=== PATIENT | female | born 1950 | race Caucasian/White ===

== ENCOUNTER 2017-12-06 13:00 | Outpatient (RCR) | payer MEDICARE, BC, SELFPAY ==
--- NOTE | 2017-12-06 14:38 | PTDS_ITS ---
Date: December 06, 2017 Referring: Ketan Khoury M.D. Diagnosis: neck and upper back pain Reporting period: October 05 til December 06 Subjective: History of Present Illness: Gilda reports she could not continue with MSP secondary to bronchitis. She has resolved this with antibiotics, and is currently reporting minimal to no neck pain; 85 to 90% improved since starting P.T. She is independent and compliant with her HEP and with her aquatic exercises. Standardized Measures: 0% via the NDI Objective: Recheck - - ROM: AROM of the cervical spine is grossly WFL and painfree in all directions. Still hypo mobility with down slopes and up slips at the mid cervical spine. Treatment: Therapeutic procedure (23362 x2) Progressed her HEP with Phase 1 Cervical Stabilization. Provided verbal cues for proper scapular positioning and cervical retraction. Treatment Time: 1:00 til 1:30 P.M. GCODES: Changing and maintaining body positions with a projected goal of GPG 8982 CI and a discharge status of GPG 8983 CH. 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 Plan: Discharge patient from P.T. She will attend our Wellness Program in February. Thank you for this referral! Please sign, date and return to our clinic with your approval................................. Ketan Khoury M.D.
== END 2017-12-21 23:59 | disposition home or self-care (01) ==
LOC: PT 13:00
PROVIDERS: PCP Family Medicine; Referring Provider Nurse Practitioner Gerontology; Visit Provider Nurse Practitioner Gerontology
DX: M54.2 Cervicalgia (principal); M54.6 Pain in thoracic spine
CPT/HCPCS: 97110

== ENCOUNTER 2018-01-03 02:27 | Outpatient (CLI) | payer MEDICARE, BC, SELFPAY ==
[2018-01-03 11:13] LABS: ALT 30 U/L (12-78); AST 23 U/L (15-37); Albumin 3.3 g/dL (3.4-5.0); Alkaline Phosphatase 64 U/L (46-116); Anion Gap 5.7 mmol/L (3-11); BUN 17 mg/dL (7-18); Bilirubin, Total 0.2 mg/dL (0.2-1.0); CO2 32.3 mmol/L (21.0-32.0); CREATININE 0.85 mg/dL (0.55-1.02); Calcium 8.8 mg/dL (8.5-10.1); Chloride 103 mmol/L (98-107); Cholesterol 173 mg/dL (50-200); Glucose 102 mg/dL (70-100); HDL Cholesterol 61 mg/dL (40-60); LDL CHOLESTEROL 100 mg/dL (<100); Potassium 3.7 mmol/L (3.5-5.1); Sodium 141 mmol/L (136-145); Total Protein 7.3 g/dL (6.4-8.2); Triglyceride 156 mg/dL (30-150)
[2018-01-03 12:44] LABS: Hemoglobin A1C 6.6 % (4.5-6.2)
== END 2018-01-03 02:47 ==
PROVIDERS: PCP Family Medicine; Visit Provider Family Medicine
DX: R04.2 Hemoptysis (principal); M06.9 Rheumatoid arthritis, unspecified; Z79.52 Long term (current) use of systemic steroids; E78.5 Hyperlipidemia, unspecified; R73.09 Other abnormal glucose
CPT/HCPCS: 36415; 80053; 80061; 83721; 83036

== ENCOUNTER 2018-05-15 13:44 | Outpatient (CLI) | payer MEDICARE, BC, SELFPAY ==
--- NOTE | 2018-05-15 11:15 | DI.RAD_ITS ---
SYMPTOMS/DIAGNOSIS: ACUTE SEVERE LUMBAR SPINE, CHRONIC PAIN, M54.5, G89.29 LUMBAR SPINE: There is a moderate levorotoscoliotic deformity of the lower dorsal and upper lumbar spine. The vertebral bodies are intact. Diffuse degenerative bony changes are noted associated with narrowed vacuum discs at T 12 - L 1, L 4 - 5 and L 5 - S 1. Endplate sclerosis and hypertrophic spurring is identified. There is a grade II anterolisthesis of L 4 on L 5. This finding associated with severe facet joint DJD. There is no definite evidence of spondylolysis or spondylolisthesis. The pedicle, spinous and transverse processes are intact. The sacrum and sacroiliac joints as visualized appear unremarkable save for mild degenerative changes. IMPRESSION: Findings consistent with severe DJD with multi-level narrowed vacuum discs, hypertrophic bony changes and a grade II L 4 on L 5 pseudospondylolisthesis. If there is further strong specific clinical question regarding the status of this patient and if clinically appropriate, then further evaluation with a MRI could be considered.
== END 2018-05-15 14:04 ==
PROVIDERS: PCP Family Medicine; Visit Provider Family Medicine
DX: M54.5 Low back pain (principal); M51.36 Other intervertebral disc degeneration, lumbar region; G89.29 Other chronic pain
CPT/HCPCS: 72110

== ENCOUNTER 2018-07-10 01:18 | Outpatient (CLI) | payer MEDICARE, BC, SELFPAY ==
--- NOTE | 2018-07-10 08:50 | DI.CT_ITS ---
SYMPTOM/DIAGNOSIS: HEMOPTYSIS, R04.[address]: A noncontrast CT scan of the chest was performed. There are no priors for comparison. Comparison xray is 11/02/17. There is mild atherosclerosis of the thoracic aorta but no aneurysmal dilatation is seen. Heart size is within normal limits. No significant pericardial effusion is seen. Coronary artery calcifications are present. No significant thoracic adenopathy is seen on this noncontrast examination. No pleural effusion or pneumothorax is identified. No focal consolidating infiltrates are seen in the lungs. There are a few peripheral linear lung markings present. These may represent atelectasis, scarring or mild interstitial disease. There are a few bulla seen in the lungs. The tracheobronchial tree is unremarkable. Chronic changes are seen in the thoracic spine. IMPRESSION: 1. No acute pulmonary process. 2. Linear infiltrate seen in the dependent periphery of the lungs. Differential considerations include atelectasis, scarring. Interstitial disease cannot be excluded.
== END 2018-07-10 01:38 ==
PROVIDERS: PCP Family Medicine; Visit Provider Internal Medicine
DX: R04.2 Hemoptysis (principal); R91.8 Other nonspecific abnormal finding of lung field
CPT/HCPCS: 71250

== ENCOUNTER 2018-08-14 02:01 | Outpatient (CLI) | payer MEDICARE, BC, SELFPAY ==
[2018-08-14 11:03] LABS: Abs Immature Grans 0.03 k/cumm (0.0-0.09); Absolute Basophil Count 0.08 k/cumm (0.0-0.2); Absolute Eosinophil Count 0.25 k/cumm (0.0-0.7); Absolute Lymphocyte Count 1.97 k/cumm (1.2-3.4); Absolute Monocyte Count 1.17 k/cumm (0.11-0.7); Absolute Neutrophil Count 3.68 k/cumm (1.2-6.7); Basophils % 1.1; Eosinophils % 3.5; HCT 38.5 % (36.0-46.0); HGB 12.5 g/dL (12.0-15.5); Immature Grans % 0.4; Lymphocytes % 27.4; Mean Corp. HGB Concentration 32.5 g/dL (32.0-36.0); Mean Corpuscular Hemoglobin 28.9 pg (27.0-33.0); Mean Corpuscular Volume 88.9 fL (80-95); Monocytes % 16.3; Neutrophils % 51.3; Platelet Count 321 x1000/uL (130-400); RBC 4.33 m/cumm (4.00-5.20); RBC Distribution Width 14.2 % (11.7-14.6); White Blood Cell Count 7.18 k/cumm (4.4-10.8)
[2018-08-14 11:36] LABS: Hemoglobin A1C 6.6 % (4.5-6.2)
[2018-08-14 11:38] LABS: ALT 26 U/L (12-78); AST 25 U/L (15-37); Albumin 3.3 g/dL (3.4-5.0); Alkaline Phosphatase 60 U/L (46-116); BUN 17 mg/dL (7-18); Bilirubin, Total 0.3 mg/dL (0.2-1.0); CREATININE 0.92 mg/dL (0.55-1.02); Chloride 101 mmol/L (98-107); Cholesterol 198 mg/dL (50-200); Glucose 104 mg/dL (70-100); HDL Cholesterol 61 mg/dL (40-60); LDL CHOLESTEROL 113 mg/dL (<100); Potassium 3.9 mmol/L (3.5-5.1); Sodium 141 mmol/L (136-145); Total Protein 6.8 g/dL (6.4-8.2); Triglyceride 176 mg/dL (30-150)
[2018-08-14 12:09] LABS: FREE T4 1.01 ng/dL (0.76-1.46)
== END 2018-08-14 02:21 ==
PROVIDERS: PCP Family Medicine; Visit Provider Family Medicine
DX: E03.9 Hypothyroidism, unspecified (principal); I10 Essential (primary) hypertension; E78.5 Hyperlipidemia, unspecified; M06.9 Rheumatoid arthritis, unspecified; R73.09 Other abnormal glucose
CPT/HCPCS: 36415; 80053; 80061; 83721; 83036; 84439; 84443; 85025

== ENCOUNTER 2018-10-09 00:41 | Outpatient (CLI) | payer MEDICARE, BC, SELFPAY ==
--- NOTE | 2018-10-09 15:00 | DI.MAMMO_ITS ---
SYMPTOMS/DIAGNOSIS: SCREENING, Z12.31 MAMMOGRAMS: Mammograms were interpreted according to the usual protocol including computer analysis with CAD system, tomosynthesis and C view imaging. The breast tissue is of moderate radiodensity. There is no dominant mass. There are no suspicious calcifications and there has been no significant interval change when compared with prior images. SUMMARY: No evidence of malignancy, category 1. Yearly screening mammography is recommended. Breast density category B. SA ASSESSMENT OF FINDINGS: Negative. Category 1. Patient will receive a letter notifying them of these results. BI-RADS category B. There are scattered areas of fibroglandular density.
== END 2018-10-09 01:01 ==
PROVIDERS: PCP Family Medicine; Visit Provider Family Medicine
DX: Z12.31 Encounter for screening mammogram for malignant neoplasm of breast (principal)
CPT/HCPCS: 77063; 77067

== ENCOUNTER → 2018-10-11 12:56 | Outpatient (BNVA) | payer MEDICARE, BC, SELFPAY | PROVIDERS: PCP Family Medicine; Referring Provider Family Medicine; Visit Provider Physical Therapy Assistant | DX: Z12.11 Encounter for screening for malignant neoplasm of colon (principal); E11.9 Type 2 diabetes mellitus without complications; I10 Essential (primary) hypertension; Z79.82 Long term (current) use of aspirin; Z80.0 Family history of malignant neoplasm of digestive organs ==

== ENCOUNTER 2018-10-23 14:11 | Outpatient (CLI) | payer MEDICARE, BC, SELFPAY ==
--- NOTE | 2018-10-23 13:38 | DI.RAD_ITS ---
SYMPTOMS/DIAGNOSIS: LEFT KNEE PAIN LEFT KNEE: Severe lateral femorotibial joint space narrowing, articular sclerosis and periarticular hypertrophic spurring and severe DJD involving the patellofemoral joint is noted. A genu varus deformity is identified. SUMMARY: Severe DJD, left knee. LEG LENGTH STUDY: The left leg measures 92 cm, the right leg measures 92 cm. A bilateral genu varus deformity is demonstrated. There are moderately severe right and severe left degenerative changes involving the knee.
== END 2018-10-23 14:31 ==
PROVIDERS: PCP Family Medicine; Referring Provider Family Medicine; Visit Provider Student in an Organized Health Care Education/Training Program
DX: M25.562 Pain in left knee (principal); M17.0 Bilateral primary osteoarthritis of knee; M21.161 Varus deformity, not elsewhere classified, right knee; M21.162 Varus deformity, not elsewhere classified, left knee; R06.00 Dyspnea, unspecified; R60.0 Localized edema
CPT/HCPCS: 99214; 73560; 77073

== ENCOUNTER 2018-11-20 00:07 | Outpatient (CLI) | payer MEDICARE, BC, SELFPAY ==
--- NOTE | 2018-11-20 06:34 | MERGEMPI_ITS ---
*[facility]* *[facility]* [address] [place] [address] Myocardial Perfusion Imaging - SPECT Regadenoson Date of study: 11/20/2018 *PATIENT PRESENTATION* Height: 160cm (63in) Blood Pressure: Weight: 109.1kg (240lb) BSA: 2.26m^2 Referring physician: Tomer Helton Ordering physician: Champ Gonsales Impressions: - Normal myocardial perfusion and contraction after pharmacological stress. - Low risk of cardiac events. Summary: 1. Myocardial perfusion imaging: No myocardial perfusion defects noted. 2. The calculated left ventricular ejection fraction after stress: 52%. LV global systolic function is normal. No left ventricular regional motion abnormality. 3. Stress ECG conclusions: The stress ECG is negative. 4. Imaging information: gated. Image quality reduced due to diaphragmatic attenuation and subdiaphragmatic activity. Attenuation correction used. Indication: R07.9, Appropriate Use Criteria: A (Appropriate). History: REASON FOR VISIT: INCREASED SHORTNESS OF BREATH, LEG SWELLING, MULTIPLE CARDIAC RISK FACTORS IS HERE FOR A PRE-SURGICAL SCREENING FOR SCHEDULED KNEE REPLACEMENT SURGERY ON [address] CARBAJAL. PMH: Asthma. Risk factors: Current tobacco use. Hypertension. Diabetes mellitus. Obesity. Dyslipidemia. Cholesterol: 198mg/dl. HDL: 61mg/dl. LDL: 113mg/dl. Triglycerides: 176mg/dl. ALLERGIES: LEVOFLOXACIN. BUDESONIDE. DOXYCYLINE. FORMOTEROL FUMARATE. MIDAZOLOAM. ENALAPRIT. MEDICATIONS: VITAMIN B COMPLEX. TURMERIC ROOT EXTRACT 500 MG CAP DAILY. TIOTROPIUM BROMIDE 2 PUFFS DAILY. SIMVASTATIN 20 MG Q HS. PREDNISONE 5 MG DAILY. PANTOPRAZOLE 40 MG DAILY. OMEGA-3 FATTY ACIDS 1 CAP DAILY. MVI 1 DAILY. MONTELUKAST 10 MG DAILY. LOSARTAN 100 MG-HYDROCHLOROTHIAZIDE 25 MG DAILY. LORATADINE 10 MG DAILY. LEVOTHYROXINE 150 MCG DAILY. LEFLUNOMIDE 20 MG PO 3X/QWK. GLUCOSAMINE SULFATE 1000 MG DAILY. ATENOLOL 50 MG DAILY. AMLODIPINE 5 MG DAILY. ALBUTEROL SULFATE 2 PUFFS Q 4 HRS PRN. CALCIUM 600 + D BID. ASPIRIN 81 MG DAILY. Imaging Technique: Protocol: Regadenoson. Acquisition: Gated SPECT; 1 day - rest/stress. The patient was imaged in the supine position. Attenuation correction used. Isotope administration: - Rest. Tc[99m]-sestamibi. Dose: 12.4mCi. Injection time: 08:45 AM. Injection to stress time: 00:45. - Stress. Tc[99m]-sestamibi. Dose: 36mCi. Injection time: 11:46 AM. 1-2 min before end of exercise Baseline ECG: SINUS RHYTHM. PROLONGED QT INTERVAL. HR 69 BPM. QTc 490ms; long QT interval. Normal sinus rhythm. Stress protocol: +--------+--+ + + !Stage !HR!BP (mmHg) !Comments ! +--------+--+ + + !Baseline!69!110/70 (83)! ! +--------+--+ + + !1 min !87!128/60 (83)!Inject Regadenoson.! +--------+--+ + + !3 min !83!128/60 (83)! ! +--------+--+ + + !6 min !81!130/62 (85)! ! +--------+--+ + + * Stress results: The rate-pressure product for the peak heart rate and blood pressure was 60631pm Hg/min. Stress ECG: STRESS TEST ENDED IN 6 MINUTES & 47 SECONDS. PT EXPERIENCED NO SIGNIFICANT SIDE EFFECTS FROM LEXISCAN NORMAL HEART RATE AND BLOOD PRESSURE RESPONSE TO LEXISCAN INJECTION NO ECTOPY NO ANGINA NO SIGNIFICANT ST SEGMENT CHANGES. The stress ECG is negative. Myocardial perfusion: Imaging information: gated. Image quality reduced due to diaphragmatic attenuation and subdiaphragmatic activity. Left ventricular size is normal. No myocardial perfusion defects noted. Ventricular Function (Wall Motion): The calculated left ventricular ejection fraction after stress: 52%. LV global systolic function is normal. No left ventricular regional motion abnormality. Study data: Tomer Helton MD supervised and was readily available during the procedure. This study was interpreted by [facility]. Study status: Routine. Consent: The risks, benefits, and alternatives to the procedure were explained to the patient and informed consent was obtained. Procedure: Initial setup. A baseline ECG was recorded. Surface ECG leads and manual cuff blood pressure measurements were monitored. Heart sounds: Normal. Lung sounds: Normal. Regadenoson stress test. Stress testing was performed, with regadenoson by intravenous bolus, for a total dose of 0.4mgover 10.00sec, followed by a 5ml saline flush. The infusion was terminated due to per protocol. Study completion: All catheters inserted during the procedure were removed. The patient tolerated the procedure well and was discharged from the lab. Discharge: The patient left the laboratory in stable condition. Birthdate: Patient birthdate: 1950. Sex: Gender: female. Study date: Study date: 11/20/2018. Study time: 00:01 AM. Signature Documentation: - The imaging portion of this study was interpreted by [employer] Starc[employer] Tomer Helton MD. - The Stress ECG portion of this study was interpreted by Tomer Helton MD. Electronically signed by Tomer Helton 11/20/2018 15:44
[2018-11-20] MEDS: Regadenoson 0.4 MG/5 ML SYR IVP (13:56)
== END 2018-11-20 00:27 ==
PROVIDERS: PCP Family Medicine; Visit Provider Family Medicine
DX: R06.02 Shortness of breath (principal); M79.669 Pain in unspecified lower leg; E11.9 Type 2 diabetes mellitus without complications; F17.210 Nicotine dependence, cigarettes, uncomplicated; I10 Essential (primary) hypertension; Z01.810 Encounter for preprocedural cardiovascular examination
CPT/HCPCS: 78452; 93016; 93018; 93017; J2785

== ENCOUNTER 2018-11-27 10:29 | Outpatient (CLI) | payer MEDICARE, BC, SELFPAY ==
--- NOTE | 2018-11-27 13:00 | DI.RAD_ITS ---
SYMPTOMS/DIAGNOSIS: CERVICALGIA, RA, DIABETES MELLITUS, HYPOTHYROIDISM, M54.2, E11.9, E03.9 CERVICAL SPINE: There is severe narrowing of the C 3 - 4 and C 6 - 7 disc spaces. There are also facet degenerative changes. There is straightening of the normal cervical lordosis. There is bilateral neural foraminal narrowing seen greatest C 3 - 4 and C 6 - 7 bilaterally. IMPRESSION: Facet degenerative changes and degenerative disc changes cause bilateral neural foraminal narrowing.
== END 2018-11-27 10:49 ==
PROVIDERS: PCP Family Medicine; Visit Provider Family Medicine
DX: E11.9 Type 2 diabetes mellitus without complications (principal); E03.9 Hypothyroidism, unspecified; M54.2 Cervicalgia; M50.31 Other cervical disc degeneration, high cervical region; M50.323 Other cervical disc degeneration at C6-C7 level; M47.812 Spondylosis without myelopathy or radiculopathy, cervical region
CPT/HCPCS: 72050

== ENCOUNTER 2018-11-29 03:53 | Outpatient (CLI) | payer MEDICARE, BC, SELFPAY ==
[2018-11-29 11:06] LABS: Hemoglobin A1C 6.8 % (4.5-6.2)
[2018-11-29 11:16] LABS: ALT 29 U/L (12-78); AST 23 U/L (15-37); Albumin 3.4 g/dL (3.4-5.0); Alkaline Phosphatase 56 U/L (46-116); Anion Gap 10.5 mmol/L (3-11); BUN 19 mg/dL (7-18); Bilirubin, Total 0.4 mg/dL (0.2-1.0); CO2 28.5 mmol/L (21.0-32.0); CREATININE 1.04 mg/dL (0.55-1.02); Calcium 9.2 mg/dL (8.5-10.1); Chloride 101 mmol/L (98-107); Glucose 146 mg/dL (70-100); Potassium 4.1 mmol/L (3.5-5.1); Sodium 140 mmol/L (136-145); TSH 2.65 uIU/mL (0.36-3.74)
== END 2018-11-29 04:13 ==
PROVIDERS: PCP Family Medicine; Visit Provider Family Medicine
DX: E11.9 Type 2 diabetes mellitus without complications (principal); E03.9 Hypothyroidism, unspecified
CPT/HCPCS: 36415; 80053; 83036; 84443

== ENCOUNTER 2018-12-19 00:40 | Outpatient (CLI) | payer MEDICARE, BC, SELFPAY ==
--- NOTE | 2018-12-19 08:05 | DI.MRI_ITS ---
SYMPTOM/DIAGNOSIS: CERVICAL STENOSIS WITH INTERMMITTENT NEURO SX M48.02 MRI CERVICAL SPINE: Routine noncontrast examination was performed. There is normal signal in the spinal cord. No evidence of tonsillar ectopia is present. At C7-T1 there is mild prominence of the osteophyte disc complex. No significant central spinal canal stenosis is present. There is mild narrowing of the left neural foramen. The right neural foramen appears patent. At C6-C7, there is disc desiccation. There is prominence of the osteophyte disc complex. There is prominence of the uncovertebral joints bilaterally left greater than right. The findings cause moderately severe left neural foraminal stenosis and mild right neural foraminal stenosis. At C5-C6, there is prominence of the osteophyte disc complex narrowing the AP diameter of the central spinal canal and effacing the anterior subarachnoid space. There is some flattening of the anterior spinal cord. There are degenerative changes of the uncovertebral joints bilaterally causing moderately severe left and moderate right neural foraminal stenosis. At C4-C5 there is mild prominence of the osteophyte disc complex. No significant central spinal canal or neural foraminal stenosis present. At C3-C4 there is prominence of the osteophyte disc complex causing mild central spinal canal stenosis. There are degenerative changes of the uncovertebral joints bilaterally causing moderately severe bilateral neuroforaminal stenosis. At C2-C3 there is no focal disc herniation, central spinal canal or neural foraminal stenosis. Marrow signal is within normal limits. IMPRESSION: Moderately severe multi-level degenerative changes in the cervical spine. The findings are most marked at C3-4 and C5-C6. Please see the above discussion for complete details.
== END 2018-12-19 01:00 ==
PROVIDERS: PCP Family Medicine; Visit Provider Family Medicine
DX: M48.02 Spinal stenosis, cervical region (principal); M47.812 Spondylosis without myelopathy or radiculopathy, cervical region
CPT/HCPCS: 72141

== ENCOUNTER 2019-01-06 03:58 | Emergency (ER) | payer MEDICARE, BC, SELFPAY ==
[2019-01-06 04:01] VITALS: BP 140/85; PULSE 103; RESP 20; TEMP 37.4; O2SAT 95
--- NOTE | 2019-01-06 04:17 | W.ED.GENAD ---
Discharge Plan Disposition Patient Disposition: HOME Condition: Good Discharge Details Chief Complaint: Orthopedic Clinical Impression: Impingement syndrome of right shoulder Primary Care Provider: Ketan Khoury ED Provider: Amrit Barrera Home Meds and New Rx's Prescriptions: New lidocaine [Lidoderm] 1 PATCH patch 1 patch Topical Q24H Qty: 4 RF: 0 Continued turmeric root extract 500 mg capsule 500 mg PO DAILY RF: 0 Spiriva Respimat 2.5 mcg/actuation mist 2 puff IH DAILY Qty: 4 RF: 0 levothyroxine 150 mcg capsule 150 mcg PO DAILY Qty: 90 RF: 3 polyethylene glycol 3350 [Miralax] 17 gram/dose powder 17 gm PO DAILY PRN (Reason: constipation) RF: 0 Flonase Sensimist 27.5 mcg/actuation spray,suspension 2 spray SANDRA DAILY PRN (Reason: allergy symptoms) RF: 0 celecoxib [Celebrex] 200 mg capsule 200 mg PO DAILY PRN (Reason: pain) Qty: 30 RF: 2 tramadol 50 mg tablet 50 mg PO Q8H PRN (Reason: pain) Qty: 30 RF: 0 albuterol sulfate [ProAir HFA] 90 mcg/actuation HFA aerosol inhaler 2 puff Inhalation Q4H PRN (Reason: shortness of breath or wheezing) Qty: 3 RF: 0 metformin 500 mg tablet 500 mg PO BID Qty: 60 RF: 11 multivitamin 1 EACH tablet 1 ea PO DAILY RF: 0 omega-3 fatty acids-fish oil 1 EACH capsule 1 cap PO DAILY RF: 0 glucosamine sulfate sodium Cl 1,000 MG tablet 1,000 mg PO DAILY RF: 0 CALCIUM 600 + D TABLET 1 EACH tablet 1 ea PO BID RF: 0 vitamin B complex 1 EACH tablet 1 tab PO DAILY RF: 0 ASPIRIN 81 MG tablet 81 mg PO DAILY RF: 0 prednisone 5 MG tablet 5 mg PO DAILY Qty: 90 RF: 4 leflunomide [Arava] 20 MG tablet 20 mg PO 3x/wk RF: 0 atenolol [Tenormin] 50 mg tablet 50 mg PO DAILY Qty: 90 RF: 4 montelukast 10 mg tablet 10 mg PO DAILY Qty: 90 RF: 3 pantoprazole [Protonix] 40 mg tablet,delayed release (DR/EC) 40 mg PO DAILY Qty: 90 RF: 4 simvastatin 20 mg tablet 20 mg PO HS Qty: 90 RF: 4 losartan-hydrochlorothiazide [Hyzaar] 100-25 mg tablet 1 tab PO DAILY Qty: 90 RF: 3 fluticasone propion-salmeterol [Advair Diskus] 500-50 mcg/dose blister with device 1 inh IH Q12H Qty: 60 RF: 0 amlodipine 5 mg tablet 5 mg PO DAILY Qty: 90 RF: 3 cholecalciferol (vitamin D3) 1,000 unit capsule 5,000 unit PO DAILY RF: 0 coenzyme Q10 [Co Q-10] 50 MG capsule 1 cap PO DAILY RF: 0 loratadine 10 MG tablet 10 mg PO DAILY RF: 0 Discharge Instructions Instructions: Rotator Cuff Injury (ED) Additional Instructions: You have notable arthritis in your right shoulder, and evidence of bone spurs. I am concerned for arthritis and impingement syndrome as to the cause of your pain. Please continue to take Tylenol 1000 mg every 6 hours, and use Lidoderm patch as directed. If you are using the sling for comfort please make sure to move your arm frequently to prevent any frozen shoulder syndrome. Please follow-up closely with your scheduled appointment with the orthopedic surgeon Dr. Roldan. If you notice any worsening of your symptoms, or any new symptoms such as vomiting, diarrhea, fever, chills, shortness of breath, chest pain, numbness, weakness, or fainting , please return immediately to the emergency department for reevaluation. Please follow up with your primary care provider as soon as possible for reassessment and reevaluation. As always, it was a pleasure participating in your medical care today. Referrals: Anjel Roldan MD [ [facility] STAFF PHYSICIAN] - Medical Decision Making This is a 68-year-old female with a past medical history of diabetes, hypertension, high cholesterol, lupus, rheumatoid arthritis, who presents today for atypical pain in her right shoulder. Pain began earlier this evening when she was watching a sporting event and holding a pair binoculars, it is continued throughout the night significantly worsened as of late. It is made worse by movement. She did take tramadol and has been using ice and heat but this is not improved her symptoms. She denies any associated numbness or tingling. She denies any actual weakness however strength is certainly limited secondary to pain. She denies any recent traumas. No history of dissection or aneurysm. She did have a stress test 2 months ago which was notably unremarkable. Differential at this time includes flare of arthritis, mild atypical rotator cuff injury or bursitis, impingement syndrome and less likely but certainly more concerning ACS. With normal blood pressures, normal radial pulses bilaterally, no chest pain or tightness, no tearing or ripping sensation, no radiation of the pain to her back, signs and symptoms appear clinically consistent with aneurysm or dissection. We will perform a screening cardiac work-up, treat with Tylenol, Toradol and Lidoderm patch, and x-rays to evaluate for acute osseous abnormality and reassess. 5:43 AM After Lidoderm patch, Tylenol and Toradol the patient is feeling much better. She still does have some mild to moderate pain though. X-ray results demonstrate notable AC joint arthropathy with inferiorly projecting bony spur which may contribute to impingement which would correlate well with her current clinical symptomatology. Troponin normal, aside from mild hypokalemia of the remainder of her laboratory work-up is relatively benign. Chest x-ray does show a notable atypical aspect in her right lung however on clinical correlation this appears to be her pendulous breast, and she has no evidence of pneumonia clinically. With no cough, no crackles in the bases. At this time signs and symptoms appear clinically consistent with impingement syndrome and right shoulder arthritis. Will recommend continued NSAIDs, Lidoderm patch, and close follow-up with student career development specialist. She already has a scheduled appointment in [address] Roldan. I have extensively reviewed the treatment plan and discharge instructions with the patient and their family. I have addressed all patient concerns at this time. The patient and family was made aware of what symptoms to monitor for that would warrant a return to the emergency department. Discussed the plan with the patient and family, they demonstrate verbal understanding and agreement with our assessment and plan at this time. EKG 4: 17 Rate 94, NH 136, QTc 470, QRS 116, sinus rhythm, no significant ST elevations or depressions, no T wave inversions except for single T wave inversion in aVL, Q waves noted in aVL EKG from 2016 demonstrates identical findings. FINDINGS: Bones/joints: Heterogeneous appearance at the greater tuberosity likely reflects chronic rotator cuff arthropathy . A.c. joint arthropathy noted with inferiorly projecting bony spur which may contribute to impingement. Soft tissues: Normal. IMPRESSION: 1. Heterogeneous appearance at the greater tuberosity likely reflects chronic rotator cuff arthropathy . 2. A.c. joint arthropathy noted with inferiorly projecting bony spur which may contribute to impingement. Thank you for allowing us to participate in the care of your patient. Dictated and Authenticated by: Drew Savage MD FINDINGS: Lungs: See Soft Tissues Finding. Pleural space: Unremarkable. No pleural effusion. No pneumothorax. Heart/Mediastinum: Unremarkable. No cardiomegaly. Bones/joints: Unremarkable. Soft tissues: Increased attenuation at the right mid to lower lung in part reflects overlying soft tissues. However the asymmetry suggests the possibility of underlying atelectasis or airspace disease and clinical correlation recommended which should include auscultation at the right lung base to assess for pneumonia. IMPRESSION: Increased attenuation at the right mid to lower lung in part reflects overlying soft tissues. However the asymmetry suggests the possibility of underlying atelectasis or airspace disease and clinical correlation recommended which should include auscultation at the right lung base to assess for pneumonia. Thank you for allowing us to participate in the care of your patient. Dictated and Authenticated by: Drew Savage MD Impressions: - Normal myocardial perfusion and contraction after pharmacological stress. - Low risk of cardiac events. Summary: 1. Myocardial perfusion imaging: No myocardial perfusion defects noted. 2. The calculated left ventricular ejection fraction after stress: 52%. LV global systolic function is normal. No left ventricular regional motion abnormality. 3. Stress ECG conclusions: The stress ECG is negative. 4. Imaging information: gated. Image quality reduced due to diaphragmatic attenuation and subdiaphragmatic activity. Attenuation correction used. HPI General Date/Time Provider Initiated Documentation: 01/06/19 04:03. HPI Narrative: This is a 68-year-old female with a notably extensive past medical history of lupus, diabetes, hypertension, high cholesterol, lichen planus, rheumatoid arthritis, who presents today for evaluation of right shoulder pain. Patient states that earlier this afternoon she developed a mild amount of right shoulder pain while she was holding some binoculars at a sporting event. Throughout the day and night the pain gradually continued. She did take a tramadol later this evening this improved nothing. She woke up early this morning with continued severe pain in the right shoulder. She describes it as an achy-like sensation, and it radiates down her right shoulder into her arm. She did try heat and ice and this did not change the symptoms. Is made worse with movement, improved by nothing. She denies any associated numbness tingling or weakness. Movement is significantly limited secondary to the pain though. She denies any chest pain, chest tightness, chest tearing sensation, bandlike sensation on the chest, pleuritic chest pain or cough. She did recently have a stress test in October 2 months ago and this was within normal limits. She denies having had pain like this in the past. She does admit to a distant history of potential rotator cuff injury but states that this feels different. She has no other complaints at this time. No other modifying factors. She does admit to a family history of cardiac disease but denies any history of aortic dissection, or aneurysm. Related Data Home Medications Medication Instructions Recorded Confirmed Calcium 600 + D Tablet 1 ea PO BID 07/08/12 01/01/19 glucosamine sulfate sodium Cl 1,000 mg PO DAILY 07/08/12 01/01/19 multivitamin 1 ea PO DAILY 07/08/12 01/01/19 omega-3 fatty acids-fish oil 1 cap PO DAILY 07/08/12 01/01/19 vitamin B complex 1 tab PO DAILY 07/08/12 01/01/19 Aspirin 81 mg PO DAILY tab-cap 07/10/12 01/01/19 prednisone 5 mg PO DAILY #90 tab 12/14/14 01/06/19 coenzyme Q10 [Co Q-10] 1 cap PO DAILY 01/08/16 01/06/19 loratadine 10 mg PO DAILY 01/08/16 01/06/19 leflunomide [Arava] 20 mg PO 3x/wk tab-cap 01/22/17 01/06/19 turmeric root extract 500 mg 500 mg PO DAILY 02/04/18 01/01/19 capsule atenolol 50 mg tablet 50 mg PO DAILY #90 tab 04/22/18 01/06/19 losartan 100 1 tab PO DAILY #90 tab-cap 04/22/18 01/06/19 mg-hydrochlorothiazide 25 mg tablet montelukast 10 mg tablet 10 mg PO DAILY #90 tab 04/22/18 01/06/19 pantoprazole 40 mg tablet,delayed 40 mg PO DAILY #90 tab 04/22/18 01/06/19 release simvastatin 20 mg tablet 20 mg PO HS #90 tab-cap 04/22/18 01/06/19 albuterol sulfate 90 mcg/actuation 2 puff INHALATION Q4H PRN #3 gm 06/12/18 01/06/19 aerosol inhaler tiotropium bromide 2.5 2 puff IH DAILY #4 gm 08/13/18 01/06/19 mcg/actuation mist for inhalation levothyroxine 150 mcg capsule 150 mcg PO DAILY #90 cap 08/27/18 01/06/19 fluticasone furoate 27.5 2 spray SANDRA DAILY PRN ml 10/11/18 01/06/19 mcg/actuation nasal spray,suspension polyethylene glycol 3350 17 17 gm PO DAILY PRN 10/11/18 01/06/19 gram/dose oral powder fluticasone 500 mcg-salmeterol 50 1 inh IH Q12H #60 each 10/17/18 01/06/19 mcg/dose blistr powdr for inhalation celecoxib 200 mg capsule 200 mg PO DAILY PRN #30 cap 11/27/18 01/06/19 tramadol 50 mg tablet 50 mg PO Q8H PRN #30 tab 11/27/18 01/06/19 amlodipine 5 mg tablet 5 mg PO DAILY #90 tab 12/02/18 01/06/19 cholecalciferol (vitamin D3) 1,000 5,000 unit PO DAILY cap 12/16/18 01/01/19 unit capsule metformin 500 mg tablet 500 mg PO BID #60 tab 12/16/18 01/06/19 lidocaine [Lidoderm] 1 patch TOPICAL Q24H #4 patch 01/06/19 Previous Rx's Medication Instructions Recorded atenolol 50 mg tablet 50 mg PO DAILY #90 tab 04/22/18 losartan 100 1 tab PO DAILY #90 tab-cap 04/22/18 mg-hydrochlorothiazide 25 mg tablet montelukast 10 mg tablet 10 mg PO DAILY #90 tab 04/22/18 pantoprazole 40 mg tablet,delayed 40 mg PO DAILY #90 tab 04/22/18 release simvastatin 20 mg tablet 20 mg PO HS #90 tab-cap 04/22/18 albuterol sulfate 90 mcg/actuation 2 puff INHALATION Q4H PRN #3 gm 06/12/18 aerosol inhaler tiotropium bromide 2.5 2 puff IH DAILY #4 gm 04/23/19 mcg/actuation mist for inhalation levothyroxine 150 mcg capsule 150 mcg PO DAILY #90 cap 08/27/18 fluticasone 500 mcg-salmeterol 50 1 inh IH Q12H #60 each 10/17/18 mcg/dose blistr powdr for inhalation celecoxib 200 mg capsule 200 mg PO DAILY PRN #30 cap 11/27/18 tramadol 50 mg tablet 50 mg PO Q8H PRN #30 tab 11/27/18 amlodipine 5 mg tablet 5 mg PO DAILY #90 tab 12/02/18 metformin 500 mg tablet 500 mg PO BID #60 tab 12/16/18 lidocaine [Lidoderm] 1 patch TOPICAL Q24H #4 patch 01/06/19 Allergies Allergy/AdvReac Type Severity Reaction Status Date / Time levofloxacin Allergy Mild rash Verified 01/06/19 04:09 budesonide [From Symbicort] AdvReac Severe chest pain Verified 01/06/19 04:09 doxycycline AdvReac Severe esophagitis Verified 01/06/19 04:09 formoterol fumarate AdvReac Severe chest pain Verified 01/06/19 04:09 [From Symbicort] midazolam HCl [From Versed] AdvReac Intermediate Contraindic Verified 01/06/19 04:09 ated enalaprilat AdvReac Mild Cough Verified 01/06/19 04:09 General Stated Complaint: Orthopedic ANA: 3 Review of Systems Review of Systems ROS Unobtainable: All systems reviewed & are unremarkable except as noted in HPI and below PFSH Medical History (Updated 01/01/19 @ 08:55 by Ketan Khoury) Abnormal cervical Papanicolaou smear (Acute) Asthma Asthma (Chronic 01/07/13) continue current meds Cervical spinal stenosis (Acute) Chest pain (Acute) Cholelithiasis without obstruction (Chronic 03/22/93) Corticosteroid dependence (Acute) CTS (carpal tunnel syndrome) (Acute 05/08/14) Current chronic use of systemic steroids (Chronic 08/01/16) Diabetes mellitus (Chronic) Discoid lupus erythematosus (Acute) Elevated hemoglobin A1c (Chronic 07/11/16) Enthesitis (Chronic) Essential hypertension (Chronic 07/16/13) check some BPs at home as discussed use machine we lent you pls return it when yuivana see Dr Khoury next month Gastroesophageal reflux disease (Chronic) GERD (gastroesophageal reflux disease) Glossitis (Acute 06/05/13) Hiatal hernia (Chronic 03/22/93) History of tobacco use (Chronic) HTN (hypertension) Negative stress test 2015 Hyperlipidemia (Chronic 12/14/14) Hypothyroidism Hypothyroidism (Chronic 07/10/12) 1993-Grave's disease; S/P SHORE 131; Lichen planus (Chronic 06/05/13) Lumbar stenosis (Chronic 11/22/16) [facility] INJE[facility] Obesity (Chronic) Osteoarthritis of lumbar spine (Chronic) Parastomal hernia (Acute 07/09/12) Peripheral neuropathy (Chronic) Primary osteoarthritis of left knee (Chronic 10/30/16) Rheumatoid arthritis (Chronic 07/10/12) discoid lupus Small vessel vasculitis (Acute) Smoker (Resolved) Spinal stenosis Spinal stenosis (Chronic 02/18/14) Surgical History Appendectomy (~12/1975) Cervical Procedure (~1978) section Cholecystectomy (~1993) EGD - MAC (02/25/16) History of section (Resolved) History of orthopedic surgery (Resolved) Status post appendectomy (Resolved) Status post cholecystectomy (Resolved) Status post tonsillectomy (Resolved) Tonsillectomy Social History (Updated 08/14/18 @ 13:38 by Alcon Moran) Smoking/Tobacco Use Status: Former Tobacco Use Quit Date: 04/23/86 Tobacco: How many years used: 18 Alcohol Intake: never Drug use: Never Substance use type: does not use Caregiver/Support person: No Household members: none Housing: house Communication Needs: None Do you need help understanding health information?: Rarely Pets and animals: Yes Pets and animals: cat(s) Sexually active: No Do you think of yourself as: lesbian/longo/homosexual Current gender identity: female What is your relationship status?: How often do you talk on the phone with friends or family?: three or more times per week How often do you get together with friends or relatives?: twice per week How often do you attend gnosticism or restorationist services?: decline to answer Do you belong to any clubs or organized social groups?: yes Panel score (0-1 are the most socially isolated patients): 2 What type of physical activity do you participate in: other Details: Pool PT Duration: 30-45 minutes/day Frequency: 1-2 times per week Dahiana/Worship: None Special dahiana needs: No Seatbelt use: always Helmet use: No Drive intox or ride w/intox otr owner operator truck driver: No Do you feel safe at home: Yes Do you feel safe in your relationship?: Yes Additional Social history: live alone Exam Narrative Exam Narrative: 1.Const: Well-nourished, Well-developed, appearing stated age 2.Eyes: PERRL, no conjunctival injection, and symmetrical lids. 3.ENT: Atraumatic external nose and ears. Moist MM. Neck: Symmetric, trachea midline, No thyromegaly. 4.CVS: +S1/S2, No murmurs or gallops. Peripheral pulses 2+ and equal in all extremities. Brisk capillary refill in all extremities. 5.RESP: Unlabored respiratory effort. Clear to auscultation bilaterally. No wheezes rales or rhonchi 6.GI: Soft, Nontender/Nondistended, No hepatosplenomegaly. No guarding or rebound. 7.MSK: Normocephalic/Atraumatic, Extremities w/o deformity No cyanosis or clubbing, left upper extremity unremarkable, right upper extremity visually unremarkable. There is subjective tenderness on palpation of the right shoulder right humerus. Pain is worsened with movement and every single direction. Strength appears to be intact, however complete strength testing is certainly limited by the patient's lack of cooperation with the exam secondary to pain. There is no redness, warmth, erythema or edema. Radial pulse +2 bilaterally, brisk capillary refill, normal movements of the hand and fingers. Normal rod and tube straightener strength. No significant tenderness over the right clavicle. 8.Skin: Warm, Dry. No rashes or lesions. 9.Neuro: scientific writer II-XII grossly intact. Sensation grossly intact, no focal neurologic deficits. 10.Psych: (AAO) x3. Appropriate mood and affect Course Vital Signs Vital signs: Vital Signs Temperature 37.4 C 01/06/19 04:01 Pulse 103 H 01/06/19 04:01 Respiratory Rate 20 01/06/19 04:01 Blood Pressure 140/85 01/06/19 04:01 Pulse Oximetry 95 01/06/19 04:01 Temperature 37.4 C 01/06/19 04:01 Temperature Source Tympanic 01/06/19 04:01 Pulse 103 H 01/06/19 04:01 Respiratory Rate 20 01/06/19 04:01 Blood Pressure 140/85 01/06/19 04:01 Pulse Oximetry 95 01/06/19 04:01 Oxygen Delivery Method Room Air 01/06/19 04:01 Oxygen Flow Rate 0 01/06/19 04:01 Pain Level 9 01/06/19 04:01
[2019-01-06] MEDS: Ketorolac 15 MG/ML VIAL IVP (04:37)
[2019-01-06] MEDS: Acetaminophen 500 MG TAB 1000 MG PO (04:37)
[2019-01-06] MEDS: Lidocaine 5% Patch 1 PATCH TP (04:38)
[2019-01-06 04:42] LABS: Abs Immature Grans 0.05 k/cumm (0.0-0.09); Absolute Eosinophil Count 0.17 k/cumm (0.0-0.7); Absolute Monocyte Count 1.77 k/cumm (0.11-0.7); Basophils % 0.4; Eosinophils % 1.2; Immature Grans % 0.4; Mean Corp. HGB Concentration 32.5 g/dL (32.0-36.0); Mean Corpuscular Hemoglobin 28.8 pg (27.0-33.0); Mean Corpuscular Volume 88.7 fL (80-95); Mean Platelet Volume 10.4 fL (8.0-11.0); Monocytes % 12.7; Neutrophils % 68.3; Platelet Count 350 x1000/uL (130-400); RBC 4.51 m/cumm (4.00-5.20); RBC Distribution Width 13.5 % (11.7-14.6); White Blood Cell Count 13.97 k/cumm (4.4-10.8)
[2019-01-06 04:56] LABS: PTT Activated 21.7 sec (21.0-31.4)
[2019-01-06 04:58] LABS: ALT 27 U/L (14-59); AST 20 U/L (15-37); Albumin 3.6 g/dL (3.4-5.0); Alkaline Phosphatase 52 U/L (46-116); Anion Gap 6.9 mmol/L (3-11); BUN 19 mg/dL (7-18); Bilirubin, Total 0.4 mg/dL (0.2-1.0); CO2 30.1 mmol/L (21.0-32.0); CREATININE 1.04 mg/dL (0.55-1.02); Chloride 97 mmol/L (98-107); Glucose 125 mg/dL (70-100); Potassium 3.1 mmol/L (3.5-5.1); Sodium 134 mmol/L (136-145)
[2019-01-06 05:05] LABS: Troponin I < 0.05 ng/mL (0.00-0.06)
[2019-01-06 05:06] LABS: Absolute Basophil Count 0.06 k/cumm (0.0-0.2); Absolute Lymphocyte Count 2.37 k/cumm (1.2-3.4); Absolute Neutrophil Count 9.54 k/cumm (1.2-6.7)
--- NOTE | 2019-01-06 05:10 | DI.RAD_ITS ---
SYMPTOM/DIAGNOSIS: RT SHOULDER PAIN, NO TRAUMA RIGHT SHOULDER: Degenerative changes involving the AC joint and glenohumeral joint are demonstrated. The possibility of a chronic rotator cuff tear is raised. The soft tissues are unremarkable. SUMMARY: Heterogeneous appearance of the greater tuberosity of the humerus which may represent chronic rotator cuff arthropathy. Also degenerative change involving the AC joint are demonstrated and an inferiorly projecting bony spur is identified which could contribute to impingement. AP AND LATERAL CHEST: Increased density is noted in the right mid lung and likely represents overlying soft tissues, however, the asymmetry suggests the possibility of underlying atelectasis or air space disease. There is no pleural effusion or pneumothorax. There is no cardiomegaly. No acute bony abnormality is seen. Correlation of the above noted findings with the patient's clinical status is recommended.
[2019-01-06 05:12] LABS: Diff Comment Agrees w/ Instrument; Poikilocytes 1+
--- NOTE | 2019-01-06 05:28 | DI.VRAD_ITS ---
EXAM: XR Right Shoulder EXAM DATE/TIME: 01/06/2019 4:15 AM CLINICAL HISTORY: 68 years old, female; Shoulder; Right; Patient HX: Significant pain, no trauma or known injury TECHNIQUE: Imaging protocol: XR Right shoulder. Views: 2 or more views. COMPARISON: No relevant prior studies available. FINDINGS: Bones/joints: Heterogeneous appearance at the greater tuberosity likely reflects chronic rotator cuff arthropathy . A.c. joint arthropathy noted with inferiorly projecting bony spur which may contribute to impingement. Soft tissues: Normal. IMPRESSION: 1. Heterogeneous appearance at the greater tuberosity likely reflects chronic rotator cuff arthropathy . 2. A.c. joint arthropathy noted with inferiorly projecting bony spur which may contribute to impingement. Dictated and Authenticated by: Drew Savage MD. Ordering:TITUS Marcus MD
--- NOTE | 2019-01-06 05:29 | DI.VRAD_ITS ---
EXAM: XR Chest, 2 Views EXAM DATE/TIME: 01/06/2019 4:15 AM CLINICAL HISTORY: 68 years old, female; Right-sided chest pain; Patient HX: Right sided shoulder pain, no trauma TECHNIQUE: Imaging protocol: XR of the chest Views: 2 views. COMPARISON: CR CHEST 2 VIEWS PA,LAT 11/02/2017 1:38 PM FINDINGS: Lungs: See Soft Tissues Finding. Pleural space: Unremarkable. No pleural effusion. No pneumothorax. Heart/Mediastinum: Unremarkable. No cardiomegaly. Bones/joints: Unremarkable. Soft tissues: Increased attenuation at the right mid to lower lung in part reflects overlying soft tissues. However the asymmetry suggests the possibility of underlying atelectasis or airspace disease and clinical correlation recommended which should include auscultation at the right lung base to assess for pneumonia. IMPRESSION: Increased attenuation at the right mid to lower lung in part reflects overlying soft tissues. However the asymmetry suggests the possibility of underlying atelectasis or airspace disease and clinical correlation recommended which should include auscultation at the right lung base to assess for pneumonia. Dictated and Authenticated by: Drew Savage MD. Ordering:TITUS Marcus MD
[2019-01-06 05:56] VITALS: BP 140/85; PULSE 103; RESP 20; O2SAT 95
[2019-01-06] MEDS: Potassium Chloride 20 MEQ TABCR 40 MEQ PO (05:56)
== END 2019-01-06 05:55 | disposition home or self-care (01) ==
PROVIDERS: Emergency Provider Student in an Organized Health Care Education/Training Program; PCP Family Medicine
DX: M75.41 Impingement syndrome of right shoulder (principal); E87.6 Hypokalemia; M19.011 Primary osteoarthritis, right shoulder; I10 Essential (primary) hypertension; E11.9 Type 2 diabetes mellitus without complications; Z79.84 Long term (current) use of oral hypoglycemic drugs
CPT/HCPCS: 80053; 93005; 96374; 99285; 71046; 73030; 84484; 85025; 85610; 85730; 93010; J1885; L3650

== ENCOUNTER 2019-01-07 08:52 | Outpatient (CLI) | payer MEDICARE, BC, SELFPAY ==
[2019-01-07 09:23] LABS: HCT 37.9 % (36.0-46.0); HGB 12.4 g/dL (12.0-15.5); Mean Corp. HGB Concentration 32.7 g/dL (32.0-36.0); Mean Corpuscular Hemoglobin 28.8 pg (27.0-33.0); Mean Corpuscular Volume 88.1 fL (80-95); Platelet Count 330 x1000/uL (130-400); RBC Distribution Width 13.5 % (11.7-14.6)
[2019-01-07 10:17] LABS: Anion Gap 11.2 mmol/L (3-11); BUN 19 mg/dL (7-18); CO2 28.8 mmol/L (21.0-32.0); CREATININE 1.03 mg/dL (0.55-1.02); Calcium 9.4 mg/dL (8.5-10.1); Chloride 98 mmol/L (98-107); Estimated GFR 53.29 (mL/min/1.73m2); Glucose 110 mg/dL (70-100); Potassium 4.2 mmol/L (3.5-5.1); Sodium 138 mmol/L (136-145)
== END 2019-01-07 09:12 ==
PROVIDERS: PCP Family Medicine; Visit Provider Student in an Organized Health Care Education/Training Program
DX: M25.562 Pain in left knee (principal); M17.12 Unilateral primary osteoarthritis, left knee; M21.062 Valgus deformity, not elsewhere classified, left knee; I10 Essential (primary) hypertension; E11.9 Type 2 diabetes mellitus without complications; K21.9 Gastro-esophageal reflux disease without esophagitis; J44.9 Chronic obstructive pulmonary disease, unspecified; Z01.812 Encounter for preprocedural laboratory examination; Z01.818 Encounter for other preprocedural examination
CPT/HCPCS: 36415; 80048; 85027; 83036

== ENCOUNTER 2019-01-14 03:15 | Emergency (ER) | payer MEDICARE, BC, SELFPAY ==
[2019-01-14 03:19] VITALS: BP 152/63; PULSE 95; RESP 22; TEMP 36.4; O2SAT 95
--- NOTE | 2019-01-14 03:23 | W.ED.GENAD ---
Discharge Plan Disposition Patient Disposition: HOME Condition: Good Discharge Details Chief Complaint: Orthopedic Clinical Impression: Acute pain of left shoulder Primary Care Provider: Ketan Khoury ED Provider: Rogerio Narvaez Depew Meds and New Rx's Prescriptions: New cyclobenzaprine [cyclobenzaprine] 10 MG tablet 10 mg PO Q8H PRN PRN (Reason: Spasms) Qty: 10 RF: 0 Continued turmeric root extract 500 mg capsule 500 mg PO DAILY RF: 0 Spiriva Respimat 2.5 mcg/actuation mist 2 puff IH DAILY Qty: 4 RF: 0 levothyroxine 150 mcg capsule 150 mcg PO DAILY Qty: 90 RF: 3 polyethylene glycol 3350 [Miralax] 17 gram/dose powder 17 gm PO DAILY PRN (Reason: constipation) RF: 0 Flonase Sensimist 27.5 mcg/actuation spray,suspension 2 spray SANDRA DAILY PRN (Reason: allergy symptoms) RF: 0 celecoxib [Celebrex] 200 mg capsule 200 mg PO DAILY PRN (Reason: pain) Qty: 30 RF: 2 tramadol 50 mg tablet 50 mg PO Q8H PRN (Reason: pain) Qty: 30 RF: 0 Hold Instructions: Home Medication placed on hold at Doctor's office albuterol sulfate [ProAir HFA] 90 mcg/actuation HFA aerosol inhaler 2 puff Inhalation Q4H PRN (Reason: shortness of breath or wheezing) Qty: 3 RF: 0 metformin 500 mg tablet 500 mg PO BID Qty: 60 RF: 11 multivitamin 1 EACH tablet 1 ea PO DAILY RF: 0 omega-3 fatty acids-fish oil 1 EACH capsule 1 cap PO DAILY RF: 0 glucosamine sulfate sodium Cl 1,000 MG tablet 1,000 mg PO DAILY RF: 0 CALCIUM 600 + D TABLET 1 EACH tablet 1 ea PO BID RF: 0 vitamin B complex 1 EACH tablet 1 tab PO DAILY RF: 0 ASPIRIN 81 MG tablet 81 mg PO DAILY RF: 0 prednisone 5 MG tablet 5 mg PO DAILY Qty: 90 RF: 4 leflunomide [Arava] 20 MG tablet 20 mg PO 3x/wk RF: 0 atenolol [Tenormin] 50 mg tablet 50 mg PO DAILY Qty: 90 RF: 4 montelukast 10 mg tablet 10 mg PO DAILY Qty: 90 RF: 3 pantoprazole [Protonix] 40 mg tablet,delayed release (DR/EC) 40 mg PO DAILY Qty: 90 RF: 4 simvastatin 20 mg tablet 20 mg PO HS Qty: 90 RF: 4 losartan-hydrochlorothiazide [Hyzaar] 100-25 mg tablet 1 tab PO DAILY Qty: 90 RF: 3 fluticasone propion-salmeterol [Advair Diskus] 500-50 mcg/dose blister with device 1 inh IH Q12H Qty: 60 RF: 0 amlodipine 5 mg tablet 5 mg PO DAILY Qty: 90 RF: 3 cholecalciferol (vitamin D3) 1,000 unit capsule 5,000 unit PO DAILY RF: 0 oxycodone-acetaminophen [Percocet] 5-325 mg tablet 1 tab PO Q6H MDD 20mg PRN (Reason: pain) Qty: 20 RF: 0 coenzyme Q10 [Co Q-10] 50 MG capsule 1 cap PO DAILY RF: 0 loratadine 10 MG tablet 10 mg PO DAILY RF: 0 lidocaine [Lidoderm] 1 PATCH patch 1 patch Topical Q24H Qty: 4 RF: 0 Discharge Instructions Additional Instructions: Hard to determine whether this is radicular nerve pain versus muscle spasm involving the trapezius and posterior shoulder muscles. With no injury it is very unlikely to be related to fracture or dislocation. May continue to use pain medicine but will try muscle relaxant (Flexeril) and the Lidoderm patches. Contact primary care in the morning for follow-up. Return to ED for fever, chest pain, shortness of breath, numbness, weakness, other concerns. Referrals: Ketan Khoury [Primary Care Provider] - Medical Decision Making Pain seems to be emanating from the posterior shoulder with very limited range of motion of the shoulder. Complains of pain going from the neck across the shoulder down the arm so may be radicular. Has not responded to narcotics. Very tender along posterior trapezius rotator cuff area. May be component of muscle spasm. She is neurovascularly intact distally. There is no acute traumatic injury. X-rays not necessary as there is no acute injury. Will try Flexeril which she has had previously. We will also try the Lidoderm patches which helped last week when she had right shoulder problems. Will need to contact primary care in the morning. Return to ED for chest pain, shortness of breath, numbness, weakness, fever. HPI General Mode of arrival: ambulatory. Date/Time Provider Initiated Documentation: 01/14/19 03:19. Limitations to Documentation: no limitations. Information obtained by: patient, RN notes reviewed and old records reviewed. HPI Narrative: Patient presents to ED with left shoulder pain that seems to radiate from the neck all the way down the shoulder into the arm. She is unable to range her shoulder at all because of pain. Started this evening with no injury. She has no numbness or weakness distally. She is able to move the hand, wrist and elbow but unable to do anything with the shoulder without significant pain. She has no chest pain or shortness of breath. She has no fever or cough. She has been in contact with her primary. She tried tramadol and oxycodone without significant relief. Heat seem to make it worse. Ice seems to make it better. She is been unable to get comfortable and finally came in for evaluation tonight. Related Data Home Medications Medication Instructions Recorded Confirmed Calcium 600 + D Tablet 1 ea PO BID 07/08/12 01/14/19 glucosamine sulfate sodium Cl 1,000 mg PO DAILY 07/08/12 01/14/19 multivitamin 1 ea PO DAILY 07/08/12 01/14/19 omega-3 fatty acids-fish oil 1 cap PO DAILY 07/08/12 01/14/19 vitamin B complex 1 tab PO DAILY 07/08/12 01/14/19 Aspirin 81 mg PO DAILY tab-cap 07/10/12 01/14/19 prednisone 5 mg PO DAILY #90 tab 12/14/14 01/14/19 coenzyme Q10 [Co Q-10] 1 cap PO DAILY 01/08/16 01/14/19 loratadine 10 mg PO DAILY 01/08/16 01/14/19 leflunomide [Arava] 20 mg PO 3x/wk tab-cap 01/22/17 01/14/19 turmeric root extract 500 mg 500 mg PO DAILY 02/04/18 01/14/19 capsule atenolol 50 mg tablet 50 mg PO DAILY #90 tab 04/22/18 01/14/19 losartan 100 1 tab PO DAILY #90 tab-cap 04/22/18 01/14/19 mg-hydrochlorothiazide 25 mg tablet montelukast 10 mg tablet 10 mg PO DAILY #90 tab 04/22/18 01/14/19 pantoprazole 40 mg tablet,delayed 40 mg PO DAILY #90 tab 04/22/18 01/14/19 release simvastatin 20 mg tablet 20 mg PO HS #90 tab-cap 04/22/18 01/14/19 albuterol sulfate 90 mcg/actuation 2 puff INHALATION Q4H PRN #3 gm 06/12/18 01/14/19 aerosol inhaler tiotropium bromide 2.5 2 puff IH DAILY #4 gm 08/13/18 01/14/19 mcg/actuation mist for inhalation levothyroxine 150 mcg capsule 150 mcg PO DAILY #90 cap 08/27/18 01/14/19 fluticasone furoate 27.5 2 spray SANDRA DAILY PRN ml 10/11/18 01/14/19 mcg/actuation nasal spray,suspension polyethylene glycol 3350 17 17 gm PO DAILY PRN 10/11/18 01/14/19 gram/dose oral powder fluticasone 500 mcg-salmeterol 50 1 inh IH Q12H #60 each 10/17/18 01/14/19 mcg/dose blistr powdr for inhalation celecoxib 200 mg capsule 200 mg PO DAILY PRN #30 cap 11/27/18 01/14/19 tramadol 50 mg tablet 50 mg PO Q8H PRN #30 tab 11/27/18 01/14/19 amlodipine 5 mg tablet 5 mg PO DAILY #90 tab 12/02/18 01/14/19 cholecalciferol (vitamin D3) 1,000 5,000 unit PO DAILY cap 12/16/18 01/14/19 unit capsule metformin 500 mg tablet 500 mg PO BID #60 tab 12/16/18 01/14/19 lidocaine [Lidoderm] 1 patch TOPICAL Q24H #4 patch 01/06/19 01/14/19 oxycodone-acetaminophen 5 mg-325 1 tab PO Q6H PRN #20 tab MDD 20mg 01/06/19 01/14/19 mg tablet cyclobenzaprine 10 mg PO Q8H PRN PRN #10 tab 01/14/19 Previous Rx's Medication Instructions Recorded atenolol 50 mg tablet 50 mg PO DAILY #90 tab 04/22/18 losartan 100 1 tab PO DAILY #90 tab-cap 04/22/18 mg-hydrochlorothiazide 25 mg tablet montelukast 10 mg tablet 10 mg PO DAILY #90 tab 04/22/18 pantoprazole 40 mg tablet,delayed 40 mg PO DAILY #90 tab 04/22/18 release simvastatin 20 mg tablet 20 mg PO HS #90 tab-cap 04/22/18 albuterol sulfate 90 mcg/actuation 2 puff INHALATION Q4H PRN #3 gm 06/12/18 aerosol inhaler tiotropium bromide 2.5 2 puff IH DAILY #4 gm 08/13/18 mcg/actuation mist for inhalation levothyroxine 150 mcg capsule 150 mcg PO DAILY #90 cap 08/27/18 fluticasone 500 mcg-salmeterol 50 1 inh IH Q12H #60 each 10/17/18 mcg/dose blistr powdr for inhalation celecoxib 200 mg capsule 200 mg PO DAILY PRN #30 cap 11/27/18 tramadol 50 mg tablet 50 mg PO Q8H PRN #30 tab 11/27/18 amlodipine 5 mg tablet 5 mg PO DAILY #90 tab 12/02/18 metformin 500 mg tablet 500 mg PO BID #60 tab 12/16/18 lidocaine [Lidoderm] 1 patch TOPICAL Q24H #4 patch 01/06/19 oxycodone-acetaminophen 5 mg-325 1 tab PO Q6H PRN #20 tab MDD 20mg 01/06/19 mg tablet cyclobenzaprine 10 mg PO Q8H PRN PRN #10 tab 01/14/19 Allergies Allergy/AdvReac Type Severity Reaction Status Date / Time levofloxacin Allergy Mild rash Verified 01/14/19 03:24 budesonide [From Symbicort] AdvReac Severe chest pain Verified 01/14/19 03:24 doxycycline AdvReac Severe esophagitis Verified 01/14/19 03:24 formoterol fumarate AdvReac Severe chest pain Verified 01/14/19 03:24 [From Symbicort] midazolam HCl [From Versed] AdvReac Intermediate Contraindic Verified 01/14/19 03:24 ated enalaprilat AdvReac Mild Cough Verified 01/14/19 03:24 General Stated Complaint: Orthopedic ANA: 3 Review of Systems Constitutional Constitutional: Denies fever(s) and Denies weakness Cardiovascular Cardiovascular: Denies chest pain, Denies diaphoresis and Denies dyspnea Respiratory Respiratory: Denies dyspnea Musculoskeletal Musculoskeletal: Reports arthralgias, Reports limited range of motion, Denies numbness, Reports radiating pain into limb, Reports stiffness and Denies tingling Neurologic Neurologic: Denies numbness, Denies tingling, Denies paresthesias and Denies weakness [facility] Social History Smoking/Tobacco Use Status: Former Tobacco Use Quit Date: 04/23/86 Tobacco: How many years used: 18 Alcohol Intake: never Drug use: Never Substance use type: does not use Caregiver/Support person: No Household members: none Housing: house Communication Needs: None Do you need help understanding health information?: Rarely Pets and animals: Yes Pets and animals: cat(s) Sexually active: No Do you think of yourself as: lesbian/longo/homosexual Current gender identity: female What is your relationship status?: How often do you talk on the phone with friends or family?: three or more times per week How often do you get together with friends or relatives?: twice per week How often do you attend druze or holiness services?: decline to answer Do you belong to any clubs or organized social groups?: yes Panel score (0-1 are the most socially isolated patients): 2 What type of physical activity do you participate in: other Details: Pool PT Duration: 30-45 minutes/day Frequency: 1-2 times per week Dahiana/Rastafarian: None Special dahiana needs: No Seatbelt use: always Helmet use: No Drive intox or ride w/intox [employer]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 Heart rate and blood pressure elevated likely due to pain. Saturations normal. Const: Obese female who appears uncomfortable. HEENT: NC/AT. Normal facial exam. Neck: Supple. Trachea midline. Normal ROM of neck. No spinal tenderness. Lungs: Normal respiratory effort. Cor: Good radial pulses. Neuro: A+O x 3. CN grossly in tact. Good strength and no focal deficit. Ext: Significant limited range of motion of left shoulder both active and passive. Able to flex, extend, supinate and pronate the elbow. No significant pain with range of motion of wrist. Very tender along the posterior trapezial shoulder region. Neurovascularly intact distally. Skin: Warm and dry without rash. Course Vital Signs Vital signs: Vital Signs Temperature 97.6 F 01/14/19 03:19 Pulse 95 H 01/14/19 03:19 Respiratory Rate 22 01/14/19 03:19 Blood Pressure 152/63 H 01/14/19 03:19 Pulse Oximetry 95 01/14/19 03:19 Temperature 97.6 F 01/14/19 03:19 Temperature Source Skin 01/14/19 03:19 Pulse 95 H 01/14/19 03:19 Respiratory Rate 22 01/14/19 03:19 Blood Pressure 152/63 H 01/14/19 03:19 Blood Pressure Position Sitting 01/14/19 03:19 Pulse Oximetry 95 01/14/19 03:19 Oxygen Delivery Method Room Air 01/14/19 03:19 Oxygen Flow Rate 0 01/14/19 03:19 Pain Level 10 01/14/19 03:19
[2019-01-14] MEDS: Lidocaine 5% Patch 1 PATCH TP (03:44)
[2019-01-14] MEDS: Cyclobenzaprine 10 MG TAB PO (03:44)
== END 2019-01-14 04:06 | disposition home or self-care (01) ==
PROVIDERS: Emergency Provider Emergency Medicine; PCP Family Medicine
DX: M25.512 Pain in left shoulder (principal); M54.2 Cervicalgia; M79.622 Pain in left upper arm; E11.9 Type 2 diabetes mellitus without complications; Z79.84 Long term (current) use of oral hypoglycemic drugs
CPT/HCPCS: 99283

== ENCOUNTER → 2019-01-27 09:41 | Outpatient (BNVA) | payer MEDICARE, BC, SELFPAY | PROVIDERS: PCP Family Medicine; Referring Provider Family Medicine; Visit Provider Student in an Organized Health Care Education/Training Program | DX: M17.12 Unilateral primary osteoarthritis, left knee (principal); Z71.89 Other specified counseling | CPT/HCPCS: 99212 ==

== ENCOUNTER → 2019-02-19 07:55 | Outpatient (BNVA) | payer MEDICARE, BC, SELFPAY | PROVIDERS: PCP Family Medicine; Referring Provider Family Medicine; Visit Provider Student in an Organized Health Care Education/Training Program | DX: R69 Illness, unspecified (principal) ==

== ENCOUNTER 2019-02-19 09:27 | Inpatient (IN) | payer MEDICARE, BC, SELFPAY ==
--- NOTE | 2019-01-07 17:07 | CMPROGNOTE_ITS ---
- If Service Date Differs Date of service: 01/07/19 Time of Service: 17:07 Care Management Progress Note CM met with Gilda during her pre op appointment. She is scheduled for a total left knee replacement by Dr. Roldan on 01/15/2019. Gilda lives alone in [place]. She purchased her 'long-term mobile home' a few years ago which already has a ramp, a walk in shower with a bench, and a raised toilet seat. She has a cane and a FWW at home. She is independent at baseline. Her daughter, Kana granados, is a nurse and is willing to check in on her, although she cannot stay with her after her surgery. She also has many friends and neighbors who will check in on her after her surgery. Gilda expressed her concern about being home alone at night after her surgery. She is worried about falling and not having help until someone checks in on her. Due to this concern, she has asked for a short rehab stay after her surgery. CM reviewed insurance benefits with Gilda related to longterm level of care and acute stay at the hospital. CM discussed the local resource options with Gilda, including SNFs vs services. CM encouraged that she should see how she feels after surgery and that the CM will be there to assist with discharge planning to make sure her needs are met. Gilda has an AD, which was scanned in at her pre op appointment. she already has access to the portal. CM will continue to follow and assist with discharge planning.
[2019-02-19] VITALS (13 sets, daily range): BP systolic 101–148; BP diastolic 41–75; PULSE 62–82; RESP 11–18; TEMP 36.3–36.6; O2SAT 93–97
[2019-02-19] MEDS: Acetaminophen 500 MG TAB 1000 MG PO ×2 (10:28→19:34)
[2019-02-19] MEDS: Gabapentin 300 MG CAP PO ×2 (10:29→21:33)
[2019-02-19] MEDS: Celecoxib 200 MG CAP 400 MG PO (10:29)
[2019-02-19] MEDS: Lactated Ringers 1,000 ML 80 ML IV ×3 (10:50→18:14)
[2019-02-19 10:56] LABS: HCT 38.6 % (36.0-46.0); HGB 12.7 g/dL (12.0-15.5); Mean Corp. HGB Concentration 32.9 g/dL (32.0-36.0); Mean Corpuscular Hemoglobin 28.6 pg (27.0-33.0); Mean Corpuscular Volume 86.9 fL (80-95); Mean Platelet Volume 10.3 fL (8.0-11.0); Platelet Count 338 x1000/uL (130-400); RBC 4.44 m/cumm (4.00-5.20); RBC Distribution Width 13.3 % (11.7-14.6); White Blood Cell Count 10.04 k/cumm (4.4-10.8)
[2019-02-19 11:13] LABS: Anion Gap 8.1 mmol/L (3-11); BUN 19 mg/dL (7-18); CO2 28.9 mmol/L (21.0-32.0); CREATININE 0.97 mg/dL (0.55-1.02); Calcium 9.2 mg/dL (8.5-10.1); Chloride 104 mmol/L (98-107); Estimated GFR 57.11 (mL/min/1.73m2); Glucose 109 mg/dL (70-100); Potassium 3.6 mmol/L (3.5-5.1); Sodium 141 mmol/L (136-145)
[2019-02-19 11:16] LABS: Hemoglobin A1C 6.3 % (4.5-6.2)
[2019-02-19] MEDS: Bupivacaine 0.25% Pres-Free 30 ML VIAL ×2 (11:40→12:38)
[2019-02-19] MEDS: ceFAZolin 2 GM/50 ML BAG IVPB (12:03)
[2019-02-19] MEDS: Normal Saline 50 ML (13:38)
[2019-02-19] MEDS: Ketorolac 30 MG/ML VIAL (13:38)
[2019-02-19] MEDS: fentaNYL 100 MCG/2 ML VIAL IVP (15:30)
--- NOTE | 2019-02-19 16:00 | ROE_ITS ---
Date of service: 02/19/19 Time of Service: 16:00 Operative Note Operative Note DATE OF PROCEDURE: 02/19/19 PRE-OP DIAGNOSIS: Left Knee DJD with Valgus Deformity POST-OP DIAGNOSIS: same PROCEDURE: Left Total Knee Arthroplasty with Intraoperative Navigation SURGEON: Anjel Roldan PAPER CONE GRADER: Doris Zhu ANESTHESIA: regional and spinal PATHOLOGY: none sent COMPLICATIONS: None Patient was transported to: PACU Patient's condition: stable Implants: 1. Depuy Attune Posterior Stabilized Femoral Component, Size 7 2. Depuy Attune Fixed Platform Tibial Component, Size 5 3. Depuy Attune 7x12mm Fixed, Stabilized Poly 4. Depuy Attune Patellar Component, Size 32mm Indications: I have seen Gilda in clinic for symptoms of knee arthritis, confirmed with radiographic findings. Gilda has exhausted nonoperative methods and was having significant limitations in daily function and desired better function and less pain. I discussed the technical details of a knee replacement. I explained the risks of the procedure to include, but not limited to, bleeding, infection, pain, stiffness, fracture, damage to nerves and vessels, damage to muscles and tendons, loosening, need for repeat procedure, blood clot and cardiopulmonary demise. Despite these risks, Gilda elected to proceed. Findings: There was significant signs of arthritis throughout the knee. There was a notable valgus deformity with patella maltracking. Procedure Description: Gilda was greeted in the preoperative holding area where the correct side was identified and marked. The consent was reviewed with the patient and signed. The history and physical was updated. All questions were answered. Preoperative mediacations were administered: Acetaminophen 1000mg, Celebrex 400mg, Gabapentin 300mg, and Oxycontin 10mg. An adductor canal block was then administered by the anesthesia team in the PACU. Gilda was taken back to the operating room. A spinal anesthestic was then administered. The patient was placed into the supine position on the operating room table. A nonsterile tourniquet was placed high onto the leg but only used for cementing. Posts were placed for positioning during the procedure. All bony prominences were well padded. Prophylactic antibiotics in the form of Cefazolin were administered. 1g of Tranxemic Acid was given intravenously within 30 minutes of incision. The left leg was then prepped with Chloraprep and draped in a standard fashion with impervious stockinette and extremity drape with Iodine impregnated skin protection. A timeout to confirm correct identity, side and site, procedure, allergies, anesthesia, and medical concerns was performed. With the knee in some flexion, a midline incision was made overlying the knee. Full thickness skin flaps were raised once the extensor mechanism was encountered. These were raised medially and laterally. Any bleeding was controlled with electrocautery. Once the extensor mechanism was fully exposed, a medial parapatellar arthrotomy was performed in a flexed position. All bleeding from the arthrotomy and the geniculate arteries was coagulated. A medial subperiosteal peel was performed with electrocautery to the midcoronal plane. The fat pad was removed while keeping the patellar tendon protected. The anterior distal femur synovium was removed for later visualization. The ACL and PCL were resected and the anterior horn of the lateral meniscus was transected. The knee was then flexed with the patella everted. Large osteophytes from the tibia were removed. Large osteophytes from the femur were removed. Large patellar osteophytes were removed. There was some hypoplasia of the lateral femoral condyle and any remnant cartilage of the medial femoral condyle was removed for appropriate thickness. A single starting pin was then placed 1cm anterior to the PCL insertion and the notch in the direction of the femoral head. The OrthoAlign device was applied over the pin. It was oriented to be in line with the epicondylar axis and the trochlear groove. It was then pinned into place. The navigation computer was then turned on and calibrated. The distal femur cut was set at 0 degrees varus/valgus and 2.5 degrees flexion. The distal femur cutting guide then was positioned for a 9mm cut. The distal femur was cut with an oscillating saw while protecting the soft tissues. The tibia was then addressed. The OrthoAlign device was placed over the tibial tubercle and medial tibia and secured into position. Once again, OrthoAlign was calibrated and then set for a 0 degree varus/valgus cut and 3 degrees of posterior slope. With this locked into position, the cut thickness stylus was used to assess cut thickness. The medial side, less involved side, was set for a 9mm cut. This was then held in position and pinned into place with 2 additional pins and a cross pin for stability. The medial and lateral collateral ligaments were protected and the cut was performed. With this completed, it was assessed and noted to be of appropriate dimensions. The guide and OrthoAlign was removed. A spacer block was inserted and the knee was brought into extension. The 10mm spacer block provided full extension, without hyperextension and with stability of both the medial and lateral collateral ligaments was assessed. The pins from the femur and the tibia were then removed. The distal femur was then sized. The anterior stylus was placed onto the lateral ridge of the anterior femur. This indicated a size 7 femur. The external rotation of the guide was adjusted to 3 degrees to match the epicondylar axis, perpendicular to Batsheva?s line. The 4-in-1 cutting guide was the placed. The posterior medial femur cut was evaluated and appeared of good thickness. The spacer block was inserted underneath the cutting guide and stability was confirmed in 90 degrees of flexion. There was some slight laxity, so the femoral component was moved posteriorly 1.5mm. An evelyn wing was used to confirm appropriate position of the anterior cut to avoid notching. This cutting guide was ensured to be flush on the cut surface and then pinned into place with headed pins. While protecting the soft tissues, quad tendon, and collateral ligaments, the anterior and posterior cuts were performed with a saw. The central two pins were removed and the posterior and anterior chamfers were cut next. The notch-cutting guide was placed. This was pinned to lateralize the femoral component as much as possible while keeping it flush on the cut surface. This was then pinned into position. A reciprocating saw was used to make the notch cut. A rasp smoothed the cut surfaces. A trial posterior stabilized femoral component was then inserted, impacted down to the cut surfaces, and the lug holes were drilled. A provisional trial tibial component was placed and the knee was brought through range of motion. The polyethylene was trialed until there was good flexion and extension with excellent stability to the medial and lateral collaterals. The patella was tracking without thumbs. The tibial cut surface was fully exposed. The medial and lateral menisci were removed. The tibia was then sized as a 5. The tibia had been previously marked during trialing to correspond to the center of the tibial component to help with rotation. The trial was aligned to this nicola, approximately rotated to the medial 1/3rd of the tibial tubercle. The trial was pinned into place. The tibia was prepared with a reamer and a keel punch. The knee was then brought into extension and the patella was measured as 26mm. Using the patellar clamp and cut guide, this was resected to a flat surface with at least 13mm of thickness remaining. The size 32mm patella fit the best. This was oriented and then clamped into position. The lugs were drilled. The trial components were removed. The final components, except for the polyethylene were opened on the back table. The periosteal and capsular tissues, especially posteriorly, around the knee were then systematically injected with a periarticular cocktail consisting of 50cc 0.25% Marcaine, 30mg Ketorolac, 20cc of Exparal and 50cc of injectable saline. The tourniquet was then inflated to 275mmHg. The knee was thoroughly irrigated with a pulse lavage and dried. On the back table, with the implants opened, the cement was mixed. 2 batches of antibiotic laden cement were prepared with vacuum assistance. After the cement was ready a small amount was placed on to the back side of the tibial component at the keel. A small amount was placed onto the posterior flange of the femur. Cement was manual pressurized and impregnated into the cut surface of the tibia. The tibial component was then inserted into the cut surface and impacted into position. Excess cement was removed and the component was reimpacted. Again, excess cement was removed and our attention was then turned to the femur. The femoral cut surface was once again dried and cement was manually impacted into the cut surface. The femoral component was lined with the lug holes and impacted. Excess cement was removed. It was ensured to be down against the cut surface. The trial polyethylene was then inserted and the leg was brought out into full extension for the duration of the cement curing process, approximately 15min. Cement was lastly manually impacted into the cut surface of the patella and the patellar button was clamped into position and held. During this process attention was turned to the gutters of the knee and for all interfaces for any excess cement. The knee was irrigated with Irrisept chlorhexadine solution and allowed to rest for 3 minutes. After the cement had finally cured, approximately 15min, the clamp was removed from the patella and the knee was taken through range of motion. A size 12mm polyethylene component provided the best range of motion and stability with less than 2mm gapping with medial and lateral stress and full extension without significant hyperextension. The patella was tracking with a no-thumbs technique. The trial poly was removed and once again the knee was checked for any loose, excess, or errant cement. The poly component was then inserted and impacted into position after cleaning and drying the tibial tray. The capsule was then reapproximated with a No. 1 Vicryl at multiple locations. The capsule was finally closed with a No. 2 Stratafix, barbed suture. The tourniquet was then released and the arthrotomy appeared watertight without significant bleeding. The second dosing of 1g TXA was started. Deep tissues were then reapproximated with 0 Vicryl and 2-0 Vicryl. The skin was closed with a running 3-0 Monocryl in a subcuticular fashion. This was reinforced with skin glue. A Mepilex silver dressing was applied along with a [id number] SONYA wrap. A CryoCuff was applied. Gilda was transferred to the hospital bed without difficulty an suffering no apparent complication. Gilda has a good prognosis. Physical therapy will start today and without restrictions, weight-bearing as tolerated. Rivaroxaban 10g daily will be used for DVT prophylaxis.
[2019-02-19] MEDS: ceFAZolin 1 GM/50 ML BAG IVPB (18:14)
[2019-02-19] MEDS: oxyCODONE 5 MG TAB PO ×2 (19:32→23:36)
[2019-02-19] MEDS: Celecoxib 200 MG CAP PO (19:33)
[2019-02-19] MEDS: Calcium 600mg/Vit D 200U TAB 1 TAB PO (19:34)
[2019-02-19] MEDS: Simvastatin 20 MG TAB PO (21:33)
[2019-02-20] MEDS: ceFAZolin 1 GM/50 ML BAG IVPB ×2 (01:28→09:35)
[2019-02-20 04:00] VITALS: BP 126/73; PULSE 79; RESP 18; TEMP 36.8; O2SAT 92
[2019-02-20] MEDS: Levothyroxine 150 MCG TAB PO (05:09)
[2019-02-20] MEDS: Lactated Ringers 1,000 ML 80 ML IV ×2 (06:37→18:48)
[2019-02-20] MEDS: Tiotropium Bromide-Respimat 10 PUFF INH 2 PUFF IH (08:12)
[2019-02-20] MEDS: amLODIPine 5 MG TAB PO (08:17)
[2019-02-20] MEDS: predniSONE 1 MG TAB 4 MG PO (08:17)
[2019-02-20] MEDS: Multivitamin TAB 1 TAB PO (08:17)
[2019-02-20] MEDS: oxyCODONE 5 MG TAB PO ×5 (08:17→21:09)
[2019-02-20] MEDS: Calcium 600mg/Vit D 200U TAB 1 TAB PO ×2 (08:17→19:42)
[2019-02-20] MEDS: hydroCHLOROthiazide 25 MG TAB PO (08:18)
[2019-02-20] MEDS: Loratidine 10 MG TAB PO (08:18)
[2019-02-20] MEDS: Montelukast 10 MG TAB PO (08:18)
[2019-02-20] MEDS: Losartan 50 MG TAB 100 MG PO (08:18)
[2019-02-20] MEDS: Pantoprazole 40 MG TABCR PO (08:18)
[2019-02-20] MEDS: metFORMIN 500 MG TAB PO ×2 (08:18→16:10)
[2019-02-20] MEDS: Acetaminophen 500 MG TAB 1000 MG PO ×3 (08:18→19:42)
[2019-02-20] MEDS: Rivaroxaban 10 MG TABLET PO (08:18)
[2019-02-20] MEDS: Celecoxib 200 MG CAP PO ×2 (08:18→19:42)
[2019-02-20] MEDS: Atenolol 50 MG TAB PO (08:19)
[2019-02-20] MEDS: Dexamethasone 4 MG TAB PO (08:19)
[2019-02-20 08:50] VITALS: BP 140/67; PULSE 83; RESP 18; TEMP 36.7; O2SAT 93
--- NOTE | 2019-02-20 10:13 | W.PM.PROGNOT ---
Date of Service Date of service: 02/20/19 Time of Service: 10:13 Assessment and Plan Assessment and plan (1) Primary osteoarthritis of left knee: Status: Chronic Assessment and plan: 60-year-old female postop day #1 status post left TKA doing well DVT prophylaxis and pain management as ordered Inpatient physical therap for range of motion and gait training weightbearing as tolerated Anticipate discharge home tomorrow Subjective Subjective Interval history since last seen: No complaints. Comfortable. Feeling well. Would like the opportunity to work with physical therapy and additional day before going home tomorrow. Exam Narrative Exam Narrative: Left knee dressing clean dry intact. All compartments soft. Demonstrates active quadriceps, tibialis anterior, EHL, gastrocsoleus motor. Sensation intact throughout to light touch without paresthesias. Objective Objective Clinical Data: Vital Signs Temperature 97.9 F 02/21/19 07:55 Temperature Source Tympanic 02/21/19 07:55 Pulse 92 H 02/21/19 07:55 Pulse Rhythm Regular 02/21/19 08:01 Respiratory Rate 16 02/21/19 08:00 Respiratory Effort Non-Labored 02/21/19 08:01 Respiratory Depth Normal 02/21/19 08:01 Respiratory Pattern Normal 02/21/19 08:01 Blood Pressure 142/65 H 02/21/19 07:55 Pulse Oximetry 93 L 02/21/19 07:55 Respiratory End-tidal CO2 31 02/19/19 15:55 Oxygen Delivery Method Room Air 02/21/19 07:55 Oxygen Flow Rate 0 02/21/19 07:55 Pain Level 3 02/21/19 07:57 Comment 02/21/19 07:55 Intake & Output 02/20/19 02/20/19 02/21/19 11:59 23:59 11:59 Intake Total 2130.667 / 4661.334 2530.667 / 4661.334 200 / 200 Output Total 1850 / 3400 1550 / 3400 400 / 400 Balance 280.667 / 1261.334 980.667 / 1261.334 -200 / -200 Intake: IV 1040.667 / 2351.334 1310.667 / 2351.334 Oral 1090 / 2310 1220 / 2310 200 / 200 Output: Urine 1850 / 3400 1550 / 3400 400 / 400 Other: Urine Color Pale Yellow Yellow Yellow Urine Appearance Clear Clear Clear Urine Odor None Normal Voiding Methods Toilet Toilet Laboratory Results WBC 10.04 k/cumm (4.4-10.8) 02/19/19 10:38 RBC 4.44 m/cumm (4.00-5.20) 02/19/19 10:38 Hgb 12.7 g/dL (12.0-15.5) 02/19/19 10:38 Hct 38.6 % (36.0-46.0) 02/19/19 10:38 MCV 86.9 fL (80-95) 02/19/19 10:38 MCH 28.6 pg (27.0-33.0) 02/19/19 10:38 MCHC 32.9 g/dL (32.0-36.0) 02/19/19 10:38 RDW 13.3 % (11.7-14.6) 02/19/19 10:38 Plt Count 338 x1000/uL (130-400) 02/19/19 10:38 MPV 10.3 fL (8.0-11.0) 02/19/19 10:38 Sodium 141 mmol/L (136-145) 02/19/19 10:38 Potassium 3.6 mmol/L (3.5-5.1) 02/19/19 10:38 Chloride 104 mmol/L (98-107) 02/19/19 10:38 Carbon Dioxide 28.9 mmol/L (21.0-32.0) 02/19/19 10:38 Anion Gap 8.1 mmol/L (3-11) 02/19/19 10:38 BUN 19 mg/dL (7-18) H 02/19/19 10:38 Creatinine 0.97 mg/dL (0.55-1.02) 02/19/19 10:38 Estimated GFR/1.73 m2 57.11 (mL/min/1.73m2) 02/19/19 10:38 Glucose 109 mg/dL (70-100) H 02/19/19 10:38 Hemoglobin A1c 6.3 % (4.5-6.2) H 02/19/19 10:38 Calcium 9.2 mg/dL (8.5-10.1) 02/19/19 10:38
[2019-02-20] MEDS: Insulin Aspart 300 UNITS/3 ML PEN SC ×2 (11:57→17:13)
[2019-02-20 11:59] VITALS: BP 138/73; PULSE 75; RESP 18; TEMP 36.6; O2SAT 92
--- NOTE | 2019-02-20 14:28 | PT.INIE ---
Date of service: 02/20/19 Time of Service: 09:07 PT Notes Inpatient Physical Therapy Evaluation Date: 02/20/2019 Referring Doctor: Anjel Roldan MD PT Orders: PT CONSULT: s/p L knee replacement Precautions: Fall. Standard. WBAT on L LE. Patient Profile/Admitting Diagnosis: Patient is a 68-year-old female s/p L TKA POD 1 due to degenerative joint disease. PMHX: Medical History (Updated 01/01/19 @ 08:55 by Ketan Khoury) Abnormal cervical Papanicolaou smear (Acute) Asthma Asthma (Chronic 01/07/13) continue current meds Cervical spinal stenosis (Acute) Chest pain (Acute) Cholelithiasis without obstruction (Chronic 03/22/93) Corticosteroid dependence (Acute) CTS (carpal tunnel syndrome) (Acute 05/08/14) Current chronic use of systemic steroids (Chronic 08/01/16) Diabetes mellitus (Chronic) Discoid lupus erythematosus (Acute) Elevated hemoglobin A1c (Chronic 07/11/16) Enthesitis (Chronic) Essential hypertension (Chronic 07/16/13) check some BPs at home as discussed use machine we lent you pls return it when yuou see Dr Khoury next month Gastroesophageal reflux disease (Chronic) GERD (gastroesophageal reflux disease) Glossitis (Acute 06/05/13) Hiatal hernia (Chronic 03/22/93) History of tobacco use (Chronic) HTN (hypertension) Negative stress test 2015 Hyperlipidemia (Chronic 12/14/14) Hypothyroidism Hypothyroidism (Chronic 07/10/12) 1993-Grave's disease; S/P SHORE 131; Lichen planus (Chronic 06/05/13) Lumbar stenosis (Chronic 11/22/16) [facility] [place]EPIDURAL STEROID INJECTION Obesity (Chronic) Osteoarthritis of lumbar spine (Chronic) Parastomal hernia (Acute 07/09/12) Peripheral neuropathy (Chronic) Primary osteoarthritis of left knee (Chronic 10/30/16) Rheumatoid arthritis (Chronic 07/10/12) discoid lupus Small vessel vasculitis (Acute) Smoker (Resolved) Spinal stenosis Spinal stenosis (Chronic 02/18/14) Surgical History Appendectomy (~12/1975) Cervical Procedure (~1978) section Cholecystectomy (~1993) EGD - MAC (02/25/16) History of section (Resolved) History of orthopedic surgery (Resolved) Status post appendectomy (Resolved) Status post cholecystectomy (Resolved) Status post tonsillectomy (Resolved) Tonsillectomy Social History/Home Situation: Patient lives alone in a mobile home with no steps to enter. Equipment Owned/DME: None. Subjective: Patient reports 2/10 pain. She states she did not sleep at all due to so many people coming in and out. She denies headache, dizziness, lightheadedness and is agreeable to PT evaluation this morning. Objective: General Observation: Patient is seen laying supine in bed with HOB elevated. She has an IV in L UE, and green catheter. Mental Status: Alert and oriented x 4 Pain: 2/10 ROM: Right Lower Extremity: Hip flexion WFL. Hip abduction WFL. Knee flexion WFL. Ankle dorsiflexion WFL. Ankle plantarflexion WFL. Left Lower Extremity: Hip flexion WFL. Hip abduction WFL. Knee flexion 110. Knee extension -6. Ankle dorsiflexion WFL. Ankle plantarflexion WFL. Strength: Right Lower Extremity: Hip flexors 5/5. Hip abductors 5/5. Knee flexors 5/5. Knee extensors 5/5. Ankle dorsiflexors 5/5. Ankle plantarflexors 5/5. Left Lower Extremity:Hip flexors 5/5. Hip abductors 5/5. Knee flexors 4/5. Knee extensors 4/5. Ankle dorsiflexors 5/5. Ankle plantarflexors 5/5. Bed Mobility/Transfers: Rolling Independent Supine to sit Independent Sit to supine Independent Sit to stand SBA Stand to sit SBA Bed to chair CGA Chair to bed CGA Gait: Patient ambulated 20? with FWW and CGA with wheelchair follow. She used a step-to gait pattern with decreased stance time on L LE. Balance: Static Sitting: Normal Dynamic Sitting: Normal Static Standing: Fair Dynamic Standing: Fair Special Tests: Mobility Limitations Standardized Measure [facility] AM-PAC 6 clicks Basic Mobility Inpatient Short Form: Raw Score: 19 CMS Score: 42% Informed Consent/Education: Patient instructed in purpose of PT consult and plan of care. Assessment: Patient is a 68 year old female s/p L TKA POD 1 due to degenerative joint disease. She lives alone in a single-story home. She stated she has stenosis in her cervical spine, which affects her posture. She ambulates well with decreased stance time on L LE. Patient presents with clinical signs and symptoms consistent with current/admitting diagnoses that have resulted to mobility limitations, gait instability, generalized weakness, and impairment of motor control as demonstrated by the following impairment level findings: 1. Decreased strength to L LE major muscle groups 2. Impaired sitting/standing balance 3. Impaired activity tolerance 4. Limitation of joint range of motion in L knee flexion/extension Impairments are contributing to the following functional limitations: 1. Inability to safely ambulate without assistive device and physical assistance 2. Increase completion time for mobility ADL performance 3. Increased fall risk 4. Inability to negotiate steps alone safely Patient is assessed as a 68896 moderate complexity based on the following: History: Patient is a 68-year-old female s/p L TKA POD 1 due to degenerative joint disease. Examination: Demonstrable impairment in strength, balance, and range of motion with underlying impairments and functional limitations as documented above Presentation: Evolving Decision Makin moderate complexity Goals: Goals X1 week 1. Bed-Chair independent 2. Chair-Bed independent 3. Independent gait on level surface with use of least restrictive device for at least 300 feet without report of pain nor dyspnea 4. Independent stair negotiation while holding onto bilateral rails for at least 10 steps without report of pain nor dyspnea 5. Independent with home exercise program 6. Good static and dynamic standing balance/tolerance Plan of Care/Treatment Plan: 1-2x/day, 7 days/week x 1 week. Plan of care has been reviewed with the PLAYGROUND MONITOR providing the service under Physical Therapy direction. Initiate Physical Therapy intervention for strengthening, bed mobility, transfers, gait, stairs, balance training, use of assistive device. DISCHARGE RECOMMENDATIONS: Patient is to be discharged under the care of her daughter after she is medically stable and all of the above goals are met. May benefit from out-patient physical therapy services according to orthopedic surgeon's timeline recommendations. TREATMENT CODE/TIME: 50092 x 28 minutes beginning at 9:07 AM. Thank you very much for this referral. Navneet Thao [facility] Linda Bourne PT, DPT, CLT [facility]
[2019-02-20 15:19] VITALS: BP 123/59; PULSE 75; RESP 18; TEMP 36.7; O2SAT 94
--- NOTE | 2019-02-20 16:13 | PT.INTREAT ---
Date of service: 02/20/19 Time of Service: 16:14 PT Notes Inpatient Physical Therapy Treatment Note [facility] Date: 02/20/2019 PRECAUTIONS: Fall, WBAT L SUBJECTIVE: Gilda states that she would like to stay another night in order to get one more round of PT in the morning. She otherwise states that she is feeling pretty good. OBJECTIVE: PAIN: Patient c/o L LE discomfort with gait training BED MOBILITY/TRANSFERS Supine-sit: I with HOB flat Sit-supine: I with HOB flat Sit-stand: SBA Stand-sit: SBA GAIT Assistive Device: FWW Weight bearing: Full Assist: SBA Distance: 50' + 20' + 70' Deviation: Seated rest x1, standing rest x1, cueing for increased knee flexion THEREX: Patient completed a LE strengthening and stabilization program, in a seated and supine position, as per flow sheet. She ends with cryocuff to L knee. ASSESSMENT: Patient tolerated session well. She was able to tolerate a progression in gait distance with FWW support and SBA, requiring seated rest x1 and cueing for increased knee flexion. She would benefit from continued gait and transfer training and general conditioning for improved activity tolerance and mobility. PLAN: Continue with PTs POC TREATMENT CODE/TIME: 45 minutes; 85353 x2, [id number]
--- NOTE | 2019-02-20 17:05 | PHARADMIT ---
Admission Pharmacy Clinical Review LEFT KNEE DJD Patient set to go home today but discharge has beeen moved to tomorrrow. VS-OK Pain 5/10 No new labs
--- NOTE | 2019-02-20 17:45 | PDOC.CMIN ---
- If Service Date Differs Date of service: 02/20/19 Time of Service: 17:45 Care Management Initial Assess PAST MEDICAL HISTORY/PAST SURGICAL HISTORY:: Medical History: Asthma, cervical spine stenosis, cholelithiasis, CTS, Diabetes mellitus, Lupus erythematosis, enthesitis, hypertension, GERD, Glossitis, Hiatal hernia, Hx fx ankle, Hx blood clots, Hyperlipidemia, Hypothyroidism, lichen planus, lumbar stenosis, obesity,osteoarthritis of lumbar spine and left knee, rheumatoid arthritis, small vessel vasculitis, spinal stenosis. Surgical history: EGD, C/S, orthopedic surgery right foot, appendectomy, cholecystectomy, tonsillectomy, PREVIOUS FUNCTIONAL STATUS/SOCIAL/FAMILY SUPPORTS:: Gilda lives alone in [place]. She purchased her 'senior living mobile home' a few years ago which already has a ramp, a walk in shower with a bench, and a raised toilet seat. She has a cane and a FWW at home. She is independent at baseline. Her daughter, Kathy, is a nurse and is willing to check in on her, although she cannot stay with her after her surgery. She also has many friends and neighbors who will check in on her after her surgery. CURRENT FUNCTIONAL STATUS:: Gilda was sitting up in bed when CM met with her. She was pleasant and cooperative and engaged readily in conversation. Gilda had been discharged by her surgeon but told CM that she did not feel ready. She stated that she felt like she needed one more day to work with PT. The discharge order was cancelled when CM shared this information with the provider. ADVANCE DIRECTIVES:: On file at [facility] Has patient been provided with information about the portal?: Yes Did the patient sign up for the portal?: Yes (previously) INSURANCE COVERAGE / FINANCIAL ISSUES:: Medicare. BS CURRENT HOME/COMMUNITY SERVICES/EQUIPMENT:: Gilda has a walker PRIMARY CARE PHYSICIAN:: Ketan Hampton POTENTIAL DISCHARGE NEEDS:: Follow up with surgeon and discharge plan of care and OP PT. PATIENT/FAMILY EDUCATION NEEDS:: Discharge Plan, limitations, follow up plan. Ask Me Three. TRANSPORTATION:: via private vehicle with family PLAN:: Gilda will be discharged home with new HH PT. She will folllow up with her surgeon and discharge plan of care. CM will continue to support patient, family and discharge planning needs.
[2019-02-20 19:50] VITALS: BP 111/68; PULSE 79; RESP 18; TEMP 36.7; O2SAT 93
[2019-02-20] MEDS: Gabapentin 300 MG CAP PO (21:08)
[2019-02-20] MEDS: Simvastatin 20 MG TAB PO (21:09)
[2019-02-20 23:20] VITALS: BP 104/51; PULSE 88; RESP 18; TEMP 36.8; O2SAT 90
[2019-02-21 04:35] VITALS: BP 145/62; PULSE 92; RESP 20; TEMP 36.6; O2SAT 94
[2019-02-21] MEDS: oxyCODONE 5 MG TAB PO ×2 (06:23→11:13)
[2019-02-21] MEDS: Levothyroxine 150 MCG TAB PO (06:23)
[2019-02-21] MEDS: Tiotropium Bromide-Respimat 10 PUFF INH 2 PUFF IH (07:50)
[2019-02-21 07:55] VITALS: BP 142/65; PULSE 92; RESP 18; TEMP 36.6; O2SAT 93
[2019-02-21] MEDS: Calcium 600mg/Vit D 200U TAB 1 TAB PO (07:56)
[2019-02-21] MEDS: Celecoxib 200 MG CAP PO (07:56)
[2019-02-21] MEDS: predniSONE 1 MG TAB 4 MG PO (07:56)
[2019-02-21] MEDS: Rivaroxaban 10 MG TABLET PO (07:56)
[2019-02-21] MEDS: Montelukast 10 MG TAB PO (07:56)
[2019-02-21] MEDS: Multivitamin TAB 1 TAB PO (07:57)
[2019-02-21] MEDS: metFORMIN 500 MG TAB PO (07:57)
[2019-02-21] MEDS: Pantoprazole 40 MG TABCR PO (07:57)
[2019-02-21] MEDS: Losartan 50 MG TAB 100 MG PO (07:57)
[2019-02-21] MEDS: Acetaminophen 500 MG TAB 1000 MG PO (07:57)
[2019-02-21] MEDS: hydroCHLOROthiazide 25 MG TAB PO (07:57)
[2019-02-21] MEDS: amLODIPine 5 MG TAB PO (07:57)
[2019-02-21] MEDS: Atenolol 50 MG TAB PO (07:58)
[2019-02-21] MEDS: Dexamethasone 4 MG TAB PO (07:58)
[2019-02-21] MEDS: Loratidine 10 MG TAB PO (07:58)
[2019-02-21 08:00] VITALS: RESP 16
--- NOTE | 2019-02-21 09:34 | PT.INTREAT ---
Date of service: 02/21/19 Time of Service: 09:34 PT Notes Inpatient Physical Therapy Treatment Note [facility] Date: 02/21/2019 PRECAUTIONS: Fall, WBAT L SUBJECTIVE: Gilda states that she feels pretty good this morning, that she feels ready to be discharged to home today. OBJECTIVE: PAIN: No c/o pain BED MOBILITY/TRANSFERS Supine-sit: I with HOB flat Sit-stand: S Stand-sit: S GAIT Assistive Device: FWW Weight bearing: WBAT L Assist: SBA Distance: 75' x2 Deviation: Seated rest x1 THEREX: Patient completed a LE strengthening and stabilization program, in a supine position, as per flow sheet. She ends with cryocuff to L knee. STAIRS: Up/down 3x4 and 2x6 using B rails and a step-to pattern with supervision. ASSESSMENT: Patient tolerated session well. She was able to tolerate a progression in gait distance with FWW support and SBA, requiring seated rest x1. She would benefit from continued gait and transfer training and general strengthening for improved activity tolerance and mobility. PLAN: Continue with PTs POC TREATMENT CODE/TIME: 30 minutes; 93602, [id number]
--- NOTE | 2019-02-21 09:48 | INDS_ITS ---
Date of service: 02/21/19 Time of Service: 09:48 PT Notes Inpatient Physical Therapy Discharge Summary Dates: 02/21/2019 Dates of Service: 02/20/2019 and 02/21/2019 This is a clinical summary of care provided on the duration of dates listed above. No charge was made in the completion of this documentation. Referring Doctor: Anjel Roldan MD PT Orders: PT CONSULT: s/p L knee replacement Precautions: Fall. Standard. WBAT on L LE. Patient Profile/Admitting Diagnosis: Patient is a 68-year-old female s/p L TKA POD 1 due to degenerative joint disease. PMHX: Medical History (Updated 01/01/19 @ 08:55 by Ketan Khoury) Abnormal cervical Papanicolaou smear (Acute) Asthma Asthma (Chronic 01/07/13) continue current meds Cervical spinal stenosis (Acute) Chest pain (Acute) Cholelithiasis without obstruction (Chronic 03/22/93) Corticosteroid dependence (Acute) CTS (carpal tunnel syndrome) (Acute 05/08/14) Current chronic use of systemic steroids (Chronic 08/01/16) Diabetes mellitus (Chronic) Discoid lupus erythematosus (Acute) Elevated hemoglobin A1c (Chronic 07/11/16) Enthesitis (Chronic) Essential hypertension (Chronic 07/16/13) check some BPs at home as discussed use machine we lent you pls return it when yuou see Dr Khoury next month Gastroesophageal reflux disease (Chronic) GERD (gastroesophageal reflux disease) Glossitis (Acute 06/05/13) Hiatal hernia (Chronic 03/22/93) History of tobacco use (Chronic) HTN (hypertension) Negative stress test 2015 Hyperlipidemia (Chronic 12/14/14) Hypothyroidism Hypothyroidism (Chronic 07/10/12) 1993-Grave's disease; S/P SHORE 131; Lichen planus (Chronic 06/05/13) Lumbar stenosis (Chronic 11/22/16) [facility] [place] Obesity (Chronic) Osteoarthritis of lumbar spine (Chronic) Parastomal hernia (Acute 07/09/12) Peripheral neuropathy (Chronic) Primary osteoarthritis of left knee (Chronic 10/30/16) Rheumatoid arthritis (Chronic 07/10/12) discoid lupus Small vessel vasculitis (Acute) Smoker (Resolved) Spinal stenosis Spinal stenosis (Chronic 02/18/14) Surgical History Appendectomy (~12/1975) Cervical Procedure (~1978) section Cholecystectomy (~1993) EGD - MAC (02/25/16) History of section (Resolved) History of orthopedic surgery (Resolved) Status post appendectomy (Resolved) Status post cholecystectomy (Resolved) Status post tonsillectomy (Resolved) Tonsillectomy Social History/Home Situation: Patient lives alone in a mobile home with no steps to enter. Equipment Owned/DME: None. Subjective: NT Objective: General Observation: NT Mental Status: NT Pain: NT ROM: Right Lower Extremity: Hip flexion WFL. Hip abduction WFL. Knee flexion WFL. Ankle dorsiflexion WFL. Ankle plantarflexion WFL. Left Lower Extremity: Hip flexion WFL. Hip abduction WFL. Knee flexion 110. Knee extension -6. Ankle dorsiflexion WFL. Ankle plantarflexion WFL. Strength: Right Lower Extremity: Hip flexors 5/5. Hip abductors 5/5. Knee flexors 5/5. Knee extensors 5/5. Ankle dorsiflexors 5/5. Ankle plantarflexors 5/5. Left Lower Extremity:Hip flexors 5/5. Hip abductors 5/5. Knee flexors 4/5. Knee extensors 4/5. Ankle dorsiflexors 5/5. Ankle plantarflexors 5/5. Bed Mobility/Transfers: Rolling Independent Supine to sit Independent Sit to supine Independent Sit to stand supervision Stand to sit supervision Bed to chair supervision Chair to bed supervision Gait: Patient ambulated 75? x 2 with FWW and SBA with wheelchair follow. She used a step-to gait pattern with decreased stance time on L LE. patient is able to go up and down three 4-inch steps and two 6-inch steps with B rails using step-to pattern. Balance: Static Sitting: Normal Dynamic Sitting: Normal Static Standing: Fair Dynamic Standing: Fair Special Tests: Mobility Limitations Standardized Measure [facility] AM-PAC 6 clicks Basic Mobility Inpatient Short Form: Raw Score: 23 CMS Score: 11% Assessment: Patient is a 68 year old female s/p L TKA POD 1 due to degenerative joint disease. She lives alone in a single-story home. She stated she has stenosis in her cervical spine, which affects her posture. She has demosntrated improvement in mobility performance for this episode of care with improvement in [facility] CMS score 11% deficit from 42% deficit. Patient continues to present with clinical signs and symptoms consistent with current/admitting diagnoses that have resulted to mobility limitations, gait instability, generalized weakness, and impairment of motor control as demonstrated by the following impairment level findings: 1. Decreased strength to L LE major muscle groups 2. Impaired sitting/standing balance 3. Impaired activity tolerance 4. Limitation of joint range of motion in L knee flexion/extension Impairments are contributing to the following functional limitations: 1. Inability to safely ambulate without assistive device and physical assistance 2. Increase completion time for mobility ADL performance 3. Increased fall risk 4. Inability to negotiate steps alone safely Goals: Goals X1 week 1. Bed-Chair independent MET 2. Chair-Bed independent MET 3. Independent gait on level surface with use of least restrictive device for at least 300 feet without report of pain nor dyspnea NOT MET 4. Independent stair negotiation while holding onto bilateral rails for at least 10 steps without report of pain nor dyspnea NOT MET 5. Independent with home exercise program NOT MET 6. Good static and dynamic standing balance/tolerance NOT MET DISCHARGE RECOMMENDATIONS: Patient is to be discharged under the care of her daughter after she is medically stable and all of the above goals are met. May benefit from out-patient physical therapy services according to orthopedic surgeon's timeline recommendations. TREATMENT CODE/TIME: NC. Thank you very much for this referral. Linda Bourne PT, DPT, CLT [facility]
--- NOTE | 2019-02-21 10:13 | DSE_ITS ---
Documented by User: Anjel Roldan MD 02/19/19 19:05 DS: Diagnosis Discharge Diagnosis (1) Valgus deformity, not elsewhere classified, left knee: Status: Acute (2) Primary osteoarthritis of left knee: Status: Chronic Discharge Plan Disposition Patient Disposition: HOME W/HOME HEALTH SERVICE Condition: Improving Discharge Details Reason For Visit: LEFT KNEE DJD Admit Date/Time: 02/19/19 09:27 Admit Provider: Anjel Roldan Attending Provider: Anjel Roldan Primary Care Provider: Ketan Khoury [facility] Course Hospital Course: Patient was admitted to the medical/surgical floor following the procedure. It was tolerated well without any notable medical, surgical, or anesthetic complications. Mobilization began postoperatively. The green catheter was removed and voiding spontaneously. Vitals were stable. Physical therapy worked with the patient and was cleared for discharge home. No acute medical issues. Home Meds and New Rx's Prescriptions: New acetaminophen 500 mg tablet 1,000 mg PO Q8H PRN (Reason: pain) Qty: 90 RF: 3 oxycodone 5 mg tablet 5 mg PO Q4H Qty: 15 RF: 0 rivaroxaban 10 mg tablet 10 mg PO DAILY Qty: 12 RF: 0 Continued turmeric root extract 500 mg capsule 500 mg PO DAILY RF: 0 Spiriva Respimat 2.5 mcg/actuation mist 2 puff IH DAILY Qty: 4 RF: 0 levothyroxine 150 mcg capsule 150 mcg PO DAILY Qty: 90 RF: 3 polyethylene glycol 3350 [Miralax] 17 gram/dose powder 17 gm PO DAILY PRN (Reason: constipation) RF: 0 Flonase Sensimist 27.5 mcg/actuation spray,suspension 2 spray SANDRA DAILY PRN (Reason: allergy symptoms) RF: 0 albuterol sulfate [ProAir HFA] 90 mcg/actuation HFA aerosol inhaler 2 puff Inhalation Q4H PRN (Reason: shortness of breath or wheezing) Qty: 3 RF: 0 metformin 500 mg tablet 500 mg PO BID Qty: 60 RF: 11 multivitamin 1 EACH tablet 1 ea PO DAILY RF: 0 omega-3 fatty acids-fish oil 1 EACH capsule 1 cap PO DAILY RF: 0 glucosamine sulfate sodium Cl 1,000 MG tablet 1,000 mg PO DAILY RF: 0 CALCIUM 600 + D TABLET 1 EACH tablet 1 ea PO BID RF: 0 vitamin B complex 1 EACH tablet 1 tab PO DAILY RF: 0 prednisone 5 MG tablet 5 mg PO DAILY Qty: 90 RF: 4 leflunomide [Arava] 20 MG tablet 20 mg PO 3x/wk RF: 0 atenolol [Tenormin] 50 mg tablet 50 mg PO DAILY Qty: 90 RF: 4 montelukast 10 mg tablet 10 mg PO DAILY Qty: 90 RF: 3 pantoprazole [Protonix] 40 mg tablet,delayed release (DR/EC) 40 mg PO DAILY Qty: 90 RF: 4 simvastatin 20 mg tablet 20 mg PO HS Qty: 90 RF: 4 losartan-hydrochlorothiazide [Hyzaar] 100-25 mg tablet 1 tab PO DAILY Qty: 90 RF: 3 fluticasone propion-salmeterol [Advair Diskus] 500-50 mcg/dose blister with device 1 inh IH Q12H Qty: 60 RF: 0 amlodipine 5 mg tablet 5 mg PO DAILY Qty: 90 RF: 3 cholecalciferol (vitamin D3) 1,000 unit capsule 5,000 unit PO DAILY RF: 0 coenzyme Q10 [Co Q-10] 50 MG capsule 1 cap PO DAILY RF: 0 loratadine 10 MG tablet 10 mg PO DAILY RF: 0 Changed celecoxib [Celebrex] 200 mg capsule 200 mg PO BID Qty: 60 RF: 2 Discontinued tramadol 50 mg tablet 50 mg PO Q8H PRN (Reason: pain) Qty: 30 RF: 0 Hold Instructions: Home Medication placed on hold at Doctor's office ASPIRIN 81 MG tablet 81 mg PO DAILY RF: 0 oxycodone-acetaminophen [Percocet] 5-325 mg tablet 1 tab PO Q6H MDD 20mg PRN (Reason: pain) Qty: 20 RF: 0 lidocaine [Lidoderm] 1 PATCH patch 1 patch Topical Q24H Qty: 4 RF: 0 cyclobenzaprine [cyclobenzaprine] 10 MG tablet 10 mg PO Q8H PRN PRN (Reason: Spasms) Qty: 10 RF: 0 Discharge Instructions Additional Instructions: Dr. Roldan?s Total Knee Discharge Instructions Activity: The most important activity is to walk. You should try to take short walks a few times a day. It is important that when resting you work on keeping the knee straight. Avoid putting a pillow behind the knee as this will encourage flexion. Work on range of motion exercises as provided by Physical Therapy. - Continue exercises and begin Home Health physical therapy - You should wear the DIONICIO hose on both legs for 2 weeks. Dressing: Keep the surgical dressing in place for at least one week. After the first week it may be removed and replace with light gauze and tape or nothing. It may get wet after 3 days but avoid soaking the dressing. If it gets wet, j ust lightly pat dry. Medications: - You should take Tylenol and anti-inflammatory [Celebrex] as your primary pain control medications - You have been prescribed a stronger pain medication [Oxycodone] for breakthrough pain, take as needed as prescribed. - You have also been prescribed a stomach acid reduction agent [Pantoprozole] to help reduce stomach acid and reflux. - You will be taking [Aspirin 81mg twice a day] for DVT prevention unless instructed otherwise. - If you have constipation you should take Colace or Miralax (both [id number]). It takes most people 3-4 days to have a bowel movement. Follow-up: 2 weeks 1. Encounter Date and Reason I certify that GIOVANA CLAY was seen by Anjel Roldan MD on 02/19/19 and that I had a [id number] encounter with this patient that meets the physician face to face encounter requirements. 2. Clinical Findings Supporting Skilled Need and Homebound Status I certify that home health services are medically necessary, include either intermittent group home and/or physical/speech therapy, and that this patient is homebound in that absences from the home require considerable and taxing effort and are infrequent or of short duration, or are attributable to the need to receive medical care. [X] (a) Attached documentation from encounter provides clinical findings supporting skilled need and homebound status (including what assistance patient requires to leave the home). The encounter with the patient was in whole, or in part, for the following medical condition, which is the primary reason for home health care: LEFT KNEE DJD Alf: Physical Therapy: Giovana would benefit from Home Health physical therapy due to her weakness and gait limitations following left knee replacement. She has limitations in extension and flexion along with weakness with gait and knee extension. She has no restrictions but should use an assistive device for ambulation. Speech Therapy: Homebound: Giovana is unable to leave her home unassisted due to weakness and gait abnormalities. She is homebound. 3. Certification and Authentication I certify that I composed the above information based on my clinical judgement relating to this patient's medical condition and, if applicable, clinical findings communicated to me by the NPP or inpatient physician who performed the Home Health Referral. All further orders will be obtained through Dr. Roldan. Stand Alone Forms: Nursing Discharge Form Referrals: Anjel Roldan MD [ [facility] STAFF PHYSICIAN] - 03/07/19 8:30 am Activity:: Activity as Tolerated Equipment/Supplies:: Walker Diet:: Carb Counting Discharge Orders Discharge Orders: Discharge Order (Routine); Ordered 02/21/19 Ordered By: Pj Meier DS: Data Vitals/I&O Vitals and I&O: Vital Signs Temperature 36.5 C 02/19/19 16:24 Temperature Source Tympanic 02/19/19 16:24 Pulse 73 02/19/19 16:24 Pulse Rhythm Regular 02/19/19 10:29 Respiratory Rate 16 02/19/19 16:24 Respiratory Effort 02/19/19 16:18 Respiratory Depth Normal 02/19/19 16:18 Respiratory Pattern Normal 02/19/19 16:18 Blood Pressure 105/47 L 02/19/19 16:24 Pulse Oximetry 95 02/19/19 16:24 Respiratory End-tidal CO2 31 02/19/19 15:55 Oxygen Delivery Method Room Air 02/19/19 16:24 Oxygen Flow Rate 0 02/19/19 16:24 Pain Level 4 02/19/19 16:24 Intake & Output 02/18/19 02/19/19 02/19/19 23:59 11:59 23:59 Intake Total 1371.333 / 1371.333 Output Total 225 / 225 Balance 1146.333 / 1146.333 Weight 101 kg Intake: IV 1071.333 / 1071.333 Oral 300 / 300 Output: Urine 25 / 25 Estimated Blood Loss 200 / 200 Other: Urine Color Yellow Urine Appearance Clear Emesis Description None Data Completed and Pending Labs on day of discharge: Labs from last 24 hours 02/19/19 02/19/19 02/19/19 10:38 10:38 10:38 WBC 10.04 RBC 4.44 Hgb 12.7 Hct 38.6 MCV 86.9 MCH 28.6 MCHC 32.9 RDW 13.3 Plt Count 338 MPV 10.3 Sodium 141 Potassium 3.6 Chloride 104 Carbon Dioxide 28.9 Anion Gap 8.1 BUN 19 H Creatinine 0.97 Estimated GFR/1.73 m2 57.11 Glucose 109 H Hemoglobin A1c 6.3 H Calcium 9.2 PFSH Medical History Abnormal cervical Papanicolaou smear (Acute) Asthma Cervical spinal stenosis (Acute) Cholelithiasis without obstruction (Chronic 03/22/93) Corticosteroid dependence (Acute) CTS (carpal tunnel syndrome) (Acute 05/08/14) Current chronic use of systemic steroids (Chronic 08/01/16) Diabetes mellitus (Chronic) Discoid lupus erythematosus (Acute) Elevated hemoglobin A1c (Chronic 07/11/16) Enthesitis (Chronic) Essential hypertension (Chronic 07/16/13) check some BPs at home as discussed use machine we lent you pls return it when yuou see Dr Khoury next month GERD (gastroesophageal reflux disease) Glossitis (Acute 06/05/13) Hiatal hernia (Chronic 03/22/93) History of fracture of right ankle (Acute) Pin in place, subsequent blood clot per Pt History of tobacco use (Chronic) Hx of blood clots (Acute) RLE Hyperlipidemia (Chronic 12/14/14) Hypothyroidism (Chronic 07/10/12) 1993-Grave's disease; S/P SHORE 131; Lichen planus (Chronic 06/05/13) Lumbar stenosis (Chronic 11/22/16) [facility] [place]-EPIDURAL STEROID INJECTION Obesity (Chronic) Osteoarthritis of lumbar spine (Chronic) Parastomal hernia (Acute 07/09/12) Peripheral neuropathy (Chronic) Primary osteoarthritis of left knee (Chronic 10/30/16) Rheumatoid arthritis (Chronic 07/10/12) discoid lupus Small vessel vasculitis (Acute) Spinal stenosis (Chronic 02/18/14) Surgical History Cervical Procedure (~1978) pt. denies EGD - MAC (02/25/16) History of section (Resolved) History of colonoscopy (Chronic) History of orthopedic surgery (Resolved) R foot Status post appendectomy (Resolved) Status post cholecystectomy (Resolved) Status post tonsillectomy (Resolved) Family History Mother , 67 Alcohol abuse Essential hypertension Heart disease ANGINA Stroke Brother , 44 Alcohol abuse Lung cancer Father , 70s Alcohol abuse Heart disease Daughter Asthma MATERNAL HISTORY Autoimmune disease Brother Substance abuse POT Maternal Grandfather No problems noted. Paternal Grandfather Diabetes Maternal Grandmother No problems noted. Paternal Grandmother No problems noted. Social History Smoking/Tobacco Use Status: Former Tobacco Use Quit Date: 04/23/86 Tobacco: How many years used: 18 Alcohol Intake: never Drug use: Never Substance use type: does not use Caregiver/Support person: No Household members: none Housing: house Communication Needs: None Do you need help understanding health information?: Rarely Pets and animals: Yes Pets and animals: cat(s) Sexually active: No Do you think of yourself as: lesbian/longo/homosexual Current gender identity: female What is your relationship status?: How often do you talk on the phone with friends or family?: three or more times per week How often do you get together with friends or relatives?: twice per week How often do you attend taoist or baptism services?: decline to answer Do you belong to any clubs or organized social groups?: yes Panel score (0-1 are the most socially isolated patients): 2 What type of physical activity do you participate in: other Details: Pool PT Duration: 30-45 minutes/day Frequency: 1-2 times per week Dahiana/Methodist: None Special dahiana needs: No Seatbelt use: always Helmet use: No Drive intox or ride w/intox driver supervisor: No Do you feel safe at home: Yes Do you feel safe in your relationship?: Yes Additional Social history: live alone Documented by User: Pj Meier MD 02/21/19 10:13 Date of service: 02/21/19 Time of Service: 10:12 Discharge Plan Disposition Patient Disposition: HOME W/HOME HEALTH SERVICE Condition: Improving Discharge Details Reason For Visit: LEFT KNEE DJD Admit Date/Time: 02/19/19 09:27 Admit Provider: Anjel Roldan Attending Provider: Anjel Roldan [facility] Course: Patient was admitted to the medical/surgical floor following the procedure. It was tolerated well without any notable medical, surgical, or anesthetic complications. Mobilization began postoperatively. The green catheter was removed and voiding spontaneously. Vitals were stable. Physical therapy worked with the patient and was cleared for discharge home. No acute medical issues. Home Meds and New Rx's Prescriptions: New acetaminophen 500 mg tablet 1,000 mg PO Q8H PRN (Reason: pain) Qty: 90 RF: 3 oxycodone 5 mg tablet 5 mg PO Q4H Qty: 15 RF: 0 rivaroxaban 10 mg tablet 10 mg PO DAILY Qty: 12 RF: 0 Continued turmeric root extract 500 mg capsule 500 mg PO DAILY RF: 0 Spiriva Respimat 2.5 mcg/actuation mist 2 puff IH DAILY Qty: 4 RF: 0 levothyroxine 150 mcg capsule 150 mcg PO DAILY Qty: 90 RF: 3 polyethylene glycol 3350 [Miralax] 17 gram/dose powder 17 gm PO DAILY PRN (Reason: constipation) RF: 0 Flonase Sensimist 27.5 mcg/actuation spray,suspension 2 spray SANDRA DAILY PRN (Reason: allergy symptoms) RF: 0 albuterol sulfate [ProAir HFA] 90 mcg/actuation HFA aerosol inhaler 2 puff Inhalation Q4H PRN (Reason: shortness of breath or wheezing) Qty: 3 RF: 0 metformin 500 mg tablet 500 mg PO BID Qty: 60 RF: 11 multivitamin 1 EACH tablet 1 ea PO DAILY RF: 0 omega-3 fatty acids-fish oil 1 EACH capsule 1 cap PO DAILY RF: 0 glucosamine sulfate sodium Cl 1,000 MG tablet 1,000 mg PO DAILY RF: 0 CALCIUM 600 + D TABLET 1 EACH tablet 1 ea PO BID RF: 0 vitamin B complex 1 EACH tablet 1 tab PO DAILY RF: 0 prednisone 5 MG tablet 5 mg PO DAILY Qty: 90 RF: 4 leflunomide [Arava] 20 MG tablet 20 mg PO 3x/wk RF: 0 atenolol [Tenormin] 50 mg tablet 50 mg PO DAILY Qty: 90 RF: 4 montelukast 10 mg tablet 10 mg PO DAILY Qty: 90 RF: 3 pantoprazole [Protonix] 40 mg tablet,delayed release (DR/EC) 40 mg PO DAILY Qty: 90 RF: 4 simvastatin 20 mg tablet 20 mg PO HS Qty: 90 RF: 4 losartan-hydrochlorothiazide [Hyzaar] 100-25 mg tablet 1 tab PO DAILY Qty: 90 RF: 3 fluticasone propion-salmeterol [Advair Diskus] 500-50 mcg/dose blister with device 1 inh IH Q12H Qty: 60 RF: 0 amlodipine 5 mg tablet 5 mg PO DAILY Qty: 90 RF: 3 cholecalciferol (vitamin D3) 1,000 unit capsule 5,000 unit PO DAILY RF: 0 coenzyme Q10 [Co Q-10] 50 MG capsule 1 cap PO DAILY RF: 0 loratadine 10 MG tablet 10 mg PO DAILY RF: 0 Changed celecoxib [Celebrex] 200 mg capsule 200 mg PO BID Qty: 60 RF: 2 Discontinued tramadol 50 mg tablet 50 mg PO Q8H PRN (Reason: pain) Qty: 30 RF: 0 Hold Instructions: Home Medication placed on hold at Doctor's office ASPIRIN 81 MG tablet 81 mg PO DAILY RF: 0 oxycodone-acetaminophen [Percocet] 5-325 mg tablet 1 tab PO Q6H MDD 20mg PRN (Reason: pain) Qty: 20 RF: 0 lidocaine [Lidoderm] 1 PATCH patch 1 patch Topical Q24H Qty: 4 RF: 0 cyclobenzaprine [cyclobenzaprine] 10 MG tablet 10 mg PO Q8H PRN PRN (Reason: Spasms) Qty: 10 RF: 0 Discharge Instructions Additional Instructions: Dr. Roldan?s Total Knee Discharge Instructions Activity: The most important activity is to walk. You should try to take short walks a few times a day. It is important that when resting you work on keeping the knee straight. Avoid putting a pillow behind the knee as this will encourage flexion. Work on range of motion exercises as provided by Physical Therapy. - Continue exercises and begin Home Health physical therapy - You should wear the DIONICIO hose on both legs for 2 weeks. Dressing: Keep the surgical dressing in place for at least one week. After the first week it may be removed and replace with light gauze and tape or nothing. It may get wet after 3 days but avoid soaking the dressing. If it gets wet, just lightly pat dry. Medications: - You should take Tylenol and anti-inflammatory [Celebrex] as your primary pain control medications - You have been prescribed a stronger pain medication [Oxycodone] for breakthrough pain, take as needed as prescribed. - You have also been prescribed a stomach acid reduction agent [Pantoprozole] to help reduce stomach acid and reflux. - You will be taking [Aspirin 81mg twice a day] for DVT prevention unless instructed otherwise. - If you have constipation you should take Colace or Miralax (both [id number]). It takes most people 3-4 days to have a bowel movement. Follow-up: 2 weeks 1. Encounter Date and Reason I certify that GIOVANA CLAY was seen by Anjel Roldan MD on 02/19/19 and that I had a [id number] encounter with this patient that meets the physician face to face encounter requirements. 2. Clinical Findings Supporting Skilled Need and Homebound Status I certify that home health services are medically necessary, include either intermittent group home and/or physical/speech therapy, and that this patient is homebound in that absences from the home require considerable and taxing effort and are infrequent or of short duration, or are attributable to the need to receive medical care. [X] (a) Attached documentation from encounter provides clinical findings supporting skilled need and homebound status (including what assistance patient requires to leave the home). The encounter with the patient was in whole, or in part, for the following medical condition, which is the primary reason for home health care: LEFT KNEE DJD Alf: Physical Therapy: Giovana would benefit from Home Health physical therapy due to her weakness and gait limitations following left knee replacement. She has limitations in extension and flexion along with weakness with gait and knee extension. She has no restrictions but should use an assistive device for ambulation. Speech Therapy: Homebound: Giovana is unable to leave her home unassisted due to weakness and gait abnormalities. She is homebound. 3. Certification and Authentication I certify that I composed the above information based on my clinical judgement relating to this patient's medical condition and, if applicable, clinical findings communicated to me by the NPP or inpatient physician who performed the Home Health Referral. All further orders will be obtained through Dr. Roldan. Stand Alone Forms: Nursing Discharge Form Referrals: Anjel Roldan MD [ [facility] STAFF PHYSICIAN] - 03/07/19 8:30 am Activity:: Activity as Tolerated Equipment/Supplies:: Walker Diet:: Carb Counting Discharge Orders Discharge Orders: Discharge Order (Routine); Ordered 02/21/19 Ordered By: Pj Meier DS: Summary Status at Discharge Functional status at discharge: uses cane/walker Overall status at discharge: patient is progressing back to baseline Mental Status: mental status grossly normal Speech and Movement: speech and movement normal Mood: congruent mood Affect: normal affect Exam Narrative Exam Narrative: No complaints. Comfortable. Edmundo wrap clean dry intact. No calf tenderness. Intact motor quadriceps, tibialis anterior, gastrocsoleus. Sensation intact throughout the foot to light touch. Psych Mental Status: mental status grossly normal Speech and Movement: speech and movement normal Mood: congruent mood Affect: normal affect [facility] Medical History Abnormal cervical Papanicolaou smear (Acute) Asthma Cervical spinal stenosis (Acute) Cholelithiasis without obstruction (Chronic 03/22/93) Corticosteroid dependence (Acute) CTS (carpal tunnel syndrome) (Acute 05/08/14) Current chronic use of systemic steroids (Chronic 08/01/16) Diabetes mellitus (Chronic) Discoid lupus erythematosus (Acute) Elevated hemoglobin A1c (Chronic 07/11/16) Enthesitis (Chronic) Essential hypertension (Chronic 07/16/13) check some BPs at home as discussed use machine we lent you pls return it when yuivana see Dr Khoury next month GERD (gastroesophageal reflux disease) Glossitis (Acute 06/05/13) Hiatal hernia (Chronic 03/22/93) History of fracture of right ankle (Acute) Pin in place, subsequent blood clot per Pt History of tobacco use (Chronic) Hx of blood clots (Acute) RLE Hyperlipidemia (Chronic 12/14/14) Hypothyroidism (Chronic 07/10/12) 1994-Grave's disease; S/P SHORE 131; Lichen planus (Chronic 06/05/13) Lumbar stenosis (Chronic 11/22/16) [facility] [place]-EPIDURAL STEROID INJECTION Obesity (Chronic) Osteoarthritis of lumbar spine (Chronic) Parastomal hernia (Acute 07/09/12) Peripheral neuropathy (Chronic) Primary osteoarthritis of left knee (Chronic 10/30/16) Rheumatoid arthritis (Chronic 07/10/12) discoid lupus Small vessel vasculitis (Acute) Spinal stenosis (Chronic 02/18/14) Surgical History Cervical Procedure (~1978) pt. denies EGD - MAC (02/25/16) History of section (Resolved) History of colonoscopy (Chronic) History of orthopedic surgery (Resolved) R foot Status post appendectomy (Resolved) Status post cholecystectomy (Resolved) Status post tonsillectomy (Resolved) Family History Mother , 67 Alcohol abuse Essential hypertension Heart disease ANGINA Stroke Brother , 44 Alcohol abuse Lung cancer Father , 70s Alcohol abuse Heart disease Daughter Asthma MATERNAL HISTORY Autoimmune disease Brother Substance abuse POT Maternal Grandfather No problems noted. Paternal Grandfather Diabetes Maternal Grandmother No problems noted. Paternal Grandmother No problems noted. Social History Smoking/Tobacco Use Status: Former Tobacco Use Quit Date: 04/23/86 Tobacco: How many years used: 18 Alcohol Intake: never Drug use: Never Substance use type: does not use Caregiver/Support person: No Household members: none Housing: house Communication Needs: None Do you need help understanding health information?: Rarely Pets and animals: Yes Pets and animals: cat(s) Sexually active: No Do you think of yourself as: lesbian/longo/homosexual Current gender identity: female What is your relationship status?: How often do you talk on the phone with friends or family?: three or more times per week How often do you get together with friends or relatives?: twice per week How often do you attend taoist or baptism services?: decline to answer Do you belong to any clubs or organized social groups?: yes Panel score (0-1 are the most socially isolated patients): 2 What type of physical activity do you participate in: other Details: Pool PT Duration: 30-45 minutes/day Frequency: 1-2 times per week Dahiana/Methodist: None Special dahiana needs: No Seatbelt use: always Helmet use: No Drive intox or ride w/intox driver supervisor: No Do you feel safe at home: Yes Do you feel safe in your relationship?: Yes Additional Social history: live alone
[2019-02-21 12:14] VITALS: BP 145/65; PULSE 79; RESP 18; TEMP 37; O2SAT 95
--- NOTE | 2019-02-21 17:21 | PDOC.CMDIS ---
- If Service Date Differs Date of service: 02/21/19 Time of Service: 17:22 LACE Index Scoring Tool - Questions: Length of Stay (in days): 2 Acuity (Admit via E.D.?): No Comorbidities: Diabetes w/o Complication E.D. Visits: 2 - Answers: Total Score: 5 Risk of Readmission: Low Risk Care Management Discharge Reason for Hospitalization: Left knee DJD Discharge Plan: Gilda will be discharged home with new service for PT and nursing. She will follow up with her surgeon, PCP and discharge plan of care. Gilda will transport with her daughter via private vehicle. Services Needed at Discharge: Home Health Care Services, Physical Therapy
== END 2019-02-21 13:18 | disposition home health service (06) | DRG 470 ==
LOC: PDS 09:53 → MS 15:41
PROVIDERS: Admitting Provider Student in an Organized Health Care Education/Training Program; PCP Family Medicine; Visit Provider Student in an Organized Health Care Education/Training Program
PROC: 0SRD0J9 Replacement of Left Knee Joint with Synthetic Substitute, Cemented, Open Approach (ICD-10-PCS; CPT 27447; principal; 2019-02-19 12:00)
DX: M17.12 Unilateral primary osteoarthritis, left knee (principal); M21.062 Valgus deformity, not elsewhere classified, left knee; M25.562 Pain in left knee; Z96.652 Presence of left artificial knee joint; G89.18 Other acute postprocedural pain; E11.9 Type 2 diabetes mellitus without complications; L93.0 Discoid lupus erythematosus; I10 Essential (primary) hypertension; K21.9 Gastro-esophageal reflux disease without esophagitis; E87.5 Hyperkalemia; E03.9 Hypothyroidism, unspecified; E66.9 Obesity, unspecified; Z68.39 Body mass index [BMI] 39.0-39.9, adult; Z79.84 Long term (current) use of oral hypoglycemic drugs
CPT/HCPCS: 27447; 20985; 36415; 76942; 80048; 85027; 94640; 97110; 97162; 97530; NC; 83036; J0690; J1885; J3010; J8540

== ENCOUNTER 2019-03-07 09:03 | Outpatient (CLI) | payer MEDICARE, BC, SELFPAY ==
--- NOTE | 2019-03-07 08:38 | DI.RAD_ITS ---
EXAM: XR STANDING ALIGNMENT and left knee one view INDICATION: 1ST POST OP. COMPARISON: XR standing alignment from 10/23/2018 XR KNEE LT 1V from 03/07/2019 TECHNIQUE: 2D digital imaging was performed. FINDINGS: The patient is now status post left total knee replacement. The orthopedic hardware appears in good position. The bones appear intact. In the right knee, there is moderately severe narrowing of the lateral femoral tibial joint space. T here is periarticular spurring seen both medially and laterally. There is a single orthopedic screw seen in the left medial malleolus of the ankle. The right lower extremity measures 87.4 centimeters. The left lower extremity measures 88.1 centimet ers.
== END 2019-03-07 09:23 ==
PROVIDERS: PCP Family Medicine; Referring Provider Family Medicine; Visit Provider Student in an Organized Health Care Education/Training Program
DX: Z96.652 Presence of left artificial knee joint (principal); M17.11 Unilateral primary osteoarthritis, right knee; Z47.1 Aftercare following joint replacement surgery; M21.70 Unequal limb length (acquired), unspecified site; E11.9 Type 2 diabetes mellitus without complications; I10 Essential (primary) hypertension; Z79.84 Long term (current) use of oral hypoglycemic drugs
CPT/HCPCS: 73560; 77073

== ENCOUNTER → 2019-04-10 09:44 | Outpatient (BNVA) | payer MEDICARE, BC, SELFPAY | PROVIDERS: PCP Family Medicine; Referring Provider Family Medicine; Visit Provider Student in an Organized Health Care Education/Training Program | DX: Z96.652 Presence of left artificial knee joint; Z47.1 Aftercare following joint replacement surgery; E11.42 Type 2 diabetes mellitus with diabetic polyneuropathy; I10 Essential (primary) hypertension; Z79.84 Long term (current) use of oral hypoglycemic drugs ==

== ENCOUNTER → 2019-05-22 08:00 | Outpatient (BNVA) | payer MEDICARE, BC, SELFPAY | PROVIDERS: PCP Family Medicine; Referring Provider Family Medicine; Visit Provider Student in an Organized Health Care Education/Training Program | DX: Z96.652 Presence of left artificial knee joint; Z47.1 Aftercare following joint replacement surgery ==

== ENCOUNTER 2019-10-09 04:38 | Outpatient (CLI) | payer MEDICARE, BC, SELFPAY ==
[2019-10-09 08:29] LABS: Abs Immature Grans 0.04 k/cumm (0.0-0.09); Absolute Basophil Count 0.06 k/cumm (0.0-0.2); Absolute Eosinophil Count 0.17 k/cumm (0.0-0.7); Absolute Lymphocyte Count 2.86 k/cumm (1.2-3.4); Absolute Monocyte Count 1.29 k/cumm (0.11-0.7); Absolute Neutrophil Count 4.09 k/cumm (1.2-6.7); Basophils % 0.7; HCT 37.1 % (36.0-46.0); HGB 12.3 g/dL (12.0-15.5); Immature Grans % 0.5 %; Lymphocytes % 33.6; Mean Corp. HGB Concentration 33.2 g/dL (32.0-36.0); Mean Corpuscular Hemoglobin 27.7 pg (27.0-33.0); Mean Corpuscular Volume 83.6 fL (80-95); Mean Platelet Volume 9.8 fL (8.0-11.0); Monocytes % 15.2; Platelet Count 400 x1000/uL (130-400); RBC 4.44 m/cumm (4.00-5.20); RBC Distribution Width 14.1 % (11.7-14.6); White Blood Cell Count 8.51 k/cumm (4.4-10.8)
[2019-10-09 08:39] LABS: Hemoglobin A1C 6.4 % (3.8-5.6)
[2019-10-09 08:59] LABS: COMMENT (LAB VIEW ONLY) 172.18 mg/dL; Microalb ug/mg Crea 24.7 ug/mg Cr
[2019-10-09 09:36] LABS: ALT 30 U/L (14-59); AST 23 U/L (15-37); Albumin 3.7 g/dL (3.4-5.0); Alkaline Phosphatase 60 U/L (46-116); Anion Gap 12.2 mmol/L (3-11); BUN 18 mg/dL (7-18); Bilirubin, Total 0.3 mg/dL (0.2-1.0); CO2 26.8 mmol/L (21.0-32.0); Calculated LDL 102 mg/dL (<100); Chloride 102 mmol/L (98-107); Cholesterol 191 mg/dL (<200); Estimated GFR 44.54 (mL/min/1.73m2); Glucose 106 mg/dL (74-106); HDL Cholesterol 54 mg/dL (40-60); Potassium 3.7 mmol/L (3.5-5.1); Sodium 141 mmol/L (136-145); TSH 0.06 uIU/mL (0.36-3.74); Total Protein 7.6 g/dL (6.4-8.2); Triglyceride 177 mg/dL (<150)
[2019-10-09 10:14] LABS: Vitamin D 25 Total 111.9 ng/ml (30-100)
== END 2019-10-09 04:58 ==
PROVIDERS: PCP Family Medicine; Visit Provider Family Medicine
DX: E78.5 Hyperlipidemia, unspecified (principal); I10 Essential (primary) hypertension; M81.0 Age-related osteoporosis without current pathological fracture; E11.9 Type 2 diabetes mellitus without complications
CPT/HCPCS: 36415; 80053; 80061; 82306; 82043; 82570; 83036; 84443; 85025

== ENCOUNTER 2019-11-27 01:46 | Outpatient (CLI) | payer MEDICARE, BC, SELFPAY ==
[2019-11-27 10:25] LABS: Anion Gap 11.6 mmol/L (3-11); BUN 21 mg/dL (7-18); CO2 26.4 mmol/L (21.0-32.0); CREATININE 1.15 mg/dL (0.55-1.02); Calcium 9.3 mg/dL (8.5-10.1); Chloride 102 mmol/L (98-107); Estimated GFR 46.79 (mL/min/1.73m2); Glucose 115 mg/dL (74-106); Potassium 4.4 mmol/L (3.5-5.1); Sodium 140 mmol/L (136-145); TSH 0.01 uIU/mL (0.36-3.74)
[2019-11-27 11:18] LABS: Vitamin D 25 Total 108.8 ng/ml (30-100)
== END 2019-11-27 02:06 ==
PROVIDERS: PCP Family Medicine; Visit Provider Family Medicine
DX: E03.9 Hypothyroidism, unspecified (principal); E67.3 Hypervitaminosis D
CPT/HCPCS: 36415; 80048; 82306; 84443

== ENCOUNTER 2019-12-18 02:28 | Outpatient (CLI) | payer MEDICARE, BC, SELFPAY ==
--- NOTE | 2019-12-18 07:30 | DI.DEXA_ITS ---
EXAM: XR DEXA BONE DENSITY W/WO TED CLINICAL HISTORY: chronic prednisone therapy,Z79.52 TECHNIQUE: COMPARISON: No exams were available for comparison FINDINGS: DEXA scan was performed according to the usual protocol. Left hip scanning shows T-score 0.3 with left femoral neck T-score 0.1. Prior examination of July 23 showed left hip T-score 1.2. Lumbar spine scanning shows T-score 2.3. Prior study of 09/02 showed lumbar T-score 0.8. Left forearm scanning shows T-score -1.5, prior study of 09/02 shows T-score -0.3. The lateral vertebral scanogram shows no evidence of a vertebral compression fracture. IMPRESSION: Findings consistent with osteopenia according to the WHO criteria. RADIATION DOSE DELIVERED: Total DLP
== END 2019-12-18 02:48 ==
PROVIDERS: PCP Family Medicine; Visit Provider Family Medicine
DX: M85.88 Other specified disorders of bone density and structure, other site (principal); M85.832 Other specified disorders of bone density and structure, left forearm; Z79.52 Long term (current) use of systemic steroids
CPT/HCPCS: 77080

== ENCOUNTER 2020-01-14 22:05 | Outpatient (REF) | payer MEDICARE, BC, SELFPAY ==
[2020-01-14 22:25] LABS: Hemoglobin A1C 6.3 % (<5.7)
[2020-01-14 22:30] LABS: TSH 0.02 uIU/mL (0.36-3.74)
== END 2020-01-14 22:25 ==
LOC: LBN 22:05
PROVIDERS: PCP Family Medicine; Visit Provider Family Medicine
DX: R73.09 Other abnormal glucose (principal); E03.9 Hypothyroidism, unspecified; M06.9 Rheumatoid arthritis, unspecified
CPT/HCPCS: 83036; 84443

== ENCOUNTER 2020-01-23 08:30 | Outpatient (CLI) | payer MEDICARE, BC, SELFPAY ==
--- NOTE | 2020-01-23 08:30 | DI.RAD_ITS ---
EXAM: XR ARTHRITIS SERIES CLINICAL HISTORY: MCP SWELLING, RA VS DJD, M06.9 TECHNIQUE: 2D digital imaging was performed. COMPARISON: CR RIGHT WRIST COMPLETE from 06/30/2009 CR RIGHT HAND COMPLETE from 02/02/2012 CR,XR XR shoulder RT complete 2+V from 01/06/2019 CR XR KNEE LT 1V from 03/07/2019 FINDINGS: Right hand: There is severe narrowing at the 1st carpometacarpal joint and periarticular spurring. T here is narrowing of the 2nd and 3rd metacarpophalangeal joint and mild periarticular spurring. Ther e is severe narrowing of the distal interphalangeal joint of the little finger and proximal interphal angeal joint of the ring finger. Moderate joint space narrowing and spurring are seen in the remaini ng interphalangeal joints. Left hand: There are severe degenerative changes at the 1st carpometacarpal joint. There are adjacen t bony fragments. There is severe narrowing of the distal interphalangeal joint of the index and lit tle fingers with prominent periarticular spurring. There is mild joint space narrowing and some surr ounding soft tissue swelling of the 2nd metacarpophalangeal joint. No bony erosions are seen. IMPRESSION: Joint space narrowing and periarticular spurring bilaterally, greatest at the 1st carpometacarpal alley nts and interphalangeal joints of the fingers. The pattern is a consistent with osteoarthritis.
== END 2020-01-23 08:50 ==
PROVIDERS: PCP Family Medicine; Visit Provider Family Medicine
DX: M18.0 Bilateral primary osteoarthritis of first carpometacarpal joints (principal); M19.042 Primary osteoarthritis, left hand; M19.041 Primary osteoarthritis, right hand
CPT/HCPCS: 73120

== ENCOUNTER 2020-03-24 01:28 | Outpatient (CLI) | payer MEDICARE, BC, SELFPAY ==
--- NOTE | 2020-03-24 07:15 | DI.RAD_ITS ---
EXAM: XR WRIST LT COMPLETE CLINICAL HISTORY: Acute left wrist pain and swelling,m25.539. TECHNIQUE: 2D digital imaging was performed. COMPARISON: No exams were available for comparison FINDINGS: There is no evidence of acute fracture nor carpal dislocation. However, there are significant degene rative changes at the articulation between the thumb metacarpal and trapezium. There also multiple p richard-articular calcifications at this level as well as proximal to this articulation. No significant ulnar variance. No erosions. Scapholunate distance is normal. IMPRESSION: Significant degenerative changes at the 1st carpometacarpal joint. Also multiple calcifications loca caio lateral and proximal to this joint space. DATA REPOSITORY: RADIATION DOSE DELIVERED:
== END 2020-03-24 01:48 ==
PROVIDERS: PCP Family Medicine; Visit Provider Family Medicine
DX: M25.532 Pain in left wrist (principal); M18.12 Unilateral primary osteoarthritis of first carpometacarpal joint, left hand
CPT/HCPCS: 73110

== ENCOUNTER 2020-04-02 10:35 | Outpatient (CLI) | payer MEDICARE, BC, SELFPAY ==
--- NOTE | 2020-04-02 09:45 | DI.RAD_ITS ---
EXAM: XR KNEE LT 2V AP,LAT INDICATION: ANNUAL F/U L TKA. COMPARISON: CR XR KNEE LT 1V from 03/07/2019 CR XR WRIST LT COMPLETE from 03/24/2020 TECHNIQUE: 2D digital imaging was performed. FINDINGS: There has been no change in the appearance of the total knee prosthesis or surrounding bone. DATA REPOSITORY: RADIATION DOSE DELIVERED:
== END 2020-04-02 10:55 ==
PROVIDERS: PCP Family Medicine; Referring Provider Family Medicine; Visit Provider Student in an Organized Health Care Education/Training Program
DX: G56.02 Carpal tunnel syndrome, left upper limb (principal); Z96.652 Presence of left artificial knee joint; M77.8 Other enthesopathies, not elsewhere classified
CPT/HCPCS: 99214; 73560

== ENCOUNTER 2020-04-14 01:13 | Outpatient (CLI) | payer MEDICARE, BC, SELFPAY ==
--- NOTE | 2020-04-14 07:00 | DI.MRI_ITS ---
EXAM: MR UPPER JOINT LT WO CLINICAL HISTORY: LT WRIST PAIN,TENDONITIS, M77.8. TECHNIQUE: Multiplanar multisequence MRI was performed. COMPARISON: X-ray of the left hand from 01/23/2020. FINDINGS: BONES: No acute fracture or contusion. JOINTS: There is extensive hyperintense signal on the T2 weighted images in the radiocarpal joint, di stal radioulnar joint and throughout the carpal joints. Subchondral cysts are seen in the trapezium a nd the base of the 1st metacarpal. Hyperintense marrow signal is seen throughout is seen in multiple carpal bones particularly the pisiform and capitate. There appear to be erosions in the proximal aspe ct of the pisiform. TENDONS: Flexors: Unremarkable. Extensors: Unremarkable. MUSCLES: Unremarkable. MEDIAN NERVE: Unremarkable on this noncontrast examination. SOFT TISSUES: Unremarkable. LIGAMENTS: Unremarkable. TRIANGULAR FIBROCARTILAGE: Intact. OTHER: IMPRESSION: 1. Extensive fluid and/or inflammatory tissue seen within the distal radial ulnar joint, the radiocar pal joint and within the carpus. There is prominent distension in around the ulnar styloid process co mpartment of the radiocarpal joint. There is involvement of the marrow of several of the carpal bones particularly the pisiform where erosive changes are suggested proximally. The findings are suspiciou s for synovitis as can be seen with rheumatoid arthritis. Infection may also be considered. Please co rrelate clinically. 2. Degenerative changes seen at the 1st carpometacarpal joint. DATA REPOSITORY:
== END 2020-04-14 01:33 ==
PROVIDERS: PCP Family Medicine; Visit Provider Student in an Organized Health Care Education/Training Program
DX: M77.8 Other enthesopathies, not elsewhere classified (principal); M18.12 Unilateral primary osteoarthritis of first carpometacarpal joint, left hand
CPT/HCPCS: 73221

== ENCOUNTER 2020-05-06 03:23 | Outpatient (CLI) | payer MEDICARE, BC, SELFPAY ==
[2020-05-06 11:49] LABS: TSH 0.11 uIU/mL (0.36-3.74)
[2020-05-10 23:37] LABS: 1,25-Dihydroxyvitamin D 27 pg/mL (18-78)
== END 2020-05-06 03:43 ==
PROVIDERS: Nurse Practitioner; PCP Family Medicine; Visit Provider Family Medicine
DX: E03.9 Hypothyroidism, unspecified (principal); M85.88 Other specified disorders of bone density and structure, other site
CPT/HCPCS: 82652; 84443

== ENCOUNTER 2020-05-20 03:03 | Outpatient (CLI) | payer MEDICARE, BC, SELFPAY ==
[2020-05-20 11:22] LABS: Abs Immature Grans 0.04 10^3/uL (0.0-0.06); Absolute Basophil Count 0.08 10^3/uL (0.0-0.2); Absolute Eosinophil Count 0.12 10^3/uL (0.0-0.7); Absolute Lymphocyte Count 1.71 10^3/uL (1.2-3.4); Absolute Monocyte Count 0.73 10^3/uL (0.1-0.8); Basophils % 0.7; Eosinophils % 1.1; HCT 35.5 % (36.0-46.0); HGB 11.4 g/dL (11.2-15.7); Immature Grans % 0.4; Lymphocytes % 15.4; MCH 27.4 pg (27.0-33.0); MCHC 32.1 % (32.0-36.0); MCV 85.3 fL (80-95); MPV 10.3 fL (8.0-11.0); Monocytes % 6.6; Neutrophils % 75.8; Nucleated RBC 0 %; Platelet Count 367 10^3/uL (130-400); RBC 4.16 10^6/uL (3.93-5.22); RDW-SD 43.7 fL; WBC 11.13 10^3/uL (4.4-10.8)
[2020-05-20 11:25] LABS: Absolute Neutrophil Count 8.44 10^3/uL (1.2-6.7)
[2020-05-20 11:44] LABS: Magnesium 2.1 mg/dL (1.8-2.4)
[2020-05-20 11:49] LABS: ALT 27 U/L (14-59); AST 22 U/L (15-37); Albumin 3.7 g/dL (3.4-5.0); Alkaline Phosphatase 50 U/L (46-116); Anion Gap 7.6 mmol/L (3-11); BUN 26 mg/dL (7-18); Bilirubin, Total 0.4 mg/dL (0.2-1.0); C-Reactive Protein 0.74 mg/dL (0.0-0.3); CO2 28.4 mmol/L (21.0-32.0); CREATININE 1.3 mg/dL (0.55-1.02); Calcium 9.2 mg/dL (8.5-10.1); Chloride 99 mmol/L (98-107); Estimated GFR 40.61 (mL/min/1.73m2); Glucose 119 mg/dL (74-106); Potassium 4.1 mmol/L (3.5-5.1); Sodium 135 mmol/L (136-145); Total Protein 7.7 g/dL (6.4-8.2)
[2020-05-20 12:23] LABS: ESR 47 mm/hr (0-30)
[2020-05-21 10:06] LABS: HBs Antibody, Quant <3.1 mIU/mL (See Note); Hepatitis B Surface Ab Negative (See Note)
[2020-05-21 10:24] LABS: Hepatitis B Surface Ag Negative (Negative)
[2020-05-21 11:09] LABS: Hepatitis C Ab w Rflx HCV PCR Negative (Negative)
[2020-05-21 11:16] LABS: Hep B Core Antibody Negative (Negative)
[2020-05-24 13:31] LABS: TB Interpretation Negative (Negative)
== END 2020-05-20 03:23 ==
PROVIDERS: Nurse Practitioner Family; PCP Family Medicine; Visit Provider Nurse Practitioner
DX: M19.90 Unspecified osteoarthritis, unspecified site (principal); Z79.899 Other long term (current) drug therapy; Z11.59 Encounter for screening for other viral diseases; R25.2 Cramp and spasm
CPT/HCPCS: 36415; 80053; 85652; 86704; 86706; 86803; 87340; 83735; 84443; 85025; 86140; 86480

== ENCOUNTER 2020-07-27 03:07 | Outpatient (CLI) | payer MEDICARE, BC, SELFPAY ==
[2020-07-27 12:45] LABS: Hemoglobin A1C 6.4 % (<5.7)
[2020-07-27 13:04] LABS: COMMENT (LAB VIEW ONLY) 124.83 mg/dL; Microalb ug/mg Crea 35.7 ug/mg Cr
[2020-07-27 13:32] LABS: Vitamin B12 395 pg/mL (193-986)
[2020-07-29 04:35] LABS: Vitamin D 25 Total 76.7 ng/mL (30-100)
== END 2020-07-27 03:08 | disposition home or self-care (01) ==
LOC: LOS 03:08
PROVIDERS: PCP Family Medicine; Visit Provider Family Medicine
DX: E03.9 Hypothyroidism, unspecified (principal); E11.9 Type 2 diabetes mellitus without complications; K21.9 Gastro-esophageal reflux disease without esophagitis; L93.0 Discoid lupus erythematosus; M85.88 Other specified disorders of bone density and structure, other site; M48.02 Spinal stenosis, cervical region; Z79.52 Long term (current) use of systemic steroids; Z79.899 Other long term (current) drug therapy
CPT/HCPCS: 36415; 82306; 82043; 82570; 82607; 83036

== ENCOUNTER 2020-11-12 01:59 | Outpatient (CLI) | payer MEDICARE, BC, SELFPAY ==
[2020-11-12 13:31] LABS: Hemoglobin A1C 6.4 % (<5.7)
[2020-11-12 13:35] LABS: TSH (W/Ref FT4) 0.45 uIU/mL (0.36-3.74)
== END 2020-11-12 02:00 | disposition home or self-care (01) ==
LOC: LOS 01:59
PROVIDERS: PCP Family Medicine; Visit Provider Family Medicine
DX: E03.9 Hypothyroidism, unspecified (principal); E11.9 Type 2 diabetes mellitus without complications
CPT/HCPCS: 36415; 83036; 84443

== ENCOUNTER 2020-11-19 03:36 | Outpatient (CLI) | payer MEDICARE, BC, SELFPAY ==
--- NOTE | 2020-11-19 08:45 | DI.MAMMO_ITS ---
Exam(s) MAMMO SCREENING EXAM: MAMMO SCREENING CLINICAL HISTORY: screening,Z12.39. TECHNIQUE: Bilateral full field digital CC and MLO mammographic images were obtained with 3D tomosyn thesis and utilizing computer aided detection (CAD). COMPARISON: Prior mammograms dating back to 2011, the most recent being September 2018. FINDINGS: There are no new significant radiograph findings in left breast. In the anterior aspect of the right breast there is an asymmetric density-possible nodule located 2.5 cm in from the nipple, measuring approximately 1.2 by 1.4 cm. No malignant-appearing microcalcification groups in this region nor elsewhere in either breast. Jordan gn micro and macrocalcifications are seen bilaterally. There is no significant architectural distortion nor skin thickening-retraction. IMPRESSION: 1. No radiographic evidence of malignancy in left breast. 2. Right breast nodular density seen anteriorly. Spot compression 3D views and ultrasound recommende d BI-RADS Category 0 - Assessment Incomplete: Need additional imaging evaluation Breast Density - Category B - Scattered areas of fibroglandular density Breast density Category C or D implies that the patient has dense breast tissue. Dense breast tissue can make it harder to find cancer on a mammogram. Dense breast tissue is also associated with an incr eased risk of breast cancer. This information about the result of the mammogram report was provided to the patient to raise their awareness. Use this report when you speak with the patient about their risks for breast cancer, which includes their family history. At that time, you may recommend additional screening tests (Ultrasoun d or MRI) as these tests may add significant information. A negative radiographic report should not delay biopsy if a dominant or clinically suspicious mass is present. Up to ten percent of cancers are not identified on mammography. A negative report may reinforce clinical impression. Adenosis and dense breasts may obscure an underlying neoplasm. False positive reports average 6 to 10%. Patient will receive a letter notifying them of these results.
== END 2020-11-19 03:56 ==
PROVIDERS: PCP Family Medicine; Visit Provider Nurse Practitioner Family
DX: Z12.31 Encounter for screening mammogram for malignant neoplasm of breast (principal); R92.8 Other abnormal and inconclusive findings on diagnostic imaging of breast
CPT/HCPCS: 77063; 77067

== ENCOUNTER 2020-12-03 03:10 | Outpatient (CLI) | payer MEDICARE, BC, SELFPAY ==
--- NOTE | 2020-12-03 | DI.US_ITS ---
Exam(s) MG MAMMO SCREEN CALL BACK UNI US BREAST RT LIMITED EXAM: MG MAMMO SCREEN CALL BACK UNI and U/S breast RT limited CLINICAL HISTORY: F/U MAMMO, RT ASYMMETRIC DENSITY, ? NODULE. TECHNIQUE: Craniocaudal and mediolateral oblique Full Field Digital Mammography views of the right b reast with Computer Aided Diagnosis followed by Tomosynthesis and right breast ultrasound. COMPARISON: US US BREAST RT LIMITED from 12/03/2020 US US BREAST RT LIMITED from 12/03/2020 FINDINGS: Mammography/Tomosynthesis: Masses/Architectural Distortion: There is again seen a nodular density in the retroareolar region of the right breast. There does appear to be associated architectural distortion now present. There al so few punctate calcifications associated with the nodule. Microcalcifictions: Please see the above section on masses. Skin Thickening/Nipple Retraction: None. Right breast US: Echotexture: Normal appearance of the glandular tissue. Shadowing: No suspicious foci. Cyst: None. Solid lesions: There is a 1.6 x 1.1 x 1.7 cm solid mass at the 6 o'clock position of the right breast 3 cm from the nipple. It corresponds to the mammographic abnormality. There is slight vascularity. T here are few echogenic foci suggesting calcification. Ductal dilation: None. IMPRESSION: 1. 1.7 cm mass at the 6 o'clock position of the right breast. There does appear to be associated arch itectural distortion on the mammogram. 2. Biopsy is recommended for further evaluation. 3. The findings were discussed with the patient on the date of the examination. BI-RADS Category 4 - Suspicious Abnormality: Biopsy should be considered Breast Density - Category B - Scattered areas of fibroglandular density Breast density Category C or D implies that the patient has dense breast tissue. Dense breast tissue can make it harder to find cancer on a mammogram. Dense breast tissue is also associated with an incr eased risk of breast cancer. This information about the result of the mammogram report was provided to the patient to raise their awareness. Use this report when you speak with the patient about their risks for breast cancer, which includes their family history. At that time, you may recommend additional screening tests (Ultrasoun d or MRI) as these tests may add significant information. A negative radiographic report should not delay biopsy if a dominant or clinically suspicious mass is present. Up to ten percent of cancers are not identified on mammography. A negative report may reinforce clinical impression. Adenosis and dense breasts may obscure an underlying neoplasm. False positive reports average 6 to 10%. Patient will receive a letter notifying them of these results.
== END 2020-12-03 03:30 ==
PROVIDERS: PCP Family Medicine; Visit Provider Nurse Practitioner Family
DX: Z12.31 Encounter for screening mammogram for malignant neoplasm of breast (principal); R92.8 Other abnormal and inconclusive findings on diagnostic imaging of breast; N63.14 Unspecified lump in the right breast, lower inner quadrant
CPT/HCPCS: 76642; 77063; 77067

== ENCOUNTER 2021-01-21 00:49 | Outpatient (CLI) | payer MEDICARE, BC, SELFPAY ==
[2021-01-21 12:41] LABS: Hemoglobin A1C 6.4 % (<5.7)
== END 2021-01-21 00:50 | disposition home or self-care (01) ==
LOC: LOS 00:50
PROVIDERS: PCP Family Medicine; Visit Provider Family Medicine
DX: E11.9 Type 2 diabetes mellitus without complications (principal)
CPT/HCPCS: 36415; 83036

== ENCOUNTER 2021-07-01 03:08 | Outpatient (CLI) | payer MEDICARE, BC, SELFPAY ==
--- NOTE | 2021-07-01 13:32 | DI.RAD_ITS ---
Exam(s) XR CERVICAL SP CAGE TRAUMA 2-3V EXAM: XR CERVICAL SP CAGE TRAUMA 2-3V CLINICAL HISTORY: CERVICAL STENOSIS OF SPINE M48.02, F/U ? INTERVAL FUSION. TECHNIQUE: 2D digital imaging was performed. COMPARISON: Preop images of November 2018 were reviewed. FINDINGS: There is now an anterior fusion plate spanning C3-4-5-6 levels with intervertebral disc space plugs a t these 3 level noted. There is there is an element of anterolisthesis of C 4 upon C5 again noted, u nchanged. Intervertebral disc space devices are not retropulsed posterior to the vertebral bodies. There are multilevel degenerative changes in the facet joints. No hardware fracture. The disc space below the fusion at C6-7 is again noted to be significantly decreased in height and with anterior os seous lipping again noted at this level. Multilevel facet arthropathy is again noted. No radiograph ic evidence of osteomyelitis. IMPRESSION: Postfusion plate changes, as described above. DATA REPOSITORY: RADIATION DOSE DELIVERED:
== END 2021-07-01 03:28 ==
PROVIDERS: PCP Family Medicine; Visit Provider Physician Assistant Surgical
DX: M48.02 Spinal stenosis, cervical region (principal)
CPT/HCPCS: 72040

== ENCOUNTER 2021-07-07 03:54 | Outpatient (CLI) | payer MEDICARE, BC, SELFPAY ==
[2021-07-07 10:02] LABS: Abs Immature Grans 0.06 10^3/uL (0.0-0.06); Absolute Basophil Count 0.05 10^3/uL (0.0-0.2); Absolute Eosinophil Count 0.11 10^3/uL (0.0-0.7); Absolute Lymphocyte Count 4.04 10^3/uL (1.2-3.4); Absolute Monocyte Count 0.99 10^3/uL (0.1-0.8); Basophils % 0.5; Eosinophils % 1.2; HCT 36.6 % (36.0-46.0); HGB 11.7 g/dL (11.2-15.7); Immature Grans % 0.6; Lymphocytes % 42.8; MCH 27.3 pg (27.0-33.0); MCV 85.5 fL (80-95); MPV 9.8 fL (8.0-11.0); Monocytes % 10.5; Neutrophils % 44.4; Nucleated RBC 0 %; Platelet Count 383 10^3/uL (130-400); RBC 4.28 10^6/uL (3.93-5.22); RDW 15.1 % (11.7-14.6); RDW-SD 47.3 fL; WBC 9.45 10^3/uL (4.4-10.8)
[2021-07-07 10:10] LABS: ESR 49 mm/hr (0-30)
[2021-07-07 11:05] LABS: ALT 26 U/L (14-59); AST 21 U/L (15-37); Alkaline Phosphatase 46 U/L (46-116); Anion Gap 11.3 mmol/L (3-11); BUN 24 mg/dL (7-18); Bilirubin, Total 0.3 mg/dL (0.2-1.0); CO2 26.7 mmol/L (21.0-32.0); CREATININE 1.3 mg/dL (0.55-1.02); Calcium 8.9 mg/dL (8.5-10.1); Calculated LDL 121 mg/dL (<100); Chloride 103 mmol/L (98-107); Cholesterol 230 mg/dL (<200); Estimated GFR 40.49 (mL/min/1.73m2); Glucose 102 mg/dL (74-106); HDL Cholesterol 85 mg/dL (40-60); Sodium 141 mmol/L (136-145); Total Protein 7.8 g/dL (6.4-8.2); Triglyceride 124 mg/dL (<150)
[2021-07-07 11:12] LABS: C-Reactive Protein 0.13 mg/dL (0.0-0.3)
== END 2021-07-07 03:55 | disposition home or self-care (01) ==
LOC: LBO 03:54
PROVIDERS: PCP Family Medicine; Visit Provider Nurse Practitioner
DX: Z79.899 Other long term (current) drug therapy (principal); M19.90 Unspecified osteoarthritis, unspecified site; E78.5 Hyperlipidemia, unspecified
CPT/HCPCS: 36415; 80053; 80061; 85652; 85025; 86140

== ENCOUNTER 2021-08-31 21:42 | Outpatient (REF) | payer MEDICARE, BC, SELFPAY ==
[2021-08-31 22:53] LABS: CREATININE 1.3 mg/dL (0.55-1.02); Estimated GFR 40.38 (mL/min/1.73m2)
== END 2021-08-31 21:43 | disposition home or self-care (01) ==
LOC: LBN 21:42
PROVIDERS: PCP Family Medicine; Visit Provider Nurse Practitioner Family
DX: U07.1 COVID-19 (principal)
CPT/HCPCS: 82565

== ENCOUNTER 2021-10-03 10:45 | Outpatient (CLI) | payer MEDICARE, BC, SELFPAY ==
--- NOTE | 2021-10-03 10:30 | DI.RAD_ITS ---
Exam(s) XR KNEE RT 3V AP,LAT,MICHAEL EXAM: XR KNEE RT 3V AP,LAT,MICHAEL CLINICAL HISTORY: RIGHT KNEE PAIN. TECHNIQUE: 2D digital imaging was performed. Three views. COMPARISON: CR XR KNEE LT 2V AP,LAT from 04/02/2020 FINDINGS: BONES: No acute fracture is present. No bony destructive lesion is seen. Enthesophyte superior pole o f the patella. JOINTS: Severe narrowing of the lateral femoral tibial joint space causing widening of the medial fem oral tibial joint space and valgus angulation. Prominent spurring laterally. spurring at the patell ofemoral joint. No joint effusion is seen. SOFT TISSUE: Vascular calcifications. IMPRESSION: Severe degenerative changes of the lateral femoral tibial joint. DATA REPOSITORY: RADIATION DOSE DELIVERED:
== END 2021-10-03 10:46 | disposition home or self-care (01) ==
LOC: DIORS 10:46
PROVIDERS: PCP Family Medicine; Referring Provider Family Medicine; Visit Provider Physician Assistant
DX: M17.11 Unilateral primary osteoarthritis, right knee
CPT/HCPCS: 20610; 73562; J1040

== ENCOUNTER 2021-10-26 02:40 | Outpatient (CLI) | payer MEDICARE, BC, SELFPAY ==
[2021-10-26 12:51] LABS: ESR 55 mm/hr (0-30)
[2021-10-26 12:52] LABS: Abs Immature Grans 0.06 10^3/uL (0.0-0.06); Absolute Basophil Count 0.07 10^3/uL (0.0-0.2); Absolute Eosinophil Count 0.29 10^3/uL (0.0-0.7); Absolute Lymphocyte Count 1.78 10^3/uL (1.2-3.4); Absolute Monocyte Count 1.48 10^3/uL (0.1-0.8); Basophils % 0.7; Eosinophils % 2.8; HCT 35.5 % (36.0-46.0); HGB 11.9 g/dL (11.2-15.7); Immature Grans % 0.6; Lymphocytes % 17.3; MCH 28.9 pg (27.0-33.0); MCHC 33.5 % (32.0-36.0); MCV 86 fL (80-95); MPV 10.7 fL (8.0-11.0); Monocytes % 14.4; Neutrophils % 64.2; Platelet Count 389 10^3/uL (130-400); RBC 4.12 10^6/uL (3.93-5.22); RDW 13.8 % (11.7-14.6); RDW-SD 43.6 fL; WBC 10.28 10^3/uL (4.4-10.8)
[2021-10-26 13:18] LABS: ALT 25 U/L (14-59); AST 25 U/L (15-37); Alkaline Phosphatase 35 U/L (46-116); Anion Gap 8.8 mmol/L (3-11); BUN 24 mg/dL (7-18); Bilirubin, Total 0.3 mg/dL (0.2-1.0); CO2 30.2 mmol/L (21.0-32.0); CREATININE 1.5 mg/dL (0.55-1.02); Calcium 9.1 mg/dL (8.5-10.1); Chloride 97 mmol/L (98-107); Estimated GFR 34.23 (mL/min/1.73m2); Glucose 122 mg/dL (74-106); Sodium 136 mmol/L (136-145); Total Protein 7.9 g/dL (6.4-8.2)
[2021-10-26 13:20] LABS: C-Reactive Protein 1.98 mg/dL (0.0-0.3)
[2021-10-26 13:40] LABS: Calculated LDL 72 mg/dL (<100); Cholesterol 161 mg/dL (<200); HDL Cholesterol 66 mg/dL (40-60); Triglyceride 119 mg/dL (<150)
== END 2021-10-26 02:41 | disposition home or self-care (01) ==
LOC: LOS 02:40
PROVIDERS: PCP Family Medicine; Visit Provider Nurse Practitioner
DX: N18.30 Chronic kidney disease, stage 3 unspecified (principal); M85.88 Other specified disorders of bone density and structure, other site; E78.5 Hyperlipidemia, unspecified; E03.9 Hypothyroidism, unspecified; Z79.899 Other long term (current) drug therapy
CPT/HCPCS: 36415; 80053; 80061; 85652; 85025; 86140

== ENCOUNTER 2021-11-22 03:06 | Outpatient (CLI) | payer MEDICARE, BC, SELFPAY ==
[2021-11-22 12:58] LABS: Anion Gap 9.5 mmol/L (3-11); BUN 15 mg/dL (7-18); CO2 27.5 mmol/L (21.0-32.0); CREATININE 1.3 mg/dL (0.55-1.02); Calcium 9.5 mg/dL (8.5-10.1); Chloride 98 mmol/L (98-107); Estimated GFR 40.38 (mL/min/1.73m2); Glucose 119 mg/dL (74-106); Sodium 135 mmol/L (136-145)
== END 2021-11-22 03:07 | disposition home or self-care (01) ==
LOC: LOS 03:06
PROVIDERS: PCP Family Medicine; Visit Provider Family Medicine
DX: N18.30 Chronic kidney disease, stage 3 unspecified (principal)
CPT/HCPCS: 36415; 80048

== ENCOUNTER → 2021-12-22 04:27 | Outpatient (CLI) | payer MEDICARE, BC, SELFPAY ==
--- NOTE | 2021-12-22 08:00 | DI.DEXA_ITS ---
Exam(s) XR DEXA BONE DENSITY W/WO TED EXAM: XR DEXA BONE DENSITY W/WO TED CLINICAL HISTORY: RA, osteopenia, breast cancer, M85.88 TECHNIQUE: Routine DEXA evaluation of the lumbar spine, hip, or forearm. COMPARISON: CR XR DEXA BONE DENSITY W/WO TED from 12/18/2019 FINDINGS: Performed on a [employer] unit. Lateral image: No compression fracture evident. Lumbar Spine total T-score: 2.6. Prior reading in 2019 was 2.3. Hip total T-score:0.5. Prior 2020 reading was 0.3 Independent reading at the level of the femoral neck yields at T-score of 0.2. Forearm total T-score: -1.4 IMPRESSION: Bone mineral density measures in the normal-osteopenia range. Fracture risk is low-moderate Note: Any spine fracture indicates 5x risk for subsequent spine fracture and 2x risk for subsequent h ip fracture. World Health Organization criteria for BMD interpretation classify patients: Normal...... T- Score at or above -1.0 Osteopenic... T- Score between -1.0 and -2.5 Osteoporosis... T-Score at or below -2.5
--- NOTE | 2021-12-22 08:00 | DI.RAD_ITS ---
Exam(s) XR HIP RT COMPLETE AP PELVIS EXAM: XR HIP RT COMPLETE AP PELVIS CLINICAL HISTORY: right hip pain, ACUTE, M25.551. TECHNIQUE: 2D digital imaging was performed. COMPARISON: CR XR lumbar spine complete from 05/15/2018 FINDINGS: No evidence of pelvic nor hip fracture. Minimal degenerative changes in the hips. Additional views of the right hip do not reveal fracture. Sacroiliac joints unremarkable. Pubic rami unremarkable. Advanced disc space narrowing noted at L4-5 and L5-S1 levels, similar to 2019. IMPRESSION: No fractures. Other findings as above. DATA REPOSITORY: RADIATION DOSE DELIVERED:
== END ==
PROVIDERS: PCP Family Medicine; Visit Provider Family Medicine
DX: M85.88 Other specified disorders of bone density and structure, other site (principal); M48.061 Spinal stenosis, lumbar region without neurogenic claudication; M48.07 Spinal stenosis, lumbosacral region; Z13.820 Encounter for screening for osteoporosis
CPT/HCPCS: 77080; 73502

== ENCOUNTER → 2022-01-04 01:20 | Outpatient (CLI) | payer MEDICARE, BC, SELFPAY | PROVIDERS: PCP Family Medicine; Visit Provider Family Medicine | DX: I10 Essential (primary) hypertension (principal); R00.2 Palpitations | CPT/HCPCS: 93306 ==

== ENCOUNTER → 2022-02-08 01:45 | Outpatient (CLI) | payer MEDICARE, BC, SELFPAY ==
--- NOTE | 2022-02-08 07:21 | DI.US_ITS ---
Exam(s) US CAROTID EXAM: US CAROTID CLINICAL HISTORY: feels like a palpitation in neck,DIZZINESS,R42. TECHNIQUE: Ultrasound carotids performed using grayscale, color-flow, and spectral Doppler imaging. COMPARISON: None FINDINGS: CAROTID ARTERIES: There is plaque evident bilaterally at the level the carotid bulbs both out elevated velocities. Onl y mild plaque seen in the proximal internal carotid arteries, also without elevated velocities at and distal to these levels. VERTEBRAL ARTERIES: Antegrade flow demonstrated in both Measurements: R Bulb: 102.2cm/s PS / 27.1cm/s ED R CCA: 93.2cm/s PS / 24.5cm/s ED R ECA: 129.4cm/s PS / 13cm/s ED R ICA Prox: 54.6cm/s PS / 16.2cm/s ED R ICA Mid: 116.6cm/s PS / 23.5cm/s ED R ICA Distal: 78.3cm/s PS /19.9cm/s ED R Vert: 73.1cm/s PS / 14.1cm/s ED R SVR: 1.3 R DVR: 1 L Bulb: 78.3cm/s PS / 17.7cm/s ED L CCA: PS / 22.8cm/s ED L ECA: 102.5cm/s PS / 17.7cm/s ED L ICA Prox: 75.9cm/s PS / 27.4cm/s ED L ICA Mid: 68.6cm/s PS / 23.8cm/s ED L ICA Distal: 89.2cm/s PS / 25cm/s ED L Vert: 52.2cm/s PS / 17.5cm/s ED L SVR: 1 L DVR: 1.1 IMPRESSION: 1. Some plaque is demonstrated in both carotid bulbs but without elevated velocities indicating that the amount of stenosis is less than 50 percent bilaterally. 2. Antegrade flow is demonstrated in both vertebral arteries. Criteria for Carotid Stenosis: Normal: ICA PSV <125 cm/s no plaque or intimal thickening is visible. <50% stenosis: ICA PSV <125 cm/s and plaque or intimal thickening is visible. 50-69% stenosis: ICA PSV is 125-250 cm/s and plaque is visible. >70% stenosis to near occlusion: ICA PSV >250 cm/s with visible plaque and luminal narrowing. DATA REPOSITORY:
== END ==
PROVIDERS: PCP Family Medicine; Visit Provider Family Medicine
DX: R42 Dizziness and giddiness (principal)
CPT/HCPCS: 93880

== ENCOUNTER 2022-02-13 02:41 | Outpatient (CLI) | payer MEDICARE, BC, SELFPAY ==
[2022-02-13 12:18] LABS: ESR 17 mm/hr (0-30)
[2022-02-13 12:24] LABS: Abs Immature Grans 0.06 10^3/uL (0.0-0.06); Absolute Basophil Count 0.05 10^3/uL (0.0-0.2); Absolute Eosinophil Count 0.16 10^3/uL (0.0-0.7); Absolute Lymphocyte Count 2.14 10^3/uL (1.2-3.4); Absolute Monocyte Count 1.19 10^3/uL (0.1-0.8); Absolute Neutrophil Count 3.73 10^3/uL (1.2-6.7); Basophils % 0.7; Eosinophils % 2.2; HCT 35.9 % (36.0-46.0); HGB 11.9 g/dL (11.2-15.7); Immature Grans % 0.8; Lymphocytes % 29.2; MCH 29.2 pg (27.0-33.0); MCHC 33.1 % (32.0-36.0); MCV 88 fL (80-95); MPV 10.4 fL (8.0-11.0); Monocytes % 16.2; Neutrophils % 50.9; Platelet Count 399 10^3/uL (130-400); RBC 4.08 10^6/uL (3.93-5.22); RDW 13.8 % (11.7-14.6); RDW-SD 44.6 fL; WBC 7.33 10^3/uL (4.4-10.8)
[2022-02-13 12:42] LABS: Hemoglobin A1C 6.5 % (<5.7)
[2022-02-13 12:58] LABS: ALT 36 U/L (14-59); AST 28 U/L (15-37); Albumin 4.3 g/dL (3.4-5.0); Alkaline Phosphatase 35 U/L (46-116); Anion Gap 11.7 mmol/L (3-11); BUN 19 mg/dL (7-18); Bilirubin, Total 0.4 mg/dL (0.2-1.0); CO2 26.3 mmol/L (21.0-32.0); CREATININE 1.4 mg/dL (0.55-1.02); Calcium 9.7 mg/dL (8.5-10.1); Calculated LDL 92 mg/dL (<100); Chloride 101 mmol/L (98-107); Cholesterol 198 mg/dL (<200); Estimated GFR 40.22 (mL/min/1.73m2); Glucose 111 mg/dL (74-106); HDL Cholesterol 56 mg/dL (40-60); Potassium 3.8 mmol/L (3.5-5.1); Sodium 139 mmol/L (136-145); Total Protein 8.1 g/dL (6.4-8.2); Triglyceride 252 mg/dL (<150)
[2022-02-13 13:56] LABS: C-Reactive Protein 0.11 mg/dL (0.0-0.3)
== END 2022-02-13 02:42 | disposition home or self-care (01) ==
LOC: LOS 02:42
PROVIDERS: PCP Family Medicine; Visit Provider Nurse Practitioner
DX: E11.9 Type 2 diabetes mellitus without complications (principal); E78.5 Hyperlipidemia, unspecified; N18.30 Chronic kidney disease, stage 3 unspecified; M06.9 Rheumatoid arthritis, unspecified
CPT/HCPCS: 36415; 80053; 80061; 85652; 83036; 84443; 85025; 86140

== ENCOUNTER → 2022-02-15 02:43 | Outpatient (CLI) | payer MEDICARE, BC, SELFPAY ==
--- NOTE | 2022-02-15 06:45 | DI.MRI_ITS ---
Exam(s) MR CERVICAL SPINE WO/W EXAM: MR CERVICAL SPINE WO/W CLINICAL HISTORY: s/p cervical surgery with increasing pain,spinal stenosis,m48.02. TECHNIQUE: Multiplanar multisequence MRI was performed. FINDINGS: MR examination cervical spine was performed according to the usual protocol with additional post cont rast sagittal and axial T1 fat sat imaging. Examination is compared with prior examination of November 2018. There has been interval fusion of vertebral bodies C3 through C 6. The previously noted multilevel prominence of the disc osteophyte complex seen on the prior examinati on is again seen on today's study. There is mild kyphotic deformity at this C5-C6 level, this is a b it more prominent than on prior study. The AP diameter of the spinal canal appears well maintained o n today's examination with no gross central canal spinal stenosis. No gross focal disc herniation se en. Multilevel neural foraminal narrowing is noted, sparing the C2-3 level bilaterally and also spar ing the right neural foramen at C4-5. No new disc herniation seen. No enhancing lesion identified i n the region surveyed. No spinal cord signal abnormality seen. No localized compression of the spin al cord. IMPRESSION: Post surgical changes as noted above, no significant focal lesion identified. DATA REPOSITORY:
[2022-02-15] MEDS: Normal Saline Flush 10 ML SYR IVP (10:04)
[2022-02-15] MEDS: Gadoterate meglumine 20 ML SYRINGE IVP (10:05)
== END ==
PROVIDERS: PCP Family Medicine; Visit Provider Family Medicine
DX: M48.02 Spinal stenosis, cervical region (principal)
CPT/HCPCS: 72156

== ENCOUNTER → 2022-02-28 02:39 | Outpatient (CLI) | payer MEDICARE, BC, SELFPAY ==
--- NOTE | 2022-02-28 07:45 | DI.US_ITS ---
Exam(s) US SOFT TISS ABD WALL/LOW BACK EXAM: US SOFT TISS ABD WALL/LOW BACK CLINICAL HISTORY: lump periumbilical dermal,r22.9,r22.2. TECHNIQUE: Ultrasound was performed using standard protocol. COMPARISON: No exams were available for comparison FINDINGS: Sonographic assessment utilizing grayscale and color Doppler imaging was performed and targeted to th e area of clinical concern. There is no evidence of an anterior abdominal wall defect or an umbilical hernia. There is a 1.4 x 1 .1 x 0.7 cm round hypoechoic focus superior to the umbilicus. This is nonspecific. It does not appe ar to communicate with the abdominal cavity. No internal blood flow is seen. A CT scan of the abdom en with contrast is recommended for further evaluation. IMPRESSION: DATA REPOSITORY:
== END ==
PROVIDERS: PCP Family Medicine; Visit Provider Family Medicine
DX: R22.2 Localized swelling, mass and lump, trunk (principal)
CPT/HCPCS: 76705

== ENCOUNTER → 2022-03-27 10:34 | Outpatient (BNVA) | payer MEDICARE, BC, SELFPAY | PROVIDERS: PCP Family Medicine; Referring Provider Family Medicine; Visit Provider Student in an Organized Health Care Education/Training Program | DX: M17.11 Unilateral primary osteoarthritis, right knee (principal) | CPT/HCPCS: 20610; J1040 ==

== ENCOUNTER → 2022-03-31 00:31 | Outpatient (CLI) | payer MEDICARE, BC, SELFPAY ==
--- NOTE | 2022-03-31 07:30 | DI.CT_ITS ---
Exam(s) CT ABDOMEN PELVIS W EXAM: CT ABDOMEN PELVIS W CLINICAL HISTORY: f/u us,abd wall anomaly,q79.59 TECHNIQUE: Imaging Protocol: Axial computed tomography images with coronal and sagittal reformatted images were created and reviewed CONTRAST MATERIAL: Intravenous: Omnipaque 350 Contrast volume:100 mL Oral: Yes COMPARISON: CT HEAD WITHOUT CONTRAST from 06/30/2009 CT FACIAL WITHOUT CONTRAST from 06/30/2009 CT RT.UPPER EXTREMITY WO CONTRAST from 07/06/2009 CT RT.UPPER EXTREMITY WO CONTRAST from 07/06/2009 CT ABD PELVIS WITH CONTRAST from 06/21/2010 US US SOFT TISS ABD WALL/LOW BACK from 02/28/2022 FINDINGS: ABDOMEN: Lung Bases: There is mild scarring in the lung bases. Liver: There is decreased attenuation of the liver suggesting fatty infiltration. No measurable mass . Portal, Superior Mesenteric, and Splenic Veins: Unremarkable. Gallbladder and Biliary Tract: Status post cholecystectomy. No significant biliary ductal dilatation . Pancreas: Normal density, no abnormal calcifications or inflammatory process. Spleen: Normal. Adrenals: No masses seen. Kidneys: Normal size, contour and axis. No radiodense stones or obstructive uropathy. There are tiny hypodensities in the kidneys bilaterally. They are too small for further characterization, but likel y reflect small cysts. Abdominal Aorta: Abdominal portion non-dilated. Atherosclerosis is present. Bowel: No obstruction or bowel wall thickening. No evidence of appendicitis. Peritoneal Cavity: No ascites, collection or mesenteric inflammatory response. No free air. Lymph Nodes: Within normal limits. Bones: Within normal limits for the patient's age. There is grade 1 pseudo spondylolisthesis of L4 o n L5 resulting in marked central spinal canal stenosis. Soft Tissues: There is a 1 x 1.5 cm round fluid attenuation area within the umbilicus. This was pres ent on prior CT examinations dating back to 2010. It may correspond to the ultrasound finding on 02/28/2022. PELVIS: Bladder: Symmetric distention, no gross wall thickening. Reproductive Organs: Unremarkable as visualized. Lymph Nodes: Within normal limits. Bones: Within normal limits for the patient's age. IMPRESSION: Persistent 1 x 1.5 cm fluid attenuation lesion within the umbilicus. There is peripheral wall enhanc ement. This has been present dating back to the oldest known CT scan from 06/21/2010. This is nonspec ific. Possibility of a urachal remnant/sinus should be considered. Abscess is considered less likel y. No hernia is identified. RADIATION DOSE DELIVERED: 1,287.56mGy.cm Total DLP DATA REPOSITORY: All CT scans at this facility are submitted to the National Radiology Data Registry (NRDR) Dose Index Registry (DIR) with the [employer] (ACR). RADIATION OPTIMIZATION: All CT scans at this facility use at least one of these dose optimization te chniques: automated exposure control; mA and/or kV adjustment per patient size (includes targeted exa ms where dose is matched to clinical indication); or iterative reconstruction.
[2022-03-31 11:44] LABS: CREATININE 1.5 mg/dL (0.55-1.02); Estimated GFR 37.03 (mL/min/1.73m2)
[2022-03-31] MEDS: Normal Saline Flush 10 ML SYR IVP (13:32)
== END ==
PROVIDERS: PCP Family Medicine; Visit Provider Surgery
DX: Q79.59 Other congenital malformations of abdominal wall (principal)
CPT/HCPCS: 74177; 82565

== ENCOUNTER 2022-04-26 12:31 | Outpatient (CLI) | payer MEDICARE, BC, SELFPAY ==
[2022-04-26 12:42] VITALS: BP 132/72; PULSE 83; RESP 20; TEMP 36.9; O2SAT 94
[2022-04-26] MEDS: Omnipaque 240 MG/ML 50 ML BTL IJ (13:42)
[2022-04-26] MEDS: Bupivacaine 0.5% Pres-Free 10 ML VIAL IJ (13:42)
--- NOTE | 2022-04-26 13:45 | DI.RAD_ITS ---
Exam(s) XR PAIN CLINIC CERVICAL SP 2V EXAM: XR PAIN CLINIC CERVICAL SP 2V CLINICAL HISTORY: Dx: Cervical Spondylosis. TECHNIQUE: Fluoroscopy was provided for the referring physician for guidance with performing pain cl inic injection procedure. COMPARISON: No exams were available for comparison FINDINGS: Please see procedure note for details. Fluoro time: 77.9 seconds RADIATION DOSE DELIVERED: armani Jolly=9.73 mGy
--- NOTE | 2022-04-26 13:54 | PDOC.PAIN_ITS ---
Date of service: 04/26/22 Time of Service: 13:59 Pain Clinic Procedure Note Procedure Note Procedure Note: CERVICAL MEDIAL BRANCH BLOCKS Gilda Ochoa has been referred to the [facility] for cervical medial branch blocks. COMMENTS: She was originally scheduled for a left C4-C6 medial branch blocks. She does have a C3-C6 interbody fusion. For this reason, we cannot block facet joints at fused segments. I did discuss this with her in detail. She states that most of her pain is at the base of the neck and radiating into her upper back. For these reasons I did recommend that we block the bilateral C6-C7 facets using the medial branch block technique. She did consent. Her pre- procedure pain VAS was 6/10. Dx: Cervical spondylosis without myelopathy Patient was interviewed and the medical record reviewed. There were no medical, pharmacologic, radiographic or other structural contraindications to attempting fluoroscopically guided local anesthetic cervical medial branch blocks. Risks and expected side effects as well as potential benefit of the procedure were reviewed and voiced concerns addressed. The printed consent form was signed and witnessed. Standard time-out procedure was performed. Patient was placed in the prone position on the fluoroscopy table and automated blood pressure cuff and pulse oximeter applied. The skin entry points for approaching the anatomic target points of the segmental medial branches of bilateral C6 and C7 were identified with fluoroscopy and marked. Following thorough Chlorhexadine preparation of the skin and draping and 1% lidocaine infiltration of the skin entry points and subcutaneous tissues, a 25 gauge spinal needle was placed under fluoroscopic guidance down on to the target point for each respective segmental medial branch. Position was confirmed in A/P and leteral views with 0.25ml of omnipaque 240 injected at each level. This revealed appropriate spread and no vascular uptake. At each point 0.3ml 0.5% bupivicaine was injected. Vital signs were stable throughout the procedure and were as recorded in the docflowsheet by the nursing staff. Follow up plans and appointments were discussed and patient was instructed to keep careful note of how the usual pain was modified by these injections. Specifically, the patient was asked to keep a pain diary for the next 4 hours using a numeric pain scale of 0-10 and report these results at the follow-up visit. Post procedure instruction was given as documented in the nursing documentation and having met discharge criteria, and was discharged from the [facility]. Based on the medial branches blocked today, if they patient has adequate relief and we are able to proceed to radiofrequency ablation, the treatment should result in the denervation of the bilateral C6-C7 FACET JOINTS. We would expect to denervate a total of 2 facets during the radiofrequency ablation. COMMENTS: Post-procedure pain VAS was 2/10. Avelino Ramon DO, MPH [facility] CC: Leighann Zuñiga MD, DC
[2022-04-26 13:56] VITALS: BP 147/69; PULSE 82; RESP 12; O2SAT 94
== END 2022-04-26 12:32 | disposition home or self-care (01) ==
LOC: PC 12:31
PROVIDERS: PCP Family Medicine; Visit Provider Preventive Medicine Occupational Medicine
DX: M47.812 Spondylosis without myelopathy or radiculopathy, cervical region (principal); M54.2 Cervicalgia
CPT/HCPCS: 64490; 72040; Q9967

== ENCOUNTER → 2022-05-30 10:30 | Outpatient (BNVA) | payer MEDICARE, BC, SELFPAY | PROVIDERS: PCP Family Medicine; Referring Provider Family Medicine; Visit Provider Surgery | DX: Q64.4 Malformation of urachus (principal) | CPT/HCPCS: 99213; 99242 ==

== ENCOUNTER 2022-06-26 03:27 | Outpatient (CLI) | payer MEDICARE, BC, SELFPAY ==
[2022-06-26 12:18] LABS: Abs Immature Grans 0.06 10^3/uL (0.0-0.06); Absolute Basophil Count 0.04 10^3/uL (0.0-0.2); Absolute Eosinophil Count 0.12 10^3/uL (0.0-0.7); Absolute Lymphocyte Count 2.81 10^3/uL (1.2-3.4); Absolute Monocyte Count 1.09 10^3/uL (0.1-0.8); Absolute Neutrophil Count 3.68 10^3/uL (1.2-6.7); Basophils % 0.5; Eosinophils % 1.5; HCT 38.8 % (36.0-46.0); HGB 12.6 g/dL (11.2-15.7); Immature Grans % 0.8; MCH 29.1 pg (27.0-33.0); MCHC 32.5 % (32.0-36.0); MCV 90 fL (80-95); MPV 10.3 fL (8.0-11.0); Neutrophils % 47.2; Platelet Count 423 10^3/uL (130-400); RBC 4.33 10^6/uL (3.93-5.22); RDW 13.6 % (11.7-14.6); RDW-SD 45.1 fL
[2022-06-26 12:21] LABS: ESR 34 mm/hr (0-30)
[2022-06-26 12:34] LABS: ALT 37 U/L (14-59); AST 29 U/L (15-37); Albumin 4.3 g/dL (3.4-5.0); Alkaline Phosphatase 39 U/L (46-116); BUN 17 mg/dL (7-18); Bilirubin, Total 0.4 mg/dL (0.2-1.0); C-Reactive Protein 0.79 mg/dL (0.0-0.3); CREATININE 1.5 mg/dL (0.55-1.02); Calcium 10.1 mg/dL (8.5-10.1); Chloride 101 mmol/L (98-107); Estimated GFR 37.03 (mL/min/1.73m2); Glucose 165 mg/dL (74-106); Potassium 3.9 mmol/L (3.5-5.1); Sodium 140 mmol/L (136-145)
== END 2022-06-26 03:28 | disposition home or self-care (01) ==
LOC: LOS 03:28
PROVIDERS: PCP Family Medicine; Visit Provider Nurse Practitioner
DX: M85.88 Other specified disorders of bone density and structure, other site (principal); C50.411 Malignant neoplasm of upper-outer quadrant of right female breast; Z79.899 Other long term (current) drug therapy; Z17.0 Estrogen receptor positive status [ER+]; M06.00 Rheumatoid arthritis without rheumatoid factor, unspecified site
CPT/HCPCS: 80053; 82306; 85652; 85025; 86140

== ENCOUNTER 2022-08-02 10:53 | Emergency (ER) | payer MEDICARE, BC, SELFPAY ==
[2022-08-02] VITALS (8 sets, daily range): BP systolic 106–153; BP diastolic 55–86; PULSE 82–101; RESP 12–24; TEMP 39.7; O2SAT 91–94
--- NOTE | 2022-08-02 10:45 | RT.EKG_ITS ---
APPROVED REPORT Exam: Resting ECG Reason for Exam: palpitations Patient Location: E HR:93 bpm ECG Measurements Heart Rate 93 AXIS OR 178 P 82 QRSd 143 QRS -63 QT 386 T 56 QTc 480 Conclusion Sinus rhythm...normal P axis, V-rate 60- 99 RBBB and LAFB...QRSd >120mS, axis(-40,240) Left ventricular hypertrophy...multiple voltage criteria Physician: no stemi, RBBB
[2022-08-02 11:23] LABS: Abs Immature Grans 0.07 10^3/uL (0.0-0.06); Absolute Basophil Count 0.03 10^3/uL (0.0-0.2); Absolute Eosinophil Count 0.11 10^3/uL (0.0-0.7); Absolute Lymphocyte Count 1.93 10^3/uL (1.2-3.4); Absolute Monocyte Count 1.36 10^3/uL (0.1-0.8); Absolute Neutrophil Count 6.41 10^3/uL (1.2-6.7); Basophils % 0.3; Eosinophils % 1.1; HGB 13.1 g/dL (11.2-15.7); Immature Grans % 0.7; Lymphocytes % 19.5; MCH 29.1 pg (27.0-33.0); MCHC 33.6 % (32.0-36.0); MCV 87 fL (80-95); MPV 9.5 fL (8.0-11.0); Monocytes % 13.7; Neutrophils % 64.7; Platelet Count 408 10^3/uL (130-400); RDW 13.4 % (11.7-14.6); RDW-SD 42.5 fL; WBC 9.91 10^3/uL (4.4-10.8)
[2022-08-02] MEDS: Normal Saline 500 ML IV (11:39)
[2022-08-02 11:40] LABS: Source Nasal/Nares
[2022-08-02 11:47] LABS: ALT 43 U/L (14-59); AST 32 U/L (15-37); Alkaline Phosphatase 41 U/L (46-116); Anion Gap 8.9 mmol/L (3-11); BUN 16 mg/dL (7-18); Bilirubin, Total 0.3 mg/dL (0.2-1.0); CO2 26.1 mmol/L (21.0-32.0); CREATININE 1.3 mg/dL (0.55-1.02); Calcium 10.4 mg/dL (8.5-10.1); Chloride 101 mmol/L (98-107); Estimated GFR 43.69 (mL/min/1.73m2); Glucose 158 mg/dL (74-106); Magnesium 2.1 mg/dL (1.8-2.4); NT-proBNP 74 pg/mL (<300); Sodium 136 mmol/L (136-145); Total Protein 8.2 g/dL (6.4-8.2); Troponin I < 50 ng/L (<or=60)
[2022-08-02] MEDS: Normal Saline Flush 10 ML SYR IVP (12:14)
[2022-08-02] MEDS: Omnipaque 350 MG/ML 500 ML BTL-Imaging package IJ (12:15)
[2022-08-02] MEDS: Normal Saline - Diluent 50 ML VIAL IJ (12:17)
--- NOTE | 2022-08-02 12:20 | DI.CT_ITS ---
Exam(s) CT CHEST PE CTA EXAM: CT CHEST PE CTA CLINICAL HISTORY: chest pain, palpitations, sob, on estrogen. TECHNIQUE: Imaging Protocol: CT angiography of the chest was performed using pulmonary embolus olga col. Multi planar reconstructions were performed. CONTRAST MATERIAL: Intravenous: Omnipaque 350 Contrast volume: 100 cc COMPARISON: CT CT ABDOMEN PELVIS W from 03/31/2022 FINDINGS: CHEST: PULMONARY ARTERIES: There are no intraluminal filling defects to suggest acute pulmonary emboli. LUNGS: COPD and mild-moderate bilateral chronic interstitial disease.. Tiny 1-2 millimeter granuloma noted in the lateral aspect of the right upper lobe.. There are no pleural effusions. MEDIASTINUM: There is no hilar nor mediastinal adenopathy. CARDIAC: Heart size normal. No pericardial effusion. No shift of the interventricular septum.Calibe r of the thoracic aorta is within normal limits. No evidence of dissection. There is no significant shift of the interventricular septum. PARTIALLY VISUALIZED UPPERMOST ABDOMEN: Cholecystectomy. No adrenal masses. No splenomegaly. OSSEOUS: No significant osseous lesions.No fractures.. IMPRESSION: 1. No evidence of acute pulmonary emboli. No evidence of pulmonary infarction.No pleural effusions. No intrathoracic adenopathy. 2. Chronic bilateral interstitial disease noted. 3. No evidence of aortic dissection nor pericardial effusion. Heart size normal. Called by myself to ER provider. RADIATION DOSE DELIVERED: 640.35mGy.cm Total DLP DATA REPOSITORY: All CT scans at this facility are submitted to the National Radiology Data Registry (NRDR) Dose Index Registry (DIR) with the [employer] (ACR). RADIATION OPTIMIZATION: All CT scans at this facility use at least one of these dose optimization te chniques: automated exposure control; mA and/or kV adjustment per patient size (includes targeted exa ms where dose is matched to clinical indication); or iterative reconstruction.
[2022-08-02 12:22] LABS: COVID-19 PCR Negative (Negative)
[2022-08-02 14:21] LABS: Troponin I < 50 ng/L (<or=60)
--- NOTE | 2022-08-02 14:28 | ED.GENADUL_ITS ---
Discharge Plan Disposition Patient Disposition: Home Discharge Details Clinical Impression: Palpitations Primary Care Provider: Leighann Zuñiga ED Provider: Stefani Morin Home Meds and New Rx's Prescriptions: Continued polyethylene glycol 3350 [Miralax] 17 gram/dose powder 17 gm PO DAILY PRN (Reason: constipation) acetaminophen [Tylenol Arthritis Pain] 650 mg tablet extended release 1,300 mg PO Q12H oxycodone 5 mg tablet 5 mg PO Q8H MDD 15 PRN (Reason: pain) Qty: 30 0RF albuterol sulfate [ProAir HFA] 90 mcg/actuation HFA aerosol inhaler 2 puff Inhalation Q4H PRN (Reason: shortness of breath or wheezing) Qty: 3 0RF multivitamin [Daily Multi-Vitamin] Tablet 1 tab PO DAILY calcium citrate 760 mg calcium /3.5 gram granules PO [id number] serr [Osteo Bi-Flex (5-Loxin)] 1,500-400-100 mg-unit-mg tablet 1 tab PO DAILY Rx Instructions: give after food/meal Rinvoq 15 mg tablet extended release 24 hr 15 mg PO DAILY exemestane 25 mg tablet 25 mg PO DAILY Rx Instructions: must administer after a meal fluticasone propion-salmeterol [Advair Diskus] 100-50 mcg/dose blister with device 1 inh inhalation BID amlodipine 5 mg tablet 5 mg PO DAILY Qty: 90 3RF alendronate [Fosamax] 70 mg tablet 70 mg PO QWEEK Qty: 13 3RF Spiriva Respimat 2.5 mcg/actuation mist 1 puff IH DAILY Qty: 12 5RF simvastatin 20 mg tablet 20 mg PO HS Qty: 90 3RF atenolol [Tenormin] 50 mg tablet 50 mg PO DAILY Qty: 90 3RF pantoprazole [Protonix] 40 mg tablet,delayed release (DR/EC) 40 mg PO DAILY Qty: 90 5RF losartan-hydrochlorothiazide [Hyzaar] 100-25 mg tablet 1 tab PO DAILY Qty: 90 3RF levothyroxine 100 mcg tablet 100 mcg PO DAILY Qty: 90 4RF metformin 500 mg tablet 500 mg PO BID Qty: 180 3RF coenzyme Q10 [Co Q-10] 50 MG capsule 1 cap PO DAILY Patient Comments: patient is unsure of dosage Discharge Instructions Instructions: Heart Palpitations (ED) Additional Instructions: Please follow-up with your primary care physician Have a Holter monitor applied we will call you to set this up Continue on your prescribed medications Return earlier should you have new or worsening complaints Referrals: Leighann Zuñiga MD, [place] [Primary Care Provider] - 1 day Discharge Orders Other Ambulatory Orders: Holter Monitor (Routine) Timeframe: 1 Week Facility: [facility] - Location: Respiratory Therapy Ordered By: Stefani Morin Discharge Data Discharge Date/Time-TO BE ENTERED AT DEPARTURE: 08/02/22 14:54 Medical Decision Making This 72 yo female presents with report of palpitations and shortness of breath cta chest does not show evidence of acute abnormality per radiology interpretation my review 2 troponins negative Creatinine of 1.3, consistent with prior level Patient appears well, reassessment heart rate was 87, no acute distress, no dysrhythmia noted on telemetry monitoring We will schedule for outpatient Holter monitor Of note, I am completing my note approximately 24 hours after this patient was assessed and she was discharged with a reported temp of 39.7, the patient was contacted and states that she did not feel like she had a fever and nor does she feel like she is febrile at this time, I called her at approximately 1900 on 08/03/2022 and she is feeling symptomatic improvement, she was encouraged to purchase a thermometer and check her temperature and if she is febrile she should return immediately for reassessment, she does have follow-up scheduled on August 25, encouraged her to call and schedule earlier follow-up HPI General Date/Time Provider Initiated Documentation: 08/02/22 11:10 . HPI Narrative: This 72-year-old female with history of breast cancer, stage III kidney disease, rheumatoid arthritis lumbar stenosis, hypothyroidism, hyperlipidemia, peripheral neuropathy, lupus, presents with reports of palpitations and shortness of breath which started this morning when patient awoke. She otherwise feels quite well. She denies any calf pain or swelling, history of coagulopathy, or chest discomfort. She has a sensation of a fast and irregular heartbeat. She denies any fever or chills. She denies any falls or injuries. She denies any new medications per patient. Denies any illicit drug use. Denies history of similar symptoms in the past. Related Data Home Medications Medication Instructions Recorded Confirmed coenzyme Q10 50 mg capsule (Co 1 cap PO DAILY 01/08/16 08/02/22 Q-10) polyethylene glycol 3350 17 17 gm PO DAILY PRN constipation 10/11/18 08/02/22 gram/dose oral powder (Miralax) calcium citrate 760 mg calcium/3.5 mg PO 05/19/20 06/01/22 gram oral granules multivitamin (Daily Multi-Vitamin 1 tab PO DAILY 05/19/20 08/02/22 tablet) acetaminophen 650 mg 1,300 mg PO Q12H 07/13/20 08/02/22 tablet,extended release (Tylenol Arthritis Pain) glucosamine [id number] 1 tab PO DAILY 12/23/20 08/02/22 malachi 1,500 mg-400 unit-100 mg tablet (Osteo Bi-Flex (5-Loxin)) upadacitinib 15 mg tablet,extended 15 mg PO DAILY 06/23/21 08/02/22 release 24 hr (Rinvoq) amlodipine 5 mg tablet 5 mg PO DAILY #90 tabs 08/17/21 08/02/22 alendronate 70 mg tablet (Fosamax) 70 mg PO QWEEK #13 tabs 08/22/21 08/02/22 tiotropium bromide 2.5 1 puff inhalation DAILY #12 grams 09/14/21 08/02/22 mcg/actuation mist for inhalation (Spiriva Respimat) exemestane 25 mg tablet 25 mg PO DAILY 10/19/21 08/02/22 simvastatin 20 mg tablet 20 mg PO HS #90 tab-caps 12/06/21 08/02/22 albuterol sulfate 90 mcg/actuation 2 puff inhalation Q4H PRN 02/03/22 08/02/22 aerosol inhaler (ProAir HFA) shortness of breath or wheezing #3 grams atenolol 50 mg tablet (Tenormin) 50 mg PO DAILY #90 tabs 02/15/22 08/02/22 oxycodone 5 mg tablet 5 mg PO Q8H PRN pain #30 tabs 03/27/22 08/02/22 pantoprazole 40 mg tablet,delayed 40 mg PO DAILY acid reflux #90 tabs 04/19/22 08/02/22 release (Protonix) losartan 100 1 tab PO DAILY #90 tab-caps 04/28/22 08/02/22 mg-hydrochlorothiazide 25 mg tablet (Hyzaar) fluticasone 100 mcg-salmeterol 50 1 inh inhalation BID 05/30/22 08/02/22 mcg/dose blistr powdr for inhalation (Advair Diskus) levothyroxine 100 mcg tablet 100 mcg PO DAILY #90 tabs 07/06/22 08/02/22 metformin 500 mg tablet 500 mg PO BID #180 tabs 07/06/22 08/02/22 Previous Rx's Medication Instructions Recorded amlodipine 5 mg tablet 5 mg PO DAILY #90 tabs 08/17/21 alendronate 70 mg tablet (Fosamax) 70 mg PO QWEEK #13 tabs 08/22/21 tiotropium bromide 2.5 1 puff inhalation DAILY #12 grams 09/14/21 mcg/actuation mist for inhalation (Spiriva Respimat) simvastatin 20 mg tablet 20 mg PO HS #90 tab-caps 12/06/21 albuterol sulfate 90 mcg/actuation 2 puff inhalation Q4H PRN 02/03/22 aerosol inhaler (ProAir HFA) shortness of breath or wheezing #3 grams atenolol 50 mg tablet (Tenormin) 50 mg PO DAILY #90 tabs 02/15/22 oxycodone 5 mg tablet 5 mg PO Q8H PRN pain #30 tabs 03/27/22 pantoprazole 40 mg tablet,delayed 40 mg PO DAILY acid reflux #90 tabs 04/19/22 release (Protonix) losartan 100 1 tab PO DAILY #90 tab-caps 04/28/22 mg-hydrochlorothiazide 25 mg tablet (Hyzaar) levothyroxine 100 mcg tablet 100 mcg PO DAILY #90 tabs 07/06/22 metformin 500 mg tablet 500 mg PO BID #180 tabs 07/06/22 Allergies Allergy/AdvReac Type Severity Reaction Status Date / Time levofloxacin Allergy Mild rash Verified 08/02/22 11:05 budesonide [From Symbicort] AdvReac Severe chest pain Verified 08/02/22 11:05 doxycycline AdvReac Severe esophagitis Verified 08/02/22 11:05 duloxetine AdvReac Severe hallucinati Verified 08/02/22 11:05 ons formoterol fumarate AdvReac Severe chest pain Verified 08/02/22 11:05 [From Symbicort] midazolam HCl [From Versed] AdvReac Intermediate Contraindic Verified 08/02/22 11:05 ated enalaprilat AdvReac Mild Cough Verified 08/02/22 11:05 General Stated Complaint: Palpitatns ANA: 3 PFSH All Active Problems (Updated 08/02/22 @ 14:40 by KATY Carter) Palpitations (Acute) Urachal cyst (Acute) Cervical spondylosis with myelopathy (Acute) H/O cervical spine surgery (Acute) Acute right hip pain (Acute) Palpitation (Acute) Primary osteoarthritis of right knee (Acute) Steroid injection: 03/27/22; 10/03/2021 COVID-19 (Acute) 08/31/21 Stage 3 chronic kidney disease (Acute) 06/2021, Cr-1.3 Dizziness (Acute) Abdominal wall anomaly (Acute) Invasive ductal carcinoma of breast, female (Acute) Left wrist tendonitis (Acute) probably secondary to RA Spinal stenosis of cervical region (Acute) Severe at C3/C4. Osteopenia of lumbar spine (Acute) DM type 2 (diabetes mellitus, type 2) (Acute) Asthma (Chronic 01/07/13) continue current meds Gastroesophageal reflux disease (Chronic) Corticosteroid dependence (Acute) Discoid lupus erythematosus (Acute) Parastomal hernia (Acute 07/09/12) Peripheral neuropathy (Chronic) feet Rheumatoid arthritis (Chronic 07/10/12) discoid lupus Obesity (Chronic) Lumbar stenosis (Chronic 11/22/16) [facility]-EPIDURAL STEROID INJECTION Hypothyroidism (Chronic 07/10/12) 1994-Grave's disease; S/P SHORE 131; Hyperlipidemia (Chronic 12/14/14) History of tobacco use (Chronic) Hiatal hernia (Chronic 03/22/93) Essential hypertension (Chronic 07/16/13) check some BPs at home as discussed use machine we lent you pls return it when yuivana see Dr Khoury next month Medical History Abnormal cervical Papanicolaou smear Asthma Chest pain Cholelithiasis without obstruction (03/22/93) CTS (carpal tunnel syndrome) (05/08/14) GERD (gastroesophageal reflux disease) Glossitis (06/05/13) History of fracture of right ankle Pin in place, subsequent blood clot per Pt Hx of blood clots RLE Mass of right breast on mammogram Primary osteoarthritis of left knee (10/30/16) SOB (shortness of breath) given cardiac risk factors and upcoming surgery, feel dynamic study warranted Valgus deformity, not elsewhere classified, left knee Surgical History Cervical Procedure (~1978) pt. denies EGD - MAC (02/25/16) History of section History of colonoscopy History of orthopedic surgery R foot History of total left knee replacement (TKR) (02/19/19) Dr. Roldan Status post appendectomy Status post cholecystectomy Status post tonsillectomy Family History Mother , 67 Alcohol abuse Essential hypertension Heart disease ANGINA Stroke Brother , 44 Alcohol abuse Lung cancer Father , 70s Alcohol abuse Heart disease Daughter Asthma Cancer Breast MATERNAL HISTORY Autoimmune disease Brother , 67 Substance abuse POT Cancer Lung and brain Maternal Grandfather No problems noted. Paternal Grandfather Diabetes Maternal Grandmother No problems noted. Paternal Grandmother No problems noted. Social History Smoking/Tobacco Use Status: Former Tobacco Use Quit Date: 04/23/86 Tobacco: How many years used: 18 Smoking risk assessment performed?: Yes Alcohol Intake: never Drug use: Never Substance use type: does not use Caregiver/Support person: No Household members: none Housing: house Communication Needs: None Do you need help understanding health information?: Rarely Pets and animals: Yes Pets and animals: cat(s) Sexually active: No Do you think of yourself as: lesbian/longo/homosexual Current gender identity: female What is your relationship status?: How often do you talk on the phone with friends or family?: three or more times per week How often do you get together with friends or relatives?: three or more times per week How often do you attend christian or cheondoism services?: decline to answer Do you belong to any clubs or organized social groups?: no Panel score (0-1 are the most socially isolated patients): 1 What type of physical activity do you participate in: other Details: Pool PT Duration: < 15 minutes/day Frequency: 1-2 times per week Dahiana/Sikh: None Special dahiana needs: No Seatbelt use: always Helmet use: No Drive intox or ride w/intox 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 Do you feel safe at home: Yes Do you feel safe in your relationship?: Yes Additional Social history: live alone Exam Narrative Exam Narrative: Patient appears calm and cooperative, she is fully alert and oriented, moist mucous membranes, pupils are equal round reactive to light and accommodation, respiratory, lungs clear to auscultation bilaterally, cardiac rate rhythm regular, no murmurs or murmurs or rubs, no abdominal tenderness, he Course Vital Signs Vital signs: Vital Signs Pulse 101 H 08/02/22 11:01 Respiratory Rate 24 08/02/22 11:01 Blood Pressure 153/86 H 08/02/22 11:01 Pulse Oximetry 94 08/02/22 11:01 Temperature Source Oral 08/02/22 11:01 Pulse 84 08/02/22 11:37 Pulse 84 08/02/22 11:37 Respiratory Rate 13 08/02/22 11:37 Respiratory Effort Short of Breath 08/02/22 11:04 Blood Pressure 118/64 08/02/22 11:37 Blood Pressure Mean 76 08/02/22 11:37 Blood Pressure Position Sitting 08/02/22 11:01 Pulse Oximetry 94 08/02/22 11:37 Oxygen Delivery Method Room Air 08/02/22 11:01 Oxygen Flow Rate 0 08/02/22 11:01 Pain Level 0 08/02/22 11:01 Lab/Test Results Lab/Test Results: Laboratory Tests Range/Units 08/02/22 08/02/22 08/02/22 11:20 11:20 11:20 WBC (4.4-10.8) 10^3/uL 9.91 RBC (3.93-5.22) 10^6/uL 4.50 Hgb (11.2-15.7) g/dL 13.1 Hct (36.0-46.0) % 39.0 MCV (80-95) fL 87 MCH (27.0-33.0) pg 29.1 MCHC (32.0-36.0) % 33.6 RDW (11.7-14.6) % 13.4 Plt Count (130-400) 10^3/uL 408 H MPV (8.0-11.0) fL 9.5 Immature Gran % 0.7 Neutrophils % 64.7 Lymphocytes % 19.5 Monocytes % 13.7 Eosinophils % 1.1 Basophils % 0.3 Nucleated RBC % (0.0-0.3) % 0.0 Absolute Neutrophils (1.2-6.7) 10^3/uL 6.41 Absolute Lymphocytes (1.2-3.4) 10^3/uL 1.93 Absolute Monocytes (0.1-0.8) 10^3/uL 1.36 H Absolute Eosinophils (0.0-0.7) 10^3/uL 0.11 Absolute Basophils (0.0-0.2) 10^3/uL 0.03 Sodium (136-145) mmol/L 136 Potassium (3.5-5.1) mmol/L 4.0 Chloride (98-107) mmol/L 101 Carbon Dioxide (21.0-32.0) mmol/L 26.1 Anion Gap (3-11) mmol/L 8.9 BUN (7-18) mg/dL 16 Creatinine (0.55-1.02) mg/dL 1.3 H Est GFR (CKD-EPI 2020) (mL/min/1.73m2) 43.69 Glucose (74-106) mg/dL 158 H Calcium (8.5-10.1) mg/dL 10.4 H Magnesium (1.8-2.4) mg/dL 2.1 Total Bilirubin (0.2-1.0) mg/dL 0.3 AST (15-37) U/L 32 ALT (14-59) U/L 43 Alkaline Phosphatase (46-116) U/L 41 L Troponin I (<or=60) ng/L < 50 Cancelled NT-Pro-B Natriuret Pep (<300) pg/mL 74 Cancelled Total Protein (6.4-8.2) g/dL 8.2 Albumin (3.4-5.0) g/dL 4.0 TSH (0.36-3.74) uIU/mL 1.00 COVID-19 Source SARS-CoV-2 (PCR) (Negative) Range/Units 08/02/22 08/02/22 11:35 13:55 WBC (4.4-10.8) 10^3/uL RBC (3.93-5.22) 10^6/uL Hgb (11.2-15.7) g/dL Hct (36.0-46.0) % MCV (80-95) fL MCH (27.0-33.0) pg MCHC (32.0-36.0) % RDW (11.7-14.6) % Plt Count (130-400) 10^3/uL MPV (8.0-11.0) fL Immature Gran % Neutrophils % Lymphocytes % Monocytes % Eosinophils % Basophils % Nucleated RBC % (0.0-0.3) % Absolute Neutrophils (1.2-6.7) 10^3/uL Absolute Lymphocytes (1.2-3.4) 10^3/uL Absolute Monocytes (0.1-0.8) 10^3/uL Absolute Eosinophils (0.0-0.7) 10^3/uL Absolute Basophils (0.0-0.2) 10^3/uL Sodium (136-145) mmol/L Potassium (3.5-5.1) mmol/L Chloride (98-107) mmol/L Carbon Dioxide (21.0-32.0) mmol/L Anion Gap (3-11) mmol/L BUN (7-18) mg/dL Creatinine (0.55-1.02) mg/dL Est GFR (CKD-EPI 2020) (mL/min/1.73m2) Glucose (74-106) mg/dL Calcium (8.5-10.1) mg/dL Magnesium (1.8-2.4) mg/dL Total Bilirubin (0.2-1.0) mg/dL AST (15-37) U/L ALT (14-59) U/L Alkaline Phosphatase (46-116) U/L Troponin I (<or=60) ng/L < 50 NT-Pro-B Natriuret Pep (<300) pg/mL Total Protein (6.4-8.2) g/dL Albumin (3.4-5.0) g/dL TSH (0.36-3.74) uIU/mL COVID-19 Source Nasal/Nares SARS-CoV-2 (PCR) (Negative) Negative
== END 2022-08-02 14:54 | disposition home or self-care (01) ==
PROVIDERS: Emergency Provider Physician Assistant; PCP Family Medicine
DX: R00.2 Palpitations (principal); R06.02 Shortness of breath
CPT/HCPCS: 36415; 71275; 80053; 87635; 93005; 96360; 99285; 83735; 83880; 84443; 84484; 85025; 93010; 99284

== ENCOUNTER 2022-08-11 11:00 | Outpatient (RCR) | payer MEDICARE, BC, SELFPAY ==
--- NOTE | 2022-08-11 11:00 | HOLTER_ITS ---
APPROVED REPORT Conclusion This is a 48-hour Holter monitor ordered for palpitations Rhythm throughout is sinus with an average heart rate of 73. Minimum was 62, maximum 113 A total of 3 ventricular ectopic beats occurred There were 8 premature atrial contractions. There was 1 supraventricular triplet There was no atrial fibrillation, no high-grade AV block, no pauses greater than 3 seconds Patient symptoms were reported which did not correspond to any dysrhythmia
== END 2022-08-20 23:59 | disposition home or self-care (01) ==
LOC: CARDOPNVT 11:00
PROVIDERS: PCP Family Medicine; Visit Provider Physician Assistant
DX: R00.2 Palpitations (principal); I49.3 Ventricular premature depolarization; I49.1 Atrial premature depolarization
CPT/HCPCS: 93227; 93225; 93226

== ENCOUNTER 2022-08-25 11:19 | Outpatient (CLI) | payer MEDICARE, BC, SELFPAY ==
--- NOTE | 2022-08-25 11:00 | DI.RAD_ITS ---
Exam(s) XR STANDING ALIGNMENT EXAM: XR STANDING ALIGNMENT CLINICAL HISTORY: PRE OP R TKA. TECHNIQUE: 2D digital imaging was performed. COMPARISON: CR XR STANDING ALIGNMENT from 03/07/2019 FINDINGS: 3 views Left knee prosthesis is again noted and appears stable. There is [id number] narrowing of the later al compartment the opposite-right knee, with further progression from previous. Medial compartment c ontinues to exhibit satisfactory height. Hips appear unremarkable. Degenerative changes in the right ankle noted and there is again noted a s crew in the right ankle joint region. FX unremarkable. IMPRESSION: Further progression of loss in the lateral compartment of the right knee. DATA REPOSITORY: RADIATION DOSE DELIVERED:
== END 2022-08-25 11:20 | disposition home or self-care (01) ==
LOC: DIORS 11:20
PROVIDERS: PCP Family Medicine; Referring Provider Family Medicine; Visit Provider Physician Assistant
DX: M17.11 Unilateral primary osteoarthritis, right knee (principal); Z01.818 Encounter for other preprocedural examination
CPT/HCPCS: 77073

== ENCOUNTER 2022-08-29 05:55 | Day surgery (SDC) | payer MEDICARE, BC, SELFPAY ==
[2022-08-29] VITALS (18 sets, daily range): BP systolic 74–132; BP diastolic 24–88; PULSE 61–70; RESP 10–24; TEMP 36.1–36.5; O2SAT 90–98; BMI 38.3
[2022-08-29] MEDS: Acetaminophen 500 MG TAB 1000 MG PO (06:40)
[2022-08-29] MEDS: Gabapentin 300 MG CAP PO (06:40)
--- NOTE | 2022-08-29 06:59 | W.ANESPRE ---
General Info Date of Service Date Performed: 08/29/22 Height: 5 ft 3 in Weight: 98.2 kg Body Mass Index (BMI): 38.3 Surgical Procedure: Operation Date: 08/29/22 07:40 Proposed Procedure Side Surgeon p Knee Total Arthroplasty w/OrthAlign, Cementless PS Right Anjel Carbajal MD Meds Allergies and Home Medications Allergies Allergy/AdvReac Type Severity Reaction Status Date / Time levofloxacin Allergy Mild rash Verified 08/29/22 06:11 budesonide [From Symbicort] AdvReac Severe chest pain Verified 08/29/22 06:11 doxycycline AdvReac Severe esophagitis Verified 08/29/22 06:11 duloxetine AdvReac Severe hallucinati Verified 08/29/22 06:11 ons formoterol fumarate AdvReac Severe chest pain Verified 08/29/22 06:11 [From Symbicort] midazolam HCl [From Versed] AdvReac Intermediate Contraindic Verified 08/29/22 06:11 ated enalaprilat AdvReac Mild Cough Verified 08/29/22 06:11 Home Medication Medication Instructions Recorded coenzyme Q10 50 mg capsule (Co 1 cap PO DAILY 01/08/16 Q-10) polyethylene glycol 3350 17 17 gm PO DAILY PRN constipation 10/11/18 gram/dose oral powder (Miralax) calcium citrate 760 mg calcium/3.5 760 mg PO DAILY 05/19/20 gram oral granules multivitamin (Daily Multi-Vitamin 1 tab PO DAILY 05/19/20 tablet) acetaminophen 650 mg 1,300 mg PO Q12H 07/13/20 tablet,extended release (Tylenol Arthritis Pain) glucosamine LAf-O5-Hcmlxeyvw 1 tab PO DAILY 12/23/20 malachi 1,500 mg-400 unit-100 mg tablet (Osteo Bi-Flex (5-Loxin)) upadacitinib 15 mg tablet,extended 15 mg PO DAILY 06/23/21 release 24 hr (Rinvoq) alendronate 70 mg tablet (Fosamax) 70 mg PO QWEEK #13 tabs 08/22/21 tiotropium bromide 2.5 1 puff inhalation DAILY #12 grams 09/14/21 mcg/actuation mist for inhalation (Spiriva Respimat) exemestane 25 mg tablet 25 mg PO DAILY 10/19/21 simvastatin 20 mg tablet 20 mg PO HS #90 tab-caps 12/06/21 albuterol sulfate 90 mcg/actuation 2 puff inhalation Q4H PRN 02/03/22 aerosol inhaler (ProAir HFA) shortness of breath or wheezing #3 grams atenolol 50 mg tablet (Tenormin) 50 mg PO DAILY #90 tabs 02/15/22 pantoprazole 40 mg tablet,delayed 40 mg PO DAILY acid reflux #90 tabs 04/19/22 release (Protonix) losartan 100 1 tab PO DAILY #90 tab-caps 04/28/22 mg-hydrochlorothiazide 25 mg tablet (Hyzaar) fluticasone 100 mcg-salmeterol 50 1 inh inhalation BID 05/30/22 mcg/dose blistr powdr for inhalation (Advair Diskus) levothyroxine 100 mcg tablet 100 mcg PO DAILY #90 tabs 07/06/22 metformin 500 mg tablet 500 mg PO BID #180 tabs 07/06/22 amlodipine 5 mg tablet 5 mg PO DAILY #90 tabs 08/14/22 aspirin 81 mg tablet,delayed 81 mg PO BID #60 tabs 08/29/22 release celecoxib 200 mg capsule 200 mg PO BID PRN pain #60 caps 08/29/22 dexamethasone 4 mg tablet 4 mg PO DAILY #2 tabs 08/29/22 gabapentin 300 mg capsule 300 mg PO QHS #14 caps 08/29/22 oxycodone 5 mg tablet 5 mg PO Q4H PRN #18 tabs 08/29/22 Current Visit Medications: Current Medications Generic Name Dose Route Start Last Admin Trade Name Freq PRN Reason Stop Dose Admin Acetaminophen 1,000 mg 08/29/22 06:00 08/29/22 06:40 Acetaminophen 500 Mg Tab PO 08/29/22 18:00 1,000 mg PREOP FATMATA Administration Celecoxib 400 mg 08/29/22 06:00 Celecoxib 200 Mg Cap PO 08/29/22 18:00 PREOP FATMATA Gabapentin 300 mg 08/29/22 06:00 08/29/22 06:40 Gabapentin 300 Mg Cap PO 08/29/22 18:00 300 mg PREOP FATMATA Administration Tranexamic Acid 1,000 mg/ 60 mls @ 360 mls/hr 08/29/22 06:00 Sodium Chloride IVPB 08/29/22 18:00 PREOP FATMATA Cefazolin Sodium/Dextrose 2 gm in 50 mls @ 100 mls/hr 08/29/22 06:00 Ancef Duplex IVPB 08/29/22 16:00 PREOP [facility] PFSH Active Problems Active Problems: Problem Status Onset Code Asthma 01/07/13 J45.909 Essential hypertension 07/16/13 I10 Gastroesophageal reflux disease K21.9 Hiatal hernia 03/22/93 K44.9 History of tobacco use Z87.891 Hyperlipidemia 12/14/14 E78.5 Hypothyroidism 07/10/12 E03.9 Lumbar stenosis 11/22/16 M48.061 Obesity E66.9 Rheumatoid arthritis 07/10/12 M06.9 Peripheral neuropathy G62.9 Parastomal hernia 07/09/12 K43.5 Discoid lupus erythematosus L93.0 Corticosteroid dependence DM type 2 (diabetes mellitus, type 2) E11.9 Osteopenia of lumbar spine M85.88 Spinal stenosis of cervical region M48.02 Left wrist tendonitis M77.8 Invasive ductal carcinoma of breast, female C50.919 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 Dizziness R42 Stage 3 chronic kidney disease N18.30 COVID-19 U07.1 Primary osteoarthritis of right knee M17.11 Palpitation R00.2 Acute right hip pain M25.551 H/O cervical spine surgery Z98.890 Cervical spondylosis with myelopathy M47.12 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 Palpitations R00.2 Disordered sleep G47.9 Medical History Medical History Abnormal cervical Papanicolaou smear Asthma Chest pain Cholelithiasis without obstruction (03/22/93) CTS (carpal tunnel syndrome) (05/08/14) GERD (gastroesophageal reflux disease) Glossitis (06/05/13) History of fracture of right ankle Pin in place, subsequent blood clot per Pt Hx of blood clots RLE Mass of right breast on mammogram Primary osteoarthritis of left knee (10/30/16) SOB (shortness of breath) given cardiac risk factors and upcoming surgery, feel dynamic study warranted Valgus deformity, not elsewhere classified, left knee Medical History Comments:: Pt. states she has a rash on her face and head, red and raised-MD aware. Pt states rash worsens as day goes on Surgical History Surgical History (Updated 08/29/22 @ 06:20 by Kimberly Allen) Cervical Procedure (~1978) pt. denies, but states she has had neck with cadavar bones EGD - MAC (02/25/16) History of ankle surgery right with pin History of section History of colonoscopy History of lumpectomy History of orthopedic surgery R foot History of total left knee replacement (TKR) (02/19/19) Dr. Carbajal Hx of appendectomy Hx of cholecystectomy Hx of total knee arthroplasty Status post appendectomy Status post cholecystectomy Status post tonsillectomy Tobacco Smoking/Tobacco Use Status: Former Tobacco Use Passive smoking exposure: Yes Alcohol Alcohol Intake: never Substance Use Substance use: Never Substance use type: does not use Vital Signs and Lab Results Vital Signs Most Recent Vital Signs in EMR: Most Recent Vital Signs Temp Pulse Resp BP Pulse Ox 36.5 C 70 18 127/85 93 08/29/22 06:28 08/29/22 06:28 08/29/22 06:28 08/29/22 06:28 08/29/22 06:28 Lab Results Blood Type / Crossmatch: No Data to Display Complete Blood Count: White Blood Count 9.91 10^3/uL (4.4-10.8) 08/02/22 11:20 Red Blood Count 4.50 10^6/uL (3.93-5.22) 08/02/22 11:20 Hemoglobin 13.1 g/dL (11.2-15.7) 08/02/22 11:20 Hematocrit 39.0 % (36.0-46.0) 08/02/22 11:20 Platelet Count 408 10^3/uL (130-400) H 08/02/22 11:20 Complete Metabolic Panel: Sodium 136 mmol/L (136-145) 08/02/22 11:20 Potassium 4.0 mmol/L (3.5-5.1) 08/02/22 11:20 Chloride 101 mmol/L (98-107) 08/02/22 11:20 Carbon Dioxide 26.1 mmol/L (21.0-32.0) 08/02/22 11:20 BUN 16 mg/dL (7-18) 08/02/22 11:20 Creatinine 1.3 mg/dL (0.55-1.02) H 08/02/22 11:20 Est GFR (CKD-EPI 2020) 43.69 (mL/min/1.73m2) 08/02/22 11:20 Magnesium 2.1 mg/dL (1.8-2.4) 08/02/22 11:20 Calcium 10.4 mg/dL (8.5-10.1) H 08/02/22 11:20 Albumin 4.0 g/dL (3.4-5.0) 08/02/22 11:20 Glucose 158 mg/dL (74-106) H 08/02/22 11:20 Liver Function Panel: Alanine Aminotransferase (ALT/SGPT) 43 U/L (14-59) 08/02/22 11:20 Aspartate Amino Transf (AST/SGOT) 32 U/L (15-37) 08/02/22 11:20 Coagulation Panel: No Data to Display Cardiac Panel: Troponin I < 50 ng/L (<or=60) 08/02/22 NT-Pro-B Natriuret Pep 74 pg/mL (<300) 08/02/22 Arterial Blood Gas: No Data to Display Venous Blood Gas: No Data to Display Pancreas Panel: No Data to Display Thyroid Panel: Thyroid Stimulating Hormone (TSH) 1.00 uIU/mL (0.36-3.74) 08/02/22 11:20 Infectious Disease: Coronavirus (COVID-19)(PCR) Negative (Negative) 08/02/22 11:35 Coronavirus 2019 Source Nasal/Nares 08/02/22 11:35 Blood Cultures: No Data to Display Toxicology Panel: No Data to Display Imaging and Studies Imaging and Studies Study information below may be from another EMR and interpreted by another provider. Please see original notes in EMR for more complete details. EKG Summary: Conclusion Sinus rhythm...normal P axis, V-rate 60- 99 RBBB and LAFB...QRSd >120mS, axis(-40,240) Left ventricular hypertrophy...multiple voltage criteria 08/02/22 10:45 Stress Test Summary: Impressions: - Normal myocardial perfusion and contraction after pharmacological stress. - Low risk of cardiac events. Summary: 1. Myocardial perfusion imaging: No myocardial perfusion defects noted. 2. The calculated left ventricular ejection fraction after stress: 52%. LV global systolic function is normal. No left ventricular regional motion abnormality. 3. Stress ECG conclusions: The stress ECG is negative. 4. Imaging information: gated. Image quality reduced due to diaphragmatic attenuation and subdiaphragmatic activity. Attenuation correction used. Indication: R07.9, Appropriate Use Criteria: A (Appropriate). History: REASON FOR VISIT: INCREASED SHORTNESS OF BREATH, LEG SWELLING, MULTIPLE CARDIAC RISK FACTORS IS HERE FOR A PRE-SURGICAL SCREENING FOR SCHEDULED KNEE REPLACEMENT SURGERY ON [address] CARBAJAL. PMH: Asthma. Risk factors: Current tobacco use. Hypertension. Diabetes mellitus. Obesity. Dyslipidemia. Cholesterol: 198mg/dl. HDL: 61mg/dl. LDL: 113mg/dl. Triglycerides: 176mg/dl. ALLERGIES: LEVOFLOXACIN. BUDESONIDE. DOXYCYLINE. FORMOTEROL FUMARATE. MIDAZOLOAM. ENALAPRIT. MEDICATIONS: VITAMIN B COMPLEX. TURMERIC ROOT EXTRACT 500 MG CAP DAILY. TIOTROPIUM BROMIDE 2 PUFFS DAILY. SIMVASTATIN 20 MG Q HS. PREDNISONE 5 MG DAILY. PANTOPRAZOLE 40 MG DAILY. OMEGA-3 FATTY ACIDS 1 CAP DAILY. MVI 1 DAILY. MONTELUKAST 10 MG DAILY. LOSARTAN 100 MG-HYDROCHLOROTHIAZIDE 25 MG DAILY. LORATADINE 10 MG DAILY. LEVOTHYROXINE 150 MCG DAILY. LEFLUNOMIDE 20 MG PO 3X/QWK. GLUCOSAMINE SULFATE 1000 MG DAILY. ATENOLOL 50 MG DAILY. AMLODIPINE 5 MG DAILY. ALBUTEROL SULFATE 2 PUFFS Q 4 HRS PRN. CALCIUM 600 + D BID. ASPIRIN 81 MG DAILY. Imaging Technique: Protocol: Regadenoson. Acquisition: Gated SPECT; 1 day - rest/stress. The patient was imaged in the supine position. Attenuation correction used. Isotope administration: - Rest. Tc[99m]-sestamibi. Dose: 12.4mCi. Injection time: 08:45 AM. Injection to stress time: 00:45. - Stress. Tc[99m]-sestamibi. Dose: 36mCi. Injection time: 11:46 AM. 1-2 min before end of exercise Baseline ECG: SINUS RHYTHM. PROLONGED QT INTERVAL. HR 69 BPM. QTc 490ms; long QT interval. Normal sinus rhythm. Stress protocol: +--------+--+ + + !Stage !HR!BP (mmHg) !Comments ! +--------+--+ + + !Baseline!69!110/70 (83)! ! +--------+--+ + + !1 min !87!128/60 (83)!Inject Regadenoson.! +--------+--+ + + !3 min !83!128/60 (83)! ! +--------+--+ + + !6 min !81!130/62 (85)! ! +--------+--+ + + * Stress results: The rate-pressure product for the peak heart rate and blood pressure was 87454ch Hg/min. Stress ECG: STRESS TEST ENDED IN 6 MINUTES & 47 SECONDS. PT EXPERIENCED NO SIGNIFICANT SIDE EFFECTS FROM LEXISCAN NORMAL HEART RATE AND BLOOD PRESSURE RESPONSE TO LEXISCAN INJECTION NO ECTOPY NO ANGINA NO SIGNIFICANT ST SEGMENT CHANGES. The stress ECG is negative. Myocardial perfusion: Imaging information: gated. Image quality reduced due to diaphragmatic attenuation and subdiaphragmatic activity. Left ventricular size is normal. No myocardial perfusion defects noted. Ventricular Function (Wall Motion): The calculated left ventricular ejection fraction after stress: 52%. LV global systolic function is normal. No left ventricular regional motion abnormality. Study data: Tomer Helton MD supervised and was readily available during the procedure. This study was interpreted by [facility]. Study status: Routine. Consent: The risks, benefits, and alternatives to the procedure were explained to the patient and informed consent was obtained. Procedure: Initial setup. A baseline ECG was recorded. Surface ECG leads and manual cuff blood pressure measurements were monitored. Heart sounds: Normal. Lung sounds: Normal. Regadenoson stress test. Stress testing was performed, with regadenoson by intravenous bolus, for a total dose of 0.4mgover 10.00sec, followed by a 5ml saline flush. The infusion was terminated due to per protocol. Study completion: All catheters inserted during the procedure were removed. The patient tolerated the procedure well and was discharged from the lab. Discharge: The patient left the laboratory in stable condition. Birthdate: Patient birthdate: 1950. Sex: Gender: female. Study date: Study date: 11/20/2018. Study time: 00:01 AM. Impressions: - Normal myocardial perfusion and contraction after pharmacological stress. - Low risk of cardiac events. Summary: 1. Myocardial perfusion imaging: No myocardial perfusion defects noted. 2. The calculated left ventricular ejection fraction after stress: 52%. LV global systolic function is normal. No left ventricular regional motion abnormality. 3. Stress ECG conclusions: The stress ECG is negative. 4. Imaging information: gated. Image quality reduced due to diaphragmatic attenuation and subdiaphragmatic activity. Attenuation correction used. Indication: R07.9, Appropriate Use Criteria: A (Appropriate). History: REASON FOR VISIT: INCREASED SHORTNESS OF BREATH, LEG SWELLING, MULTIPLE CARDIAC RISK FACTORS IS HERE FOR A PRE-SURGICAL SCREENING FOR SCHEDULED KNEE REPLACEMENT SURGERY ON [address] CARBAJAL. PMH: Asthma. Risk factors: Current tobacco use. Hypertension. Diabetes mellitus. Obesity. Dyslipidemia. Cholesterol: 198mg/dl. HDL: 61mg/dl. LDL: 113mg/dl. Triglycerides: 176mg/dl. ALLERGIES: LEVOFLOXACIN. BUDESONIDE. DOXYCYLINE. FORMOTEROL FUMARATE. MIDAZOLOAM. ENALAPRIT. MEDICATIONS: VITAMIN B COMPLEX. TURMERIC ROOT EXTRACT 500 MG CAP DAILY. TIOTROPIUM BROMIDE 2 PUFFS DAILY. SIMVASTATIN 20 MG Q HS. PREDNISONE 5 MG DAILY. PANTOPRAZOLE 40 MG DAILY. OMEGA-3 FATTY ACIDS 1 CAP DAILY. MVI 1 DAILY. MONTELUKAST 10 MG DAILY. LOSARTAN 100 MG-HYDROCHLOROTHIAZIDE 25 MG DAILY. LORATADINE 10 MG DAILY. LEVOTHYROXINE 150 MCG DAILY. LEFLUNOMIDE 20 MG PO 3X/QWK. GLUCOSAMINE SULFATE 1000 MG DAILY. ATENOLOL 50 MG DAILY. AMLODIPINE 5 MG DAILY. ALBUTEROL SULFATE 2 PUFFS Q 4 HRS PRN. CALCIUM 600 + D BID. ASPIRIN 81 MG DAILY. Imaging Technique: Protocol: Regadenoson. Acquisition: Gated SPECT; 1 day - rest/stress. The patient was imaged in the supine position. Attenuation correction used. Isotope administration: - Rest. Tc[99m]-sestamibi. Dose: 12.4mCi. Injection time: 08:45 AM. Injection to stress time: 00:45. - Stress. Tc[99m]-sestamibi. Dose: 36mCi. Injection time: 11:46 AM. 1-2 min before end of exercise Baseline ECG: SINUS RHYTHM. PROLONGED QT INTERVAL. HR 69 BPM. QTc 490ms; long QT interval. Normal sinus rhythm. Stress protocol: +--------+--+ + + !Stage !HR!BP (mmHg) !Comments ! +--------+--+ + + !Baseline!69!110/70 (83)! ! +--------+--+ + + !1 min !87!128/60 (83)!Inject Regadenoson.! +--------+--+ + + !3 min !83!128/60 (83)! ! +--------+--+ + + !6 min !81!130/62 (85)! ! +--------+--+ + + * Stress results: The rate-pressure product for the peak heart rate and blood pressure was 31723xq Hg/min. Stress ECG: STRESS TEST ENDED IN 6 MINUTES & 47 SECONDS. PT EXPERIENCED NO SIGNIFICANT SIDE EFFECTS FROM LEXISCAN NORMAL HEART RATE AND BL Echocardiogram Summary: EF 57%, no hemodynamically significant valvular lesions Carotid Artery Summary:: 02/08/2022: IMPRESSION: 1. Some plaque is demonstrated in both carotid bulbs but without elevated velocities indicating that the amount of stenosis is less than 50 percent bilaterally. 2. Antegrade flow is demonstrated in both vertebral arteries. Criteria for Carotid Stenosis: Normal: ICA PSV <125 cm/s no plaque or intimal thickening is visible. <50% stenosis: ICA PSV <125 cm/s and plaque or intimal thickening is visible. 50-69% stenosis: ICA PSV is 125-250 cm/s and plaque is visible. >70% stenosis to near occlusion: ICA PSV >250 cm/s with visible plaque and luminal narrowing. Anesthesia Assessment and Plan Anesthesia History Personal History: No History of Anesthesia Complications Family History: No Family History of Anesthesia Complications Exercise Tolerance Exercise Tolerance: Metabolic Equivalents>4 Pertinent Negatives Pertinent Negatives: No Symptoms of GERD, No Major Cardiovascular Symptoms or Complaints, No Major Pulmonary Symptoms or Complaints and No History of CVA/TIA Cardiac & Pulmonary Exam Cardiac Exam: Normal S1/S2 Heart Sounds Pulmonary Exam: No cough or Cold Implantable Cardiac Device Does patient have a Pacemaker or an ICD?: No Airway Exam Known Difficult Airway: No Mallampati Class: 2 Mouth Opening: Normal (> 3cm) Thyromental Distance: Greater than 3 cm Neck Range of Motion: History of Cervical Fusion Neck Circumference: Thick Teeth Condition: Generalized Poor Dentition ASA Classification ASA Score: ASA 3 Emergency Case?: No NPO Status NPO Status: NPO Clears >2 hours, Solids >8 hours Anesthesia Plan Resuscitation Status: Full Code Anesthesia Technique: Spinal Anesthesia Airway Planned: Natural Airway Pain Management: Surgeon and patient request nerve block Monitors Used: Standard Monitors
[2022-08-29] MEDS: Celecoxib 200 MG CAP 400 MG PO (07:06)
--- NOTE | 2022-08-29 07:23 | PDOC.DSDIS_ITS ---
Date of service: 08/29/22 Time of Service: 14:12 Discharge Plan Disposition Patient Disposition: Home W/Home Health Services Condition: Good Discharge Details Reason For Visit: Right Knee DJD Attending Provider: Anjel Roldan Primary Care Provider: Leighann Zuñiga Home Meds and New Rx's Prescriptions: New aspirin 81 mg tablet,delayed release (DR/EC) 81 mg PO BID Qty: 60 0RF celecoxib 200 mg capsule 200 mg PO BID PRN (Reason: pain) Qty: 60 1RF dexamethasone 4 mg tablet 4 mg PO DAILY Qty: 2 0RF Rx Instructions: Starting Post-Operative Day #1 (Day after surgery) oxycodone 5 mg tablet 5 mg PO Q4H PRNQty: 18 0RF gabapentin 300 mg capsule 300 mg PO QHS Qty: 14 0RF Continued polyethylene glycol 3350 [Miralax] 17 gram/dose powder 17 gm PO DAILY PRN (Reason: constipation) acetaminophen [Tylenol Arthritis Pain] 650 mg tablet extended release 1,300 mg PO Q12H albuterol sulfate [ProAir HFA] 90 mcg/actuation HFA aerosol inhaler 2 puff Inhalation Q4H PRN (Reason: shortness of breath or wheezing) Qty: 3 0RF multivitamin [Daily Multi-Vitamin] Tablet 1 tab PO DAILY calcium citrate 760 mg calcium /3.5 gram granules 760 mg PO DAILY [id number] serr [Osteo Bi-Flex (5-Loxin)] 1,500-400-100 mg-unit-mg tablet 1 tab PO DAILY Rx Instructions: give after food/meal Rinvoq 15 mg tablet extended release 24 hr 15 mg PO DAILY exemestane 25 mg tablet 25 mg PO DAILY Rx Instructions: must administer after a meal fluticasone propion-salmeterol [Advair Diskus] 100-50 mcg/dose blister with device 1 inh inhalation BID alendronate [Fosamax] 70 mg tablet 70 mg PO QWEEK Qty: 13 3RF Spiriva Respimat 2.5 mcg/actuation mist 1 puff IH DAILY Qty: 12 5RF simvastatin 20 mg tablet 20 mg PO HS Qty: 90 3RF atenolol [Tenormin] 50 mg tablet 50 mg PO DAILY Qty: 90 3RF pantoprazole [Protonix] 40 mg tablet,delayed release (DR/EC) 40 mg PO DAILY Qty: 90 5RF losartan-hydrochlorothiazide [Hyzaar] 100-25 mg tablet 1 tab PO DAILY Qty: 90 3RF levothyroxine 100 mcg tablet 100 mcg PO DAILY Qty: 90 4RF metformin 500 mg tablet 500 mg PO BID Qty: 180 3RF amlodipine 5 mg tablet 5 mg PO DAILY Qty: 90 3RF coenzyme Q10 [Co Q-10] 50 MG capsule 1 cap PO DAILY Patient Comments: patient is unsure of dosage Discontinued oxycodone 5 mg tablet 5 mg PO Q8H MDD 15 PRN (Reason: pain) Qty: 30 0RF Patient Comments: 2.5 mg taken Discharge Instructions Additional Instructions: Total Knee Discharge Instructions Activity: The most important activity is to walk and to work on gentle motion (both flexion and extension). You should try to take short walks a few times a day. It is important that when resting you work on keeping the knee straight. Avoid putting a pillow behind the knee as this will encourage flexion. Work on range of motion exercises as provided by Physical Therapy. - Start outpatient physical therapy within 2 weeks. - You should wear the DIONICIO hose on both legs for 2 weeks. You may remove these at night. You may also use any compression sock in place of the DIONICIO hose. - Utilize [employer] to review exercises, see videos on exercises and obtain basic information pertaining to your surgery and your recovery. Dressing: Remove the Edmundo wrap by 2 days after your surgery and put on the DIONICIO stocking given to you from the hospital. Keep the surgical dressing (underneath the EDMUNDO wrap) in place for at least one week. After the first week it may be removed and replaced with light gauze and tape or nothing. The wound and dressing may get wet after 3 days but avoid soaking the dressing or otherwise it will need to be changed. Many people prefer covering the dressing with cling wrap (saran wrap) to minimize it from getting soaked. If it gets wet, just pat dry. If it starts to peel off then it will need to be changed. Medications: - You should take Tylenol and anti-inflammatory Celebrex as your primary pain control medications. If the Celebrex is too expensive or not covered, please call the office for another alternative (Advil/Ibuprofen or Naproxen/Aleve) - You have been prescribed a stronger pain medication Oxycodone for breakthrough pain, take as needed as prescribed. - You should continue your stomach acid reduction agent Pantoprozole to help reduce stomach acid and reflux. - You have been prescribed Gabapentin to take at night for restlessness and nerve pain. - You will be taking Aspirin 81mg twice a day for DVT prevention unless instructed otherwise. - You have also been prescribed Decadron to take to control post-operative nausea and pain. You will start this tomorrow. - If you have constipation you should take Colace or Miralax (both [id number]). It takes most people 3-4 days to have a bowel movement. Follow-up: 2 weeks If you have any acute concerns or questions, please do not hesitate to contact the office at [phone]. You may contact Dr. Roldan with any questions after hours through the hospital at [phone] or on his cell phone at [phone]. 1. Encounter Date and Reason I certify that Gilda Ochoa was seen by Anjel Roldan MD on 08/29/22 and that I had a [id number] encounter with this patient that meets the physician face to face encounter requirements. 2. Clinical Findings Supporting Skilled Need and Homebound Status I certify that home health services are medically necessary, include either intermittent fdc and/or physical/speech therapy, and that this patient is homebound in that absences from the home require considerable and taxing effort and are infrequent or of short duration, or are attributable to the need to receive medical care. X (a) Attached documentation from encounter provides clinical findings supporting skilled need and homebound status (including what assistance patient requires to leave the home). The encounter with the patient was in whole, or in part, for the following medical condition, which is the primary reason for home health care: Right Knee DJD Longterm: Physical Therapy: Gilda is recovering from a right knee replacement. She will benefit from home health OT and PT to assist with a return to independence with daily activities and gait. She has no formal restrictions and is weight bearing as tolerated. Speech Therapy: Homebound: Gilda is unable to leave her home unassisted. 3. Certification and Authentication I certify that I composed the above information based on my clinical judgement relating to this patient's medical condition and, if applicable, clinical findings communicated to me by the NPP or inpatient physician who performed the Home Health Referral. All further orders will be obtained through Dr. Roldan Stand Alone Forms: Anesthesia Discharge Inst., Shelley George ([facility]) Referrals: Anjel Roldan MD [ [facility] STAFF PHYSICIAN] - Equipment/Supplies: Walker Activity:: Activity as Tolerated Remove Dressings/Wound Care:: Do Not Remove Shower/Bathe:: Cover Discharge Orders Discharge Orders: Discharge Order (Routine); Ordered 08/29/22 Ordered By: Anjel Roldan
[2022-08-29] MEDS: ceFAZolin 2 GM/50 ML BAG IVPB (07:50)
--- NOTE | 2022-08-29 09:32 | ROE_ITS ---
Date of service: 08/29/22 Time of Service: 09:32 Operative Note Operative Note PRE-OP DIAGNOSIS: Right Knee Osteoarthritis with Valgus Deformity POST-OP DIAGNOSIS: same PROCEDURE: Right Total Knee Replacement with Intraoperative Navigation SURGEON: Anjel Roldan BURRING MACHINE OPERATOR: Meagan Le ANESTHESIA TYPE: General LMA/ETT Refer to Anesthesia Record ESTIMATED BLOOD LOSS: 150 PATHOLOGY: none sent TOURNIQUET TIME: 0 COMPLICATIONS: None Patient was transported to: PACU Patient's condition: stable Implants: 1. Depuy Attune Cementless Posterior Stabilized Femoral Component, Size 7 2. Depuy Attune Cementless Rotating Platform Tibial Component, Size 6 3. Depuy Attune 7x8 PS/RP Poly 4. Depuy Attune Patellar Component, Size 35 Indications: I have seen Gilda in clinic for symptoms of RIGHT knee arthritis, confirmed with radiographic findings. She has exhausted nonoperative methods and was having significant limitations in daily function and desired better function and less pain. She had excellent results with knee replacement on the left. I discussed the technical details of a knee replacement. I explained the risks of the procedure to include, but not limited to, bleeding, infection, pain, stiffness, fracture, damage to nerves and vessels, damage to muscles and tendons, loosening, need for repeat procedure, blood clot and cardiopulmonary demise. Despite these risks, Gilda elected to proceed. Findings: There was significant signs of arthritis throughout the knee, especially in the lateral and patellofemoral compartment. Procedure Description: Gilda was greeted in the preoperative holding area where the correct side was identified and marked. The consent was reviewed with the patient and signed. The history and physical was updated. All questions were answered. Preoperative mediacations were administered: Acetaminophen 1000mg, Celebrex 400mg, and Gabapentin 300mg. An adductor canal block was then administered by the anesthesia team in the [facility]. Gilda was taken back to the operating room. A spinal anesthestic was then attempted but unsuccessful and thus a general anesthetic was administered. The patient was placed into the supine position on the operating room table. A nonsterile tourniquet was placed high onto the leg. Posts were placed for positioning during the procedure. All bony prominences were well padded. Prophylactic antibiotics in the form of Cefazolin were administered. 1g of Tranxemic Acid was given intravenously within 30 minutes of incision. The right leg was then prepped with Chloraprep and draped in a standard fashion with impervious stockinette. A second prep with Chloraprep was performed prior to application of Iodine impregnated skin protection. A timeout to confirm correct identity, side and site, procedure, allergies, anesthesia, and medical concerns was performed. With the knee in some flexion, a midline incision was made overlying the knee. Full thickness skin flaps were raised once the extensor mechanism was encountered. These were raised medially and laterally. Any bleeding was controlled with electrocautery. Once the extensor mechanism was fully exposed, a medial parapatellar arthrotomy was performed in a flexed position. All bleeding from the arthrotomy and the geniculate arteries was coagulated. A medial subperiosteal peel was performed with electrocautery to the midcoronal plane. The fat pad was removed while keeping the patellar tendon protected. The anterior distal femur synovium was removed for later visualization. The ACL and PCL were resected and the anterior horn of the lateral meniscus was transected. The knee was then flexed with the patella everted. Large osteophytes from the tibia were removed. Large osteophytes from the femur were removed. A single starting pin was then placed 1cm anterior to the PCL insertion and the notch in the direction of the femoral head. The OrthoAlign device was applied over the pin. It was oriented to be in line with the epicondylar axis and the trochlear groove. It was then pinned into place. The navigation computer was then turned on and calibrated. The distal femur cut was set at 0 degrees varus/valgus and 3 degrees flexion. The distal femur cutting guide then was positioned for a 9mm cut. The distal femur was cut with an oscillating saw while protecting the soft tissues. The tibia was then addressed. The OrthoAlign device was placed over the tibial tubercle and medial tibia and secured into position. Once again, OrthoAlign was calibrated and then set for a 2 degrees varus cut and 4 degrees of posterior slope. With this locked into position, the cut thickness stylus was used to assess cut thickness. The lateral side, most involved side, was set for a 2mm cut, from the posterolateral surface. This was then held in position and pinned into place with 2 additional pins and a cross pin for stability. The medial and lateral collateral ligaments were protected and the cut was performed. With this completed, it was assessed and noted to be of appropriate dimensions. The guide and OrthoAlign was removed. A spacer block was inserted and the knee was brought into extension to ensure enough space was present. The femur was then sized as a size 7. The Orthoalign gap balancing device was then placed in extension. This was used to ensure that the ligaments were properly balanced with up to 2 to 3 mm laxity laterally compared medially. The extension gap was measured as 21mm. The knee was then brought into 90 degrees of flexion and the ligament zinc miner blasting was once again placed. Under the same amount of force the flexion gap was measured. The Attune specific jig was placed and the flexion gap was made to match the extension gap. The 4-in-1 cutting guide was the placed. An evelyn wing was used to confirm appropriate position of the anterior cut to avoid notching. This cutting guide was ensured to be flush on the cut surface and then pinned into place with heade d pins. While protecting the soft tissues, quad tendon, and collateral ligaments, the anterior and posterior cuts were performed with a saw. The central two pins were removed and the posterior and anterior chamfers were cut next. The notch-cutting guide was placed. This was pinned to lateralize the femoral component as much as possible while keeping it flush on the cut surface. This was then pinned into position. A saw was used to make the notch cut. A rasp smoothed the cut surfaces. The medial and lateral menisci were removed. A trial femoral component was then inserted, impacted down to the cut surfaces, and the lug holes were drilled. A provisional trial tibial component was placed and the knee was brought through range of motion. There was noted to be excellent extension and flexion. There was no significant instability. The patella was tracking without thumbs. A size 8mm polyethylene component provided the best range of motion and stability with less than 2mm gapping with medial and lateral stress and full extension without significant hyperextension. The tibial cut surface was fully exposed. The tibia was then sized as a 6. The tibia had been previously marked during trialing to correspond to the center of the tibial component to help with rotation. The trial was aligned to this nicola, approximately rotated to the medial 1/3rd of the tibial tubercle. The trial was pinned into place. The tibia was prepared with a reamer and a keel punch and lug holes. The knee was then brought into extension and the patella was measured as 25mm. Using the patellar clamp and cut guide, this was resected to a flat surface with at least 13mm of thickness remaining. The size 35 patella fit the best. This was oriented and then clamped into position. The lugs were drilled. There were dense adhesions to the lateral patella and these were released allowing better patella mobility and tracking. The trial components were removed. The final components were opened on the back table. The periosteal and capsular tissues, especially posteriorly, around the knee were then systematically injected with a periarticular cocktail consisting of 246mg of Ropivacaine, 0.5mg of Epinephrine, 0.08mg of Clonidine, and 30mg of Ketorolac, diluted to 100cc. On the back table, with the implants opened, the cement was mixed. One batch of high viscosity cement was prepared with vacuum assistance. After the cement was ready a small amount was placed on the cut surface of the patella and the patellar button was clamped into position and held. While the cement was hardening, the cementless knee components were placed. Starting with the tibial component, the tibia was subluxed anteriorly and the lug holes of the component were lined up. The tibia was then impacted with an impactor and mallet until the tibial component was in contact with the tibia. Then, the femoral component was inserted. The lug holes were aligned and the component was impacted into position. The knee was irrigated with Surgiphor Betadine solution. This was allowed to sit in the knee for 3 minutes and then it was thoroughly irrigated out with saline. After the cement had finally cured, approximately 15min, the clamp was removed from the patella and the knee was taken through range of motion. The patella was tracking with a no-thumbs technique. The poly was then inserted. The capsule was then reapproximated with a No. 1 Vicryl at multiple locations. The capsule was finally closed with a No. 2 Stratafix, barbed suture. Deep tissues were then reapproximated with 0 Vicryl and 2-0 Vicryl. The skin was closed with a running 3-0 Monocryl in a subcuticular fashion. This was reinforced with skin glue. A Mepilex silver dressing was applied along with a [id number]-[id number] SONYA wrap. A CryoCuff was applied. Gilda was transferred to the hospital bed without difficulty an suffering no apparent complication. Gilda has a good prognosis. Physical therapy will start today and without restrictions, weight-bearing as tolerated. Aspirin 81mg BID will be used for DVT prophylaxis.
--- NOTE | 2022-08-29 09:40 | W.ANESNERVE ---
Nerve Block Single Injection Procedure Date and Time Date Performed: 08/29/22 Procedure Start: : Location Where Procedure Performed Procedure Location: Day Surgery Unit Reason Performed: Postoperative Analgesia Requesting Provider: Anjel Roldan Timeout Performed Timeout Performed: Yes Monitoring Used ECG, Blood Pressure and SpO2 Sterility Sterility: Hand Hygiene, Surgical Cap, Sterile Gloves and Chlorhexidine Sedation Given During Procedure Sedation Given (Indicate Dose Given): No Sedation given Patient Mental Status Patient Mental Status: Awake Nerve Block 1st Nerve Block: Laterality: Right Block Type: Adductor Canal Ultrasound Image Saved?: Yes Needle / Catheter Used: 100mm SonoPlex II Local Anesthetic Bolus (Indicate Dose Given): Lidocaine used for local infiltration of skin, Injected in 3-5ml increments after negative blood aspiration and Bupivacaine 0.25% Dose:: 15mL Additives (Indicate Dose Given): None Ultrasound: Sterile probe cover and gel used Nerve Stimulator: Not Used Paresthesia: None Procedure Tolerated: No Complications Procedure Outcome: Successful Performed By: Екатерина Ingram Supervised By: Delores Rae
[2022-08-29] MEDS: ePHEDrine 25 MG/5 ML Syringe IVP ×3 (10:10→11:32)
[2022-08-29] MEDS: Normal Saline 10 ML VIAL (10:47)
[2022-08-29] MEDS: HYDROmorphone 2 MG/ML SYR IVP ×2 (10:47→11:05)
[2022-08-29] MEDS: oxyCODONE 5 MG TAB PO (12:33)
--- NOTE | 2022-08-29 12:49 | W.ANESPOSTOP ---
Postoperative Evaluation Date, Time and Location Date Performed: 08/29/22 Time Performed: 12:50 Patient Location: Day Surgery Unit Vital Signs Most Recent Imported Vital Signs: Most Recent Vital Signs Temp Pulse Resp BP Pulse Ox 36.1 C L 66 16 126/88 95 08/29/22 12:23 08/29/22 12:23 08/29/22 12:23 08/29/22 12:23 08/29/22 12:23 Pain Score Most Recent Pain Score: Most Recent Pain Score Pain Level 3 08/29/22 12:23 Assessment Mental Status: Awake (Alert & Oriented to Patient Baseline) Airway and Respiratory Function: Patent airway with normal (patient baseline) respiratory exam Cardiovascular Function: Hemodynamically Stable Hydration Status: Adequately Hydrated Nausea & Vomiting: No Nausea or Vomiting Pain: Pain is tolerable per patient Peripheral Nerve Block: Regional nerve block not resolved at time of post operative discharge
--- NOTE | 2022-08-29 13:10 | PT.INIE ---
PT Notes Visit Reasons: Right Knee DJD Physical Therapy Day Surgery Initial Evaluation Date: Referring Doctor: Anjel Roldan PT Orders: PT CONSULT: S/P Ortho Surgery Precautions: WBAT on the right LE with AD Patient Profile/Admitting Diagnosis: Gilda is a 72-year-old female with degenerative joint disease of the right knee and is status post right total knee arthroplasty on postoperative day 0. PMHX: Medical History? Abnormal cervical Papanicolaou smear Asthma Chest pain Cholelithiasis without obstruction (03/22/93) CTS (carpal tunnel syndrome) (05/08/14) GERD (gastroesophageal reflux disease) Glossitis (06/05/13) History of fracture of right ankle Pin in place, subsequent blood clot per Pt Hx of blood clots RLE Mass of right breast on mammogram Primary osteoarthritis of left knee (10/30/16) SOB (shortness of breath) given cardiac risk factors and upcoming surgery, feel dynamic study warranted Valgus deformity, not elsewhere classified, left knee Surgical History? Cervical Procedure (~1978) pt. denies EGD - MAC (02/25/16) History of section History of colonoscopy History of orthopedic surgery R foot History of total left knee replacement (TKR) (02/19/19) Dr. Roldan Status post appendectomy Status post cholecystectomy Status post tonsillectomy Social History/Home Situation: Lives alone in a private home with no steps to enter but has family living close by has been very good support. GRECIA Marinelli is a neighbor. Daughter is a nurse at [employer]. 2 falls in the past year. Equipment Owned/DME: [facility] Subjective: Reports some discomfort and aching in the back of her right that some mild decreased with walking. Denies headache, chest pain, and lightheadedness throughout session. Objective: General Observation: Supine in bed. Edmundo wrap to right LE. Cryocuff to right knee. TDS on the left leg. Mental Status: Alert and oriented x4 Pain: 2?3/10 on the right popliteal area at rest ROM: Right Lower Extremity: Hip flexion WFL. Hip abduction WFL. Knee flexion to about 10 degrees to 95 degrees. Knee extension -10 degrees ankle dorsiflexion WFL. Ankle plantarflexion WFL. Left Lower Extremity: Hip flexion WFL. Hip abduction WFL. Knee flexion WFL. Ankle dorsiflexion WFL. Ankle plantarflexion WFL. Strength: Right Lower Extremity: Hip flexors 4/5. Hip abductors 4/5. Knee flexors 3-/5. Knee extensors 3-/5. Ankle dorsiflexors 4-/5. Ankle plantarflexors 5/5. Left Lower Extremity:Hip flexors 5/5. Hip abductors 5/5. Knee flexors 5/5. Knee extensors 5/5. Ankle dorsiflexors 5/5. Ankle plantarflexors 5/5. Sensation: Intact as to pain and light pressure in bilateral lower extremities Bed Mobility/Transfers: Supine to sit standby assist Sit to stand contact-guard assist with FWW Stand to sit standby assist Bed to chair standby assist Gait: Tolerated level surface ambulation of 150 feet using front wheeled walker with step to gait pattern and contact-guard assist. Minimal cueing provided for walker management and safe gait pattern. No SOB. No LOB. Good quad activation Balance: Static Sitting: Normal Dynamic Sitting: Normal Static Standing: Fair Dynamic Standing: Fair Special Tests: Mobility Limitations Standardized Measure [facility] AM-PAC 6 clicks Basic Mobility Inpatient Short Form: Raw Score: 21 CMS Score: 29% deficit Informed Consent/Education: Patient instructed in purpose of PT consult. Packet containing TKA exercise protocol has been given to patient. Education and training on initial set of exercises that can be done at home have been completed with patient. NEURO RE-ED: Facilitated postoperative engagement of B LE muscle groups for safe and correct performance of bed mobility, transfers, and ambulation using assistive ambulatory devices. Instructed patient in the performance of exercises that can be done for the next 2 weeks to maintain ROM, flexibility, balance, and mobility level at home: Access Code: [email or web address] URL: [email or web address] Date: 08/29/2022 Prepared by: Linda Bourne Exercises - Supine Quadricep Sets - 1 x daily - 7 x weekly - 1 sets - 10 reps - 5 hold - Supine Heel Slide - 1 x daily - 7 x weekly - 1 sets - 10 reps - 5 hold - Supine Ankle Pumps - 1 x daily - 7 x weekly - 1 sets - 10 reps - 5 hold - Small Range Straight Leg Raise - 1 x daily - 7 x weekly - 1 sets - 10 reps - 5 hold Assessment: Patient requires the use of a front wheel walker to maximize independence and reduce fall risk s/p total knee arthroplasty on postoperative day 0. Patient presents with clinical signs and symptoms consistent with current/admitting diagnoses that have resulted to mobility limitations, gait instability, generalized weakness, and impairment of motor control as demonstrated by the following impairment level findings: 1. Decreased strength to right knee major muscle groups 2. Impaired standing balance 3. Limitation of joint range of motion in right knee Impairments are contributing to the following functional limitations: 1. Inability to safely ambulate without assistive device 2. Increase completion time for mobility ADL performance 3. Increased fall risk Patient is assessed as a 84513 moderate complexity based on the following: History: 72-year-old female with impairment level findings, functional limitations, and past medical history as indicated above Examination: Demonstrable impairment in strength, balance, and mobility level with underlying impairments and functional limitations as documented above Presentation: Evolving Decision Makin moderate Goals: N/A. PT evaluation and 1-2 treatment sessions only for functional mobility training using recommended AD and for HEP instruction. Plan of Care/Treatment Plan: N/A. PT evaluation and 1-2 treatment session only for functional mobility training using recommended AD and for HEP instruction. DISCHARGE RECOMMENDATIONS: Home when medically cleared by orthopedic surgeon. Will benefit from home health PT services to progress mobility level using least restrictive assistive ambulatory device, assess home safety, identify additional equipment needs, and establish a functional maintenance program that will increase ability of patient to remain at home. TREATMENT CODE/TIME: 9716 2 x 20 minutes, 71348 x 18 minutes beginning at 1320 PM. Thank you for the opportunity to participate in the care of this patient. Linda Bourne PT, DPT, CLT [facility] [place], [place]
--- NOTE | 2022-08-29 14:05 | CMACTNOTE_ITS ---
Date of service: 08/29/22 Time of Service: 14:05 Care Management Activity Note Activity Note Text Activity Note Text: Gilda undergoes a right knee DJD today. At the request of orthopedic surgeon, CM coordinates a referral to [facility] for new PT services.
--- NOTE | 2022-08-29 14:55 | W.ANESNERVE ---
Nerve Block Single Injection Procedure Date and Time Date Performed: 08/29/22 Procedure Start: : Location Where Procedure Performed Procedure Location: Day Surgery Unit Reason Performed: Postoperative Analgesia Requesting Provider: Anjel Roldan Timeout Performed Timeout Performed: Yes Monitoring Used ECG Sterility Sterility: Hand Hygiene, Surgical Cap, Surgical Mask, Sterile Gloves and Chlorhexidine Sedation Given During Procedure Sedation Given (Indicate Dose Given): No Sedation given Patient Mental Status Patient Mental Status: Awake Nerve Block 1st Nerve Block: Laterality: Right Block Type: Adductor Canal Ultrasound Image Saved?: Yes Needle / Catheter Used: 100mm SonoPlex II Local Anesthetic Bolus (Indicate Dose Given): Lidocaine used for local infiltration of skin, Injected in 3-5ml increments after negative blood aspiration and Bupivacaine 0.25% Dose:: 15mL Additives (Indicate Dose Given): None Ultrasound: Used to nicola site Nerve Stimulator: Not Used Paresthesia: None Procedure Tolerated: No Complications Procedure Outcome: Successful Performed By: Екатерина Ingram Supervised By: Delores Rae
== END 2022-08-29 14:55 | disposition home health service (06) ==
PROVIDERS: PCP Family Medicine; Visit Provider Student in an Organized Health Care Education/Training Program
PROC: (CPT 27447; principal; 2022-08-29 07:30)
DX: M17.11 Unilateral primary osteoarthritis, right knee (principal); M21.061 Valgus deformity, not elsewhere classified, right knee
CPT/HCPCS: C1776; 20985; 27447; 76942; 97162; 97530; J0690; J1100; J1170; J2370; J2405; J2704

== ENCOUNTER 2022-09-11 13:52 | Outpatient (CLI) | payer MEDICARE, BC, SELFPAY ==
--- NOTE | 2022-09-11 13:30 | DI.RAD_ITS ---
Exam(s) XR KNEE RT 1V XR STANDING ALIGNMENT EXAM: XR STANDING ALIGNMENT and XR knee RT 1 V CLINICAL HISTORY: R TKR. TECHNIQUE: 2D digital imaging was performed. Five images were obtained. COMPARISON: CR XR STANDING ALIGNMENT from 08/25/2022 FINDINGS: BONES: The hips are well maintained. Since the prior examination the patient has undergone a right t otal knee replacement. The orthopedic hardware is in good position. The bones are intact. There is an enthesophyte at the superior patella. The patient has an old left total knee replacement. There are stable postsurgical changes in the right ankle. The left ankle is unremarkable.There is no sign ificant leg length discrepancy. SOFT TISSUE: Normal. IMPRESSION: Status post right total knee replacement. DATA REPOSITORY: RADIATION DOSE DELIVERED:
== END 2022-09-11 13:53 | disposition home or self-care (01) ==
LOC: DIORS 13:53
PROVIDERS: PCP Family Medicine; Referring Provider Family Medicine; Visit Provider Physician Assistant
DX: Z96.651 Presence of right artificial knee joint (principal); Z47.1 Aftercare following joint replacement surgery
CPT/HCPCS: 73560; 77073

== ENCOUNTER → 2022-10-09 13:58 | Outpatient (BNVA) | payer MEDICARE, BC, SELFPAY | PROVIDERS: PCP Family Medicine; Referring Provider Family Medicine | DX: Z47.1 Aftercare following joint replacement surgery (principal); Z96.651 Presence of right artificial knee joint ==

== ENCOUNTER → 2022-11-20 13:34 | Outpatient (BNVA) | payer MEDICARE, BC, SELFPAY | PROVIDERS: PCP Family Medicine; Referring Provider Family Medicine; Visit Provider Student in an Organized Health Care Education/Training Program | DX: Z47.1 Aftercare following joint replacement surgery (principal); Z96.651 Presence of right artificial knee joint ==

== ENCOUNTER 2022-11-21 03:29 | Outpatient (CLI) | payer MEDICARE, BC, SELFPAY ==
--- NOTE | 2022-11-21 | DI.MAMMO_ITS ---
Exam(s) MAMMO SCREENING EXAM: MAMMO SCREENING CLINICAL HISTORY: SCREENING, Z12.39 TECHNIQUE: Mammograms were interpreted according to the usual protocol including computer analysis w [employer] CAD system, tomosynthesis and C-view imaging. COMPARISON: 2013 through 2021 FINDINGS: The breasts are composed of scattered fibroglandular densities, Breast Density category B. No suspicious masses or suspicious microcalcifications are seen in either breast. The patient is sta tus post lumpectomy in the lower inner quadrant subareolar region of the right breast. No skin thickening or abnormal axillary lymph nodes are seen. IMPRESSION: BI-RADS Category 2 - Negative Mammogram with benign findings. Yearly screening mammography is recomm ended. Breast Density - Category B, scattered fibroglandular densities. A negative radiographic report should not delay biopsy if a dominant or clinically suspicious mass is present. Up to ten percent of cancers are not identified on mammography. A negative report may reinforce clinical impression. Adenosis and dense breasts may obscure an underlying neoplasm. False positive reports average 6 to 10%. Patient will receive a letter notifying them of these results.
== END 2022-11-21 03:49 ==
LOC: DI 03:33
PROVIDERS: PCP Family Medicine; Visit Provider Student in an Organized Health Care Education/Training Program
DX: Z12.31 Encounter for screening mammogram for malignant neoplasm of breast (principal)
CPT/HCPCS: 77063; 77067

== ENCOUNTER 2023-01-05 01:46 | Outpatient (CLI) | payer MEDICARE, BC, SELFPAY ==
[2023-01-05 12:20] LABS: ESR 26 mm/hr (0-30)
[2023-01-05 12:21] LABS: HCT 38.7 % (36.0-46.0); HGB 12.6 g/dL (11.2-15.7); MCH 29.4 pg (27.0-33.0); MCHC 32.6 % (32.0-36.0); MCV 90 fL (80-95); MPV 10.1 fL (8.0-11.0); Platelet Count 380 10^3/uL (130-400); RBC 4.29 10^6/uL (3.93-5.22); RDW 13.5 % (11.7-14.6); RDW-SD 44.5 fL; WBC 10.31 10^3/uL (4.4-10.8)
[2023-01-05 12:33] LABS: COMMENT (LAB VIEW ONLY) 173.48 mg/dL
[2023-01-05 12:34] LABS: ALT 44 U/L (14-59); AST 34 U/L (15-37); Albumin 4.1 g/dL (3.4-5.0); Alkaline Phosphatase 40 U/L (46-116); Anion Gap 9.3 mmol/L (3-11); BUN 24 mg/dL (7-18); Bilirubin, Total 0.4 mg/dL (0.2-1.0); CO2 27.7 mmol/L (21.0-32.0); CREATININE 1.4 mg/dL (0.55-1.02); Calculated LDL 133 mg/dL (<100); Chloride 101 mmol/L (98-107); Cholesterol 226 mg/dL (<200); Estimated GFR 39.97 (mL/min/1.73m2); Glucose 127 mg/dL (74-106); HDL Cholesterol 54 mg/dL (40-60); Potassium 3.8 mmol/L (3.5-5.1); Sodium 138 mmol/L (136-145); Total Protein 7.8 g/dL (6.4-8.2); Triglyceride 196 mg/dL (<150)
[2023-01-05 12:45] LABS: C-Reactive Protein 0.36 mg/dL (0.0-0.3)
[2023-01-05 12:56] LABS: Microalb ug/mg Crea 159.1 ug/mg Cr
== END 2023-01-05 01:47 | disposition home or self-care (01) ==
LOC: LOS 01:47
PROVIDERS: Student in an Organized Health Care Education/Training Program; PCP Family Medicine; Visit Provider Nurse Practitioner
DX: M25.561 Pain in right knee (principal); M17.11 Unilateral primary osteoarthritis, right knee; E11.9 Type 2 diabetes mellitus without complications; M06.9 Rheumatoid arthritis, unspecified; Z79.899 Other long term (current) drug therapy
CPT/HCPCS: 36415; 80053; 80061; 85027; 85652; 82043; 82570; 86140

== ENCOUNTER → 2023-01-29 04:05 | Outpatient (CLI) | payer MEDICARE, BC, SELFPAY ==
--- NOTE | 2023-01-29 13:43 | DI.RAD_ITS ---
Exam(s) XR THUMB LT XR WRIST LT COMPLETE EXAM: XR WRIST LT COMPLETE CLINICAL HISTORY: wrist pain,m25.539. TECHNIQUE: 2D digital imaging was performed. Three views. COMPARISON: CR XR THUMB LT from 01/29/2023 FINDINGS: BONES: No acute fracture is present. No bony destructive lesion is seen. JOINTS: Severe degenerative changes of the 1st carpal metacarpal joint. Prominent periarticular spur ring as well as multiple adjacent bony fragments. Degenerative changes also seen in the interphalang eal joint of the thumb. There are mild degenerative changes at the 1st metacarpophalangeal joint. SOFT TISSUE: No foreign body or gas collection. IMPRESSION: Severe degenerative changes at the 1st carpal metacarpal joint with multiple adjacent bony fragments. Moderate after the severe degenerative changes interphalangeal joint of the thumb. Moderate degene rative changes of the 1st metacarpophalangeal joint. DATA REPOSITORY: RADIATION DOSE DELIVERED:
== END ==
PROVIDERS: PCP Family Medicine; Visit Provider Family Medicine
DX: M18.12 Unilateral primary osteoarthritis of first carpometacarpal joint, left hand; M19.041 Primary osteoarthritis, right hand
CPT/HCPCS: 73110; 73140

== ENCOUNTER 2023-06-13 01:35 | Outpatient (CLI) | payer MEDICARE, BC, SELFPAY ==
[2023-06-13 11:26] LABS: Abs Immature Grans 0.13 10^3/uL (0.0-0.06); Absolute Basophil Count 0.08 10^3/uL (0.0-0.2); Absolute Eosinophil Count 0.27 10^3/uL (0.0-0.7); Absolute Lymphocyte Count 3.03 10^3/uL (1.2-3.4); Absolute Monocyte Count 1.44 10^3/uL (0.1-0.8); Absolute Neutrophil Count 4.38 10^3/uL (1.2-6.7); Basophils % 0.9; Eosinophils % 2.9; HCT 41.6 % (36.0-46.0); HGB 13.8 g/dL (11.2-15.7); Immature Grans % 1.4; Lymphocytes % 32.5; MCH 29.9 pg (27.0-33.0); MCHC 33.2 % (32.0-36.0); MCV 90 fL (80-95); MPV 9.6 fL (8.0-11.0); Monocytes % 15.4; Neutrophils % 46.9; Platelet Count 389 10^3/uL (130-400); RBC 4.61 10^6/uL (3.93-5.22); RDW 12.4 % (11.7-14.6); WBC 9.33 10^3/uL (4.4-10.8)
[2023-06-13 11:30] LABS: ESR 31 mm/hr (0-30)
[2023-06-13 11:45] LABS: ALT 42 U/L (14-59); AST 33 U/L (15-37); Albumin 4.2 g/dL (3.4-5.0); Alkaline Phosphatase 46 U/L (46-116); Anion Gap 7.7 mmol/L (3-11); BUN 16 mg/dL (7-18); Bilirubin, Total 0.4 mg/dL (0.2-1.0); CO2 31.3 mmol/L (21.0-32.0); CREATININE 1.5 mg/dL (0.55-1.02); Calcium 10.2 mg/dL (8.5-10.1); Chloride 101 mmol/L (98-107); Glucose 133 mg/dL (74-106); Potassium 4.3 mmol/L (3.5-5.1); Sodium 140 mmol/L (136-145); Total Protein 8.5 g/dL (6.4-8.2)
[2023-06-13 12:06] LABS: Calculated LDL 96 mg/dL (<100); Cholesterol 202 mg/dL (<200); HDL Cholesterol 59 mg/dL (40-60); Triglyceride 239 mg/dL (<150)
== END 2023-06-13 01:36 | disposition home or self-care (01) ==
LOC: LBO 01:35
PROVIDERS: PCP Family Medicine; Visit Provider Nurse Practitioner
DX: M06.9 Rheumatoid arthritis, unspecified (principal); Z79.899 Other long term (current) drug therapy
CPT/HCPCS: 36415; 80053; 80061; 85652; 85025; 86140

== ENCOUNTER 2023-09-03 15:02 | Outpatient (CLI) | payer MEDICARE, BC, SELFPAY ==
--- NOTE | 2023-09-03 13:00 | DI.RAD_ITS ---
Exam(s) XR KNEE RT 2V AP,LAT EXAM: XR KNEE RT 2V AP,LAT CLINICAL HISTORY: ANNUAL F/U R TKA. TECHNIQUE: 2D digital imaging was performed. Two images were obtained. AP and lateral views were ob tained. COMPARISON: CR XR KNEE RT 3V AP,LAT,MICHAEL from 10/03/2021 CR XR KNEE RT 1V from 09/11/2022 FINDINGS: BONES: There are stable post operative changes of a right total knee replacement present. No fractur e or dislocation. Enthesophyte is seen at the superior patella. JOINTS: The orthopedic hardware is in good position. No evidence of hardware loosening. SOFT TISSUE: Vascular calcifications are present. IMPRESSION: Stable right total knee replacement. DATA REPOSITORY: RADIATION DOSE DELIVERED:
== END 2023-09-03 15:03 | disposition home or self-care (01) ==
LOC: DIORS 15:03
PROVIDERS: PCP Family Medicine; Visit Provider Student in an Organized Health Care Education/Training Program
DX: Z96.651 Presence of right artificial knee joint (principal); Z47.1 Aftercare following joint replacement surgery
CPT/HCPCS: 99213; 73560

== ENCOUNTER 2023-09-25 14:17 | Outpatient (CLI) | payer MEDICARE, BC, SELFPAY ==
--- NOTE | 2023-09-25 14:00 | DI.RAD_ITS ---
Exam(s) XR SHOULDER LT COMPLETE 2+V EXAM: XR SHOULDER LT COMPLETE 2+V CLINICAL HISTORY: BILATERAL SHOULDER PAIN. TECHNIQUE: 2D digital imaging was performed of the left shoulder. Two images were obtained. Axilla ry and Grashey views were obtained. COMPARISON: No priors for comparison. FINDINGS: BONES: No acute fracture is present. No bony destructive lesion is seen. Anterior cervical disc fusio n is partially visualized. JOINTS: No dislocation present. The glenohumeral joint is well maintained. Degenerative changes are seen at the acromioclavicular joint. SOFT TISSUE: Normal. IMPRESSION: Degenerative changes of the left acromioclavicular joint. DATA REPOSITORY: RADIATION DOSE DELIVERED:
--- NOTE | 2023-09-25 14:00 | DI.RAD_ITS ---
Exam(s) XR SHOULDER RT COMPLETE 2+V EXAM: XR SHOULDER RT COMPLETE 2+V CLINICAL HISTORY: BILATERAL SHOULDER PAIN. TECHNIQUE: 2D digital imaging was performed of the right shoulder. Two images were obtained. Axill kit and Grashey views were obtained. COMPARISON: CR,XR XR shoulder RT complete 2+V from 01/06/2019 FINDINGS: BONES: No acute fracture is present. No bony destructive lesion is seen. JOINTS: No dislocation present. There is narrowing of the acromial humeral interval which can be seen with chronic rotator cuff tear. Degenerative changes are seen at the acromioclavicular and glenohum eral joints. Subchondral sclerosis and cysts are also seen at the superior aspect of the humeral hea d laterally. SOFT TISSUE: Normal. IMPRESSION: Arthrosis of the right shoulder as described above. DATA REPOSITORY: RADIATION DOSE DELIVERED:
== END 2023-09-25 14:18 | disposition home or self-care (01) ==
LOC: DIORS 14:18
PROVIDERS: PCP Family Medicine; Referring Provider Family Medicine; Visit Provider Student in an Organized Health Care Education/Training Program
DX: M75.101 Unspecified rotator cuff tear or rupture of right shoulder, not specified as traumatic; M19.011 Primary osteoarthritis, right shoulder; M19.012 Primary osteoarthritis, left shoulder
CPT/HCPCS: 99213; 73030

== ENCOUNTER 2024-01-15 02:27 | Outpatient (CLI) | payer MEDICARE, BC, SELFPAY ==
[2024-01-15 12:50] LABS: HGB 13.3 g/dL (11.2-15.7); MCH 29.7 pg (27.0-33.0); MCHC 31.7 % (32.0-36.0); MCV 94 fL (80-95); Platelet Count 400 10^3/uL (130-400); RBC 4.48 10^6/uL (3.93-5.22); RDW 13.2 % (11.7-14.6); RDW-SD 45.4 fL; WBC 10.17 10^3/uL (4.4-10.8)
[2024-01-15 13:10] LABS: ALT 54 U/L (14-59); AST 43 U/L (15-37); Albumin 4.4 g/dL (3.4-5.0); Alkaline Phosphatase 49 U/L (46-116); Anion Gap 9.6 mmol/L (3-11); BUN 19 mg/dL (7-18); Bilirubin, Total 0.44 mg/dL (0.2-1.0); CO2 28.4 mmol/L (21.0-32.0); CREATININE 1.5 mg/dL (0.55-1.02); Calcium 10.2 mg/dL (8.5-10.1); Calculated LDL 59 mg/dL (<100); Chloride 100 mmol/L (98-107); Cholesterol 151 mg/dL (<200); Estimated GFR 36.57 (mL/min/1.73m2); Glucose 129 mg/dL (74-106); HDL Cholesterol 57 mg/dL (40-60); Potassium 3.8 mmol/L (3.5-5.1); Sodium 138 mmol/L (136-145); TSH (W/Ref FT4) 1.69 uIU/mL (0.36-3.74); Total Protein 8.4 g/dL (6.4-8.2); Triglyceride 178 mg/dL (<150)
[2024-01-15 13:23] LABS: COMMENT (LAB VIEW ONLY) 219.85 mg/dL; Microalb ug/mg Crea 243.7 ug/mg Cr
[2024-01-15 13:41] LABS: Hemoglobin A1C 6.5 % (<5.7)
== END 2024-01-15 02:28 | disposition home or self-care (01) ==
LOC: LOS 02:27
PROVIDERS: PCP Family Medicine; Visit Provider Family Medicine
DX: I10 Essential (primary) hypertension (principal); E11.9 Type 2 diabetes mellitus without complications; D64.9 Anemia, unspecified; E03.9 Hypothyroidism, unspecified
CPT/HCPCS: 36415; 80053; 80061; 85027; 82043; 82570; 83036; 84443

== ENCOUNTER 2024-01-25 00:27 | Outpatient (CLI) | payer MEDICARE, BC, SELFPAY ==
--- NOTE | 2024-01-25 07:00 | DI.MAMMO_ITS ---
Exam(s) MG MAMMO SCREENING 60 MIN DUR EXAM: MG MAMMO SCREENING 60 MIN DUR CLINICAL HISTORY: breast cancer screening,PERSONAL H/O BREAST CA,Z85.3,Z12.31 TECHNIQUE: Mammograms were interpreted according to the usual protocol including computer analysis w [employer] CAD system, tomosynthesis and C-view imaging. COMPARISON: 2015 through 2022 FINDINGS: The breasts are composed of scattered fibroglandular densities, Breast Density category B. No suspicious masses or suspicious microcalcifications are seen. No skin thickening or abnormal axillary lymph nodes are seen. There has been no significant change from prior exams. IMPRESSION: BI-RADS Category 1, Negative mammogram Yearly screening mammography is recommended. Breast Density - Category B, scattered fibroglandular densities. A negative radiographic report should not delay biopsy if a dominant or clinically suspicious mass is present. Up to ten percent of cancers are not identified on mammography. A negative report may reinforce clinical impression. Adenosis and dense breasts may obscure an underlying neoplasm. False positive reports average 6 to 10%. Patient will receive a letter notifying them of these results.
== END 2024-01-25 00:47 ==
LOC: DI 00:27
PROVIDERS: PCP Family Medicine; Visit Provider Family Medicine
DX: Z12.31 Encounter for screening mammogram for malignant neoplasm of breast (principal); Z85.3 Personal history of malignant neoplasm of breast
CPT/HCPCS: 77063; 77067

== ENCOUNTER → 2024-02-15 08:49 | Outpatient (BNVA) | payer MEDICARE, BC, SELFPAY | PROVIDERS: PCP Family Medicine; Referring Provider Family Medicine; Visit Provider Student in an Organized Health Care Education/Training Program | DX: Z12.11 Encounter for screening for malignant neoplasm of colon (principal); R19.5 Other fecal abnormalities ==

== ENCOUNTER 2024-03-11 11:14 | Day surgery (SDC) | payer MEDICARE, BC, SELFPAY ==
--- NOTE | 2024-03-10 18:10 | W.ANESPRE ---
General Info Date of Service Date Performed: 03/11/24 Height: 5 ft 3 in Weight: 99.79 kg Body Mass Index (BMI): 38.9 Surgical Procedure: Operation Date: 03/11/24 11:35 Proposed Procedure Side Surgeon p Emma Hoff MD Meds Allergies and Home Medications Allergies Allergy/AdvReac Type Severity Reaction Status Date / Time levofloxacin Allergy Mild rash Verified 03/07/24 09:38 budesonide (From Symbicort) AdvReac Severe chest pain Verified 03/07/24 09:38 doxycycline AdvReac Severe esophagitis Verified 03/07/24 09:38 duloxetine AdvReac Severe hallucinati Verified 03/07/24 09:38 ons formoterol fumarate (From AdvReac Severe chest pain Verified 03/07/24 09:38 Symbicort) midazolam HCl (From Versed) AdvReac Intermediate Contraindic Verified 03/07/24 09:38 ated zolpidem AdvReac Intermediate Dizziness/L Verified 03/07/24 09:38 ighthead enalaprilat AdvReac Mild Cough Verified 03/07/24 09:38 Home Medication ?Medication ?Instructions ?Recorded coenzyme Q10 50 mg capsule (Co 1 cap PO DAILY 01/08/16 Q-10) polyethylene glycol 3350 17 17 gm PO DAILY PRN constipation 10/11/18 gram/dose oral powder (Miralax) calcium citrate 760 mg PO DAILY 05/19/20 multivitamin (Daily Multi-Vitamin 1 tab PO DAILY 05/19/20 tablet) acetaminophen 650 mg 1,300 mg PO Q12H 07/13/20 tablet,extended release (Tylenol Arthritis Pain) glucosamine [id number] 1 tab PO DAILY 12/23/20 malachi 1,500 mg-400 unit-100 mg tablet (Osteo Bi-Flex (5-Loxin)) upadacitinib 15 mg tablet,extended 15 mg PO DAILY 06/23/21 release 24 hr (Rinvoq) exemestane 25 mg tablet 25 mg PO DAILY 10/19/21 atorvastatin 40 mg tablet 40 mg PO QHS #90 tabs 04/26/23 fluticasone 500 mcg-salmeterol 50 1 inh inhalation Q12H #180 ea 06/07/23 mcg/dose blistr powdr for inhalation (Advair Diskus) amlodipine 5 mg tablet 5 mg PO DAILY #90 tabs 07/16/23 levothyroxine 100 mcg tablet 100 mcg PO DAILY #90 tabs 07/16/23 metformin 500 mg tablet 500 mg PO BID #180 tabs 07/16/23 pantoprazole 40 mg tablet,delayed 40 mg PO DAILY acid reflux #90 tabs 07/16/23 release (Protonix) tiotropium bromide 2.5 1 puff inhalation DAILY #4 grams 09/04/23 mcg/actuation mist for inhalation (Spiriva Respimat) albuterol sulfate 90 mcg/actuation 2 puff inhalation Q6H PRN 10/29/23 aerosol inhaler (Ventolin HFA) shortness of breath or wheezing #25.5 grams alendronate 70 mg tablet (Fosamax) 70 mg PO QWEEK #13 tabs 10/29/23 atenolol 50 mg tablet (Tenormin) 50 mg PO DAILY #90 tabs 10/29/23 losartan 100 1 tab PO DAILY #90 tab-caps 10/29/23 mg-hydrochlorothiazide 25 mg tablet (Hyzaar) oxycodone 5 mg tablet 5 mg PO Q8H PRN pain #30 tabs 12/25/23 bisacodyl 5 mg tablet,delayed 5 mg PO ONCE #8 tabs 02/15/24 release (Dulcolax (bisacodyl)) polyethylene glycol 3350 17 17 g PO ONCE #238 grams 02/15/24 gram/dose oral powder Current Visit Medications: Current Medications Generic Name Dose Route Start Last Admin Trade Name Freq PRN Reason Stop Dose Admin Ringer's Solution 1,000 mls @ 80 mls/hr 03/11/24 06:00 IV 03/11/24 23:59 INFUSION FATMATA IV Miscellaneous Supplies 1 each 03/11/24 06:00 Iv Access IV 03/11/24 23:59 DIRECTED FATMATA Sodium Chloride 0 ml 03/11/24 06:00 Normal Saline Flush 10 Ml Syr IV 03/11/24 23:59 PRN PRN Sodium Chloride 0 ml 03/11/24 06:00 Normal Saline 10 Ml Vial IJ 03/11/24 23:59 DIRECTED PRN Sterile Water 0 ml 03/11/24 06:00 Water,Injection,Sterile 10 Ml Vial IJ 03/11/24 23:59 DIRECTED PRN PFSH Active Problems Active Problems: Problem Status Onset Code Positive colorectal cancer screening using Cologuard test Acute R19.5 Arthritis of left glenohumeral joint Acute M19.012 Arthritis of right glenohumeral joint Acute M19.011 Right rotator cuff tear arthropathy Acute M75.101, M12.811 Decreased hearing Acute H91.90 Arthritis of hand, left, degenerative Acute M19.042 Wrist pain Acute M25.539 Pain of left thumb Acute M79.645 Dysphagia Acute R13.10 Disordered sleep Acute G47.9 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 Cervical spondylosis with myelopathy Acute M47.12 H/O cervical spine surgery Acute Z98.890 Acute right hip pain Acute M25.551 Palpitation Acute R00.2 COVID-19 Acute U07.1 Stage 3 chronic kidney disease Acute N18.30 Dizziness Acute R42 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 Invasive ductal carcinoma of breast, female Acute C50.919 Left wrist tendonitis Acute M77.8 Spinal stenosis of cervical region Acute M48.02 Osteopenia of lumbar spine Acute M85.88 DM type 2 (diabetes mellitus, type 2) Acute E11.9 Corticosteroid dependence Acute Discoid lupus erythematosus Acute L93.0 Parastomal hernia Acute 07/09/12 K43.5 Peripheral neuropathy Chronic G62.9 Rheumatoid arthritis Chronic 07/10/12 M06.9 Obesity Chronic E66.9 Lumbar stenosis Chronic 11/22/16 M48.061 Hypothyroidism Chronic 07/10/12 E03.9 Hyperlipidemia Chronic 12/14/14 E78.5 History of tobacco use Chronic Z87.891 Hiatal hernia Chronic 03/22/93 K44.9 Gastroesophageal reflux disease Chronic K21.9 Essential hypertension Chronic 07/16/13 I10 Asthma Chronic 01/07/13 J45.909 Medical History Medical History Mass of right breast on mammogram History of fracture of right ankle Pin in place, subsequent blood clot per Pt Hx of blood clots RLE Valgus deformity, not elsewhere classified, left knee SOB (shortness of breath) given cardiac risk factors and upcoming surgery, feel dynamic study warranted Abnormal cervical Papanicolaou smear Primary osteoarthritis of left knee (10/30/16) Glossitis (06/05/13) Cholelithiasis without obstruction (03/22/93) CTS (carpal tunnel syndrome) (05/08/14) Asthma GERD (gastroesophageal reflux disease) Chest pain Medical History Comments:: pt. states last time she had anesthesia it ook her a while to get her blood pressure up Surgical History Surgical History Hx of neck surgery 2019- I had cadaver bones wraped in titanium placed in my neck History of total right knee replacement (TKR) (08/29/22) History of ankle surgery right with pin Hx of appendectomy Hx of cholecystectomy Hx of total knee arthroplasty Right TKA DOS: 08/29/22 History of lumpectomy History of total left knee replacement (TKR) (02/19/19) Dr. Roldan History of colonoscopy History of section History of orthopedic surgery R foot Status post appendectomy Status post cholecystectomy Status post tonsillectomy EGD - MAC (02/25/16) Cervical Procedure (~1978) Anterior cervical stabilization neck with cadavar bones Tobacco Smoking/Tobacco Use Status: Former Tobacco Use Passive smoking exposure: No Second hand exposure: Yes Alcohol Alcohol Intake: former Substance Use Substance use: Never Substance use type: does not use Vital Signs and Lab Results Vital Signs Most Recent Vital Signs in EMR: Temp Pulse Resp BP Pulse Ox 36.4 C L 74 18 143/67 H 94 03/11/24 11:38 03/11/24 11:38 03/11/24 11:38 03/11/24 11:38 03/11/24 11:38 Lab Results Blood Type / Crossmatch: No Data to Display Complete Blood Count: No Data to Display Complete Metabolic Panel: No Data to Display Liver Function Panel: No Data to Display Coagulation Panel: No Data to Display Cardiac Panel: No Data to Display Arterial Blood Gas: No Data to Display Venous Blood Gas: No Data to Display Pancreas Panel: No Data to Display Thyroid Panel: No Data to Display Infectious Disease: No Data to Display Blood Cultures: No Data to Display Toxicology Panel: No Data to Display Imaging and Studies Imaging and Studies Study information below may be from another EMR and interpreted by another provider. Please see original notes in EMR for more complete details. EKG Summary: Conclusion Sinus rhythm...normal P axis, V-rate 60- 99 RBBB and LAFB...QRSd >120mS, axis(-40,240) Left ventricular hypertrophy...multiple voltage criteria 08/02/22 10:45 Stress Test Summary: Impressions: - Normal myocardial perfusion and contraction after pharmacological stress. - Low risk of cardiac events. Summary: 1. Myocardial perfusion imaging: No myocardial perfusion defects noted. 2. The calculated left ventricular ejection fraction after stress: 52%. LV global systolic function is normal. No left ventricular regional motion abnormality. 3. Stress ECG conclusions: The stress ECG is negative. 4. Imaging information: gated. Image quality reduced due to diaphragmatic attenuation and subdiaphragmatic activity. Attenuation correction used. Indication: R07.9, Appropriate Use Criteria: A (Appropriate). History: REASON FOR VISIT: INCREASED SHORTNESS OF BREATH, LEG SWELLING, MULTIPLE CARDIAC RISK FACTORS IS HERE FOR A PRE-SURGICAL SCREENING FOR SCHEDULED KNEE REPLACEMENT SURGERY ON [address] ROLDAN. PMH: Asthma. Risk factors: Current tobacco use. Hypertension. Diabetes mellitus. Obesity. Dyslipidemia. Cholesterol: 198mg/dl. HDL: 61mg/dl. LDL: 113mg/dl. Triglycerides: 176mg/dl. ALLERGIES: LEVOFLOXACIN. BUDESONIDE. DOXYCYLINE. FORMOTEROL FUMARATE. MIDAZOLOAM. ENALAPRIT. MEDICATIONS: VITAMIN B COMPLEX. TURMERIC ROOT EXTRACT 500 MG CAP DAILY. TIOTROPIUM BROMIDE 2 PUFFS DAILY. SIMVASTATIN 20 MG Q HS. PREDNISONE 5 MG DAILY. PANTOPRAZOLE 40 MG DAILY. OMEGA-3 FATTY ACIDS 1 CAP DAILY. MVI 1 DAILY. MONTELUKAST 10 MG DAILY. LOSARTAN 100 MG-HYDROCHLOROTHIAZIDE 25 MG DAILY. LORATADINE 10 MG DAILY. LEVOTHYROXINE 150 MCG DAILY. LEFLUNOMIDE 20 MG PO 3X/QWK. GLUCOSAMINE SULFATE 1000 MG DAILY. ATENOLOL 50 MG DAILY. AMLODIPINE 5 MG DAILY. ALBUTEROL SULFATE 2 PUFFS Q 4 HRS PRN. CALCIUM 600 + D BID. ASPIRIN 81 MG DAILY. Imaging Technique: Protocol: Regadenoson. Acquisition: Gated SPECT; 1 day - rest/stress. The patient was imaged in the supine position. Attenuation correction used. Isotope administration: - Rest. Tc[99m]-sestamibi. Dose: 12.4mCi. Injection time: 08:45 AM. Injection to stress time: 00:45. - Stress. Tc[99m]-sestamibi. Dose: 36mCi. Injection time: 11:46 AM. 1-2 min before end of exercise Baseline ECG: SINUS RHYTHM. PROLONGED QT INTERVAL. HR 69 BPM. QTc 490ms; long QT interval. Normal sinus rhythm. Stress protocol: +--------+--+ + + !Stage !HR!BP (mmHg) !Comments ! +--------+--+ + + !Baseline!69!110/70 (83)! ! +--------+--+ + + !1 min !87!128/60 (83)!Inject Regadenoson.! +--------+--+ + + !3 min !83!128/60 (83)! ! +--------+--+ + + !6 min !81!130/62 (85)! ! +--------+--+ + + * Stress results: The rate-pressure product for the peak heart rate and blood pressure was 75811sv Hg/min. Stress ECG: STRESS TEST ENDED IN 6 MINUTES & 47 SECONDS. PT EXPERIENCED NO SIGNIFICANT SIDE EFFECTS FROM LEXISCAN NORMAL HEART RATE AND BLOOD PRESSURE RESPONSE TO LEXISCAN INJECTION NO ECTOPY NO ANGINA NO SIGNIFICANT ST SEGMENT CHANGES. The stress ECG is negative. Myocardial perfusion: Imaging information: gated. Image quality reduced due to diaphragmatic attenuation and subdiaphragmatic activity. Left ventricular size is normal. No myocardial perfusion defects noted. Ventricular Function (Wall Motion): The calculated left ventricular ejection fraction after stress: 52%. LV global systolic function is normal. No left ventricular regional motion abnormality. Study data: Tomer Helton MD supervised and was readily available during the procedure. This study was interpreted by [facility]. Study status: Routine. Consent: The risks, benefits, and alternatives to the procedure were explained to the patient and informed consent was obtained. Procedure: Initial setup. A baseline ECG was recorded. Surface ECG leads and manual cuff blood pressure measurements were monitored. Heart sounds: Normal. Lung sounds: Normal. Regadenoson stress test. Stress testing was performed, with regadenoson by intravenous bolus, for a total dose of 0.4mgover 10.00sec, followed by a 5ml saline flush. The infusion was terminated due to per protocol. Study completion: All catheters inserted during the procedure were removed. The patient tolerated the procedure well and was discharged from the lab. Discharge: The patient left the laboratory in stable condition. Birthdate: Patient birthdate: 1950. Sex: Gender: female. Study date: Study date: 11/20/2018. Study time: 00:01 AM. Impressions: - Normal myocardial perfusion and contraction after pharmacological stress. - Low risk of cardiac events. Summary: 1. Myocardial perfusion imaging: No myocardial perfusion defects noted. 2. The calculated left ventricular ejection fraction after stress: 52%. LV global systolic function is normal. No left ventricular regional motion abnormality. 3. Stress ECG conclusions: The stress ECG is negative. 4. Imaging information: gated. Image quality reduced due to diaphragmatic attenuation and subdiaphragmatic activity. Attenuation correction used. Indication: R07.9, Appropriate Use Criteria: A (Appropriate). History: REASON FOR VISIT: INCREASED SHORTNESS OF BREATH, LEG SWELLING, MULTIPLE CARDIAC RISK FACTORS IS HERE FOR A PRE-SURGICAL SCREENING FOR SCHEDULED KNEE REPLACEMENT SURGERY ON [address] ROLDAN. PMH: Asthma. Risk factors: Current tobacco use. Hypertension. Diabetes mellitus. Obesity. Dyslipidemia. Cholesterol: 198mg/dl. HDL: 61mg/dl. LDL: 113mg/dl. Triglycerides: 176mg/dl. ALLERGIES: LEVOFLOXACIN. BUDESONIDE. DOXYCYLINE. FORMOTEROL FUMARATE. MIDAZOLOAM. ENALAPRIT. MEDICATIONS: VITAMIN B COMPLEX. TURMERIC ROOT EXTRACT 500 MG CAP DAILY. TIOTROPIUM BROMIDE 2 PUFFS DAILY. SIMVASTATIN 20 MG Q HS. PREDNISONE 5 MG DAILY. PANTOPRAZOLE 40 MG DAILY. OMEGA-3 FATTY ACIDS 1 CAP DAILY. MVI 1 DAILY. MONTELUKAST 10 MG DAILY. LOSARTAN 100 MG-HYDROCHLOROTHIAZIDE 25 MG DAILY. LORATADINE 10 MG DAILY. LEVOTHYROXINE 150 MCG DAILY. LEFLUNOMIDE 20 MG PO 3X/QWK. GLUCOSAMINE SULFATE 1000 MG DAILY. ATENOLOL 50 MG DAILY. AMLODIPINE 5 MG DAILY. ALBUTEROL SULFATE 2 PUFFS Q 4 HRS PRN. CALCIUM 600 + D BID. ASPIRIN 81 MG DAILY. Imaging Technique: Protocol: Regadenoson. Acquisition: Gated SPECT; 1 day - rest/stress. The patient was imaged in the supine position. Attenuation correction used. Isotope administration: - Rest. Tc[99m]-sestamibi. Dose: 12.4mCi. Injection time: 08:45 AM. Injection to stress time: 00:45. - Stress. Tc[99m]-sestamibi. Dose: 36mCi. Injection time: 11:46 AM. 1-2 min before end of exercise Baseline ECG: SINUS RHYTHM. PROLONGED QT INTERVAL. HR 69 BPM. QTc 490ms; long QT interval. Normal sinus rhythm. Stress protocol: +--------+--+ + + !Stage !HR!BP (mmHg) !Comments ! +--------+--+ + + !Baseline!69!110/70 (83)! ! +--------+--+ + + !1 min !87!128/60 (83)!Inject Regadenoson.! +--------+--+ + + !3 min !83!128/60 (83)! ! +--------+--+ + + !6 min !81!130/62 (85)! ! +--------+--+ + + * Stress results: The rate-pressure product for the peak heart rate and blood pressure was 14386qd Hg/min. Stress ECG: STRESS TEST ENDED IN 6 MINUTES & 47 SECONDS. PT EXPERIENCED NO SIGNIFICANT SIDE EFFECTS FROM LEXISCAN NORMAL HEART RATE AND BL Echocardiogram Summary: EF 57%, no hemodynamically significant valvular lesions Carotid Artery Summary:: 02/08/2022: IMPRESSION: 1. Some plaque is demonstrated in both carotid bulbs but without elevated velocities indicating that the amount of stenosis is less than 50 percent bilaterally. 2. Antegrade flow is demonstrated in both vertebral arteries. Criteria for Carotid Stenosis: Normal: ICA PSV <125 cm/s no plaque or intimal thickening is visible. <50% stenosis: ICA PSV <125 cm/s and plaque or intimal thickening is visible. 50-69% stenosis: ICA PSV is 125-250 cm/s and plaque is visible. >70% stenosis to near occlusion: ICA PSV >250 cm/s with visible plaque and luminal narrowing. Anesthesia Assessment and Plan Anesthesia History Personal History: Other Family History: No Family History of Anesthesia Complications Exercise Tolerance Exercise Tolerance: Metabolic Equivalents>4 Cardiac & Pulmonary Exam Cardiac Exam: Normal S1/S2 Heart Sounds Pulmonary Exam: Clear Bilateral Breath Sounds Implantable Cardiac Device Does patient have a Pacemaker or an ICD?: No Airway Exam Known Difficult Airway: No Mallampati Class: 2 Mouth Opening: Normal (> 3cm) Thyromental Distance: Greater than 3 cm Neck Range of Motion: History of Cervical Fusion Neck Circumference: Thick Teeth Condition: Generalized Poor Dentition ASA Classification ASA Score: ASA 3 Emergency Case?: No NPO Status NPO Status: NPO Clears >2 hours, Solids >8 hours Anesthesia Plan Resuscitation Status: Full Code Anesthesia Technique: General Anesthesia Airway Planned: Natural Airway Monitors Used: Standard Monitors Preoperative Comments:: 73 yo female for colo. Sig PMHx: HTN, asthma, GERD, c spine surgery, palpitations, CKDIII, DM2, RA, neuropathy. EKG: sinus, RBBB, LVH. stress: EF 52%. no defects. Previous Anes: - TKA, spinal x2 unsuccessful, prop, LMA 4. - TKA, spinal, prop sedation, no issues. - EGD, prop, lidocaine topical, no issues.
[2024-03-11 11:38] VITALS: BP 143/67; PULSE 74; RESP 18; TEMP 36.4; O2SAT 94
[2024-03-11] MEDS: Normal Saline Flush 10 ML SYR IV (11:49)
--- NOTE | 2024-03-11 12:09 | W.COLOREPORT ---
Date of service: 03/11/24 Time of Service: 12:09 Colonoscopy Report Procedure Description: PROCEDURES PERFORMED: 1. Colonoscopy with cold forceps polypectomy x4 PREOPERATIVE DIAGNOSIS: Positive Cologuard, surveillance colonoscopy POSTOPERATIVE DIAGNOSIS: Colon polyps, mild grade 1 internal hemorrhoids SURGEON: Milton Hoff MD INDICATION for procedure: The patient is a 73-year-old woman who has a positive Cologuard test. She has had prior colonoscopies many years ago that were reportedly normal. Prior Cologuard test have been normal. She has no symptoms. No direct family history of colon cancer to her knowledge. FINDINGS: In the cecum, just next to the appendiceal orifice, 2 to 3 mm sessile polyp was removed with cold forceps technique. In the transverse colon another 2 to 3 mm sessile polyp was removed cold forceps technique. In the sigmoid colon she had another was removed but this 1 looked flat and hyperplastic and there are others around that look the same. In the rectum a separate, 2 to 3 mm sessile polyp was removed with cold forceps technique. I suspect these last couple are hyperplastic. The first 2 are probably adenomatous. No obvious diverticular disease. Grade 1 internal hemorrhoids noted. SURVEILLANCE interval/FOLLOW-UP: Pending path results, but probably 7 to 10 years as long as the rectal and sigmoid polyps are hyperplastic. SPECIMENS: yes EBL: Minimal COMPLICATIONS: None QUALITY of prep: Excellent Procedure in detail: The patient gave written consent and was in agreement with the indications, the potential risks as well as the benefits of the procedure. They were taken to the endoscopy suite and laid in the left lateral decubitus position. A timeout was performed and anesthesia was administered which was tolerated well. I started the procedure. Digital rectal and visual examination was performed and grossly within normal limits. A well-lubricated flexible colonoscope was then introduced and passed without any notable difficulty all the way to the cecum identified by the ileocecal valve and the appendiceal orifice. The scope was then slowly withdrawn with the above-noted findings. The patient tolerated the procedure well and was taken to the PACU in hemodynamically stable condition.
--- NOTE | 2024-03-11 12:10 | W.PM.DSUDISC ---
Date of service: 03/11/24 Time of Service: 12:10 Discharge Plan Disposition Patient Disposition: Home Condition: Good Discharge Details Attending Provider: Drew Hoff Primary Care Provider: Leighann Zuñiga Home Meds and New Rx's Prescriptions: No Action polyethylene glycol 3350 [Miralax] 17 gram/dose powder 17 gm PO DAILY PRN (Reason: constipation) acetaminophen [Tylenol Arthritis Pain] 650 mg tablet extended release 1,300 mg PO Q12H oxycodone 5 mg tablet 5 mg PO Q8H MDD 15 PRN (Reason: pain) Qty: 30 0RF Patient Comments: 2.5 mg taken multivitamin [Daily Multi-Vitamin] Tablet 1 tab PO DAILY calcium citrate 760 mg calcium /3.5 gram granules 760 mg PO DAILY [id number] serr [Osteo Bi-Flex (5-Loxin)] 1,500-400-100 mg-unit-mg tablet 1 tab PO DAILY Rx Instructions: give after food/meal Rinvoq 15 mg tablet extended release 24 hr 15 mg PO DAILY exemestane 25 mg tablet 25 mg PO DAILY Rx Instructions: must administer after a meal atorvastatin 40 mg tablet 40 mg PO QHS Qty: 90 4RF bisacodyl [Dulcolax (bisacodyl)] 5 mg tablet,delayed release (DR/EC) 5 mg PO ONCE Qty: 8 0RF Rx Instructions: Take per colonoscopy instructions provided by ordering providers office polyethylene glycol 3350 17 gram/dose powder 17 g PO ONCE Qty: 238 0RF Rx Instructions: Take per colonoscopy instructions provided by ordering providers office fluticasone propion-salmeterol [Advair Diskus] 500-50 mcg/dose blister with device 1 inh IH Q12H Qty: 180 3RF metformin 500 mg tablet 500 mg PO BID Qty: 180 3RF amlodipine 5 mg tablet 5 mg PO DAILY Qty: 90 3RF levothyroxine 100 mcg tablet 100 mcg PO DAILY Qty: 90 4RF pantoprazole [Protonix] 40 mg tablet,delayed release (DR/EC) 40 mg PO DAILY Qty: 90 5RF Spiriva Respimat 2.5 mcg/actuation mist 1 puff IH DAILY Qty: 4 5RF losartan-hydrochlorothiazide [Hyzaar] 100-25 mg tablet 1 tab PO DAILY Qty: 90 3RF atenolol [Tenormin] 50 mg tablet 50 mg PO DAILY Qty: 90 3RF alendronate [Fosamax] 70 mg tablet 70 mg PO QWEEK Qty: 13 3RF albuterol sulfate [Ventolin HFA] 90 mcg/actuation HFA aerosol inhaler 2 puff inhalation Q6H PRN (Reason: shortness of breath or wheezing) Qty: 25.5 4RF coenzyme Q10 [Co Q-10] 50 MG capsule 1 cap PO DAILY Patient Comments: patient is unsure of dosage Discharge Instructions Additional Instructions: FINDINGS: Some small polyps were found today. This is probably the reason the Cologuard test was positive. They are nothing to worry about because they got removed. They will get tested at a pathology lab, those results will dictate when your next colonoscopy should be done but probably in 7 to 10 years. Activity:: Activity as Tolerated Diet:: As Tolerated
[2024-03-11 12:12] VITALS: BMI 38.9
--- NOTE | 2024-03-11 12:30 | BOWEL_PTH ---
PATIENT: Gilda Ochoa LOC: [facility] U#:[id number] AGE/SX: 73/F ROOM: RE03/11/[address]: Drew Hoff : 1950 BED: DIS: 03/11/2024 SPEC #: [id number] RECD: 03/11/24 17:55 STATUS: DONTA RE #: [id number] AMY: 03/11/24 12:[address]: Drew Hoff DEPT: Surgical Specimen RECD BY: Stefani Moreno ENTERED: 03/11/24 17:56 SP TYPE: Bowel OTHR DR: Leighann Zuñiga MD, DC Tissues: 1 - BIOPSY BOWEL 2 - BIOPSY BOWEL 3 - BIOPSY BOWEL 4 - BIOPSY BOWEL Procedures: GROSS AND MICRO LEVEL 4 Comments: [id number]
[2024-03-11 12:42] VITALS: BP 127/64; PULSE 67; RESP 18; TEMP 36; O2SAT 99
--- NOTE | 2024-03-11 13:07 | W.ANESPOSTOP ---
Postoperative Evaluation Date, Time and Location Date Performed: 03/11/24 Time Performed: 13:07 Patient Location: Day Surgery Unit Vital Signs Most Recent Imported Vital Signs: Most Recent Vital Signs Temp Pulse Resp BP Pulse Ox 36 C L 67 18 127/64 99 03/11/24 12:42 03/11/24 12:42 03/11/24 12:42 03/11/24 12:42 03/11/24 12:42 Pain Score Most Recent Pain Score: Most Recent Pain Score Pain Level 0 03/11/24 12:42 Assessment Mental Status: Awake (Alert & Oriented to Patient Baseline) Airway and Respiratory Function: Patent airway with normal (patient baseline) respiratory exam Cardiovascular Function: Hemodynamically Stable Hydration Status: Adequately Hydrated Nausea & Vomiting: No Nausea or Vomiting Pain: Pt. Denies Any Pain Peripheral Nerve Block: Patient did not receive a nerve block
[2024-03-11 13:23] VITALS: BP 126/54; PULSE 60; RESP 18; TEMP 36.1; O2SAT 95
== END 2024-03-11 13:55 | disposition home or self-care (01) ==
PROVIDERS: PCP Family Medicine; Visit Provider Student in an Organized Health Care Education/Training Program
PROC: 0DJD8ZZ Inspection of Lower Intestinal Tract, Via Natural or Artificial Opening Endoscopic (ICD-10-PCS; CPT 45378; principal; 2024-03-11 11:30)
DX: Z12.11 Encounter for screening for malignant neoplasm of colon (principal); E11.9 Type 2 diabetes mellitus without complications; I10 Essential (primary) hypertension; D12.0 Benign neoplasm of cecum; K64.0 First degree hemorrhoids; K62.1 Rectal polyp; N18.30 Chronic kidney disease, stage 3 unspecified
CPT/HCPCS: 45380; 00123; 88305; J2704

== ENCOUNTER 2024-05-07 03:16 | Outpatient (CLI) | payer MEDICARE, BC, SELFPAY ==
[2024-05-07 09:02] LABS: ESR 31 mm/hr (0-30)
[2024-05-07 09:03] LABS: Abs Immature Grans 0.12 10^3/uL (0.0-0.06); Absolute Basophil Count 0.07 10^3/uL (0.0-0.2); Absolute Eosinophil Count 0.16 10^3/uL (0.0-0.7); Absolute Lymphocyte Count 2.35 10^3/uL (1.2-3.4); Absolute Monocyte Count 1.46 10^3/uL (0.1-0.8); Basophils % 0.6 %; Eosinophils % 1.3 %; HCT 39.5 % (36.0-46.0); HGB 13.1 g/dL (11.2-15.7); Lymphocytes % 19.7 %; MCH 30.3 pg (27.0-33.0); MCHC 33.2 % (32.0-36.0); MCV 91 fL (80-95); MPV 9.5 fL (8.0-11.0); Monocytes % 12.2 %; Neutrophils % 65.2 %; Platelet Count 352 10^3/uL (130-400); RBC 4.33 10^6/uL (3.93-5.22); RDW 13.3 % (11.7-14.6); WBC 11.93 10^3/uL (4.4-10.8)
[2024-05-07 09:04] LABS: Absolute Neutrophil Count 7.78 10^3/uL (1.2-6.7)
[2024-05-07 09:23] LABS: ALT 44 U/L (14-59); AST 33 U/L (15-37); Albumin 4.1 g/dL (3.4-5.0); Alkaline Phosphatase 47 U/L (46-116); Anion Gap 6.8 mmol/L (3-11); BUN 23 mg/dL (7-18); Bilirubin, Total 0.38 mg/dL (0.2-1.0); C-Reactive Protein 0.73 mg/dL (<or=0.5); CO2 30.2 mmol/L (21.0-32.0); CREATININE 1.4 mg/dL (0.55-1.02); Calcium 9.7 mg/dL (8.5-10.1); Chloride 102 mmol/L (98-107); Estimated GFR 39.73 (mL/min/1.73m2); Glucose 138 mg/dL (74-106); Potassium 3.9 mmol/L (3.5-5.1); Sodium 139 mmol/L (136-145); Total Protein 8.2 g/dL (6.4-8.2)
[2024-05-07 09:46] LABS: Ferritin 28 ng/mL (8-252)
[2024-05-07 18:11] LABS: Parathyroid Hormone,Intact 11.1 pg/mL (19.0-88.0)
== END 2024-05-07 03:17 | disposition home or self-care (01) ==
LOC: LBO 03:16
PROVIDERS: PCP Family Medicine; Visit Provider Nurse Practitioner
DX: M14.80 Arthropathies in other specified diseases classified elsewhere, unspecified site (principal); M06.9 Rheumatoid arthritis, unspecified; Z79.899 Other long term (current) drug therapy; M11.20 Other chondrocalcinosis, unspecified site
CPT/HCPCS: 36415; 80053; 85652; 82728; 83970; 85025; 86140

== ENCOUNTER 2024-07-29 02:18 | Outpatient (CLI) | payer MEDICARE, BC, SELFPAY ==
[2024-07-29 12:44] LABS: Abs Immature Grans 0.09 10^3/uL (0.0-0.06); Absolute Basophil Count 0.04 10^3/uL (0.0-0.2); Absolute Eosinophil Count 0.14 10^3/uL (0.0-0.7); Absolute Monocyte Count 1.47 10^3/uL (0.1-0.8); Absolute Neutrophil Count 6.68 10^3/uL (1.2-6.7); Basophils % 0.4 %; Eosinophils % 1.4 %; HCT 40.9 % (36.0-46.0); HGB 13.3 g/dL (11.2-15.7); Immature Grans % 0.9 %; Lymphocytes % 17.6 %; MCH 30.2 pg (27.0-33.0); MCHC 32.5 % (32.0-36.0); MCV 93 fL (80-95); MPV 10.1 fL (8.0-11.0); Monocytes % 14.4 %; Neutrophils % 65.3 %; Platelet Count 373 10^3/uL (130-400); WBC 10.22 10^3/uL (4.4-10.8)
[2024-07-29 12:45] LABS: ESR 24 mm/hr (0-30)
[2024-07-29 12:55] LABS: ALT 52 U/L (14-59); AST 38 U/L (15-37); Albumin 4.1 g/dL (3.4-5.0); Alkaline Phosphatase 42 U/L (46-116); Anion Gap 8.6 mmol/L (3-11); BUN 20 mg/dL (7-18); Bilirubin, Total 0.4 mg/dL (0.2-1.0); C-Reactive Protein 1.23 mg/dL (<or=0.5); CO2 31.4 mmol/L (21.0-32.0); CREATININE 1.4 mg/dL (0.55-1.02); Calcium 10.3 mg/dL (8.5-10.1); Chloride 100 mmol/L (98-107); Estimated GFR 39.48 (mL/min/1.73m2); Glucose 116 mg/dL (74-106); Potassium 3.9 mmol/L (3.5-5.1); Sodium 140 mmol/L (136-145); Total Protein 8.2 g/dL (6.4-8.2)
== END 2024-07-29 02:19 | disposition home or self-care (01) ==
LOC: LOS 02:18
PROVIDERS: PCP Family Medicine; Visit Provider Nurse Practitioner
DX: Z79.899 Other long term (current) drug therapy (principal)
CPT/HCPCS: 36415; 80053; 85652; 85025; 86140

== ENCOUNTER 2024-10-22 07:23 | Emergency (ER) | payer MEDICARE, BC, SELFPAY ==
[2024-10-22] VITALS (18 sets, daily range): BP systolic 118–152; BP diastolic 46–88; PULSE 71–96; RESP 8–21; TEMP 36.4–37; O2SAT 93–99
--- NOTE | 2024-10-22 07:34 | W.ED.GENAD ---
Discharge Plan Disposition Patient Disposition: Home Discharge Details Clinical Impression: Gastroesophageal reflux disease Primary Care Provider: Leighann Zuñiga ED Provider: Alfred Lyon Dauphin Meds and New Rx's Prescriptions: Continued acetaminophen [Tylenol Arthritis Pain] 650 mg tablet extended release 1,300 mg PO Q12H Jardiance 25 mg tablet 25 mg PO QAM Qty: 90 5RF multivitamin [Daily Multi-Vitamin] Tablet 1 tab PO DAILY calcium citrate 760 mg calcium /3.5 gram granules 760 mg PO DAILY [id number] serr [Osteo Bi-Flex (5-Loxin)] 1,500-400-100 mg-unit-mg tablet 1 tab PO DAILY Rx Instructions: give after food/meal Rinvoq 15 mg tablet extended release 24 hr 15 mg PO DAILY losartan-hydrochlorothiazide [Hyzaar] 100-25 mg tablet 1 tab PO DAILY Qty: 90 3RF alendronate [Fosamax] 70 mg tablet 70 mg PO QWEEK Qty: 13 3RF atorvastatin 40 mg tablet 40 mg PO QHS Qty: 90 4RF exemestane 25 mg tablet 25 mg PO DAILY Qty: 90 3RF Rx Instructions: must administer after a meal albuterol sulfate [Ventolin HFA] 90 mcg/actuation HFA aerosol inhaler 2 puff inhalation Q6H PRN (Reason: shortness of breath or wheezing) Qty: 25.5 4RF fluticasone propion-salmeterol [Advair Diskus] 500-50 mcg/dose blister with device 1 inh IH Q12H Qty: 180 3RF oxycodone 5 mg tablet 5 mg PO Q8H MDD 15 PRN (Reason: pain) Qty: 30 0RF Patient Comments: 2.5 mg taken Spiriva Respimat 2.5 mcg/actuation mist 2 puff IH DAILY Qty: 12 5RF amlodipine 5 mg tablet 5 mg PO DAILY Qty: 90 3RF metformin 500 mg tablet 500 mg PO BID Qty: 180 3RF levothyroxine 100 mcg tablet 100 mcg PO DAILY Qty: 90 4RF atenolol [Tenormin] 50 mg tablet 50 mg PO DAILY Qty: 90 3RF pantoprazole [Protonix] 40 mg tablet,delayed release (DR/EC) 40 mg PO BID Qty: 180 5RF coenzyme Q10 [Co Q-10] 50 MG capsule 1 cap PO DAILY Patient Comments: patient is unsure of dosage Discharge Instructions Instructions: Acid reflux and GERD in adults Additional Instructions: You are seen in the emergency department for your abdominal pain. Your CAT scan showed no signs of any dangerous diseases in your chest abdomen or pelvis. As we discussed please continue taking your pantoprazole. Please follow-up with primary care provider. Please return to the emergency department if you develop fevers cannot eat or drink as result of nausea or vomiting or if you have any other concerns. Discharge Data Discharge Date/Time-TO BE ENTERED AT DEPARTURE: 10/22/24 13:43 HPI General Date/Time Provider Initiated Documentation: 10/22/24 07:34. HPI Narrative: MDM This is an overall well-appearing afebrile and not tachycardic 74-year-old female with esophageal discomfort concerning for the possibility of symptomatic hiatal hernia with reflux. No intraoral symptoms to suggest candidiasis though esophagitis is a differential. Patient has not been vomiting to suggest increased risk for esophageal rupture. Will obtain a CT scan following labs given history of CKD. ECG is nonischemic however based on age and sex will obtain troponins to assess for ACS. No pain out of proportion to suggest necrotizing soft tissue infection. No right upper quadrant tenderness to suggest acute cholecystitis and patient has had a remote cholecystectomy. No right lower quadrant tenderness to suggest appendicitis. Patient did fall several weeks ago but is not altered to suggest intracranial hemorrhage I did not feel she required a CT scan of her head. In the absence of chest pain I am not suspicious for PE. Patient does have an elevated BMI so we will obtain a lipase to assess for pancreatitis. No dysuria or frequency to suggest UTI. No rash to abdomen to suggest zoster. Equal breath sounds so doubt pneumothorax. Not hypotensive nor a dialysis patient so my suspicion is low for tamponade. 1 PM Primary metabolic panel showing mild gap acidosis mild hyperglycemia but normal bicarbonate??not consistent with DKA. Mild bump in creatinine but not consistent with ZOIE. Lipase within normal limits. CBC lacks anemia thrombocytopenia and leukocytosis. 2 negative troponins. No significant acute LFT abnormalities. CT chest abdomen pelvis showing no acute abnormalities. I met with the patient again. She reported that her symptoms had been mildly improved. She had only been on the pantoprazole for 3 to 4 days at 80 mg. I advised her that this medication took some time to reach therapeutic doses. I offered her Mylanta and I advised her to take this at home. We should see the patient back to the emergency department if she develops any worsening pain cannot eat or drink as result of nausea or vomiting or if she developed any fevers. She understood her return indications. I advised PCP follow-up next week. She was discharged with empiric trial of expectant outpatient management. HPI This is a female with a history of hiatal hernia presenting with abdominal pain. The patient describes a sensation of her intestines being on fire, extending from the base of her neck. She experiences acid reflux when coughing but reports no vomiting. She has been attempting to manage her symptoms with a bland diet and did not consume anything this morning. She also did not take her usual medications, except for pantoprazole, which she regularly uses to control stomach acid. She reports no chest pain or shortness of breath beyond her usual level. She had one episode of unformed stool but does not have diarrhea. She reports no burning during urination or recent falls or injuries to her abdomen. She does not consume alcohol. The patient has a known hiatal hernia, which has not been surgically repaired. She had a blood clot in her leg in 1969 when she broke her leg and they put a plaster cast on it. She had gallbladder surgery and a in 1975. A few weeks ago, she fell and hit her head on the railing. Her leg is still a little black and blue from it. PAST SURGICAL HISTORY: Gallbladder surgery, in 1975. Exam General: Well-appearing in no acute distress speaking in complete sentences. Head: Normocephalic, atraumatic. Eye: Extraocular eye movements intact. No conjunctival injection. No scleral icterus. Ear, nose, mouth, throat: Grossly normal inspection. Normal voice, handling secretions normally. Neck: Trachea midline. Cardiovascular: Well-perfused distal extremities. Regular rate and rhythm Respiratory: Nonlabored respiration. Clear lungs bilaterally Gastrointestinal: Nondistended abdomen. Soft. Epigastric tenderness. No rebound. No guarding. No rash to abdomen. Musculoskeletal: No edema. Moving all 4 extremities spontaneously. Skin: Normal for age and race, grossly normal temperature and turgor. No acute rash. Neurologic: Alert and appropriate, no apparent acute deficits. Psychiatric: Mood and manner are appropriate. Grooming and personal hygiene are appropriate. Related Data Home Medications ?Medication ?Instructions ?Recorded ?Confirmed coenzyme Q10 50 mg capsule (Co 1 cap PO DAILY 01/08/16 10/22/24 Q-10) calcium citrate 760 mg PO DAILY 05/19/20 10/22/24 multivitamin (Daily Multi-Vitamin 1 tab PO DAILY 05/19/20 10/22/24 tablet) acetaminophen 650 mg 1,300 mg PO Q12H 07/13/20 10/22/24 tablet,extended release (Tylenol Arthritis Pain) glucosamine [id number]-[id number] 1 tab PO DAILY 12/23/20 10/22/24 malachi 1,500 mg-400 unit-100 mg tablet (Osteo Bi-Flex (5-Loxin)) upadacitinib 15 mg tablet,extended 15 mg PO DAILY 06/23/21 10/22/24 release 24 hr (Rinvoq) losartan 100 1 tab PO DAILY #90 tab-caps 10/29/23 10/22/24 mg-hydrochlorothiazide 25 mg tablet (Hyzaar) alendronate 70 mg tablet (Fosamax) 70 mg PO QWEEK #13 tabs 04/24/24 10/22/24 atorvastatin 40 mg tablet 40 mg PO QHS #90 tabs 04/24/24 10/22/24 albuterol sulfate 90 mcg/actuation 2 puff inhalation Q6H PRN 06/16/24 10/22/24 aerosol inhaler (Ventolin HFA) shortness of breath or wheezing #25.5 grams exemestane 25 mg tablet 25 mg PO DAILY #90 tabs 06/16/24 10/22/24 fluticasone 500 mcg-salmeterol 50 1 inh inhalation Q12H #180 ea 06/16/24 10/22/24 mcg/dose blistr powdr for inhalation (Advair Diskus) oxycodone 5 mg tablet 5 mg PO Q8H PRN pain #30 tabs 07/04/24 10/22/24 tiotropium bromide 2.5 2 puff inhalation DAILY #12 grams 07/08/24 10/22/24 mcg/actuation mist for inhalation (Spiriva Respimat) amlodipine 5 mg tablet 5 mg PO DAILY #90 tabs 07/28/24 10/22/24 metformin 500 mg tablet 500 mg PO BID #180 tabs 08/02/24 10/22/24 empagliflozin 25 mg tablet 25 mg PO QAM #90 tabs 08/26/24 10/22/24 (Jardiance) levothyroxine 100 mcg tablet 100 mcg PO DAILY #90 tabs 09/16/24 10/22/24 atenolol 50 mg tablet (Tenormin) 50 mg PO DAILY #90 tabs 10/10/24 10/22/24 pantoprazole 40 mg tablet,delayed 40 mg PO BID acid reflux #180 tabs 10/20/24 10/22/24 release (Protonix) Previous Rx's ?Medication ?Instructions ?Recorded losartan 100 1 tab PO DAILY #90 tab-caps 10/29/23 mg-hydrochlorothiazide 25 mg tablet (Hyzaar) alendronate 70 mg tablet (Fosamax) 70 mg PO QWEEK #13 tabs 04/24/24 atorvastatin 40 mg tablet 40 mg PO QHS #90 tabs 04/24/24 albuterol sulfate 90 mcg/actuation 2 puff inhalation Q6H PRN 06/16/24 aerosol inhaler (Ventolin HFA) shortness of breath or wheezing #25.5 grams exemestane 25 mg tablet 25 mg PO DAILY #90 tabs 06/16/24 fluticasone 500 mcg-salmeterol 50 1 inh inhalation Q12H #180 ea 06/16/24 mcg/dose blistr powdr for inhalation (Advair Diskus) oxycodone 5 mg tablet 5 mg PO Q8H PRN pain #30 tabs 07/04/24 tiotropium bromide 2.5 2 puff inhalation DAILY #12 grams 07/08/24 mcg/actuation mist for inhalation (Spiriva Respimat) amlodipine 5 mg tablet 5 mg PO DAILY #90 tabs 07/28/24 metformin 500 mg tablet 500 mg PO BID #180 tabs 08/02/24 empagliflozin 25 mg tablet 25 mg PO QAM #90 tabs 08/26/24 (Jardiance) levothyroxine 100 mcg tablet 100 mcg PO DAILY #90 tabs 09/16/24 atenolol 50 mg tablet (Tenormin) 50 mg PO DAILY #90 tabs 10/10/24 pantoprazole 40 mg tablet,delayed 40 mg PO BID acid reflux #180 tabs 10/20/24 release (Protonix) Allergies Allergy/AdvReac Type Severity Reaction Status Date / Time levofloxacin Allergy Mild rash Verified 10/22/24 07:36 budesonide (From Symbicort) AdvReac Severe chest pain Verified 10/22/24 07:36 doxycycline AdvReac Severe esophagitis Verified 10/22/24 07:36 duloxetine AdvReac Severe hallucinati Verified 10/22/24 07:36 ons formoterol fumarate (From AdvReac Severe chest pain Verified 10/22/24 07:36 Symbicort) midazolam HCl (From Versed) AdvReac Intermediate Contraindic Verified 10/22/24 07:36 ated zolpidem AdvReac Intermediate Dizziness/L Verified 10/22/24 07:36 ighthead enalaprilat AdvReac Mild Cough Verified 10/22/24 07:36 General ANA: 3 PFSH All Active Problems (Updated 10/22/24 @ 13:11 by Alfred Lyon MD) Left knee pain (Acute) Pes planovalgus (Acute ~09/01/24) Bilaterally [facility] [place] radiology [place]oe, bilateral (Acute ~09/01/24) Degenerative joint disease of foot (Acute ~09/01/24) [facility] [place]- Bilateral foot films Joint degeneration of the feet in a pattern of moderate to severe osteoarthropathy, possibly secondary to the synovitis of remote rheumatoid arthritis based on patient history. No erosive disease to correspond with active rheumatoid arthritis. Obesity (BMI 30-39.9) (Acute) Positive colorectal cancer screening using Cologuard test (Acute) Arthritis of left glenohumeral joint (Acute) Arthritis of right glenohumeral joint (Acute) Right rotator cuff tear arthropathy (Acute) Decreased hearing (Acute) Arthritis of hand, left, degenerative (Acute) Wrist pain (Acute) Pain of left thumb (Acute) Dysphagia (Acute) Disordered sleep (Acute) Urachal cyst (Acute) Cervical spondylosis with myelopathy (Acute) H/O cervical spine surgery (Acute) Acute right hip pain (Acute) Palpitation (Acute) COVID-19 (Acute) 08/31/21 Stage 3 chronic kidney disease (Acute) 06/2021, Cr-1.3 Dizziness (Acute) Abdominal wall anomaly (Acute) Invasive ductal carcinoma of breast, female (Acute) Left wrist tendonitis (Acute) probably secondary to RA Spinal stenosis of cervical region (Acute) Severe at C3/C4. 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 (Acute) Parastomal hernia (Acute 07/09/12) Peripheral neuropathy (Chronic) feet Rheumatoid arthritis (Chronic 07/10/12) discoid lupus Obesity (Chronic) Lumbar stenosis (Chronic 11/22/16) [facility] [place]-EPIDURAL STEROID INJECTION Hypothyroidism (Chronic 07/10/12) 1994-Grave's disease; S/P SHORE 131; Hyperlipidemia (Chronic 12/14/14) History of tobacco use (Chronic) Hiatal hernia (Chronic 03/22/93) Gastroesophageal reflux disease (Chronic) Essential hypertension (Chronic 07/16/13) check some BPs at home as discussed use machine we lent you pls return it when yuivana see Dr Khoury next month Asthma (Chronic 01/07/13) continue current meds Medical History (Updated 10/22/24 @ 13:11 by Alfred Lyon MD) Tubular adenoma of colon (~02/2024) Mass of right breast on mammogram History of fracture of right ankle Pin in place, subsequent blood clot per Pt Hx of blood clots RLE Valgus deformity, not elsewhere classified, left knee SOB (shortness of breath) given cardiac risk factors and upcoming surgery, feel dynamic study warranted Abnormal cervical Papanicolaou smear Primary osteoarthritis of left knee (10/30/16) Glossitis (06/05/13) Cholelithiasis without obstruction (03/22/93) CTS (carpal tunnel syndrome) (05/08/14) Asthma GERD (gastroesophageal reflux disease) Chest pain Surgical History (Updated 03/19/24 @ 09:33 by Analisa Sheets) Hx of neck surgery 2019- I had cadaver bones wraped in titanium placed in my neck History of total right knee replacement (TKR) (08/29/22) History of ankle surgery right with pin Hx of appendectomy Hx of cholecystectomy Hx of total knee arthroplasty Right TKA DOS: 08/29/22 History of lumpectomy History of total left knee replacement (TKR) (02/19/19) Dr. Roldan History of colonoscopy (~02/2024) History of section History of orthopedic surgery R foot Status post appendectomy Status post cholecystectomy Status post tonsillectomy EGD - MAC (02/25/16) Cervical Procedure (~1978) Anterior cervical stabilization neck with cadavar bones Family History Mother , 67 Alcohol abuse Essential hypertension Heart disease ANGINA Stroke Brother , 44 Alcohol abuse Lung cancer Father , 70s Alcohol abuse Heart disease Daughter Asthma Cancer Breast MATERNAL HISTORY Autoimmune disease Brother , 67 Substance abuse POT Cancer Lung and brain Maternal Grandfather No problems noted. Paternal Grandfather Diabetes Maternal Grandmother No problems noted. Paternal Grandmother No problems noted. Social History (Updated 11/21/22 @ 11:38 by Cintia Antunez) Smoking/Tobacco Use Status: Former Tobacco Use tobacco type: cigarettes Quit Date: 04/23/86 Tobacco: How many years used: 18 Second Hand Exposure: Yes Smoking risk assessment performed?: Yes Alcohol Intake: former Drug use: Never Substance use type: does not use Caregiver/Support person: No Household members: none Housing: house Communication Needs: None Do you need help understanding health information?: Never Pets and animals: Yes Pets and animals: cat(s) Sexually active: No Do you think of yourself as: lesbian/longo/homosexual Current gender identity: female What is your relationship status?: How often do you talk on the phone with friends or family?: three or more times per week How often do you get together with friends or relatives?: once per week Do you belong to any clubs or organized social groups?: yes Panel score (0-1 are the most socially isolated patients): 2 What type of physical activity do you participate in: other Details: Pool PT Duration: < 15 minutes/day Frequency: 1-2 times per week Dahiana/Mormon: None Special dahiana needs: No Seatbelt use: always Helmet use: No Drive intox or ride w/intox scoop driver: No Do you feel safe at home: Yes Do you feel safe in your relationship?: Yes Additional Social history: lives alone
[2024-10-22 08:50] LABS: Abs Immature Grans 0.09 10^3/uL (0.0-0.06); HCT 39.1 % (36.0-46.0); HGB 13.0 g/dL (11.2-15.7); Immature Grans % 0.9 %; MCH 29.5 pg (27.0-33.0); MCHC 33.2 % (32.0-36.0); MCV 89 fL (80-95); MPV 9.6 fL (8.0-11.0); Platelet Count 358 10^3/uL (130-400); RBC 4.40 10^6/uL (3.93-5.22); RDW 13.1 % (11.7-14.6); RDW-SD 42.6 fL; WBC 10.03 10^3/uL (4.4-10.8)
[2024-10-22] MEDS: Famotidine 20 MG/2 ML VIAL 40 MG IVP (08:51)
[2024-10-22] MEDS: ACETAMINOPHEN 1,000 MG/100 ML BAG 400 MG IVPB (08:52)
[2024-10-22] MEDS: Normal Saline 500 ML 1000 ML IV (08:54)
--- NOTE | 2024-10-22 09:15 | RT.EKG_ITS ---
APPROVED REPORT Exam: Resting ECG Reason for Exam: nausea Patient Location: E HR:72 bpm ECG Measurements Heart Rate 72 AXIS VT [id number] P [id number] QRSd 164 QRS -58 QT 444 T 37 QTc 488 Conclusion Atrial flutter with predominant 3:1 AV block...A-rate 220, multiple Ps RBBB and LAFB...QRSd >120mS, axis(-40,240) Probable left ventricular hypertrophy...(RaVL+SV3)xQRSd >300 No Occlusion ME
--- NOTE | 2024-10-22 10:25 | DI.CT_ITS ---
Exam(s) CT CHEST/ABD/PEL W EXAM: CT CHEST/ABD/PEL W CLINICAL HISTORY: Nausea vomiting esophageal pain hiatal hernia. TECHNIQUE: Imaging Protocol: Axial computed tomography images with coronal and sagittal reformatted images were created and reviewed. Computer aided detection (CAD) was utilized. CONTRAST MATERIAL: Intravenous: Omnipaque 350 Contrast volume:100 ml Oral: / no COMPARISON: CT CT CHEST PE CTA from 08/02/2022 FINDINGS: CHEST: Pulmonary parenchyma: No consolidation. No dominant measurable mass. Interstitial changes at the posterior lung bases. Minimal emphysematous changes. Tracheobronchial tree: No bronchiectasis. No mucous plugging.No bronchial wall thickening. Pleura: No effusion or pneumothorax. Mediastinum: Within normal limits. The esophagus is unremarkable. No visible hiatal hernia. Pulmonary arteries: No visible emboli. Cardiovascular: Heart size is normal. Coronary artery calcifications are seen. No pericardial effusion. Thoracic aorta non-dilated. Bones: Unremarkable degenerative disc changes. Mild scoliosis. No lytic or blastic lesions.No compression fractures. Soft tissues: Unremarkable. ABDOMEN and PELVIS: Liver: Moderate hepatic steatosis.. No suspicious mass. Gallbladder and biliary tract: Cholecystectomy.. Stable mild dilatation of the common bile duct. Pancreas: Normal density, no abnormal calcifications or inflammatory process. Spleen: Normal. Kidneys: Normal size, contour and axis. No radiodense stones. No obstructive uropathy. No suspicious masses seen. Adrenal glands: No masses seen. Aorta: Abdominal portion non-dilated. Lymph nodes: Within normal limits. Soft tissues: Unremarkable. Bladder: Unremarkable. Bowel: No obstruction or bowel wall thickening. Sigmoid diverticulosis. No evidence of diverticulitis. Peritoneal cavity: No ascites. No focal collection. No mesenteric inflammatory response. No free air. Bones: Advanced degenerative changes and scoliosis. Reproductive organs: Unremarkable for age. IMPRESSION: No acute abnormality in the chest, abdomen or pelvis. RADIATION DOSE DELIVERED: 854.64mGy.cm Total DLP DATA REPOSITORY: All CT scans at this facility are submitted to the National Radiology Data Registry (NRDR) Dose Index Registry (DIR) with the [employer] (A[employer]). RADIATION OPTIMIZATION: All CT scans at this facility use at least one of these dose optimization techniques: automated exposure control; mA and/or kV adjustment per patient size (includes targeted exams where dose is matched to clinical indication); or iterative reconstruction.
[2024-10-22] MEDS: Ondansetron 4 MG/2 ML VIAL (10:27)
--- NOTE | 2024-10-22 10:42 | NUR.NOTE ---
Nursing Note: MD elected to add on troponin order set two hours after first labs sent, second troponin draw late for this reason.
[2024-10-22] MEDS: Normal Saline - Diluent 50 ML VIAL IJ (11:02)
[2024-10-22] MEDS: Omnipaque 350 MG/ML 500 ML BTL-Imaging package IJ (11:03)
[2024-10-22 11:04] LABS: Troponin I 9 ng/L (<or=51)
[2024-10-22 11:31] LABS: Troponin I 10 ng/L (<or=51)
[2024-10-22 11:50] LABS: ALT 56 U/L (14-59); AST 43 U/L (15-37); Albumin 4.4 g/dL (3.4-5.0); Alkaline Phosphatase 42 U/L (46-116); Anion Gap 14.2 mmol/L (3-11); BUN 27 mg/dL (7-18); Bilirubin, Total 0.5 mg/dL (0.2-1.0); CO2 27.8 mmol/L (21.0-32.0); Calcium 10.1 mg/dL (8.5-10.1); Chloride 99 mmol/L (98-107); Estimated GFR 31.27 (mL/min/1.73m2); Glucose 119 mg/dL (74-106); Lipase 45 U/L (<78); Potassium 3.5 mmol/L (3.5-5.1); Sodium 141 mmol/L (136-145); Total Protein 8.3 g/dL (6.4-8.2)
[2024-10-22] MEDS: Mylanta Suspension 30 ML CUP PO (13:15)
[2024-10-23 15:29] LABS: Lab Add On Test DONE
== END 2024-10-22 13:43 | disposition home or self-care (01) ==
PROVIDERS: Emergency Provider Emergency Medicine; PCP Family Medicine
DX: K21.9 Gastro-esophageal reflux disease without esophagitis (principal); I45.2 Bifascicular block; L93.0 Discoid lupus erythematosus; E11.22 Type 2 diabetes mellitus with diabetic chronic kidney disease; I12.9 Hypertensive chronic kidney disease with stage 1 through stage 4 chronic kidney disease, or unspecified chronic kidney disease; N18.30 Chronic kidney disease, stage 3 unspecified; E78.5 Hyperlipidemia, unspecified; Z90.49 Acquired absence of other specified parts of digestive tract; Z87.891 Personal history of nicotine dependence
CPT/HCPCS: 36415; 74177; 80053; 83690; 93005; 96361; 96365; 96375; 99285; 71260; 84484; 85025; 93010; J0131; J2405

== ENCOUNTER 2024-10-27 18:41 | Outpatient (REF) | payer MEDICARE, BC, SELFPAY ==
[2024-10-31 13:21] LABS: Helicobacter pylori Ag, Feces Negative (Negative)
== END 2024-10-27 18:42 | disposition home or self-care (01) ==
LOC: LBN 18:41
PROVIDERS: PCP Family Medicine; Visit Provider Family Medicine
DX: R10.13 Epigastric pain (principal)
CPT/HCPCS: 87338

== ENCOUNTER 2024-11-03 02:32 | Outpatient (CLI) | payer MEDICARE, BC, SELFPAY ==
--- NOTE | 2024-11-03 07:30 | DI.RAD_ITS ---
Exam(s) RF BARIUM SWALLOW EXAM: RF BARIUM SWALLOW CLINICAL HISTORY: ? hiatal hernia,GE REFLUX DISEASE,DYSPHAGIA,R13.10 TECHNIQUE: 2D and realtime digital imaging was performed. CONTRAST MATERIAL: Oral barium contrast was administered. COMPARISON: CR,XR XR CHEST 2V PA LATERAL from 01/06/2019 FINDINGS: CHEST X-RAY: The heart and pulmonary vasculature are within normal limits. The lungs are clear. No pleural effusion or pneumothorax is present. The bones are within normal limits for the patient's age. There is a mild right convex curvature of the thoracic spine. There is anterior cervical disc fusion from C3 through C6. ESOPHAGRAM: The esophagus is patent with no evidence for erosions, fold thickening, strictures, or masses. With regards to the motility, there is a normal primary stripping wave. Tertiary contractions are seen within the distal esophagus. This can be seen with presbyesophagus. There is no hiatal hernia or gastroesophageal reflux. IMPRESSION: 1. Tertiary contractions are seen within the distal esophagus. This can be seen with presbyesophagus. 2. No evidence of an hiatal hernia or gastroesophageal reflux is noted on this examination. RADIATION DOSE DELIVERED: armani Jolly=12.5 mGy
[2024-11-03] MEDS: Barium Sulfate 98% W/W 140 ML BTL PO (11:54)
[2024-11-03] MEDS: Barium Sulfate 60% W/V 355 ML BTL PO (11:55)
== END 2024-11-03 02:52 ==
LOC: DI 02:32
PROVIDERS: PCP Family Medicine; Visit Provider Family Medicine
DX: K21.9 Gastro-esophageal reflux disease without esophagitis (principal)
CPT/HCPCS: 74221; J3490

== ENCOUNTER → 2024-11-10 11:22 | Outpatient (BNVA) | payer MEDICARE, BC, SELFPAY | PROVIDERS: PCP Family Medicine; Referring Provider Family Medicine; Visit Provider Student in an Organized Health Care Education/Training Program | DX: K21.9 Gastro-esophageal reflux disease without esophagitis (principal); R10.13 Epigastric pain | CPT/HCPCS: 99214 ==

== ENCOUNTER 2024-11-26 02:20 | Outpatient (CLI) | payer MEDICARE, BC, SELFPAY ==
[2024-11-26 12:46] LABS: Abs Immature Grans 0.03 10^3/uL (0.0-0.06); HCT 38.1 % (36.0-46.0); HGB 12.6 g/dL (11.2-15.7); Immature Grans % 0.5 %; MCH 30.3 pg (27.0-33.0); MCHC 33.1 % (32.0-36.0); MCV 92 fL (80-95); MPV 10.3 fL (8.0-11.0); Platelet Count 328 10^3/uL (130-400); RBC 4.16 10^6/uL (3.93-5.22); RDW 13.2 % (11.7-14.6); RDW-SD 44.2 fL; WBC 5.93 10^3/uL (4.4-10.8)
[2024-11-26 13:05] LABS: ESR 2 mm/hr (0-30)
[2024-11-26 13:06] LABS: ALT 59 U/L (14-59); AST 42 U/L (15-37); Albumin 4.3 g/dL (3.4-5.0); Alkaline Phosphatase 40 U/L (46-116); Anion Gap 8.1 mmol/L (3-11); BUN 23 mg/dL (7-18); Bilirubin, Total 0.5 mg/dL (0.2-1.0); C-Reactive Protein < 0.50 mg/dL (<or=0.5); CO2 31.9 mmol/L (21.0-32.0); Calcium 9.9 mg/dL (8.5-10.1); Chloride 100 mmol/L (98-107); Estimated GFR 36.34 (mL/min/1.73m2); Glucose 122 mg/dL (74-106); Potassium 4.1 mmol/L (3.5-5.1); Sodium 140 mmol/L (136-145); Total Protein 7.8 g/dL (6.4-8.2)
== END 2024-11-26 02:21 | disposition home or self-care (01) ==
LOC: LOS 02:20
PROVIDERS: PCP Family Medicine; Visit Provider Nurse Practitioner
DX: M06.9 Rheumatoid arthritis, unspecified (principal)
CPT/HCPCS: 36415; 80053; 85652; 85025; 86140

== ENCOUNTER 2024-12-05 06:16 | Day surgery (SDC) | payer MEDICARE, BC, SELFPAY ==
[2024-12-05 06:41] VITALS: BP 151/74; PULSE 82; RESP 16; TEMP 36.5; O2SAT 95
[2024-12-05] MEDS: Lactated Ringers 1,000 ML 80 ML IV (07:00)
--- NOTE | 2024-12-05 07:13 | ANES.PREOP_ITS ---
General Info Date of Service Date Performed: 12/05/24 Height: 5 ft 3 in Weight: 91.9 kg Body Mass Index (BMI): 35.9 Surgical Procedure: Operation Date: 12/05/24 07:35 Proposed Procedure Side Surgeon p Gastroscopy Drew Hoff MD Meds Allergies and Home Medications Allergies Allergy/AdvReac Type Severity Reaction Status Date / Time levofloxacin Allergy Mild rash Verified 12/05/24 06:35 budesonide (From Symbicort) AdvReac Severe chest pain Verified 12/05/24 06:35 doxycycline AdvReac Severe esophagitis Verified 12/05/24 06:35 duloxetine AdvReac Severe hallucinati Verified 12/05/24 06:35 ons formoterol fumarate (From AdvReac Severe chest pain Verified 12/05/24 06:35 Symbicort) midazolam HCl (From Versed) AdvReac Intermediate Contraindic Verified 12/05/24 06:35 ated zolpidem AdvReac Intermediate Dizziness/L Verified 12/05/24 06:35 ighthead enalaprilat AdvReac Mild Cough Verified 12/05/24 06:35 Home Medication ?Medication ?Instructions ?Recorded coenzyme Q10 50 mg capsule (Co 1 cap PO DAILY 01/08/16 Q-10) calcium citrate 760 mg PO DAILY 05/19/20 multivitamin (Daily Multi-Vitamin 1 tab PO DAILY 05/19 tablet) acetaminophen 650 mg 1,300 mg PO Q12H 07/13/20 tablet,extended release (Tylenol Arthritis Pain) glucosamine LIk-N0-Hurdnszbt 1 tab PO DAILY 12/23/20 malachi 1,500 mg-400 unit-100 mg tablet (Osteo Bi-Flex (5-Loxin)) upadacitinib 15 mg tablet,extended 15 mg PO DAILY 07/12 release 24 hr (Rinvoq) alendronate 70 mg tablet (Fosamax) 70 mg PO QWEEK #13 tabs 04/24/24 atorvastatin 40 mg tablet 40 mg PO QHS #90 tabs albuterol sulfate 90 mcg/actuation 2 puff inhalation Q 6H PRN 06/16/24 aerosol inhaler (Ventolin HFA) shortness of breath or wheezing #25.5 grams exemestane 25 mg tablet 25 mg PO DAILY #90 tabs 05/25 08/15 fluticasone 500 mcg-salmeterol 50 1 inh inhalation Q12 H #180 ea 06/16/24 mcg/dose blistr powdr for inhalation (Advair Diskus) tiotropium bromide 2.5 2 puff inhalation DAILY #12 grams 07/08/24 mcg/actuation mist for inhalation (Spiriva Respimat) amlodipine 5 mg tablet 5 mg PO DAILY #90 tabs 07/28 empagliflozin 25 mg tablet 25 mg PO QAM #90 tabs 08/26 (Jardiance) levothyroxine 100 mcg tablet 100 mcg PO DAILY #90 tabs 09/16/24 atenolol 50 mg tablet (Tenormin) 50 mg PO DAILY #90 ta bs 10/10/24 oxycodone 5 mg tablet 5 mg PO Q8H PRN pain #30 tab s 10/23/24 losartan 100 1 tab PO DAILY #90 tab-caps 10/27/24 mg-hydrochlorothiazide 25 mg tablet (Hyzaar) calcium carb 1,200 mg-mag hydrox 10 ml PO DAILY PRN 270 mg-simeth 80 mg/10 mL oral susp (Mylanta Coat-Cool) famotidine 10 mg tablet (Pepcid AC) 10 mg PO QPM PRN 0 10/30/24 pantoprazole 40 mg tablet,delayed 40 mg PO QAM acid re flux #90 tabs 11/18/24 release (Protonix) Current Visit Medications: Current Medications Generic Name Dose Route Start Last Admin Trade Name Freq PRN Reason Stop Dose Admin Ringer's Solution 1,000 mls @ 80 mls/hr 12/05/24 06:00 12/05/24 07:00 IV 12/05/24 23:59 80 mls/hr INFUSION FATMATA Administration IV Miscellaneous Supplies 1 each 12/05/24 06:00 Iv Access IV 12/05/24 23:59 DIRECTED FATMATA Sodium Chloride 0 ml 12/05/24 06:00 Normal Saline Flush 10 Ml Syr IV 12/05/24 23:59 PRN PRN Sodium Chloride 0 ml 12/05/24 06:00 Normal Saline 10 Ml Vial IJ 12/05/24 23:59 DIRECTED PRN Sterile Water 0 ml 12/05/24 06:00 Water,Injection,Sterile 10 Ml Vial IJ 12/05/24 23:59 DIRECTED PRN [facility] Active Problems Active Problems: Problem Status Onset Code Epigastric pain Acute R10.13 Left knee pain Acute M25.562 Pes planovalgus Acute ~09/01/24 Q66.6 Hammertoe, bilateral Acute ~09/01/24 M20.41, M20.42 Degenerative joint disease of foot Acute ~09/01/24 M19.079 Obesity (BMI 30-39.9) Acute E66.9 Positive colorectal cancer screening using Cologuard test Acute R19.5 Arthritis of left glenohumeral joint Acute M19.012 Arthritis of right glenohumeral joint Acute M19.011 Right rotator cuff tear arthropathy Acute M75.101, M12.811 Decreased hearing Acute H91.90 Arthritis of hand, left, degenerative Acute M19.042 Wrist pain Acute M25.539 Pain of left thumb Acute M79.645 Dysphagia Acute R13.10 Disordered sleep Acute G47.9 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 Cervical spondylosis with myelopathy Acute M47.12 H/O cervical spine surgery Acute Z98.890 Acute right hip pain Acute M25.551 Palpitation Acute R00.2 COVID-19 Acute U07.1 Stage 3 chronic kidney disease Acute N18.30 Dizziness Acute R42 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 Invasive ductal carcinoma of breast, female Acute C50.919 Left wrist tendonitis Acute M77.8 Spinal stenosis of cervical region Acute M48.02 Osteopenia of lumbar spine Acute M85.88 DM type 2 (diabetes mellitus, type 2) Acute E11.9 Corticosteroid dependence Acute Discoid lupus erythematosus Acute L93.0 Parastomal hernia Acute 07/09/12 K43.5 Peripheral neuropathy Chronic G62.9 Rheumatoid arthritis Chronic 07/10/12 M06.9 Obesity Chronic E66.9 Lumbar stenosis Chronic 11/22/16 M48.061 Hypothyroidism Chronic 07/10/12 E03.9 Hyperlipidemia Chronic 12/14/14 E78.5 History of tobacco use Chronic Z87.891 Hiatal hernia Chronic 03/22/93 K44.9 Gastroesophageal reflux disease Chronic K21.9 Essential hypertension Chronic 07/16/13 I10 Asthma Chronic 01/07/13 J45.909 Medical History Medical History Tubular adenoma of colon (~02/2024) Mass of right breast on mammogram History of fracture of right ankle Pin in place, subsequent blood clot per Pt Hx of blood clots RLE Valgus deformity, not elsewhere classified, left knee SOB (shortness of breath) given cardiac risk factors and upcoming surgery, feel dynamic study warranted Abnormal cervical Papanicolaou smear Primary osteoarthritis of left knee (10/30/16) Glossitis (06/05/13) Cholelithiasis without obstruction (03/22/93) CTS (carpal tunnel syndrome) (05/08/14) Asthma GERD (gastroesophageal reflux disease) Chest pain pt. states she doesn't remember this Medical History Comments:: pt. states last time she had anesthesia it took her a while to get her blood pressure up Surgical History Surgical History Hx of neck surgery 2019- I had cadaver bones wraped in titanium placed in my neck History of total right knee replacement (TKR) (08/29/22) History of ankle surgery right with pin Hx of appendectomy Hx of cholecystectomy Hx of total knee arthroplasty Right TKA DOS: 08/29/22 History of lumpectomy History of total left knee replacement (TKR) (02/19/19) Dr. Roldan History of colonoscopy (~02/2024) History of section History of orthopedic surgery R foot Status post appendectomy Status post cholecystectomy Status post tonsillectomy EGD - MAC (02/25/16) Cervical Procedure (~1978) Anterior cervical stabilization neck with cadavar bones Tobacco Smoking/Tobacco Use Status: Former Tobacco Use Passive smoking exposure: No Second hand exposure: Yes Alcohol Alcohol Intake: former Substance Use Substance use: Never Substance use type: does not use Vital Signs and Lab Results Vital Signs Most Recent Vital Signs in EMR: Most Recent Vital Signs Temp Pulse Resp BP Pulse Ox 36.5 C 82 16 151/74 H 95 12/05/24 06:41 12/05/24 06:41 12/05/24 06:41 12/05/24 06:41 12/05/24 06:41 Point of Care Results Point of Care Results: Finger Stick Blood Glucose 110 12/05/24 07:05 Lab Results Complete Blood Count: WBC, (4.4-10.8) 5.93 10^3/uL 11/26/24, 11:16 RBC, (3.93-5.22) 4.16 10^6/uL 11/26/24, 11:16 Hgb, (11.2-15.7) 12.6 g/dL 11/26/24, 11:16 Hct, (36.0-46.0) 38.1 % 11/26/24, 11:16 Plt Count, (130-400) 328 10^3/uL 11/26/24, 11:16 Complete Metabolic Panel: Sodium, (136-145) 140 mmol/L 11/26/24, 11:16 Potassium, (3.5-5.1) 4.1 mmol/L 11/26/24, 11:16 Chloride, (98-107) 100 mmol/L 11/26/24, 11:16 Carbon Dioxide, (21.0-32.0) 31.9 mmol/L 11/26/24, 11 :16 BUN, (7-18) 23 mg/dL H 11/26/24, 11:16 Creatinine, (0.55-1.02) 1.5 mg/dL H 11/26/24, 11:16 Est GFR (CKD-EPI 2020), (mL/min/1.73m2) 36.34 11/26/24, 11:16 Calcium, (8.5-10.1) 9.9 mg/dL 11/26/24, 11:16 Albumin, (3.4-5.0) 4.3 g/dL 11/26/24, 11:16 Glucose, (74-106) 122 mg/dL H 11/26/24, 11:16 C-Reactive Protein, (<or=0.5) < 0.50 mg/dL 11/26/24, 11:16 Liver Function Panel: ALT, (14-59) 59 U/L 11/26/24, 11:16 AST, (15-37) 42 U/L H 11/26/24, 11:16 Imaging and Studies Imaging and Studies Study information below may be from another EMR and interpreted by another provider. Please see original notes in EMR for more complete details. EKG Summary: 10/22/24: Exam: Resting ECG Reason for Exam: nausea Patient Location: E HR:72 bpm ECG Measurements Heart Rate 72 AXIS WI [id number] P [id number] QRSd 164 QRS -58 QT 444 T37 QTc 488 Conclusion Atrial flutter with predominant 3:1 AV block...A-rate 220, multiple Ps RBBB and LAFB...QRSd >120mS, axis(-40,240) Probable left ventricular hypertrophy...(RaVL+SV3)xQRSd >300 Stress Test Summary: Impressions: - Normal myocardial perfusion and contraction after pharmacological stress. - Low risk of cardiac events. Summary: 1. Myocardial perfusion imaging: No myocardial perfusion defects noted. 2. The calculated left ventricular ejection fraction after stress: 52%. LV global systolic function is normal. No left ventricular regional motion abnormality. 3. Stress ECG conclusions: The stress ECG is negative. 4. Imaging information: gated. Image quality reduced due to diaphragmatic attenuation and subdiaphragmatic activity. Attenuation correction used. Indication: R07.9, Appropriate Use Criteria: A (Appropriate). History: REASON FOR VISIT: INCREASED SHORTNESS OF BREATH, LEG SWELLING, MULTIPLE CARDIAC RISK FACTORS IS HERE FOR A PRE-SURGICAL SCREENING FOR SCHEDULED KNEE REPLACEMENT SURGERY ON [address] ROLDAN. PMH: Asthma. Risk factors: Current tobacco use. Hypertension. Diabetes mellitus. Obesity. Dyslipidemia. Cholesterol: 198mg/dl. HDL: 61mg/dl. LDL: 113mg/dl. Triglycerides: 176mg/dl. ALLERGIES: LEVOFLOXACIN. BUDESONIDE. DOXYCYLINE. FORMOTEROL FUMARATE. MIDAZOLOAM. ENALAPRIT. MEDICATIONS: VITAMIN B COMPLEX. TURMERIC ROOT EXTRACT 500 MG CAP DAILY. TIOTROPIUM BROMIDE 2 PUFFS DAILY. SIMVASTATIN 20 MG Q HS. PREDNISONE 5 MG DAILY. PANTOPRAZOLE 40 MG DAILY. OMEGA-3 FATTY ACIDS 1 CAP DAILY. MVI 1 DAILY. MONTELUKAST 10 MG DAILY. LOSARTAN 100 MG-HYDROCHLOROTHIAZIDE 25 MG DAILY. LORATADINE 10 MG DAILY. LEVOTHYROXINE 150 MCG DAILY. LEFLUNOMIDE 20 MG PO 3X/QWK. GLUCOSAMINE SULFATE 1000 MG DAILY. ATENOLOL 50 MG DAILY. AMLODIPINE 5 MG DAILY. ALBUTEROL SULFATE 2 PUFFS Q 4 HRS PRN. CALCIUM 600 + D BID. ASPIRIN 81 MG DAILY. Imaging Technique: Protocol: MSA Managementadenoson. Acquisition: Gated SPECT; 1 day - rest/stress. The patient was imaged in the supine position. Attenuation correction used. Isotope administration: - Rest. Tc[99m]-sestamibi. Dose: 12.4mCi. Injection time: 08:45 AM. Injection to stress time: 00:45. - Stress. Tc[99m]-sestamibi. Dose: 36mCi. Injection time: 11:46 AM. 1-2 min before end of exercise Baseline ECG: SINUS RHYTHM. PROLONGED QT INTERVAL. HR 69 BPM. QTc 490ms; long QT interval. Normal sinus rhythm. Stress protocol: +--------+--+ + + !Stage !HR!BP (mmHg) !Comments ! +--------+--+ + + !Baseline!69!110/70 (83)! ! +--------+--+ + + !1 min !87!128/60 (83)!Inject Regadenoson.! +--------+--+ + + !3 min !83!128/60 (83)! ! +--------+--+ + + !6 min !81!130/62 (85)! ! +--------+--+ + + * Stress results: The rate-pressure product for the peak heart rate and blood pressure was 99918sx Hg/min. Stress ECG: STRESS TEST ENDED IN 6 MINUTES & 47 SECONDS. PT EXPERIENCED NO SIGNIFICANT SIDE EFFECTS FROM LEXISCAN NORMAL HEART RATE AND BLOOD PRESSURE RESPONSE TO LEXISCAN INJECTION NO ECTOPY NO ANGINA NO SIGNIFICANT ST SEGMENT CHANGES. The stress ECG is negative. Myocardial perfusion: Imaging information: gated. Image quality reduced due to diaphragmatic attenuation and subdiaphragmatic activity. Left ventricular size is normal. No myocardial perfusion defects noted. Ventricular Function (Wall Motion): The calculated left ventricular ejection fraction after stress: 52%. LV global systolic function is normal. No left ventricular regional motion abnormality. Study data: Tomer Helton MD supervised and was readily available during the procedure. This study was interpreted by [facility]. Study status: Routine. Consent: The risks, benefits, and alternatives to the procedure were explained to the patient and informed consent was obtained. Procedure: Initial setup. A baseline ECG was recorded. Surface ECG leads and manual cuff blood pressure measurements were monitored. Heart sounds: Normal. Lung sounds: Normal. Regadenoson stress test. Stress testing was performed, with regadenoson by intravenous bolus, for a total dose of 0.4mgover 10.00sec, followed by a 5ml saline flush. The infusion was terminated due to per protocol. Study completion: All catheters inserted during the procedure were removed. The patient tolerated the procedure well and was discharged from the lab. Discharge: The patient left the laboratory in stable condition. Birthdate: Patient birthdate: 1950. Sex: Gender: female. Study date: Study date: 11/20/2018. Study time: 00:01 AM. Impressions: - Normal myocardial perfusion and contraction after pharmacological stress. - Low risk of cardiac events. Summary: 1. Myocardial perfusion imaging: No myocardial perfusion defects noted. 2. The calculated left ventricular ejection fraction after stress: 52%. LV global systolic function is normal. No left ventricular regional motion abnormality. 3. Stress ECG conclusions: The stress ECG is negative. 4. Imaging information: gated. Image quality reduced due to diaphragmatic attenuation and subdiaphragmatic activity. Attenuation correction used. Indication: R07.9, Appropriate Use Criteria: A (Appropriate). History: REASON FOR VISIT: INCREASED SHORTNESS OF BREATH, LEG SWELLING, MULTIPLE CARDIAC RISK FACTORS IS HERE FOR A PRE-SURGICAL SCREENING FOR SCHEDULED KNEE REPLACEMENT SURGERY ON [address] ROLDAN. PMH: Asthma. Risk factors: Current tobacco use. Hypertension. Diabetes mellitus. Obesity. Dyslipidemia. Cholesterol: 198mg/dl. HDL: 61mg/dl. LDL: 113mg/dl. Triglycerides: 176mg/dl. ALLERGIES: LEVOFLOXACIN. BUDESONIDE. DOXYCYLINE. FORMOTEROL FUMARATE. MIDAZOLOAM. ENALAPRIT. MEDICATIONS: VITAMIN B COMPLEX. TURMERIC ROOT EXTRACT 500 MG CAP DAILY. TIOTROPIUM BROMIDE 2 PUFFS DAILY. SIMVASTATIN 20 MG Q HS. PREDNISONE 5 MG DAILY. PANTOPRAZOLE 40 MG DAILY. OMEGA-3 FATTY ACIDS 1 CAP DAILY. MVI 1 DAILY. MONTELUKAST 10 MG DAILY. LOSARTAN 100 MG-HYDROCHLOROTHIAZIDE 25 MG DAILY. LORATADINE 10 MG DAILY. LEVOTHYROXINE 150 MCG DAILY. LEFLUNOMIDE 20 MG PO 3X/QWK. GLUCOSAMINE SULFATE 1000 MG DAILY. ATENOLOL 50 MG DAILY. AMLODIPINE 5 MG DAILY. ALBUTEROL SULFATE 2 PUFFS Q 4 HRS PRN. CALCIUM 600 + D BID. ASPIRIN 81 MG DAILY. Imaging Technique: Protocol: Regadenoson. Acquisition: Gated SPECT; 1 day - rest/stress. The patient was imaged in the supine position. Attenuation correction used. Isotope administration: - Rest. Tc[99m]-sestamibi. Dose: 12.4mCi. Injection time: 08:45 AM. Injection to stress time: 00:45. - Stress. Tc[99m]-sestamibi. Dose: 36mCi. Injection time: 11:46 AM. 1-2 min before end of exercise Baseline ECG: SINUS RHYTHM. PROLONGED QT INTERVAL. HR 69 BPM. QTc 490ms; long QT interval. Normal sinus rhythm. Stress protocol: +--------+--+ + + !Stage !HR!BP (mmHg) !Comments ! +--------+--+ + + !Baseline!69!110/70 (83)! ! +--------+--+ + + !1 min !87!128/60 (83)!Inject Regadenoson.! +--------+--+ + + !3 min !83!128/60 (83)! ! +--------+--+ + + !6 min !81!130/62 (85)! ! +--------+--+ + + * Stress results: The rate-pressure product for the peak heart rate and blood pressure was 72342dc Hg/min. Stress ECG: STRESS TEST ENDED IN 6 MINUTES & 47 SECONDS. PT EXPERIENCED NO SIGNIFICANT SIDE EFFECTS FROM LEXISCAN NORMAL HEART RATE AND BL Echocardiogram Summary: EF 57%, no hemodynamically significant valvular lesions Carotid Artery Summary:: 02/08/2022: IMPRESSION: 1. Some plaque is demonstrated in both carotid bulbs but without elevated velocities indicating that the amount of stenosis is less than 50 percent bilaterally. 2. Antegrade flow is demonstrated in both vertebral arteries. Criteria for Carotid Stenosis: Normal: ICA PSV <125 cm/s no plaque or intimal thickening is visible. <50% stenosis: ICA PSV <125 cm/s and plaque or intimal thickening is visible. 50-69% stenosis: ICA PSV is 125-250 cm/s and plaque is visible. >70% stenosis to near occlusion: ICA PSV >250 cm/s with visible plaque and luminal narrowing. Anesthesia Assessment and Plan Anesthesia History Personal History: No History of Anesthesia Complications Family History: No Family History of Anesthesia Complications Exercise Tolerance Exercise Tolerance: Metabolic Equivalents>4 Pertinent Negatives Pertinent Negatives: No Symptoms of GERD, No Major Cardiovascular Symptoms or Complaints and No Major Pulmonary Symptoms or Complaints Cardiac & Pulmonary Exam Cardiac Exam: Normal S1/S2 Heart Sounds Pulmonary Exam: Clear Bilateral Breath Sounds Implantable Cardiac Device Does patient have a Pacemaker or an ICD?: No Airway Exam Known Difficult Airway: No Mallampati Class: 2 Mouth Opening: Normal (> 3cm) Thyromental Distance: Greater than 3 cm Neck Range of Motion: History of Cervical Fusion Neck Circumference: Thick Teeth Condition: Generalized Poor Dentition ASA Classification ASA Score: ASA 3 Emergency Case?: No NPO Status NPO Status: NPO Clears >2 hours, Solids >8 hours Anesthesia Plan Resuscitation Status: Full Code Anesthesia Technique: General Anesthesia Airway Planned: Natural Airway Monitors Used: Standard Monitors
[2024-12-05 07:18] VITALS: BMI 35.9
--- NOTE | 2024-12-05 07:55 | STOM_PTH ---
PATIENT: Gilda Ochoa LOC: [facility] U#:[id number] AGE/SX: 74/F ROOM: RE12/05/[address]: Drew Hoff : 1950 BED: DIS: 12/05/2024 SPEC #: [id number] RECD: 12/05/24 12:12 STATUS: DONTA REAdarsh #: [id number] AMY: 12/05/24 07:[address]: Drew Hoff DEPT: Surgical Specimen RECD BY: Stefani Moreno ENTERED: 12/05/24 12:13 SP TYPE: STOMACH OTHR DR: Leighann Zuñiga MD, DC Tissues: 1 - STOMACH BIOPSY 2 - STOMACH BIOPSY Procedures: GROSS AND MICRO LEVEL 4 Comments: [id number]
[2024-12-05 08:05] VITALS: BP 106/46; PULSE 74; RESP 16; TEMP 35.8; O2SAT 95
--- NOTE | 2024-12-05 08:13 | W.ANESPOSTOP ---
Postoperative Evaluation Date, Time and Location Date Performed: 12/05/24 Time Performed: 08:13 Patient Location: Day Surgery Unit Vital Signs Most Recent Imported Vital Signs: Most Recent Vital Signs Temp Pulse Resp BP Pulse Ox 35.8 C L 74 16 106/46 L 95 12/05/24 08:05 12/05/24 08:05 12/05/24 08:05 12/05/24 08:05 12/05/24 08:05 Pain Score Most Recent Pain Score: Most Recent Pain Score Pain Level 0 12/05/24 08:05 Assessment Mental Status: Awake (Alert & Oriented to Patient Baseline) Airway and Respiratory Function: Patent airway with normal (patient baseline) respiratory exam Cardiovascular Function: Hemodynamically Stable Hydration Status: Adequately Hydrated Nausea & Vomiting: No Nausea or Vomiting Pain: Pt. Denies Any Pain Peripheral Nerve Block: Patient did not receive a nerve block
--- NOTE | 2024-12-05 08:14 | W.PM.ENDDOP ---
Date of service: 12/05/24 Time of Service: 08:14 Endoscopy Report PROCEDURE DESCRIPTION: PROCEDURES PERFORMED: 1. EGD with biopsies 2. Snare Polypectomy PREOPERATIVE DIAGNOSIS: Epigastric pain POSTOPERATIVE DIAGNOSIS: Gastric polyposis, bile reflux SURGEON: Milton Hoff MD INDICATION FOR PROCEDURE: 74-year-old with epigastric pain. FINDINGS: D2/D3 = normal D1/bulb = normal - no ulcers or inflammation Pylorus = normal Antrum = normal appearance, no ulcers, cold forceps biopsies were taken to rule out H. pylori routinely Body = diffuse polyposis is present. Many polyps are greater than 1 cm in size. The largest was removed with snare technique. A basket retrieval device was used for safety reasons considering her airway and the size of the polyp. Fundus = gastric polyposis Cardia = normal Hiatus = no obvious hiatal hernia or hiatus defect. Distal esophagus = no inflammation, no esophagitis, no Flores's, no stricture. I did not take biopsies here. Mid esophagus = normal Proximal esophagus/hypopharynx/vocal cords = normal SURVEILLANCE-INTERVAL/FOLLOW-UP: Follow-up with PCP and/your GI doctors. Stop PPI. Repeat EGD in 3-6 months to document and ensure progression of the polyps after PPI cessation. Specimens: Yes EBL: Minimal COMPLICATIONS: None Procedure in detail: The patient gave written consent and was in agreement with the indications, the potential risks as well as the benefits of the procedure. The patient was taken to the endoscopy suite and laid on their left side. Anesthesia was given which was tolerated well. We performed a timeout and we are in agreement I started the procedure. A well-lubricated endoscope was gently and carefully advanced down the esophagus, into the stomach and through the pylorus into the duodenum. The scope was then slowly withdrawn with the above-noted findings/interventions. The patient tolerated the procedure well and was then taken to the PACU in hemodynamically stable condition.
--- NOTE | 2024-12-05 08:16 | W.PM.DSUDISC ---
Date of service: 12/05/24 Discharge Plan Disposition Patient Disposition: Home Condition: Good Discharge Details Attending Provider: Drew Hoff Primary Care Provider: Leighann Zuñiga Home Meds and New Rx's Prescriptions: No Action acetaminophen [Tylenol Arthritis Pain] 650 mg tablet extended release 1,300 mg PO Q12H Jardiance 25 mg tablet 25 mg PO QAM Qty: 90 5RF Patient Comments: 12/03/24: Per pt. has not started this yet famotidine [Pepcid AC] 10 mg tablet 10 mg PO QPM PRN Mylanta Coat-Cool 1,200 mg-270 mg -80 mg/10 mL suspension 10 ml PO DAILY PRN multivitamin [Daily Multi-Vitamin] Tablet 1 tab PO DAILY calcium citrate 760 mg calcium /3.5 gram granules 760 mg PO DAILY [id number] serr [Osteo Bi-Flex (5-Loxin)] 1,500-400-100 mg-unit-mg tablet 1 tab PO DAILY Rx Instructions: give after food/meal Rinvoq 15 mg tablet extended release 24 hr 15 mg PO DAILY pantoprazole [Protonix] 40 mg tablet,delayed release (DR/EC) 40 mg PO QAM Qty: 90 5RF alendronate [Fosamax] 70 mg tablet 70 mg PO QWEEK Qty: 13 3RF atorvastatin 40 mg tablet 40 mg PO QHS Qty: 90 4RF exemestane 25 mg tablet 25 mg PO DAILY Qty: 90 3RF Rx Instructions: must administer after a meal albuterol sulfate [Ventolin HFA] 90 mcg/actuation HFA aerosol inhaler 2 puff inhalation Q6H PRN (Reason: shortness of breath or wheezing) Qty: 25.5 4RF fluticasone propion-salmeterol [Advair Diskus] 500-50 mcg/dose blister with device 1 inh IH Q12H Qty: 180 3RF Spiriva Respimat 2.5 mcg/actuation mist 2 puff IH DAILY Qty: 12 5RF amlodipine 5 mg tablet 5 mg PO DAILY Qty: 90 3RF levothyroxine 100 mcg tablet 100 mcg PO DAILY Qty: 90 4RF atenolol [Tenormin] 50 mg tablet 50 mg PO DAILY Qty: 90 3RF oxycodone 5 mg tablet 5 mg PO Q8H MDD 15 PRN (Reason: pain) Qty: 30 0RF Patient Comments: 2.5 mg taken losartan-hydrochlorothiazide [Hyzaar] 100-25 mg tablet 1 tab PO DAILY Qty: 90 3RF coenzyme Q10 [Co Q-10] 50 MG capsule 1 cap PO DAILY Patient Comments: patient is unsure of dosage Discharge Instructions Additional Instructions: FINDINGS: You 100s of very large polyps in your stomach. This is called polyposis. This is often a side effect of the medication. You should stop your PPI medication immediately. I recommend following up with your PCP to discuss these medication changes and next steps in management. You should have a repeat endoscopy in 3-6 months to ensure the polyps are regressing. Stand Alone Forms: Anesthesia Discharge Inst., DSU Post EGD Instructions, Shelley George (DSU) Activity:: Activity as Tolerated Diet:: As Tolerated Discharge Orders Discharge Orders: Discharge Order (Routine); Ordered 12/05/24 Ordered By: Drew Hoff
[2024-12-05 08:37] VITALS: BP 122/43; PULSE 58; RESP 14; TEMP 36.2; O2SAT 96
== END 2024-12-05 09:12 | disposition home or self-care (01) ==
PROVIDERS: PCP Family Medicine; Visit Provider Student in an Organized Health Care Education/Training Program
PROC: 0DJ68ZZ Inspection of Stomach, Via Natural or Artificial Opening Endoscopic (ICD-10-PCS; CPT 43235; principal; 2024-12-05 07:30)
DX: R10.13 Epigastric pain (principal); K21.9 Gastro-esophageal reflux disease without esophagitis; K31.7 Polyp of stomach and duodenum; K31.9 Disease of stomach and duodenum, unspecified
CPT/HCPCS: 43251; 88305; J2003; J2704

== ENCOUNTER 2024-12-12 01:29 | Outpatient (CLI) | payer MEDICARE, BC, SELFPAY ==
--- NOTE | 2024-12-12 12:38 | DI.RAD_ITS ---
Exam(s) XR CHEST 2V PA LATERAL EXAM: XR CHEST 2V PA LATERAL CLINICAL HISTORY: cough for one month now,R05.9. TECHNIQUE: 2D digital imaging was performed. COMPARISON: CR,RF RF BARIUM SWALLOW from 11/03/2024 FINDINGS: 2 views: Heart size is normal. The mediastinum is not widened. No infiltrates. No pulmonary edema. There is mild blunting of left costophrenic angle but this is unchanged and probably represents chronic pleural thickening. Mild scoliosis noted. IMPRESSION: No acute pulmonary findings. DATA REPOSITORY: RADIATION DOSE DELIVERED:
== END 2024-12-12 01:49 ==
LOC: DI 01:29
PROVIDERS: PCP Family Medicine; Visit Provider Nurse Practitioner Family
DX: R05.9 Cough, unspecified (principal)
CPT/HCPCS: 71046

== ENCOUNTER 2025-01-01 13:01 | Outpatient (RCR) | payer MEDICARE, BC, SELFPAY ==
--- NOTE | 2025-01-09 08:20 | W.HOLTRPT ---
Date of service: 01/09/25 Time of Service: 08:20 Holter Monitor Report Referring Provider:: Leighann Zuñiga Indications:: Tachycardia Holter Monitor Note: This is a 48-hour Holter monitor. Predominant rhythm was sinus with an average heart rate of 83. Minimum was 48, maximum 136 There were very rare isolated ventricular ectopic beats. There were occasional to frequent atrial premature beats comprising 2% of total. Multiple self-limited atrial runs occurred. The majority of these were less than 10 beats in duration. All were asymptomatic There was no atrial fibrillation, no high-grade AV block, no pauses greater than 3 seconds. Reported symptoms correlated to sinus rhythm in the 90s
== END 2025-01-20 23:59 | disposition home or self-care (01) ==
LOC: CARDOPNVT 13:01
PROVIDERS: PCP Family Medicine; Visit Provider Internal Medicine Cardiovascular Disease
DX: R00.0 Tachycardia, unspecified (principal); I48.91 Unspecified atrial fibrillation
CPT/HCPCS: 93227; 93225; 93226

== ENCOUNTER 2025-01-14 22:33 | Emergency (ER) | payer MEDICARE, BC, SELFPAY ==
[2025-01-14] VITALS (15 sets, daily range): BP systolic 117–162; BP diastolic 60–98; PULSE 84–148; RESP 11–21; TEMP 36.4; O2SAT 92–96
--- NOTE | 2025-01-14 01:15 | DI.CT_ITS ---
Exam(s) CT CHEST PE CTA EXAM: CT CHEST PE CTA CLINICAL HISTORY: sob pSVT +dimer. TECHNIQUE: Imaging Protocol: Axial CT angiography was performed with multi- slice acquisition and multi-planar reconstructions as well as axial, coronal and sagittal MIP reconstructions. Computer aided detection (CAD) was utilized. CONTRAST MATERIAL: Intravenous: Omnipaque 350 Contrast volume:100 ml COMPARISON: CT CT CHEST/ABD/PEL W from 10/22/2024 FINDINGS: Pulmonary Arteries: No evidence of filling defect to suggest pulmonary emboli. Mediastinum and Jolynn: No dominant adenopathy or fluid collection. Pulmonary parenchyma: No consolidation or dominant measurable mass. Mild emphysematous changes. Mild posterior dependent changes at the lung bases. Stable appearance of chronic interstitial changes at the lung bases. Pleura: No effusion or pneumothorax. Heart: The heart is not dilated. Moderate coronary artery calcifications are seen. Aorta: Thoracic aorta non-dilated. No dissection. Upper abdomen: No acute findings. Bones: Unremarkable scoliosis and degenerative changes in the spine. Tubes, Catheters, and Lines: None Soft tissues: Unremarkable. IMPRESSION: No evidence of pulmonary embolism or other acute abnormality. The preliminary [facility] report was reviewed. RADIATION DOSE DELIVERED: 171.3mGy.cm Total DLP DATA REPOSITORY: All CT scans at this facility are submitted to the National Radiology Data Registry (NRDR) Dose Index Registry (DIR) with the [employer] ([employer]). RADIATION OPTIMIZATION: All CT scans at this facility use at least one of these dose optimization techniques: automated exposure control; mA and/or kV adjustment per patient size (includes targeted exams where dose is matched to clinical indication); or iterative reconstruction.
--- NOTE | 2025-01-14 22:30 | RT.EKG_ITS ---
APPROVED REPORT Exam: Resting ECG Reason for Exam: Palpitations Patient Location: E HR:146 bpm ECG Measurements Heart Rate 146 AXIS MT 102 P 265 QRSd 135 QRS -67 QT 313 T 79 QTc 483 Conclusion Sinus or ectopic atrial tachycardia...P axis (-45,135), rate> 99 Ventricular premature complex...V complex w/ short R-R interval RBBB and LAFB...QRSd >120mS, axis(-40,240) Probable left ventricular hypertrophy...(RaVL+SV3)xQRSd >300 ST elevation secondary to high heart rate SR followed by SVT
--- NOTE | 2025-01-14 22:45 | RT.EKG_ITS ---
APPROVED REPORT Exam: Resting ECG Reason for Exam: tachy Patient Location: E HR:89 bpm ECG Measurements Heart Rate 89 AXIS DE 201 P 59 QRSd 135 QRS -66 QT 378 T 66 QTc 461 Conclusion Sinus rhythm...normal P axis, V-rate 60- 99 RBBB and LAFB...QRSd >120mS, axis(-40,240) Probable left ventricular hypertrophy...(RaVL+SV3)xQRSd >300 ST elevation, consider inferior injury...ST >0.08mV, II III aVF No ST segment or T wave abnormalities to suggest occlusive AR
[2025-01-14] MEDS: dilTIAZem 25 MG/5 ML VIAL 10 MG IVP (22:57)
--- NOTE | 2025-01-14 23:10 | W.ED.GENAD ---
Discharge Plan Disposition Patient Disposition: Home Condition: Good Discharge Details Clinical Impression: Atrial tachycardia Primary Care Provider: Leighann Zuñiga ED Provider: Huma Muhammad Home Meds and New Rx's Prescriptions: New metoprolol succinate 25 mg tablet extended release 24 hr 25 mg PO DAILY Qty: 30 0RF Continued acetaminophen [Tylenol Arthritis Pain] 650 mg tablet extended release 1,300 mg PO ONCE famotidine [Pepcid AC] 10 mg tablet 10 mg PO ONCE Mylanta Coat-Cool 1,200 mg-270 mg -80 mg/10 mL suspension 10 ml PO DAILY PRN multivitamin [Daily Multi-Vitamin] Tablet 1 tab PO DAILY calcium citrate 760 mg calcium /3.5 gram granules 760 mg PO DAILY [id number] serr [Osteo Bi-Flex (5-Loxin)] 1,500-400-100 mg-unit-mg tablet 1 tab PO DAILY Rx Instructions: give after food/meal Rinvoq 15 mg tablet extended release 24 hr 15 mg PO DAILY atorvastatin 40 mg tablet 40 mg PO QHS Qty: 90 4RF exemestane 25 mg tablet 25 mg PO DAILY Qty: 90 3RF Rx Instructions: must administer after a meal albuterol sulfate [Ventolin HFA] 90 mcg/actuation HFA aerosol inhaler 2 puff inhalation Q6H PRN (Reason: shortness of breath or wheezing) Qty: 25.5 4RF Spiriva Respimat 2.5 mcg/actuation mist 2 puff IH DAILY Qty: 12 5RF levothyroxine 100 mcg tablet 100 mcg PO DAILY Qty: 90 4RF losartan-hydrochlorothiazide [Hyzaar] 100-25 mg tablet 0.5 tab PO DAILY Qty: 90 3RF oxycodone 5 mg tablet 5 mg PO Q8H MDD 15 PRN (Reason: pain) Qty: 30 0RF Patient Comments: 2.5 mg taken coenzyme Q10 [Co Q-10] 50 MG capsule 1 cap PO DAILY Patient Comments: patient is unsure of dosage metformin 500 mg tablet 500 mg BID Patient Comments: TAKE ONE TABLET BY MOUTH TWICE A DAY fluticasone propion-salmeterol [Advair Diskus] 500-50 mcg/dose blister with device 1 inh IH ONCE Discontinued Jardiance 25 mg tablet 25 mg PO QAM Qty: 90 5RF Patient Comments: 12/03/24: Per pt. has not started this yet Discharge Instructions Instructions: Paroxysmal Supraventricular Tachycardia (DC) Additional Instructions: Start taking metoprolol 25mg once day- take the first dose tomorrow. You will need to get an ultrasound of your legs to look for blood clots. Call radiology in the morning to schedule the appointment for today. After your scan, please check in to the ED to get your results. You will need to followup with cardiology- they should call you to schedule an appointment. Please also followup with your primary care doctor- call them this morning to schedule an appointment to be seen within the next 72 hours. Return to the emergency department for new or worsening symptoms including if yoru palpitations return, you develop chest pain, shortness of breath, feel like you are going to pass out, or if you have any other concerns. Discharge Orders Other Ambulatory Orders: US extremity venous BI (Routine) Timeframe: 1 Day Facility: [facility] - Location: DIAGNOSTIC IMAGING Ordered By: Huma MARIE General Mode of arrival: ambulatory. Date/Time Provider Initiated Documentation: 01/14/25 22:35. Limitations to Documentation: no limitations. Information obtained by: patient. HPI Narrative: 74yo F with hx hypothyroid, CKD, T2DM, RA, HTN, HLD, asthma, presenting for palpitations and shortness of breath since 1529 today. Associated nausea and lightheadedness. No abdominal pain, vomiting, or LOC. No numbness or tingling. Has has similar symptoms before, recent 48 hour holter during which she did not have any episodes this bad. Also feels hot flashes when her symptoms get bad. No chest pain at any point. Otherwise in her usual state of health with no fevers, chills, rash, LE edema, or other concerns. Related Data Home Medications ?Medication ?Instructions ?Recorded ?Confirmed coenzyme Q10 50 mg capsule (Co 1 cap PO DAILY 01/08/16 01/14/25 Q-10) calcium citrate 760 mg PO DAILY 05/19/20 01/14/25 multivitamin (Daily Multi-Vitamin 1 tab PO DAILY 05/19/20 01/14/25 tablet) acetaminophen 650 mg 1,300 mg PO ONCE 07/13/20 01/14/25 tablet,extended release (Tylenol Arthritis Pain) glucosamine MCp-C2-Lzuseiudp 1 tab PO DAILY 12/23/20 01/14/25 malachi 1,500 mg-400 unit-100 mg tablet (Osteo Bi-Flex (5-Loxin)) upadacitinib 15 mg tablet,extended 15 mg PO DAILY 06/23/21 01/14/25 release 24 hr (Rinvoq) atorvastatin 40 mg tablet 40 mg PO QHS #90 tabs 04/24/24 01/14/25 albuterol sulfate 90 mcg/actuation 2 puff inhalation Q6H PRN 06/16/24 01/14/25 aerosol inhaler (Ventolin HFA) shortness of breath or wheezing #25.5 grams exemestane 25 mg tablet 25 mg PO DAILY #90 tabs 06/16/24 01/14/25 tiotropium bromide 2.5 2 puff inhalation DAILY #12 grams 07/08/24 01/14/25 mcg/actuation mist for inhalation (Spiriva Respimat) levothyroxine 100 mcg tablet 100 mcg PO DAILY #90 tabs 09/16/24 01/14/25 calcium carb 1,200 mg-mag hydrox 10 ml PO DAILY PRN 10/30/24 01/14/25 270 mg-simeth 80 mg/10 mL oral susp (Mylanta Coat-Cool) famotidine 10 mg tablet (Pepcid AC) 10 mg PO ONCE 10/30/24 01/14/25 losartan 100 0.5 tab (1/2 x 100-25 mg) PO DAILY 12/19/24 01/14/25 mg-hydrochlorothiazide 25 mg #90 tab-caps tablet (Hyzaar) oxycodone 5 mg tablet 5 mg PO Q8H PRN pain #30 tabs 01/05/25 01/14/25 fluticasone 500 mcg-salmeterol 50 1 inh inhalation ONCE 01/14/25 01/14/25 mcg/dose blistr powdr for inhalation (Advair Diskus) metformin 500 mg tablet 500 mg BID 01/14/25 metoprolol succinate 25 mg 25 mg PO DAILY #30 tabs 01/15/25 tablet,extended release 24 hr Previous Rx's ?Medication ?Instructions ?Recorded atorvastatin 40 mg tablet 40 mg PO QHS #90 tabs 04/24/24 albuterol sulfate 90 mcg/actuation 2 puff inhalation Q6H PRN 06/16/24 aerosol inhaler (Ventolin HFA) shortness of breath or wheezing #25.5 grams exemestane 25 mg tablet 25 mg PO DAILY #90 tabs 06/16/24 tiotropium bromide 2.5 2 puff inhalation DAILY #12 grams 07/08/24 mcg/actuation mist for inhalation (Spiriva Respimat) levothyroxine 100 mcg tablet 100 mcg PO DAILY #90 tabs 09/16/24 losartan 100 0.5 tab (1/2 x 100-25 mg) PO DAILY 12/19/24 mg-hydrochlorothiazide 25 mg #90 tab-caps tablet (Hyzaar) oxycodone 5 mg tablet 5 mg PO Q8H PRN pain #30 tabs 01/05/25 metoprolol succinate 25 mg 25 mg PO DAILY #30 tabs 01/15/25 tablet,extended release 24 hr Allergies Allergy/AdvReac Type Severity Reaction Status Date / Time levofloxacin Allergy Mild rash Verified 01/14/25 22:55 budesonide (From Symbicort) AdvReac Severe chest pain Verified 01/14/25 22:55 doxycycline AdvReac Severe esophagitis Verified 01/14/25 22:55 duloxetine AdvReac Severe hallucinati Verified 01/14/25 22:55 ons formoterol fumarate (From AdvReac Severe chest pain Verified 01/14/25 22:55 Symbicort) midazolam HCl (From Versed) AdvReac Intermediate Contraindic Verified 01/14/25 22:55 ated zolpidem AdvReac Intermediate Dizziness/L Verified 01/14/25 22:55 ighthead enalaprilat AdvReac Mild Cough Verified 01/14/25 22:55 General Stated Complaint: Palpitatns ANA: 3 Review of Systems Narrative: see HPI Exam Narrative Exam Narrative: General: Alert, well appearing, well nourished, in no acute distress. Head: Normocephalic, atraumatic Neck: Trachea midline, ?Neck supple. ENT: ?MMM.? No oropharygeal lesions or exudate. Cardiac: ?RRR, no murmurs appreciated Resp: No respiratory distress. CTAB. Abd: ?Soft, non-distended, nontender : ?No suprapubic tenderness. Extremities: ?No deformities.? No peripheral edema. Neurologic: GCS 15. ? Moves all extremities freely against gravity Course Vital Signs Vital signs: Vital Signs Temperature 36.4 C L 01/14/25 22:36 Pulse 120 H 01/14/25 22:36 Respiratory Rate 18 01/14/25 22:36 Blood Pressure 162/98 H 01/14/25 22:36 Pulse Oximetry 96 01/14/25 22:36 Temperature 36.4 C L 01/14/25 22:36 Temperature Source Oral 01/14/25 22:36 Pulse 90 01/14/25 23:01 Pulse 86 01/14/25 23:01 Respiratory Rate 11 L 01/14/25 23:01 Blood Pressure 138/60 01/14/25 23:01 Blood Pressure Mean 84 01/14/25 23:01 Pulse Oximetry 95 01/14/25 23:01 Pain Level 0 01/14/25 22:36 Medical Decision Making 74yo F with hx hypothyroid, CKD, T2DM, RA, HTN, HLD, asthma, presenting for palpitations and shortness of breath since 1529 today. Associated nausea and lightheadedness. Has has similar symptoms before, recent 48 hour holter during which she did not have any episodes this bad. Holter report below with no concerning arrhythmias noted (did have multiple short atrial runs). Nontoxic on arrival, lungs CTAB. Sinus tachycardia on the monitor with prolonged runs of sustained SVT up to 130's-150's, VS otherwise appropriate. Initial resus: -Placed on Zoll -EKG similarly shows sinus tachycardia followed by SVT, regular, QRS maintaining the same morphology (slightly wide at ~130, RBBB/LAB which is also present on prior EKG October 2024). Not suggestive of afib/aflutter or Vtach. -Given 10mg of IV diltazem with plan for additional 10mg if not effective -Good response to initial dose, repeat EKG SR in 80's, slight inferior ST elevations not meeting STEMI criteria. Within 5 minutes of change in HR, pt now entirely asymptomatic (no further nasuea, SOB, palpitations, lightheadedness) and continues to deny any chest pain. ED course: -CXR independently reviewed, no focal pneumonia or pulmonary edema on my view, radiology read with no acute findings -Labs reviewed as below, CBC reassuring with no leukocytosis or anemia, CMP with Cr at baseline and no actionable abnormalities, Mg normal, TSH normal, BNP slightly elevated at 460 not suggestive of florid heart failure, troponins reassuring at 46, 42, 40, dimer elevated at ~2300 (CTA ordered). No evidence of extremity DVT on exam, no LE edema, legs symmetric; she does report intermittent leg pain for the past several weeks which has been atributted to piriformis syndrome. -CTA independently reviewed; no large saddle embolus on my view, radiology read with no acute findings. -Remains SR in the s-s, asymptomatic. Discussed with [facility] cardiology Dr. Bullock; EKG thought to represent some variant of atrial tachycardia. Advised starting metoprolol succinate 25mg once daily, outpatient echocardogram on a non-urgent basis, and having patient followup outpatient with cardiology. No indication for admission. Observed in the ED overnight with no further events on telemetry and no recurrence of symptoms. Low suspicion for LE DVT based on exam, however patient does report history of prior DVT (years ago in the setting of LE casting) and has had leg pain. Out of abundance of caution will order outpatient DVT study. Would not start on empiric anticoagulation at this time. [facility] cardiology referral placed, pt also advised to followup with PCP in the interim. Discharged home; discharge instructions and return precautions were reviewed with patient who verbalized understanding. All questions were answered and she is in full agreement with the plan. Medical Records Medical records reviewed: Yes I reviewed the patient's medical records. Medical records narrative: Indications:: Tachycardia Holter Monitor Note: This is a 48-hour Holter monitor. Predominant rhythm was sinus with an average heart rate of 83. Minimum was 48, maximum 136 There were very rare isolated ventricular ectopic beats. There were occasional to frequent atrial premature beats comprising 2% of total. Multiple self-limited atrial runs occurred. The majority of these were less than 10 beats in duration. All were asymptomatic There was no atrial fibrillation, no high-grade AV block, no pauses greater than 3 seconds. Reported symptoms correlated to sinus rhythm in the Lab Data Lab results reviewed: Yes I reviewed the patient's lab results. Labs: Laboratory Tests Range/Units 01/14/25 01/15/25 01/15/25 22:54 00:28 01:43 WBC (4.4-10.8) 10^3/uL 6.81 RBC (3.93-5.22) 10^6/uL 4.07 Hgb (11.2-15.7) g/dL 12.3 Hct (36.0-46.0) % 36.8 MCV (80-95) fL 90 MCH (27.0-33.0) pg 30.2 MCHC (32.0-36.0) % 33.4 RDW (11.7-14.6) % 13.8 Plt Count (130-400) 10^3/uL 341 MPV (8.0-11.0) fL 9.8 Immature Gran % % 0.7 Neutrophils % % 41.4 Lymphocytes % % 39.5 Monocytes % % 16.7 Eosinophils % % 1.3 Basophils % % 0.4 Nucleated RBC % (0.0-0.3) % 0.0 Absolute Neutrophils (1.2-6.7) 10^3/uL 2.81 Absolute Lymphocytes (1.2-3.4) 10^3/uL 2.69 Absolute Monocytes (0.1-0.8) 10^3/uL 1.14 H Absolute Eosinophils (0.0-0.7) 10^3/uL 0.09 Absolute Basophils (0.0-0.2) 10^3/uL 0.03 D-Dimer (<500) ng/mlFEU 2377 H Sodium (136-145) mmol/L 140 Potassium (3.5-5.1) mmol/L 3.5 Chloride (98-107) mmol/L 101 Carbon Dioxide (21.0-32.0) mmol/L 31.9 Anion Gap (3-11) mmol/L 7.1 BUN (7-18) mg/dL 14 Creatinine (0.55-1.02) mg/dL 1.6 H Est GFR (CKD-EPI 2020) (mL/min/1.73m2) 33.63 Glucose (74-106) mg/dL 144 H Calcium (8.5-10.1) mg/dL 10.6 H Magnesium (1.8-2.4) mg/dL 2.4 Total Bilirubin (0.2-1.0) mg/dL 0.3 AST (15-37) U/L 42 H ALT (14-59) U/L 58 Alkaline Phosphatase (46-116) U/L 33 L Troponin I (<or=51) ng/L 46 42 40 NT-Pro-B Natriuret Pep (<300) pg/mL 468 H Total Protein (6.4-8.2) g/dL 7.4 Albumin (3.4-5.0) g/dL 4.1 TSH (0.36-3.74) uIU/mL 1.90 Add-On Test Request DONE Critical Care Time Critical Care Time Critical Care Time: Yes Total Critical Care Time: 38 Attestation: Due to a high probability of clinically significant, life threatening deterioration, the patient required my highest level of preparedness to intervene emergently and I personally spent this critical care time directly and personally managing the patient. This critical care time included obtaining a history; examining the patient; pulse oximetry; ordering and review of studies; arranging urgent treatment with development of a management plan; evaluation of patient's response to treatment; frequent reassessment; and, discussions with other providers. This critical care time was performed to assess and manage the high probability of imminent, life-threatening deterioration that could result in multi-organ failure. It was exclusive of separately billable procedures and treating other patients [facility] All Active Problems (Updated 01/15/25 @ 05:30 by Huma Muhammad MD) Atrial tachycardia (Acute) Trochanteric bursitis of both hips (Acute) Piriformis syndrome of both sides (Acute) Tachycardia (Acute) Low vitamin B12 level (Acute) Epigastric pain (Acute) Left knee pain (Acute) Pes planovalgus (Acute ~09/01/24) Bilaterally [facility] radiology Hammertoe, bilateral (Acute ~09/01/24) Degenerative joint disease of foot (Acute ~09/01/24) [facility] [place]- Bilateral foot films Joint degeneration of the feet in a pattern of moderate to severe osteoarthropathy, possibly secondary to the synovitis of remote rheumatoid arthritis based on patient history. No erosive disease to correspond with active rheumatoid arthritis. Obesity (BMI 30-39.9) (Acute) Positive colorectal cancer screening using Cologuard test (Acute) Arthritis of left glenohumeral joint (Acute) Arthritis of right glenohumeral joint (Acute) Right rotator cuff tear arthropathy (Acute) Decreased hearing (Acute) Arthritis of hand, left, degenerative (Acute) Wrist pain (Acute) Pain of left thumb (Acute) Dysphagia (Acute) Disordered sleep (Acute) Urachal cyst (Acute) Cervical spondylosis with myelopathy (Acute) H/O cervical spine surgery (Acute) Acute right hip pain (Acute) Palpitation (Acute) COVID-19 (Acute) 08/31/21 Stage 3 chronic kidney disease (Acute) 06/2021, Cr-1.3 Dizziness (Acute) Abdominal wall anomaly (Acute) Invasive ductal carcinoma of breast, female (Acute) Left wrist tendonitis (Acute) probably secondary to RA Spinal stenosis of cervical region (Acute) Severe at C3/C4. 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 (Acute) Parastomal hernia (Acute 07/09/12) Peripheral neuropathy (Chronic) feet Rheumatoid arthritis (Chronic 07/10/12) discoid lupus Obesity (Chronic) Lumbar stenosis (Chronic 11/22/16) [facility] [place] [place]-EPIDURAL STEROID INJECTION Hypothyroidism (Chronic 07/10/12) 1993-Grave's disease; S/P SHORE 131; Hyperlipidemia (Chronic 12/14/14) History of tobacco use (Chronic) Hiatal hernia (Chronic 03/22/93) Gastroesophageal reflux disease (Chronic) Essential hypertension (Chronic 07/16/13) check some BPs at home as discussed use machine we lent you pls return it when yuou see Dr Khoury next month Asthma (Chronic 01/07/13) continue current meds Medical History (Updated 01/15/25 @ 05:30 by Huma Muhammad MD) Tubular adenoma of colon (~02/2024) Mass of right breast on mammogram History of fracture of right ankle Pin in place, subsequent blood clot per Pt Hx of blood clots RLE Valgus deformity, not elsewhere classified, left knee SOB (shortness of breath) given cardiac risk factors and upcoming surgery, feel dynamic study warranted Abnormal cervical Papanicolaou smear Primary osteoarthritis of left knee (10/30/16) Glossitis (06/05/13) Cholelithiasis without obstruction (03/22/93) CTS (carpal tunnel syndrome) (05/08/14) Asthma GERD (gastroesophageal reflux disease) Chest pain pt. states she doesn't remember this Surgical History (Updated 12/08/24 @ 09:59 by Analisa Sheets) History of esophagogastroduodenoscopy (~12/05/24) Hx of neck surgery 2019- I had cadaver bones wraped in titanium placed in my neck History of total right knee replacement (TKR) (08/29/22) History of ankle surgery right with pin Hx of appendectomy Hx of cholecystectomy Hx of total knee arthroplasty Right TKA DOS: 08/29/22 History of lumpectomy History of total left knee replacement (TKR) (02/19/19) Dr. Roldan History of colonoscopy (~02/2024) History of section History of orthopedic surgery R foot Status post appendectomy Status post cholecystectomy Status post tonsillectomy EGD - MAC (02/25/16) Cervical Procedure (~1978) Anterior cervical stabilization neck with cadavar bones Family History Mother , 67 Alcohol abuse Essential hypertension Heart disease ANGINA Stroke Brother , 44 Alcohol abuse Lung cancer Father , 70s Alcohol abuse Heart disease Daughter Asthma Cancer Breast MATERNAL HISTORY Autoimmune disease Brother , 67 Substance abuse POT Cancer Lung and brain Maternal Grandfather No problems noted. Paternal Grandfather Diabetes Maternal Grandmother No problems noted. Paternal Grandmother No problems noted. Social History (Updated 11/21/22 @ 11:38 by Cintia Antunez) Smoking/Tobacco Use Status: Former Tobacco Use tobacco type: cigarettes Quit Date: 04/23/86 Tobacco: How many years used: 18 Second Hand Exposure: Yes Smoking risk assessment performed?: Yes Alcohol Intake: former Drug use: Never Substance use type: does not use Caregiver/Support person: No Household members: none Housing: house Communication Needs: None Do you need help understanding health information?: Never Pets and animals: Yes Pets and animals: cat(s) Sexually active: No Do you think of yourself as: lesbian/longo/homosexual Current gender identity: female What is your relationship status?: How often do you talk on the phone with friends or family?: three or more times per week How often do you get together with friends or relatives?: once per week Do you belong to any clubs or organized social groups?: yes Panel score (0-1 are the most socially isolated patients): 2 What type of physical activity do you participate in: other Details: Pool PT Duration: < 15 minutes/day Frequency: 1-2 times per week Dahiana/Uatsdin: None Special dahiana needs: No Seatbelt use: always Helmet use: No Drive intox or ride w/intox port cdl a driver: No Do you feel safe at home: Yes Do you feel safe in your relationship?: Yes Additional Social history: lives alone
[2025-01-14 23:19] LABS: Abs Immature Grans 0.05 10^3/uL (0.0-0.06); HCT 36.8 % (36.0-46.0); HGB 12.3 g/dL (11.2-15.7); Immature Grans % 0.7 %; Lab Add On Test DONE; MCH 30.2 pg (27.0-33.0); MCHC 33.4 % (32.0-36.0); MCV 90 fL (80-95); MPV 9.8 fL (8.0-11.0); Platelet Count 341 10^3/uL (130-400); RBC 4.07 10^6/uL (3.93-5.22); RDW 13.8 % (11.7-14.6); RDW-SD 45.1 fL; WBC 6.81 10^3/uL (4.4-10.8)
[2025-01-14 23:34] LABS: ALT 58 U/L (14-59); AST 42 U/L (15-37); Albumin 4.1 g/dL (3.4-5.0); Alkaline Phosphatase 33 U/L (46-116); Anion Gap 7.1 mmol/L (3-11); BUN 14 mg/dL (7-18); Bilirubin, Total 0.3 mg/dL (0.2-1.0); CO2 31.9 mmol/L (21.0-32.0); Calcium 10.6 mg/dL (8.5-10.1); Chloride 101 mmol/L (98-107); Estimated GFR 33.63 (mL/min/1.73m2); Glucose 144 mg/dL (74-106); Magnesium 2.4 mg/dL (1.8-2.4); Potassium 3.5 mmol/L (3.5-5.1); Sodium 140 mmol/L (136-145); Total Protein 7.4 g/dL (6.4-8.2); Troponin I 46 ng/L (<or=51)
--- NOTE | 2025-01-14 23:34 | DI.RAD_ITS ---
Exam(s) XR PORTABLE CHEST AP EXAM: XR PORTABLE CHEST AP CLINICAL HISTORY: SOB TECHNIQUE: 2D digital imaging was performed. COMPARISON: CR XR CHEST 2V PA LATERAL from 12/12/2024 FINDINGS: The left lung base is obscured by defibrillator pads as well as or lying monitoring leads. LUNGS: Clear where visualized. No pleural abnormality seen. HEART: Normal size. AORTA: Normal diameter. BONES: Hardware and lower cervical spine. Degenerative changes and scoliosis noted in the thoracic region. Soft tissues: Unremarkable. IMPRESSION: No acute findings. The preliminary [facility] report was reviewed. DATA REPOSITORY: RADIATION DOSE DELIVERED:
[2025-01-14 23:44] LABS: D-Dimer 2377 ng/mlFEU (<500)
[2025-01-14 23:55] LABS: NT-proBNP 468 pg/mL (<300)
[2025-01-15] VITALS (40 sets, daily range): BP systolic 114–158; BP diastolic 55–72; PULSE 79–97; RESP 10–28; O2SAT 91–96
[2025-01-15 00:15] LABS: TSH (W/Ref FT4) 1.90 uIU/mL (0.36-3.74)
--- NOTE | 2025-01-15 00:21 | DI.[facility]_ITS ---
PROCEDURE INFORMATION: Exam: XR Chest Exam date and time: 01/14/2025 11:29 PM Age: 74 years old Clinical indication: Shortness of breath TECHNIQUE: Imaging protocol: Radiologic exam of the chest. Views: 1 view. COMPARISON: CR XR CHEST 2V PA LATERAL 12/12/2024 12:30 PM FINDINGS: Lungs: Linear bibasilar opacities most consistent with subsegmental atelectasis. Pleural spaces: Unremarkable. No pleural effusion. No pneumothorax. Heart/Mediastinum: Unremarkable. No cardiomegaly. Bones/joints: Prior cervical ACDF. Moderate multilevel degenerative changes thoracic spine. IMPRESSION: No acute findings. Dictated and Authenticated by: Jennifer Mazariegos MD. Orderin Sabina Finn MD
[2025-01-15] MEDS: Normal Saline - Diluent 50 ML VIAL IJ (00:37)
[2025-01-15] MEDS: Omnipaque 350 MG/ML 100 ML BTL IJ (00:37)
[2025-01-15] MEDS: Normal Saline Flush 10 ML SYR IVP (00:37)
[2025-01-15 00:53] LABS: Troponin I 42 ng/L (<or=51)
--- NOTE | 2025-01-15 01:24 | DI.VRAD_ITS ---
PROCEDURE INFORMATION: Exam: CTA Chest With Contrast Exam date and time: 01/15/2025 12:58 AM Age: 74 years old Clinical indication: Other: SOB psvt +dimer TECHNIQUE: Imaging protocol: Computed tomographic angiography of the chest with contrast. Exam focused on the arteries. 3D rendering (Not supervised by radiologist): MIP and/or 3D reconstructed images were created by the technologist. Contrast material: OMNIPAQUE 350; Contrast volume: 100 ml; Contrast route: INTRAVENOUS (IV); COMPARISON: CT CHEST PE CTA 08/02/2022 12:15 PM FINDINGS: Pulmonary arteries: No evidence of pulmonary embolism. Aorta: Unremarkable. No aortic aneurysm. No aortic dissection. Veins: Left chest collateral vessels. Trachea: The central airways clear. Lungs: There is diffuse pulmonary emphysema. Linear bibasilar opacities most consistent with subsegmental atelectasis. Pleural spaces: Unremarkable. No pneumothorax. No pleural effusion. Heart: No cardiomegaly or pericardial effusion. Lymph nodes: No axillary adenopathy. Bones/joints: No acute osseous abnormality. Moderate multilevel degenerative changes thoracic spine. Soft tissues: Unremarkable. IMPRESSION: No evidence of pulmonary embolism. Dictated and Authenticated by: Jennifer Mazariegos MD. Orderin Sabina Finn MD
[2025-01-15 02:06] LABS: Troponin I 40 ng/L (<or=51)
[2025-01-15] MEDS: Metoprolol CR 25 MG TABCR PO (03:31)
== END 2025-01-15 05:47 | disposition home or self-care (01) ==
PROVIDERS: Emergency Provider Student in an Organized Health Care Education/Training Program; PCP Family Medicine
DX: I47.19 Other supraventricular tachycardia (principal); E03.9 Hypothyroidism, unspecified; E78.5 Hyperlipidemia, unspecified; I12.9 Hypertensive chronic kidney disease with stage 1 through stage 4 chronic kidney disease, or unspecified chronic kidney disease; E11.22 Type 2 diabetes mellitus with diabetic chronic kidney disease; N18.30 Chronic kidney disease, stage 3 unspecified; M06.9 Rheumatoid arthritis, unspecified; Z79.84 Long term (current) use of oral hypoglycemic drugs; Z79.899 Other long term (current) drug therapy; Z87.891 Personal history of nicotine dependence
CPT/HCPCS: 71275; 80053; 93005; 96374; 99283; 99285; 71045; 83735; 83880; 84443; 84484; 85025; 85379; 93010; 93970; J3490

== ENCOUNTER 2025-01-15 09:42 | Outpatient (CLI) | payer MEDICARE, BC, SELFPAY ==
--- NOTE | 2025-01-15 10:30 | DI.US_ITS ---
Exam(s) US EXTREMITY VENOUS BI EXAM: US EXTREMITY VENOUS BI CLINICAL HISTORY: left leg swelling and right leg swelling/pain M79.89. TECHNIQUE: Bilateral lower extremity venous ultrasound performed using grayscale, color-flow, and spectral Doppler analysis. COMPARISON: No exams were available for comparison FINDINGS: The right common femoral, femoral and popliteal veins demonstrate normal compressibility, augmentation, and color Doppler. There is thrombus seen in the right profundus femoral vein. It measures 3.9 cm in length. It is nonocclusive. The posterior tibial veins are patent. The saphenofemoral junction is unremarkable. There is no evidence of a Walker's cyst. The soft tissues are unremarkable. The left common femoral, femoral and popliteal veins demonstrate normal compressibility, augmentation, and color Doppler. The posterior tibial veins are patent. There is occlusive thrombus seen within an intramuscular vein in the left calf. It measures approximately 4 cm in length. The saphenofemoral junction is unremarkable. There is no evidence of a Walker's cyst. The soft tissues are unremarkable. IMPRESSION: 1. There is a DVT in the right for more S femoral vein measuring 3.9 cm in length. 2. There is occlusive thrombus seen within intramuscular vein in the left calf measuring approximately 4 cm in length. DATA REPOSITORY:
== END 2025-01-15 10:02 ==
LOC: DI 09:42
PROVIDERS: PCP Family Medicine; Visit Provider Student in an Organized Health Care Education/Training Program
DX: M79.89 Other specified soft tissue disorders (principal); I82.462 Acute embolism and thrombosis of left calf muscular vein
CPT/HCPCS: 93970

== ENCOUNTER 2025-01-15 14:05 | Emergency (ER) | payer MEDICARE, BC, SELFPAY ==
[2025-01-15 14:11] VITALS: BP 121/77; PULSE 82; RESP 20; TEMP 36.6; O2SAT 93
[2025-01-15] MEDS: Apixaban 5 MG TAB 20 MG PO (14:45)
--- NOTE | 2025-01-15 15:19 | W.ED.GENAD ---
Discharge Plan Disposition Patient Disposition: Home Discharge Details Clinical Impression: DVT (deep venous thrombosis) Primary Care Provider: Leighann Zuñiga ED Provider: Stefani Morin Home Meds and New Rx's Prescriptions: Continued acetaminophen [Tylenol Arthritis Pain] 650 mg tablet extended release 1,300 mg PO ONCE famotidine [Pepcid AC] 10 mg tablet 10 mg PO ONCE Mylanta Coat-Cool 1,200 mg-270 mg -80 mg/10 mL suspension 10 ml PO DAILY PRN multivitamin [Daily Multi-Vitamin] Tablet 1 tab PO DAILY calcium citrate 760 mg calcium /3.5 gram granules 760 mg PO DAILY [id number] serr [Osteo Bi-Flex (5-Loxin)] 1,500-400-100 mg-unit-mg tablet 1 tab PO DAILY Rx Instructions: give after food/meal Rinvoq 15 mg tablet extended release 24 hr 15 mg PO DAILY atorvastatin 40 mg tablet 40 mg PO QHS Qty: 90 4RF exemestane 25 mg tablet 25 mg PO DAILY Qty: 90 3RF Rx Instructions: must administer after a meal albuterol sulfate [Ventolin HFA] 90 mcg/actuation HFA aerosol inhaler 2 puff inhalation Q6H PRN (Reason: shortness of breath or wheezing) Qty: 25.5 4RF Spiriva Respimat 2.5 mcg/actuation mist 2 puff IH DAILY Qty: 12 5RF levothyroxine 100 mcg tablet 100 mcg PO DAILY Qty: 90 4RF losartan-hydrochlorothiazide [Hyzaar] 100-25 mg tablet 0.5 tab PO DAILY Qty: 90 3RF oxycodone 5 mg tablet 5 mg PO Q8H MDD 15 PRN (Reason: pain) Qty: 30 0RF Patient Comments: 2.5 mg taken apixaban 5 mg tablet 5 mg PO BID Qty: 180 2RF coenzyme Q10 [Co Q-10] 50 MG capsule 1 cap PO DAILY Patient Comments: patient is unsure of dosage metformin 500 mg tablet 500 mg PO BID Patient Comments: TAKE ONE TABLET BY MOUTH TWICE A DAY fluticasone propion-salmeterol [Advair Diskus] 500-50 mcg/dose blister with device 1 inh IH ONCE metoprolol succinate 25 mg tablet extended release 24 hr 25 mg PO DAILY Qty: 30 0RF Discharge Instructions Instructions: Taking oral medicines for blood clots, Deep Vein Thrombosis (DVT) ED Additional Instructions: Take the Eliquis as prescribed, I have given you the first 2 doses of 10 mg each You have 1 deep blood clot and 1 superficial blood clot in your legs, the Eliquis should start working immediately to help dissolve these You had a CAT scan of your chest yesterday which did not show a blood clot in your chest, you are not having any shortness of breath or chest pain today which is reassuring Please do take these medications as prescribed and make sure you fill the prescription your doctor has sent in for Eliquis tomorrow Use caution, if you hit your head you should be evaluated immediately for bleeding as this medication can increase your risk Also if you notice blood in your stool, vomit, or any unusual rashes you should be reassessed immediately please follow-up with your primary care physician for recheck next week and return earlier should you have worsening chest pain, shortness of breath, or should any new concerns arise Referrals: Leighann Zuñiga MD, [place] [Primary Care Provider, Medicine] HPI General Date/Time Provider Initiated Documentation: 01/15/25 14:18. HPI Narrative: This 74-year-old female presents for follow-up on DVT study that was performed just prior to arrival here. She was evaluated for palpitations and chest pain in the emergency department last evening and had a PE study that was negative for patient. She states she was subsequently ordered for DVT study secondary to an elevated lab test. She denies any current chest pain or shortness of breath and states she feels quite well. She denies any significant new swelling to her legs. Does have a prior history of DVT in the past that was post ankle surgery many years ago per patient. She has not had a DVT since that time she denies any recent flights, surgeries, long drives or history of tobacco use. Related Data Home Medications ?Medication ?Instructions ?Recorded ?Confirmed coenzyme Q10 50 mg capsule (Co 1 cap PO DAILY 01/08/16 01/15/25 Q-10) calcium citrate 760 mg PO DAILY 05/19/20 01/15/25 multivitamin (Daily Multi-Vitamin 1 tab PO DAILY 05/19/20 01/15/25 tablet) acetaminophen 650 mg 1,300 mg PO ONCE 07/13/20 01/15/25 tablet,extended release (Tylenol Arthritis Pain) glucosamine [id number] 1 tab PO DAILY 12/23/20 01/15/25 malachi 1,500 mg-400 unit-100 mg tablet (Osteo Bi-Flex (5-Loxin)) upadacitinib 15 mg tablet,extended 15 mg PO DAILY 06/23/21 01/15/25 release 24 hr (Rinvoq) atorvastatin 40 mg tablet 40 mg PO QHS #90 tabs 04/24/24 01/15/25 albuterol sulfate 90 mcg/actuation 2 puff inhalation Q6H PRN 06/16/24 01/15/25 aerosol inhaler (Ventolin HFA) shortness of breath or wheezing #25.5 grams exemestane 25 mg tablet 25 mg PO DAILY #90 tabs 06/16/24 01/15/25 tiotropium bromide 2.5 2 puff inhalation DAILY #12 grams 07/08/24 01/15/25 mcg/actuation mist for inhalation (Spiriva Respimat) levothyroxine 100 mcg tablet 100 mcg PO DAILY #90 tabs 09/16/24 01/15/25 calcium carb 1,200 mg-mag hydrox 10 ml PO DAILY PRN 10/30/24 01/15/25 270 mg-simeth 80 mg/10 mL oral susp (Mylanta Coat-Cool) famotidine 10 mg tablet (Pepcid AC) 10 mg PO ONCE 10/30/24 01/15/25 losartan 100 0.5 tab (1/2 x 100-25 mg) PO DAILY 12/19/24 01/15/25 mg-hydrochlorothiazide 25 mg #90 tab-caps tablet (Hyzaar) oxycodone 5 mg tablet 5 mg PO Q8H PRN pain #30 tabs 01/05/25 01/15/25 fluticasone 500 mcg-salmeterol 50 1 inh inhalation ONCE 01/14/25 01/15/25 mcg/dose blistr powdr for inhalation (Advair Diskus) metformin 500 mg tablet 500 mg PO BID 01/14/25 01/15/25 apixaban 5 mg tablet 5 mg PO BID #180 tabs 01/15/25 metoprolol succinate 25 mg 25 mg PO DAILY #30 tabs 01/15/25 01/15/25 tablet,extended release 24 hr Previous Rx's ?Medication ?Instructions ?Recorded atorvastatin 40 mg tablet 40 mg PO QHS #90 tabs 04/24/24 albuterol sulfate 90 mcg/actuation 2 puff inhalation Q6H PRN 06/16/24 aerosol inhaler (Ventolin HFA) shortness of breath or wheezing #25.5 grams exemestane 25 mg tablet 25 mg PO DAILY #90 tabs 06/16/24 tiotropium bromide 2.5 2 puff inhalation DAILY #12 grams 07/08/24 mcg/actuation mist for inhalation (Spiriva Respimat) levothyroxine 100 mcg tablet 100 mcg PO DAILY #90 tabs 09/16/24 losartan 100 0.5 tab (1/2 x 100-25 mg) PO DAILY 12/19/24 mg-hydrochlorothiazide 25 mg #90 tab-caps tablet (Hyzaar) oxycodone 5 mg tablet 5 mg PO Q8H PRN pain #30 tabs 01/05/25 apixaban 5 mg tablet 5 mg PO BID #180 tabs 01/15/25 metoprolol succinate 25 mg 25 mg PO DAILY #30 tabs 01/15/25 tablet,extended release 24 hr Allergies Allergy/AdvReac Type Severity Reaction Status Date / Time levofloxacin Allergy Mild rash Verified 01/15/25 14:10 budesonide (From Symbicort) AdvReac Severe chest pain Verified 01/15/25 14:10 doxycycline AdvReac Severe esophagitis Verified 01/15/25 14:10 duloxetine AdvReac Severe hallucinati Verified 01/15/25 14:10 ons formoterol fumarate (From AdvReac Severe chest pain Verified 01/15/25 14:10 Symbicort) midazolam HCl (From Versed) AdvReac Intermediate Contraindic Verified 01/15/25 14:10 ated zolpidem AdvReac Intermediate Dizziness/L Verified 01/15/25 14:10 ighthead enalaprilat AdvReac Mild Cough Verified 01/15/25 14:10 General Stated Complaint: Recheck ANA: 4 Exam Narrative Exam Narrative: Alert, oriented, speaking in complete sentences cardiac rate rhythm regular no respiratory distress no visible swelling noted to legs Course Vital Signs Vital signs: Vital Signs Temperature 36.6 C 01/15/25 14:11 Pulse 82 01/15/25 14:11 Respiratory Rate 20 01/15/25 14:11 Blood Pressure 121/77 01/15/25 14:11 Pulse Oximetry 93 01/15/25 14:11 Temperature 36.6 C 01/15/25 14:11 Temperature Source Oral 01/15/25 14:11 Pulse 82 01/15/25 14:11 Respiratory Rate 20 01/15/25 14:11 Blood Pressure 121/77 01/15/25 14:11 Blood Pressure Position Sitting 01/15/25 14:11 Pulse Oximetry 93 01/15/25 14:11 Oxygen Delivery Method Room Air 01/15/25 14:11 Oxygen Flow Rate 0 01/15/25 14:11 Medical Decision Making Results: Bilateral lower extremity ultrasound: There is a DVT in the right for more S femoral vein measuring 3.9 cm in length. 2. There is occlusive thrombus seen within intramuscular vein in the left calf measuring approximately 4 cm in length. CBC and CMP reviewed from yesterday with stable creatinine and LFTs Assessment and plan: Patient with right DVT and left superficial thrombus. She is asymptomatic from a respiratory standpoint and she had a normal CTA PE from yesterday so I do not feel like this needs to be repeated. She is not hypoxic tachypneic, or tachycardic. While I was in the room relaying results, patient's PCP from [facility] called and she was actually started on Eliquis so I supplied 2 doses in the emergency department 1 for now of 10 mg and 1 for tomorrow morning at 10 mg. She will fill the Eliquis tomorrow and take it as prescribed and follow-up with her primary care physician. Precautions regarding taking anticoagulants were reviewed in detail and patient expressed understanding. PFSH All Active Problems (Updated 01/15/25 @ 14:38 by KATY Carter) DVT (deep venous thrombosis) (Chronic) Left leg swelling (Acute) Right leg swelling (Acute) Atrial tachycardia (Acute) Trochanteric bursitis of both hips (Acute) Piriformis syndrome of both sides (Acute) Tachycardia (Acute) Low vitamin B12 level (Acute) Epigastric pain (Acute) Left knee pain (Acute) Pes planovalgus (Acute ~09/01/24) Bilaterally [facility] radiology [place], bilateral (Acute ~09/01/24) Degenerative joint disease of foot (Acute ~09/01/24) [facility]- Bilateral foot films Joint degeneration of the feet in a pattern of moderate to severe osteoarthropathy, possibly secondary to the synovitis of remote rheumatoid arthritis based on patient history. No erosive disease to correspond with active rheumatoid arthritis. Obesity (BMI 30-39.9) (Acute) Positive colorectal cancer screening using Cologuard test (Acute) Arthritis of left glenohumeral joint (Acute) Arthritis of right glenohumeral joint (Acute) Right rotator cuff tear arthropathy (Acute) Decreased hearing (Acute) Arthritis of hand, left, degenerative (Acute) Wrist pain (Acute) Pain of left thumb (Acute) Dysphagia (Acute) Disordered sleep (Acute) Urachal cyst (Acute) Cervical spondylosis with myelopathy (Acute) H/O cervical spine surgery (Acute) Acute right hip pain (Acute) Palpitation (Acute) COVID-19 (Acute) 08/31/21 Stage 3 chronic kidney disease (Acute) 06/2021, Cr-1.3 Dizziness (Acute) Abdominal wall anomaly (Acute) Invasive ductal carcinoma of breast, female (Acute) Left wrist tendonitis (Acute) probably secondary to RA Spinal stenosis of cervical region (Acute) Severe at C3/C4. 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 (Acute) Parastomal hernia (Acute 07/09/12) Peripheral neuropathy (Chronic) feet Rheumatoid arthritis (Chronic 07/10/12) discoid lupus Obesity (Chronic) Lumbar stenosis (Chronic 11/22/16) [facility]-EPIDURAL STEROID INJECTION Hypothyroidism (Chronic 07/10/12) 1993-Grave's disease; S/P SHORE 131; Hyperlipidemia (Chronic 12/14/14) History of tobacco use (Chronic) Hiatal hernia (Chronic 03/22/93) Gastroesophageal reflux disease (Chronic) Essential hypertension (Chronic 07/16/13) check some BPs at home as discussed use machine we lent you pls return it when yuivana see Dr Khoury next month Asthma (Chronic 01/07/13) continue current meds Medical History (Updated 01/15/25 @ 14:38 by KATY Carter) Tubular adenoma of colon (~02/2024) Mass of right breast on mammogram History of fracture of right ankle Pin in place, subsequent blood clot per Pt Hx of blood clots RLE Valgus deformity, not elsewhere classified, left knee SOB (shortness of breath) given cardiac risk factors and upcoming surgery, feel dynamic study warranted Abnormal cervical Papanicolaou smear Primary osteoarthritis of left knee (10/30/16) Glossitis (06/05/13) Cholelithiasis without obstruction (03/22/93) CTS (carpal tunnel syndrome) (05/08/14) Asthma GERD (gastroesophageal reflux disease) Chest pain pt. states she doesn't remember this Surgical History (Updated 12/08/24 @ 09:59 by Analisa Sheets) History of esophagogastroduodenoscopy (~12/05/24) Hx of neck surgery 2019- I had cadaver bones wraped in titanium placed in my neck History of total right knee replacement (TKR) (08/29/22) History of ankle surgery right with pin Hx of appendectomy Hx of cholecystectomy Hx of total knee arthroplasty Right TKA DOS: 08/29/22 History of lumpectomy History of total left knee replacement (TKR) (02/19/19) Dr. Roldan History of colonoscopy (~02/2024) History of section History of orthopedic surgery R foot Status post appendectomy Status post cholecystectomy Status post tonsillectomy EGD - MAC (02/25/16) Cervical Procedure (~1978) Anterior cervical stabilization neck with cadavar bones Family History Mother , 67 Alcohol abuse Essential hypertension Heart disease ANGINA Stroke Brother , 44 Alcohol abuse Lung cancer Father , 70s Alcohol abuse Heart disease Daughter Asthma Cancer Breast MATERNAL HISTORY Autoimmune disease Brother , 67 Substance abuse POT Cancer Lung and brain Maternal Grandfather No problems noted. Paternal Grandfather Diabetes Maternal Grandmother No problems noted. Paternal Grandmother No problems noted. Social History (Updated 11/21/22 @ 11:38 by Cintia Antunez) Smoking/Tobacco Use Status: Former Tobacco Use tobacco type: cigarettes Quit Date: 04/23/86 Tobacco: How many years used: 18 Second Hand Exposure: Yes Smoking risk assessment performed?: Yes Alcohol Intake: former Drug use: Never Substance use type: does not use Caregiver/Support person: No Household members: none Housing: house Communication Needs: None Do you need help understanding health information?: Never Pets and animals: Yes Pets and animals: cat(s) Sexually active: No Do you think of yourself as: lesbian/longo/homosexual Current gender identity: female What is your relationship status?: How often do you talk on the phone with friends or family?: three or more times per week How often do you get together with friends or relatives?: once per week Do you belong to any clubs or organized social groups?: yes Panel score (0-1 are the most socially isolated patients): 2 What type of physical activity do you participate in: other Details: Pool PT Duration: < 15 minutes/day Frequency: 1-2 times per week Dahiana/Latter Day: None Special dahiana needs: No Seatbelt use: always Helmet use: No Drive intox or ride w/intox van driver helper: No Do you feel safe at home: Yes Do you feel safe in your relationship?: Yes Additional Social history: lives alone
== END 2025-01-15 15:04 | disposition home or self-care (01) ==
LOC: ER 14:52
PROVIDERS: Emergency Provider Physician Assistant; PCP Family Medicine
DX: I82.411 Acute embolism and thrombosis of right femoral vein (principal); I82.462 Acute embolism and thrombosis of left calf muscular vein
CPT/HCPCS: 99283 ×2; 93970

== ENCOUNTER 2025-01-19 15:53 | Outpatient (REF) | payer MEDICARE, BC, SELFPAY ==
[2025-01-19 18:11] LABS: COMMENT (LAB VIEW ONLY) 107.18 mg/dL; Microalb ug/mg Crea 20.5 ug/mg Cr
== END 2025-01-19 15:54 | disposition home or self-care (01) ==
LOC: LBN 15:53
PROVIDERS: PCP Family Medicine; Visit Provider Family Medicine
DX: E11.9 Type 2 diabetes mellitus without complications (principal)
CPT/HCPCS: 82043; 82570

== ENCOUNTER 2025-01-28 03:54 | Outpatient (CLI) | payer MEDICARE, BC, SELFPAY ==
[2025-01-28 14:09] LABS: HCT 33.7 % (36.0-46.0); HGB 11.2 g/dL (11.2-15.7); MCH 30.5 pg (27.0-33.0); MCHC 33.2 % (32.0-36.0); MCV 92 fL (80-95); MPV 10.5 fL (8.0-11.0); Platelet Count 349 10^3/uL (130-400); RBC 3.67 10^6/uL (3.93-5.22); RDW 13.3 % (11.7-14.6); RDW-SD 45.2 fL; WBC 7.69 10^3/uL (4.4-10.8)
[2025-01-28 14:14] LABS: ESR 8 mm/hr (0-30)
[2025-01-28 14:31] LABS: ALT 39 U/L (14-59); AST 33 U/L (15-37); Albumin 4.1 g/dL (3.4-5.0); Alkaline Phosphatase 33 U/L (46-116); Anion Gap 11.8 mmol/L (3-11); BUN 23 mg/dL (7-18); Bilirubin, Total 0.4 mg/dL (0.2-1.0); CO2 27.2 mmol/L (21.0-32.0); Calcium 9.7 mg/dL (8.5-10.1); Calculated LDL 49 mg/dL (<100); Chloride 100 mmol/L (98-107); Cholesterol 132 mg/dL (<200); Estimated GFR 43.15 (mL/min/1.73m2); Glucose 136 mg/dL (74-106); HDL Cholesterol 48 mg/dL (>or=50); Potassium 3.7 mmol/L (3.5-5.1); Sodium 139 mmol/L (136-145); TSH (W/Ref FT4) 1.80 uIU/mL (0.36-3.74); Total Protein 7.2 g/dL (6.4-8.2); Triglyceride 176 mg/dL (<150)
[2025-01-28 14:40] LABS: Abs Immature Grans 0.00 10^3/uL (0.0-0.06); Immature Grans % 0.0 %; RBC Morphology Normal
[2025-01-28 14:50] LABS: C-Reactive Protein < 0.50 mg/dL (<or=0.5)
== END 2025-01-28 03:55 | disposition home or self-care (01) ==
LOC: LOS 03:54
PROVIDERS: PCP Family Medicine; Visit Provider Nurse Practitioner
DX: I10 Essential (primary) hypertension (principal); E03.9 Hypothyroidism, unspecified
CPT/HCPCS: 80053; 80061; 85027; 85652; 84443; 85025; 86140

== ENCOUNTER 2025-02-03 03:29 | Outpatient (CLI) | payer MEDICARE, BC, SELFPAY ==
--- NOTE | 2025-02-03 13:52 | W.NUTRFU ---
Date of service: 02/03/25 Time of Service: 13:00 Nutrition Note NOTE: appt completed telephonically with Gilda today as she was having trouble with scheduling a visit in person between health concerns and transportation is tight. She wanted to review a few questions and wants to be sure she is on the right track for keeping her glucose at target - her last a1c was 6.1% 01/19/25 and her history shows it has not gone above 7%. We discussed whole wheat vs whole grain per her questioning and reviewed good rule of thumb is to make sure at least 3 g of fiber per serving of grain products,...also better to try intact grains that are less or not milled (oat groats, quinoa, millet, Buckwheat groats, wheatberries as examples). Also reviewed 15:1 rule of 1 g fiber for every 15g total carbs will result in a better higher fiber choice and more whole grains. Reviewed added sugar and staying under 40g per day, 30g even better, but to allow some enjoyment by not restricting too much. We discussed reading labels as she though all natural peanut butter meant no added sugar when in fact honey can be added as a sweetener and still be all natural. Answered some questions and she knows she can call or reach out with any more questions or need for guidance Time Spent in Nutritional Counseling and Treatment: 40 min
== END 2025-02-03 03:30 | disposition home or self-care (01) ==
LOC: DS 03:29
PROVIDERS: PCP Family Medicine; Visit Provider Dietitian, Registered
DX: E11.9 Type 2 diabetes mellitus without complications (principal)
CPT/HCPCS: 00123; 97802

== ENCOUNTER 2025-02-11 01:22 | Outpatient (CLI) | payer MEDICARE, BC, SELFPAY ==
--- NOTE | 2025-02-11 07:30 | DI.US_ITS ---
Exam(s) US LOWER EXTREMITY VENOUS RT EXAM: US LOWER EXTREMITY VENOUS RT CLINICAL HISTORY: right thigh ecchymosis, known DVT,I82.401 TECHNIQUE: Right lower extremity venous ultrasound performed using grayscale, color-flow, and spectral Doppler analysis. COMPARISON: US US EXTREMITY VENOUS BI from 01/15/2025 FINDINGS: There is residual nonocclusive thrombus seen in the right femoral profundus vein measuring 1.3 cm in length. The right common femoral, femoral and popliteal veins demonstrate normal compressibility, augmentation, and color Doppler. The posterior tibial veins are patent. The saphenofemoral junction is unremarkable. There is no evidence of a Walker cyst. The soft tissues are unremarkable. IMPRESSION: 1. Residual nonocclusive thrombus seen in the right femoral profundus vein measuring 1.3 cm in length. 2. No new thrombus is seen in the right lower extremity. DATA REPOSITORY:
--- NOTE | 2025-02-11 07:30 | DI.RAD_ITS ---
Exam(s) XR FEMUR RT EXAM: XR FEMUR RT CLINICAL HISTORY: right thigh ecchymosis,[id number].. TECHNIQUE: 2D digital imaging was performed. AP and lateral views. COMPARISON: CR XR STANDING ALIGNMENT from 09/11/2022 FINDINGS: BONES: No acute fracture is present. No bony destructive lesion is seen. JOINTS: The total knee prosthesis is unremarkable as visualized. Not well profiled on the lateral view. Is mild joint space narrowing of the right hip. There is acetabular spurring. There are enthesophytes at the greater trochanter and ischium. SOFT TISSUE: Vascular calcifications. IMPRESSION: Mild degenerative changes of the right hip. Right knee prosthesis. No acute abnormality. DATA REPOSITORY: RADIATION DOSE DELIVERED:
== END 2025-02-11 01:42 ==
LOC: DI 01:22
PROVIDERS: PCP Family Medicine; Visit Provider Nurse Practitioner Family
DX: I82.411 Acute embolism and thrombosis of right femoral vein (principal); R58 Hemorrhage, not elsewhere classified; M16.11 Unilateral primary osteoarthritis, right hip
CPT/HCPCS: 73552; 93971

== ENCOUNTER → 2025-02-18 01:26 | Outpatient (CLI) | payer MEDICARE, BC, SELFPAY ==
--- NOTE | 2025-02-18 14:30 | DI.US_ITS ---
APPROVED REPORT EXAM: Comprehensive 2D, Doppler, and color-flow Echocardiogram Patient Location: Out-Patient [facility] Laboratory Assistant: Era Silver RDCS (AE) Indications: Dyspnea, SVT Other Information Study Quality: Fair. Technically limited study due to body habitus. Conclusion Normal left ventricular wall thickness and chamber size. Ejection fraction is 50%. There are no segmental wall motion abnormalities Normal right ventricular size and function Both atria are normal in size There is no significant valvular disease Wall motion Left Ventricle The left ventricle is normal size. The overall left ventricular systolic function appears normal. There is normal left ventricular wall thickness. There are no segmental wall motion abnormalities LVEF is 50%. Right Ventricle The right ventricle is normal size. The right ventricular systolic function is normal. Atria The left atrium size is normal. The right atrium size is normal. The interatrial septum is intact with no evidence for an atrial septal defect. Aortic Valve The aortic valve is normal in structure. Number of aortic valve leaflets could not be assessed. There is no aortic valvular stenosis. No aortic regurgitation is present. Mitral Valve The mitral valve is normal in structure. No evidence of mitral valve stenosis. Trace to mild mitral regurgitation. Tricuspid Valve The tricuspid valve is normal in structure. There is no tricuspid valve stenosis. Trace tricuspid regurgitation. Unable to assess PA pressure. Pulmonic Valve Pulmonic valve is not well visualized. Great Vessels The aortic root is normal in size. Ascending aorta is not well visualized. Aortic arch is not well visualized. IVC is normal in size and collapses >50% with inspiration. Pericardium There is no pericardial effusion. 2D Dimensions IVSD d PLAX 1.00 cm F: 0.6-1.0 Ao Root d 2.83 cm F: 2.7 - 3.3 LVPW d PLAX 1.03 cm F: 0.6 - 1.0 LVID d PLAX 4.50 cm F: 3.8 - 5.2 LVDs 3.42 cm F: 2.2 - 3.5 LV EF Teichholz 47.5 % FS 23.75 % LV EDV (Teich) 91.9 mL LV ESV (Teich) 48.2 mL Auto EF LV EDV A4C 148.0 mL LV EDV A2C 106.5 mL LV EDV BP 126.3 mL LV ESV A4C 72.8 mL LV ESV A2C 54.9 mL LV ESV BP 65.1 mL LVEF(%) A4C 50.8 % LVEF(%) A2C 48.5 % LVEF(%) BP 48.5 % LV SV A4C 75.2 ml LV SV A2C 51.7 ml LV SV BP 61.2 ml LV CO A4C 5.4 L/min LV CO A2C 3.5 L/min LV CO BP 4.4 L/min HR A4C 71.86 BPM HR A2C 67.04 BPM LV EDV Index (BP) LV Diastology MV E' medial 0.077 (>0.07 m/s) MV E Vmax 0.72 (0.4-1.3 m/s) MV E/E' MED 9.33 (<14) MV A Vmax 0.75 (0.4-1.3 m/s) MV E' lateral 0.071 (>0.1 m/s) E/A Ratio 1.0 MV E/E' LAT 10.03 (<14) MV E' Average 0.074 m/s MV E/E'(average) 9.67 Aortic Valve AoV Vmax 1.15 m/s LVOT Vmax 0.96 m/s AoV Peak Grad 5.3 mmHg LVOT Peak Grad 3.7 mmHg AoV Area (Vmax) 2.72 cm2 LVOT VTI 0.190 m AoV VTI 0.248 m LVOT Mean Grad 1.8 mmHg AoV Mean Sedrick. 0.79 m/s LVOT SV 61.73 mL AoV Mean Grad 3.0 mmHg LVOT Diam s 2.00 cm AoV Area (VTI) 2.49 cm2 AV Regurg Peak Gr. 5.25 mmHg Velocity Ratio 0.83 Mitral Valve MV DT 152 (160-240 msec) MV Vmax TIPS 0.86 m/s MV Mean Grad 1.6 (<2mmHg) MV VTI 0.240 m Tricuspid Valve TV S' 0.12 m/s
== END ==
LOC: DI 01:26
PROVIDERS: PCP Family Medicine; Visit Provider Registered Nurse
DX: R06.00 Dyspnea, unspecified (principal)
CPT/HCPCS: 93306

== ENCOUNTER → 2025-02-25 02:00 | Outpatient (CLI) | payer MEDICARE, BC, SELFPAY ==
--- NOTE | 2025-02-25 11:22 | DI.MAMMO_ITS ---
Exam(s) MG MAMMO SCREENING 60 MIN DUR EXAM: MG MAMMO SCREENING 60 MIN DUR CLINICAL HISTORY: breast cancer screening,PERSONAL H/O BREAST CA,Z85.3. TECHNIQUE: Bilateral full field digital CC and MLO mammographic images were obtained with 3D tomosynthesis and utilizing computer aided detection (CAD). COMPARISON: Prior mammograms were reviewed. FINDINGS: There has apparently been previous right lumpectomy. No new right breast findings. In the left breast on the CC view there is a well-defined 6 x 5 mm nodular density located 3 cm lateral to the nipple on the CC view, not previously evident. Spot compression view recommended. There is also a 7 x 5 mm noncalcified nodular density located laterally on the CC view, approximately 5 cm from the nipple. Also acquire spot compression view. More medially in the left breast there is a small 2 mm nodule located 7 cm in from the nipple medial of center on the left CC view, not previously present. This also requires further imaging. No new architectural distortion nor skin thickening-retraction. IMPRESSION: 1. No radiographic evidence of malignancy in the right breast (side of previous surgery) 2. Three nodular densities in the left breast as described individually above. These require further imaging with spot views and complete left breast ultrasound. BI-RADS Category 0 - Incomplete: Need additional imaging evaluation Breast Density - Category B - There are scattered areas of fibroglandular density. Breast density Category C or D implies that the patient has dense breast tissue. Dense breast tissue can make it harder to find cancer on a mammogram. Dense breast tissue is also associated with an increased risk of breast cancer. This information about the result of the mammogram report was provided to the patient to raise their awareness. Use this report when you speak with the patient about their risks for breast cancer, which includes their family history. At that time, you may recommend additional screening tests (Ultrasound or MRI) as these tests may add significant information. A negative radiographic report should not delay biopsy if a dominant or clinically suspicious mass is present. Up to ten percent of cancers are not identified on mammography. A negative report may reinforce clinical impression. Adenosis and dense breasts may obscure an underlying neoplasm. False positive reports average 6 to 10%. Patient will receive a letter notifying them of these results.
== END ==
LOC: DI 02:01
PROVIDERS: PCP Family Medicine; Visit Provider Family Medicine
DX: Z85.3 Personal history of malignant neoplasm of breast (principal); Z12.31 Encounter for screening mammogram for malignant neoplasm of breast
CPT/HCPCS: 77063; 77067

== ENCOUNTER 2025-03-03 14:56 | Outpatient (CLI) | payer MEDICARE, BC, SELFPAY ==
[2025-03-03 16:45] LABS: Vitamin B12 1129 pg/mL (211-911)
[2025-03-03 16:58] LABS: C-Reactive Protein 1.37 mg/dL (<=0.50)
[2025-03-03 17:11] LABS: Abs Immature Grans 0.07 10^3/uL (0.0-0.06); HCT 32.8 % (36.0-46.0); HGB 10.6 g/dL (11.2-15.7); Immature Grans % 0.6 %; MCH 30.7 pg (27.0-33.0); MCHC 32.3 % (32.0-36.0); MCV 95 fL (80-95); MPV 10.5 fL (8.0-11.0); Platelet Count 366 10^3/uL (130-400); RBC 3.45 10^6/uL (3.93-5.22); RDW 13.5 % (11.7-14.6); RDW-SD 47.1 fL; WBC 10.77 10^3/uL (4.4-10.8)
[2025-03-03 17:15] LABS: ESR 43 mm/hr (0-30)
[2025-03-03 17:32] LABS: ALT 22 U/L (10-49); AST 28 U/L (<34); Albumin 4.3 g/dL (3.4-5.0); Alkaline Phosphatase 42 U/L (46-116); Anion Gap 9.8 mmol/L (3-11); BUN 19 mg/dL (9-23); Bilirubin, Total 0.30 mg/dL (0.2-1.2); CO2 26.2 mmol/L (20.0-31.0); Calcium 10.0 mg/dL (8.3-10.6); Chloride 105 mmol/L (98-107); Glucose 138 mg/dL (74-106); Potassium 4.0 mmol/L (3.5-5.1); Sodium 141 mmol/L (136-145); Total Protein 7.2 g/dL (5.7-8.2)
[2025-03-05 10:22] LABS: Lyme Ab w Rflx to Lyme Confirm Negative (Negative)
[2025-03-05 12:38] LABS: TB Interpretation Negative (Negative); TB1 Ag minus Nil 0.00 IU/mL; TB2 Ag minus Nil 0.00 IU/mL
[2025-03-07 17:30] LABS: B. miyamotoi PCR Negative (Negative); Babesia divergens/MO-1 Negative (Negative); Ehrlichia muris eauclairensis Negative (Negative)
== END 2025-03-03 14:57 | disposition home or self-care (01) ==
LOC: LOS 14:57
PROVIDERS: PCP Family Medicine; Visit Provider Family Medicine
DX: M79.10 Myalgia, unspecified site (principal); M05.20 Rheumatoid vasculitis with rheumatoid arthritis of unspecified site; R79.89 Other specified abnormal findings of blood chemistry; I10 Essential (primary) hypertension; J98.8 Other specified respiratory disorders
CPT/HCPCS: 36415; 80053; 85652; 87798; 82607; 85025; 86140; 86480; 86618

== ENCOUNTER → 2025-03-06 03:10 | Outpatient (CLI) | payer MEDICARE, BC, SELFPAY ==
--- NOTE | 2025-03-06 13:00 | DI.RAD_ITS ---
Exam(s) XR CHEST 2V PA LATERAL EXAM: XR CHEST 2V PA LATERAL CLINICAL HISTORY: productive cough,R05.8. TECHNIQUE: 2D digital imaging was performed. COMPARISON: CT CT CHEST/ABD/PEL W from 10/22/2024 CR XR CHEST 2V PA LATERAL from 12/12/2024 CR,XR XR PORTABLE CHEST AP from 01/14/2025 FINDINGS: 2 views: Heart size is normal. The mediastinum is not widened. Some COPD findings. No obvious infiltrates nor pleural effusions. No pulmonary edema. On the lateral view there is a suggestion of a nodular density behind the heart, this measuring 1.3 x 1.2 cm. No other focal lung findings. IMPRESSION: On the lateral view there is a 13 x 12 mm nodular density in the retrocardiac region, possibly a new lung nodule. Recommend follow-up chest CT scan. DATA REPOSITORY: RADIATION DOSE DELIVERED:
--- NOTE | 2025-03-06 13:00 | DI.RAD_ITS ---
Exam(s) XR CERVICAL SPINE COMP 4-5V EXAM: XR CERVICAL SPINE COMP 4-5V CLINICAL HISTORY: neck pain, s/p surgery,SPINAL STENOSIS,M48.02. TECHNIQUE: 2D digital imaging was performed. COMPARISON: CR,RF RF BARIUM SWALLOW from 11/03/2024 FINDINGS: Six views Again noted is an anterior fusion plate extending from upper C3 2 mid-lower C6 level, secured by 2 screws at each level and appearing unchanged. There are intervertebral plugs at these levels again evident without significant retropulsion. One level above the fusion at C2-3 there persists normal disc height. One level below the fusion at C6-7 level there is chronic disc space narrowing, also unchanged. There is no facet joint malalignment evident. No obvious hardware loosening nor hardware fracture. Facet arthropathy appears to be most prominent at C4-5 level. There are no cervical ribs. IMPRESSION: Hardware as above. No radiographic change compared to images of 11/03/2024. DATA REPOSITORY: RADIATION DOSE DELIVERED:
== END ==
LOC: DI 03:10
PROVIDERS: PCP Family Medicine; Visit Provider Family Medicine
DX: R05.8 Other specified cough (principal); M48.02 Spinal stenosis, cervical region; Z12.31 Encounter for screening mammogram for malignant neoplasm of breast
CPT/HCPCS: 71046; 72050

== ENCOUNTER → 2025-03-09 01:32 | Outpatient (CLI) | payer MEDICARE, BC, SELFPAY ==
--- NOTE | 2025-03-09 | DI.US_ITS ---
Exam(s) MG MAMMO SCREEN CALL BACK UNI US BREAST LT COMPLETE EXAM: MG MAMMO SCREEN CALL BACK UNI CLINICAL HISTORY: 3 NODULAR DENSITIES LT BREAST R92.8 ABNL MAMMO. TECHNIQUE: Craniocaudal and mediolateral oblique spot compression digital Mammography views of the left breast with Tomosynthesis and left breast ultrasound. COMPARISON: MG MG MAMMO SCREENING 60 MIN DUR from 02/25/2025 US US BREAST LT COMPLETE from 03/09/2025 and exams back to 2016 FINDINGS: Mammography/Tomosynthesis: Masses: There are persistent circumscribed nodules, 2 lateral to the nipple and a 3rd tiny nodule in the medial portion of the breast Architectural Distortion: None seen. Microcalcifictions: No suspicious pleomorphic-type are seen. Skin Thickening/Nipple Retraction: None. Left breast US: Echotexture: Normal appearance of the glandular tissue. Shadowing: No suspicious foci. Cyst: 6 millimeter cyst 12 o'clock position 3 cm from the nipple. 8 x 4 x 5 millimeters cyst 2 o'clock position 3 cm from the nipple. 5 millimeter cyst 3 o'clock position 2 cm from the nipple. 7 x 5 x 5 millimeters cyst 4 o'clock position 4 cm from the nipple 3 millimeter cyst 5 o'clock position 5 cm from the nipple Solid lesions: None seen. Ductal dilation: None. IMPRESSION: 1. No evidence of malignancy is noted. Multiple cysts are noted 2. Unless there is more urgent need, follow-up screening mammography is recommended, as per [employer] guidelines. 3. The findings were discussed with the patient on the date of the examination. BI-RADS Category 2 - Benign Findings Breast Density - Category B - There are scattered areas of fibroglandular density. Breast density Category C or D implies that the patient has dense breast tissue. Dense breast tissue can make it harder to find cancer on a mammogram. Dense breast tissue is also associated with an increased risk of breast cancer. This information about the result of the mammogram report was provided to the patient to raise their awareness. Use this report when you speak with the patient about their risks for breast cancer, which includes their family history. At that time, you may recommend additional screening tests (Ultrasound or MRI) as these tests may add significant information. A negative radiographic report should not delay biopsy if a dominant or clinically suspicious mass is present. Up to ten percent of cancers are not identified on mammography. A negative report may reinforce clinical impression. Adenosis and dense breasts may obscure an underlying neoplasm. False positive reports average 6 to 10%. Patient will receive a letter notifying them of these results.
== END ==
LOC: DI 01:32
PROVIDERS: PCP Family Medicine; Visit Provider Family Medicine
DX: R92.8 Other abnormal and inconclusive findings on diagnostic imaging of breast (principal); Z12.31 Encounter for screening mammogram for malignant neoplasm of breast
CPT/HCPCS: 76642; 77063; 77067

== ENCOUNTER 2025-03-09 02:20 | Outpatient (CLI) | payer MEDICARE, BC, SELFPAY ==
[2025-03-09] MEDS: ABATACEPT 750 MG in Normal Saline 100 ML 200 MG IVPB (12:39)
[2025-03-09] MEDS: Normal Saline Flush 10 ML SYR IVP (12:39)
== END 2025-03-09 02:21 | disposition home or self-care (01) ==
LOC: INF 02:20
PROVIDERS: PCP Family Medicine; Visit Provider Nurse Practitioner Acute Care
DX: M06.9 Rheumatoid arthritis, unspecified (principal)
CPT/HCPCS: 96365; J0129

== ENCOUNTER 2025-03-23 03:31 | Outpatient (CLI) | payer MEDICARE, BC, SELFPAY ==
[2025-03-23] MEDS: Normal Saline Flush 10 ML SYR IVP (12:32)
[2025-03-23] MEDS: ABATACEPT 750 MG in Normal Saline 100 ML 200 MG IVPB (12:32)
== END 2025-03-23 03:32 | disposition home or self-care (01) ==
PROVIDERS: PCP Family Medicine; Visit Provider Nurse Practitioner Acute Care
DX: M06.9 Rheumatoid arthritis, unspecified (principal)
CPT/HCPCS: 96365; J0129

== ENCOUNTER 2025-04-06 00:40 | Outpatient (CLI) | payer MEDICARE, BC, SELFPAY ==
[2025-04-06] MEDS: Normal Saline Flush 10 ML SYR IVP (12:56)
[2025-04-06] MEDS: ABATACEPT 750 MG in Normal Saline 100 ML 200 MG IVPB (12:56)
== END 2025-04-06 00:41 | disposition home or self-care (01) ==
LOC: INF 00:40
PROVIDERS: PCP Family Medicine; Visit Provider Nurse Practitioner Acute Care
DX: M06.9 Rheumatoid arthritis, unspecified (principal)
CPT/HCPCS: 96365; J0129